=== PATIENT | female | born 1945 | race Caucasian/White ===

== ENCOUNTER 2017-04-26 16:25 | Emergency (ER) | payer MEDICARE ==
[~2017-04-26] VITALS: Ht 160 cm; Wt 58.5 kg
[~2017-04-26 16:25] MED LIST: ARICEPT10 MG PO; ASCORBIC ACID500 M3 PO; ASPIR-LOW81 MG PO; ASPIRIN EC81 MG PO; B-12 DOTS500 MCG PO; BUPROPION HCL150 M2 PO; CARVEDILOL25 MG PO; CHLORTHALIDONE25 MG PO; CITALOPRAM HBR10 MG PO; CLOPIDOGREL75 MG PO; COREG25 MG PO; COUMADIN3 MG PO; COZAAR100 MG PO; CRESTOR20 MG PO; DAILY MULTIPLE1 EACH PO; DOXAZOSIN MESYLA2 MG PO; ESCITALOPRAM OX10 MG PO; FISH OIL 1,0001 EAC2 NG; HYDRALAZINE HCL10 MG PO; KLOR-CON 1010 MEQ PO; LASIX20 MG PO; MIRTAZAPINE7.5 MG PO; NORCO 5-325 TA1 EACH PO; NORCO 7.5-3251 EACH PO; NORVASC10 MG PO; POTASSIUM CHLO20 ME1 PO; PROTONIX40 MG PO; SYNTHROID50 MCG PO; TRAZODONE HCL50 MG PO; ULTRAM50 MG PO; VITAMIN D1000 UNI1 PO
--- NOTE | 2017-04-27 18:36 | EKG ---
[facility] [address] [place] [address] Signed Ventricular-paced rhythm Abnormal ECG When compared with ECG of 15-APR-2017 18:07, Vent. rate has decreased BY 9 BPM Confirmed by YAJAIRA AMIN MD ([id number]) on 04/27/2017 6:36:22 PM Electronically Signed By: YAJAIRA AMIN MD 04/27/17 1836 PATIENT NAME: SCOTLAILA Electrocardiogram DATE OF : 41 PHYSICIAN: YAJAIRA AMIN MD REPORT #: [id number] REPORT IS CONFIDENTIAL AND NOT TO BE RELEASED WITHOUT AUTHORIZATION
[2017-05-23] MEDS ORDERED: OMEPRAZOLE20 MG PO (10:07)
== END 2017-04-26 17:48 | disposition home or self-care (01) ==
LOC: ED 16:25
DX: R07.2 Precordial pain (principal); I10 Essential (primary) hypertension; Z90.710 Acquired absence of both cervix and uterus; Z90.49 Acquired absence of other specified parts of digestive tract; Z88.0 Allergy status to penicillin; Z88.2 Allergy status to sulfonamides; Z88.8 Allergy status to other drugs, medicaments and biological substances; Z79.899 Other long term (current) drug therapy; Z79.82 Long term (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; Z79.01 Long term (current) use of anticoagulants
CPT/HCPCS: 71020; 80053; 84484; 85025; 85610; 93005; 93010; 99284

== ENCOUNTER 2017-06-13 19:52 | Inpatient (IN) | payer MEDICARE ==
[~2017-06-13] VITALS: Ht 160 cm; Wt 60.6 kg
[~2017-06-13 19:52] MED LIST changes: +OMEPRAZOLE20 MG PO
--- NOTE | 2017-06-13 23:30 | NUR ---
PT ARRIVED TO THE FLOOR VIA STRETCHER. PT ABLE TO STAND AND TRANSFER TO THE BED. PT DENIES PAIN OR SOB. PT UNABLE TO ACCURATELY REMEMBER HER LAST NAME, HER BIRTHDAY, TIME OR LOCATION. CRACKLES AND EXPIRATORY WHEEZES NOTED THROUGHOUT ALL LUNG ESCOBEDO. WHEEZE CLEARS WITH COUGH, CRACKLES REMAIN. PT'S MONIK AREA CLEANSED, CATH PLACED PER MD ORDER. PT TOLERATED WELL. BED ALARM IN PLACE. CALL LIGHT WITHIN REACH.
--- NOTE | 2017-06-14 00:15 | NUR ---
PT PULLING AT CATHETER, BECOMING AGGRESSIVE. EXPLAINED TO PT THAT SHE HAS TO LEAVE TUBE IN PLCE. PT STATES "I DON'T GIVE A DAMN." UPDATED. ORDER RECEIVED TO REMOVE HAZEL. PT TOLERATED WELL. PT UP TO BATHROOM, URINATED 150. BED ALARM IN PLACE. CALL LIGHT WITHIN REACH.
--- NOTE | 2017-06-14 03:39 | NUR ---
PT UP SEVERAL TIMES TO USE THE BATHROOM, TOLERATING WELL. IMPULSIVE. ATTEMPTS TO GET OOB WITHOUT ASSISTANCE. BED ALARM IN PLACE, FREQUENT REMINDERS. SCD'S TAKEN OFF PT BOTHERED BY THEM. STATES "I THINK THERE IS A CAT IN BED WITH ME", POINTS TO LEGS. CALL LIGHT WITHIN REACH, PT REMINDED TO USE.
--- NOTE | 2017-06-14 04:20 | NUR ---
PT ASSESSMENT COMPLETE. PT DENIES PAIN OR SOB. EXPIRATORY WHEEZE NOTED TO ALL LUNG ESCOBEDO, CLEARS WITH COUGH. CRACKLES NOTED TO BILATERAL LUNG BASES ONLY. O2 @ 2LPM. IS @ BEDSIDE, PT USES APPROPRIATELY WITH FREQUENT INSTRUCTION. TELE IN PLACE. NO EDEMA NOTED TO BILATERAL LOWER EXTREMITIES. PT REMAINS DISORIENTED, PLEASANTLY CONFUSED. UP TO USE BATHROOM FREQUENTLY, ATTENDS IN PLACE. BED ALARM IN PLACE DUE TO IMPULSIVITIY, PT CONTINUES TO ATTEMPT TO GET UP WITHOUT ASSISTANCE.
--- NOTE | 2017-06-14 04:53 | NUR ---
BED ALARM ACTIVATED. PT FOUND TO BE SITTING UP IN BED. PT STATES SHE WAS "JUST MOVING AROUND". PT HAD TAKEN O2 OFF. REMINDED PT TO LEAVE O2 IN PLACE. UNDERSTANDING STATED. DENIES OTHER NEEDS. CALL LIGHT WITHIN REACH. BE ALARM ACTIVATED.
--- NOTE | 2017-06-14 05:32 | NUR ---
PT AWAKE MAJORITY OF NIGHT. DISORIENTED TO ALL. PLEASANTLY CONFUSED. IMPULSIVE; BED ALARM. CRACKLES TO BILATERAL LUNG BASES, O2 @ 2LPM. TELE #7, PACEMAKER. SBA. PT USES BATHROOM APPROPRIATELY, ATTENDS IN PLACE PREVENTIVELY. IV SL. 1600 FLUID RESTRICTION.
--- NOTE | 2017-06-14 07:15 | NUR ---
RECEIVED REPORT FROM PER EV[place]ETT. PATIENT IS SLEEPING IN BED AT THIS TIME.
--- NOTE | 2017-06-14 07:20 | NUR ---
patient had attends changed with [facility]. call button in reach. turned onto back. no other needs at this time.
--- NOTE | 2017-06-14 08:35 | NUR ---
WENT TO ADMINISTER [phone] AND [phone] MEDICATIONS, HOWEVER PATIENT WAS RECEIVING ECHOCARDIOGRAM. MEDICATIONS WILL BE ADMINISTERED AFTER TEST IS COMPLETE.
--- NOTE | 2017-06-14 08:40 | NUR ---
patient sitting up in bed with nurse in room. patient throwing up at this time.
--- NOTE | 2017-06-14 08:40 | NUR ---
patient up to bathroom. ultra sound tech in room.
--- NOTE | 2017-06-14 09:30 | NUR ---
PATIENT IS RESTING IN BED SLEEPING. MORNING MEDICATIONS ADMINISTERED AND ASSESSMENT DONE. PATIENT WOULD LIKE TO ORDER BREAKFAST.
--- NOTE | 2017-06-14 10:20 | NUR ---
PATIENT DOES NOT WANT TO EAT HER BREAKFAST AND WAS PUT BACK IN BED. BED ALARM ON AND PATIENT HAS NO OTHER NEEDS AT THIS TIME.
--- NOTE | 2017-06-14 10:45 | NUR ---
PATIENT'S JUST LEFT ROOM. ORAL CARE DONE. FACE AND HANDS WASHED. PATIENT STATES SHE NEVER EATS BREAKFAST AND THAT SHE IS REALLY TIERED. NO OTHER NEEDS AT THIS TIME. CALL BUTTON IN REACH. BED ALARM ON.
[2017-06-14] MEDS ORDERED: COUMADIN3 MG PO (11:20)
[2017-06-14] MEDS ORDERED: OMEPRAZOLE40 MG PO (11:40)
[2017-06-14] MEDS ORDERED: NITROGLYCERIN0.4 MG SL (11:55)
--- NOTE | 2017-06-14 11:56 | NUR ---
PATIENT IS RESTING IN BED. HAS NO NEEDS AT THIS TIME. SHE WOULD JUST LIKE TO SLEEP.
--- NOTE | 2017-06-14 12:20 | NUR ---
PATIENT TAKEN TO BATHROOM. BED ALARM IS ON. PATIENT HAS NO NEEDS AT THIS TIME.
--- NOTE | 2017-06-14 13:22 | NUR ---
PATIENT IS LAYING IN BED RESTING. SHE DENIES ANY NEEDS AT THIS TIME.
--- NOTE | 2017-06-14 13:53 | NUR ---
AROUND NOON I CAME INTO CHECK ON THE PT TO SEE IF SHE WANTED LUNCH AND SHE TOLD ME SHE REALLY WAS NOT HUNGRY AND WOULD PREFER TO WAIT TO EAT.
--- NOTE | 2017-06-14 14:13 | NUR ---
PATIENT IS UP IN CHAIR EATING LUNCH. EATING WAS ENCOURAGED. PATIENT HAS NO OTHER NEEDS AT THIS TIME.
--- NOTE | 2017-06-14 14:45 | NUR ---
CCU REPORTED THAT THE PATIENT HAD A RUN OF VTACH. DR. BONILLA IS AWARE AND HAS REVIEWED THE STRIP. NO NEW ORDERS AT THIS TIME.
--- NOTE | 2017-06-14 14:58 | NUR ---
PATIENT CONTINUES TO NOT HAVE AN APPETITE. ENSURE CLEAR WAS ENCOURAGED AND PATIENT WAS AGREEABLE. SHE HAS NO NEEDS AT THIS TIME.
--- NOTE | 2017-06-14 15:38 | NUR ---
PATIENT TAKEN TO BATHROOM. FOR ACTIVITY, COLORING PAGES WERE GIVEN SHE DOES NOT LIKE TO WATCH TV. PATIENT STATES THAT SHE WOULD LIKE TO SEE HER . SHE HAS NO OTHER NEEDS AT THIS TIME.
--- NOTE | 2017-06-14 15:58 | EKG ---
[facility] [address] [place] [address] Signed Atrial fibrillation with occasional ventricular-paced complexes and with premature ventricular or aberrantly conducted complexes Left axis deviation Low voltage QRS Septal infarct , age undetermined Possible Lateral infarct , age undetermined Inferior infarct , age undetermined Abnormal ECG When compared with ECG of 26-APR-2017 16:31, Vent. rate has increased BY 19 BPM Confirmed by NAZARIO BNOILLA MD ([id number]) on 06/14/2017 3:57:55 PM Electronically Signed By: NAZARIO BONILLA MD 06/14/17 1558 PATIENT NAME: LAILA ELLISON Electrocardiogram DATE OF : 41 PHYSICIAN: NAZARIO BONILLA MD REPORT #: [id number] REPORT IS CONFIDENTIAL AND NOT TO BE RELEASED WITHOUT AUTHORIZATION
--- NOTE | 2017-06-14 16:13 | NUR ---
PT GIVEN COLORING SHEETS AND CRAYONS. SITTING UP IN BED.
--- NOTE | 2017-06-14 16:37 | NUR ---
PATIENT HAS BEEN ANXIOUS TO SPEAK WITH HER THIS AFTERNOON. HER HUSBNAD WAS CALLED AND TRANSFERED TO HER ROOM.
--- NOTE | 2017-06-14 17:21 | NUR ---
SPOKE WITH THE PATIENT AND HER THIS EVENING ABOUT THE PATIENT'S EATING PATTERN AT HOME. THE STATED THAT THE PATIENT NORMALLY EATS A BOWL OF CEREAL IN THE MORNING, A SANDWICH FOR LUNCH, AND WHATEVER THE MAKES FOR DINNER. ENCOURAGED THE PATIENT TO EAT HER DINNER. ALSO UPDATED THE PATIENT ON HER CONDITION AND THE TREATMENT PLAN. ALL QUESTIONS AND CONCERNS WERE ADDRESSED.
--- NOTE | 2017-06-14 17:26 | NUR ---
Medications reconciled by pharmacist using pharmacy records and patient interview.
--- NOTE | 2017-06-14 17:49 | NUR ---
PATIENT HAS BEEN IN BED THROUGHOUT DAY. VITALS STABLE, NO COMPLAINTS OF NAUSEA OR PAIN. BED ALARM IS NEEDED THE PATIENT IS IMPULSIVE WHEN GETTING OUT OF BED TO THE BATHROOM. THE PATIENT WAS ENCOURAGED TO EAT HER MEALS THROUGHOUT THE DAY, BUT THE PATIENT REFUSED. ENSURE WAS PROMOTED. SHE ALSO IS NOT DRINKING MANY FLUIDS WITH A FLUID INTAKE OF 280 ML TODAY. FREQUENT PROMPTING IS NECESSARY TO GET HER TO DRINK FLUIDS. THERE WERE NO ACUTE CHANGES FROM BEGINNING OF SHIFT ASSESSMENT. INTENTIONAL ROUNDING WAS DONE WITH ALL PATIENT'S NEEDS MET.
--- NOTE | 2017-06-14 20:00 | NUR ---
RECEIVED REPORT AT 1900. FOUND PT AWAKE IN BED.
--- NOTE | 2017-06-14 22:00 | NUR ---
ALL LOBES ARE DIMINISHED BUT CLEAR. PT IS ONLY ORIENTED TO SELF FAR KNOWING HER FIRST NAME ONLY. V/S ARE WDL, PT HAS NO PERIPHERAL EDEMA AND NO SOB. PT ALSO DENIES PAIN. BED ALARM IS ON AND PT NEEDS TO BE ENCOURAGED TO EAT. AT THIS TIME PT HAS MULTIFORM PVC'S SHOWING ON TELE #7.
--- NOTE | 2017-06-15 00:46 | NUR ---
PT IS SLEEPING AT THIS TIME.
--- NOTE | 2017-06-15 03:51 | NUR ---
PT IS SLEEPING AT THIS TIME.
--- NOTE | 2017-06-15 04:43 | NUR ---
PT OVERALL HAD AN UNEVENTFUL NIGHT. V/S ARE WDL SO FAR. PT NEEDS TO INCREASE HER PO FOOD INTAKE. THIS SHIFT PO LIQUID INTAKE HAS BEEN 250ML SO FAR. PT HAS NO PERIPHERAL EDEMA, NO SOB EITHER. PT IS ONLY ORIENTED TO SELF. BED ALARM IS ON SINCE PT IS NOT CALLING WHEN NEEDING TO GET OUT OF BED. NO NEW ISSUES NOTED SO FAR THIS SHIFT.
--- NOTE | 2017-06-15 07:12 | NUR ---
REPORT RECEIVED FROM PER ARTEAGA. PT SLEPT MOST OF NIGHT AFTER DOSE OF SEROQUEL FOR AGITATION AND RESTLESSNESS. ASLEEP NOW. BED ALARM ON.
--- NOTE | 2017-06-15 09:25 | NUR ---
PT IN ROOM. PT TOLERATED BREAKFAST WELL.
--- NOTE | 2017-06-15 09:52 | NUR ---
PT IS RESTING IN BED SAFELY WITH CALL LIGHT IN REACH AND BED ALARM ON. PT DOES NOT WANT TO SHOWER, BUT I WILL ASK AGAIN LATER. PT DID NOT NEED ANYTHING AT THE MOMENT
--- NOTE | 2017-06-15 10:07 | NUR ---
PT LEFT PHONE NUMBER TO CALL AFTER THE DR DOES ROUNDS. WILL CALL IF ANYTHING CHANGES.
--- NOTE | 2017-06-15 11:30 | NUR ---
PT MAG DEREK MATA. PT VERBALIZED UNDERSTANDING TO LEAVE IV TUBING ALONE. PT NAPPING UNTIL LUNCH.
--- NOTE | 2017-06-15 11:41 | NUR ---
PT SITTING UP IN BED EATING LUNCH. STATES IT IS DELICIOUS TODAY AND APPEARS TO BE EATING ALL OF IT. PUMP BEEPING DUE TO HER BENDING HER ARM.
--- NOTE | 2017-06-15 12:38 | NUR ---
PT NAPPING IN BED. GOT UP TO RESTROOM AND HAD SMALL AMT OF BLOOD ON TISSUE, APPEARS TO BE FROM A HEMORRHOID. WILL ASSESS NEXT TIME SHE IS OUT OF BED.
--- NOTE | 2017-06-15 14:35 | NUR ---
PT IS SITTING UP IN BED COLORING AND VISITING WITH SPOUSE. CALL LIGHT IN REACH AND BED ALARM ON. PT ASKED FOR A CUP OF COFFEE WILL CHECK WITH NURSE DUE TO FLUID RESTRICTION
--- NOTE | 2017-06-15 15:18 | NUR ---
PT BACK IN ROOM. WAS IN TO TALK TO HIM. PT IN BED COLORING.
--- NOTE | 2017-06-15 16:18 | NUR ---
PT REMOVED HER IV ACCIDENTALLY. OK'D LEAVING IT OUT. PT BORED, WALKED WITH THIS RN IN THE HALLWAY X1. SLIGHTLY SOB BY THE END OF ONE LAP.
--- NOTE | 2017-06-15 16:40 | NUR ---
PT SHOWERED AND IS NOW SITTING UP IN CHAIR COLORING TAG ALARM ON.
--- NOTE | 2017-06-15 17:17 | NUR ---
PT REMAINED ORIENTED TO SELF ONLY, DOES NOT REMEMBER BIRTHDAY OR AGE. PLEASANT. WALKED IN SAPP AND AMBULATES TO BATHROOM WITH STANDBY. DENIES CONCERNS.
--- NOTE | 2017-06-15 20:00 | NUR ---
RECEIVED REPORT AT 1900. FOUND PT IN BED WITH AT BEDSIDE..
--- NOTE | 2017-06-15 22:30 | NUR ---
V/S ARE WDL. ALL LOBES ARE CLEAR, PT DENIES PAIN OR SOB, NO PERIPHERAL EDEMA NOTED. PT IS MORE COOPERATIVE THIS SHIFT SO FAR. PO FOOD INTAKE HAS ALSO INCREASED.
--- NOTE | 2017-06-16 00:52 | NUR ---
PT IS SLEEPING AT THIS TIME.
--- NOTE | 2017-06-16 03:15 | NUR ---
PT IS AWAKE AND WORRIED ABOUT HER HUSBANDS WHEREABOUTS. I REDIRECTED HER AND SHE DECIDED TO GO BACK TO BED. PT HAD NO RECOLLECTION OF HER VISITING YESTERDAY. PT IS BACK IN BED NOW.
--- NOTE | 2017-06-16 04:53 | NUR ---
PT HAS NOT REALLY SLEPT MUCH THIS SHIFT. PT AT TIMES WAS WORRIED ABOUT HER NOT BEING HERE WITH HER. OVERALL PT WAS MUCH EASIER RE-DIRECTED THIS SHIFT AND HAS NOT WANDERED OFF. ALL LOBES WERE CLEAR AND NO PERIPHERAL EDEMA HAS BEEN NOTED. INTAKE IS BELOW ALLOWED 1600ML UNTIL BREAKFAST. V/S ARE WDL. NO NEW PROBLEMS NOTED AT THIS TIME.
--- NOTE | 2017-06-16 09:19 | NUR ---
PT CARE ASSUMED. PT UP TO AMBULATE IN HALLWAY WITH . NO NEEDS AT THIS TIME
[2017-06-16] MEDS ORDERED: FUROSEMIDE20 MG PO (10:15)
--- NOTE | 2017-06-16 11:03 | NUR ---
PT GIVEN DISCHARGE INTRUSTIONS. VERBALIZED UNDERSTANDING. ALSO RECIEVED INSTRUCTIONS FROM PHARMACY ON MEDS. PT ALERT AND BASELINE MENTAL STATUS AT DISCHARGE.
--- NOTE | 2017-06-16 14:13 | NUR ---
TALKED WITH THE PT AND HER THIS AM AND THEY WERE VERY OPEN TO HAVING AN RN COME OUT AND CHECK ON PT REGULARLY FOR AWHILE. DR CASEY WROTE ORDERS FOR HOME HEALTH RN TO WEEKLY COME CHECK ON PT. FAXED CHART NOTES TO [facility] THAT INCLUDE FACESHEET, ER NOTES, H AND P, PROG NOTES, IMAGING, LAB, MEDS, PT EVAL, DC SUMMARY AND PACKET AND ORDER FOR RN.
--- NOTE | 2017-06-16 14:14 | NUR ---
PT DRESSED, LAYING IN BED WITH IN RM-WAITING FOR DC. SHE SEEMED ALERT, MOSTLY ORIENTED AND JOKED SOME WITH HER . HAD GOOD VISIT, ENCOURAGED THEM TO NOT HESITATE TO ASK QUESTIONS UPON DC, ACKNOWLEDGED. GAVE PRAYER OF BLESSING, GOD BLESS THEM
== END 2017-06-16 11:00 | disposition home or self-care (01) | DRG 292 ==
LOC: ED 19:52 → MS 22:50
PROVIDERS: ADMIT Internal Medicine
DX: I11.0 Hypertensive heart disease with heart failure (principal); I48.1 Persistent atrial fibrillation; I50.33 Acute on chronic diastolic (congestive) heart failure; E03.9 Hypothyroidism, unspecified; D69.6 Thrombocytopenia, unspecified; G30.9 Alzheimer's disease, unspecified; F02.80 Dementia in other diseases classified elsewhere, unspecified severity, without behavioral disturbance, psychotic disturbance, mood disturbance, and anxiety; Z66 Do not resuscitate; R09.02 Hypoxemia; K21.9 Gastro-esophageal reflux disease without esophagitis; Z87.891 Personal history of nicotine dependence; Z95.0 Presence of cardiac pacemaker; Z88.0 Allergy status to penicillin; Z88.2 Allergy status to sulfonamides
CPT/HCPCS: 36415; 71010; 80048; 80053; 83735; 83880; 84484; 85025; 85610; 93005; 93010; 93306; 94644; 94668; J3475

== ENCOUNTER 2017-09-18 22:48 | Emergency (ER) | payer MEDICARE ==
[~2017-09-18] VITALS: Ht 160 cm; Wt 60.6 kg
[~2017-09-18 22:48] MED LIST changes: +FUROSEMIDE20 MG PO; +NITROGLYCERIN0.4 MG SL; +OMEPRAZOLE40 MG PO
[2017-09-18] MEDS ORDERED: MAGNESIUM200 MG PO (23:11)
[2017-09-19] MEDS ORDERED: COUMADIN3 MG PO (17:30)
--- NOTE | 2017-09-19 18:48 | EKG ---
[facility] [address] [place] [address] Signed Atrial fibrillation premature ventricular complexes verus aberrant conduction Right axis deviation Low voltage QRS Cannot rule out Anteroseptal infarct , age undetermined ST \T\ T wave abnormality, consider inferior ischemia Abnormal ECG When compared with ECG of 13-JUN-2017 20:01, Current undetermined rhythm precludes rhythm comparison, needs review Confirmed by NAZARIO BONILLA MD ([id number]) on 09/19/2017 6:47:55 PM Electronically Signed By: NAZARIO BONILLA MD 09/19/17 1848 PATIENT NAME: LAILA ELLISON Electrocardiogram DATE OF : 41 PHYSICIAN: NAZARIO BONILLA MD REPORT #: [id number] REPORT IS CONFIDENTIAL AND NOT TO BE RELEASED WITHOUT AUTHORIZATION
== END 2017-09-19 00:25 | disposition home or self-care (01) ==
LOC: ED 22:48
DX: R06.00 Dyspnea, unspecified (principal); I10 Essential (primary) hypertension; G30.9 Alzheimer's disease, unspecified; F02.80 Dementia in other diseases classified elsewhere, unspecified severity, without behavioral disturbance, psychotic disturbance, mood disturbance, and anxiety; Z87.891 Personal history of nicotine dependence; Z90.49 Acquired absence of other specified parts of digestive tract; Z96.642 Presence of left artificial hip joint; Z95.0 Presence of cardiac pacemaker; Z88.0 Allergy status to penicillin; Z88.2 Allergy status to sulfonamides; Z91.048 Other nonmedicinal substance allergy status; Z79.899 Other long term (current) drug therapy; Z79.82 Long term (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; Z79.01 Long term (current) use of anticoagulants
CPT/HCPCS: 71020; 80053; 84484; 85025; 85610; 85730; 93005; 93010; 99284

== ENCOUNTER 2017-09-19 17:11 | Emergency (ER) | payer MEDICARE ==
[~2017-09-19] VITALS: Ht 160 cm; Wt 60.6 kg
[~2017-09-19 17:11] MED LIST changes: +MAGNESIUM200 MG PO
[2017-09-19] MEDS ORDERED: COUMADIN3 MG PO (17:30)
--- NOTE | 2017-09-20 18:05 | EKG ---
[facility] [address] [place] [address] Signed Atrial fibrillation with frequent ventricular-paced complexes Rightward axis Low voltage QRS Septal infarct , age undetermined ST \T\ T wave abnormality, consider inferolateral ischemia Abnormal ECG When compared with ECG of 18-SEP-2017 23:07, (Unconfirmed) Previous ECG has undetermined rhythm, needs review Confirmed by NAZARIO BONILLA MD ([id number]) on 09/20/2017 6:05:20 PM Electronically Signed By: NAZARIO BONILLA MD 09/20/17 1805 PATIENT NAME: LAILA ELLISON Electrocardiogram DATE OF : 41 PHYSICIAN: NAZARIO BONILLA MD REPORT #: [id number] REPORT IS CONFIDENTIAL AND NOT TO BE RELEASED WITHOUT AUTHORIZATION
== END 2017-09-19 19:04 | disposition home or self-care (01) ==
LOC: ED 17:11
DX: R07.89 Other chest pain (principal); I10 Essential (primary) hypertension; Z87.891 Personal history of nicotine dependence; Z90.49 Acquired absence of other specified parts of digestive tract; Z90.710 Acquired absence of both cervix and uterus; Z96.642 Presence of left artificial hip joint; Z88.0 Allergy status to penicillin; Z88.2 Allergy status to sulfonamides; Z91.048 Other nonmedicinal substance allergy status; Z79.899 Other long term (current) drug therapy; Z79.82 Long term (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
CPT/HCPCS: 36415; 71010; 80053; 84484; 85025; 85610; 93005; 93010; 99284

== ENCOUNTER 2017-10-14 22:58 | Inpatient (IN) | payer MEDICARE ==
[~2017-10-14] VITALS: Ht 160 cm; Wt 64.0 kg
[2017-10-15] MEDS ORDERED: NORVASC5 MG PO (01:15)
[2017-10-15] MEDS ORDERED: C-500500 MG PO (01:16)
[2017-10-15] MEDS ORDERED: CHLORTHALIDONE25 MG PO (01:18)
[2017-10-15] MEDS ORDERED: DIALYVITE V5000 UNIT PO (01:20)
[2017-10-15] MEDS ORDERED: K-TAB ER20 MEQ PO (01:22)
--- NOTE | 2017-10-15 01:45 | NUR ---
72YR OLD WOMAN ADMITTED FROM ER VIA STRETCHER TO ROOM 121. PT IS ALERT, ORIENT ED TO NAME AND THAT SHE IS AT THE HOSPITAL. 3 PERSON TO ASSIST SLIDING OVER ONTO BED. WARM BLANKET FOR COMFORT, APPEARS RELAXED,SL TO RAC TAPED SECURELY, NS BOLUS STARTED IN ER ALMOST COMPLETED. ORIENTED TO ROOM AND CALL LIGHT. BED ALARM IS ACTIVATED FOR PT SAFETY. ORDERS NOTED.
--- NOTE | 2017-10-15 02:30 | NUR ---
PT UNABLE TO KEEP ARM STRAIGHTENED, IV CONTINUES TO OCCLUDE. ROLLED WASH CLOTH PLACED AT WOO SITE UNDER KOBAN TO HELP KEEP IV FROM OCCLUDING. PT TOLERATES WELL. PT TAKES O2 OFF, DESPITE REORIENTATION TO KEEP IN PLACE. CONTINUOUS PULSE OX IN PLACE, SAO2 96%. PT DENIES OTHER NEEDS AT THIS TIME. CALL LIGHT WITHIN REACH, BED ALARM ACTIVATED, ROOM IN VIEW OF NURSES STATION.
--- NOTE | 2017-10-15 04:58 | NUR ---
PT RESTING IN BED WITH EYES CLOSED. RESPIRATIONS EVEN AND UNLABORED. PT APPEARS TO BE SLEEPING. SAO2 89%. O2 REPLACED WITH STRONG ENCOURAGEMENT FROM ENTRY LEVEL ASSISTANT MANAGER. PT ASSESSMENT COMPLETE. PT DENIES PAIN, NAUSEA, SOB. PT DROWSY DURING ASSESSMENT. PT SLOW/HESITANT TO ANSWER QUESTIONS. A&O X0. PT DENIES NEEDS AT THIS TIME. CALL LIGHT WITHIN REACH. BED ALARM ACTIVATED, ROOM IN VIEW OF NURSES STATION.
--- NOTE | 2017-10-15 05:33 | NUR ---
PT RESTED WELL SINCE ADMISSION. ALZHEIMER'S AT BASELINE, SOMETIMES ORIENTED TO SELF ONLY, OTHER TIMES A&O X 0. CONTINUOUS PULSE OX, O2 @ 2LPM VIA NC. INCONTINENT, ATTENDS IN PLACE. MONITOR FOR SKIN BREAKDOWN. BED ALARM ACTIVATED. 1-2 PA. NS @ 75, IV POSITIONAL.
--- NOTE | 2017-10-15 06:32 | NUR ---
PT'S ATTENDS CHANGED, NO UO AT THIS TIME. HOSPITALIST TO BE NOTIFIED. BARRIER CREAM APPLIED TO EXORATIONS ON BUTTOCKS. BLADDER SCAN SHOWS 104 ML, UPDATED. PT TO RECEIVE FLUID BOLUS.
--- NOTE | 2017-10-15 07:54 | NUR ---
REPORT RECIEVED FROM PER ESTRELLA. PT ASLEEP IN BED WITH NS BOLUS CURRENTLY INFUSING. THEN WILL INFUSE AT 100.
--- NOTE | 2017-10-15 08:17 | NUR ---
PATIENT DIDN'T WANT TO EAT RIGHT NOW SHE WANTS TO SLEEP.
--- NOTE | 2017-10-15 09:44 | NUR ---
PT AWAKE AND TALKING. HUNG BOLUS AND STARTED. INCREASED IVF TO 125. PT ALERT BUT DROWSY. TALKED ABOUT HER COMING UP AND THE WEATHER. CONFUSED TO EVENTS AND LOCATION.
--- NOTE | 2017-10-15 10:02 | NUR ---
PT AWAKE AND TALKING. PLEASANTLY CONFUSED. KNOWS SELF AND SITUATION BUT NOT LOCATION OR BIRTHDATE. BOLUS INFUSING. MORNING MEDS ADMINISTERED.
--- NOTE | 2017-10-15 10:58 | NUR ---
HELPED PATIENT TO THE BATHROOM, SHE NEEDED A ONE PERSON ASSIST.
--- NOTE | 2017-10-15 11:54 | NUR ---
PT CONTINUES TO SIT IN CHAIR. NOW HAS CHAIR ALARM ON DUE TO SHE GOT UP HERSELF. MEGAN POLLOCK DOING PT'S HAIR.
--- NOTE | 2017-10-15 11:56 | NUR ---
GAVE PATIENT A SHOWER AND WASHED HER HAIR SITTING UP IN CHAIR WITH CHAIR ALARM ATTACHED. GETTING HER A WARM BLANKET ALSO COMBED HER HAIR.
--- NOTE | 2017-10-15 14:42 | NUR ---
PLACED HAZEL, PT TOLERATED PROCEDURE WELL BUT NOW FEELS LIKE SHE NEEDS TO URINATE. REPEATEDLY TRIES TO GET OUT OF BED TO VOID. BED ALARM ON, IN ROOM AND REMINDED PT REPEATEDLY THAT SHE IS GOING ALREADY. PT HAS FLAGYL GOING AND THEN SWITCHES TO BOLUS AGAIN.
--- NOTE | 2017-10-15 15:05 | NUR ---
PT SETTING OF BED ALARM, THINKING SHE HAS TO GO TO THE RESTROOM. REORIENTED TEMPORARILY.
--- NOTE | 2017-10-15 15:58 | NUR ---
PT APPEARS TO BE ASLEEP. BOLUS STILL INFUSING AT 500
--- NOTE | 2017-10-15 16:23 | NUR ---
PT DID FAIRLY WELL THIS MORNING. UO REMAINED LOW. HAZEL PLACED THIS AFTERNOON AND PT REALLY DOES NOT LIKE. TRIES TO PULL OUT AND GET OUT OF BED TO USE RESTROOM. BED ALARM ON. GIVEN TYLENOL TO SEE IF IT WOULD HELP. MULTIPLE BOLUS' GIVEN. PLAN FOR GALLBLADDER REMOVAL LATER IN WEEK.
--- NOTE | 2017-10-15 16:44 | NUR ---
CALLED DR BONILLA REGARDING LOW URINE OUTPUT AND NOW REDDENED URINE FROM PULLING ON HAZEL. HE ORDERED CONTINUED MONITORING AND INCREASED IVF TO D5NS @200. PT LAYING FLAT IN BED WITH EYES CLOSED. APPEARS COMFORTABLE.
--- NOTE | 2017-10-15 19:19 | NUR ---
CALL TO DR. BONILLA TO LET HIM KNOW THAT PATIENT IS INCREASINGLY AGITATED SINCE HAVING THE HAZEL. PATIENT IS JUMPING OUT OF BED, PULLING ON CATHETER AND HAS BLOOD TINGED URINE. DR. BONILLA ORDERED Q2H VOID TO COMMODE, HAZEL D/C, COLLECT UA
--- NOTE | 2017-10-15 19:30 | NUR ---
in room assessing pt. ua of pink colored urine sent to lab, IV decreased to 75cc as per new orders. to order CXR, lungs with crackles. semicoop. f/c to be legt on until further orders
--- NOTE | 2017-10-15 19:50 | NUR ---
F/C DC'D TIP INTACT. PT UP TO BSC, HAD SMEAR OD YELLOW SCANT BM /ANAL DISCHARGE. BACK TO BED, MORE COOP, SAFETY REASSURED, PT REASSURED THAT HER KNOWS WHERE SHE IS. 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 CALMER. DI HERE. CXR OBTAINED. PT COOPERATIVE
--- NOTE | 2017-10-15 20:45 | NUR ---
up to brp. semi receptive to teaching, slightly verbal and physical fist threatening aggressive behavior. sob with ecertion presetn, took off O2 redirectable
--- NOTE | 2017-10-15 21:37 | NUR ---
V/S NOT TAKEN, ALLOW THE PATIENT TO REST PER RN DELIO.
--- NOTE | 2017-10-15 22:46 | NUR ---
BED ALARM SOUNDED, PT SITTING UP ON EDGE OF BED AND HAD PULLED IV OUT OF RAC, IMMED PRESSURE TO SITE AND DRSG APPLIED. DELIO RN SPOKE WITH DR BONILLA AND IV SITE WAS RESTARTED INTO RFA USING 22G. PT COOPERATED. COBAN USED TO SECURE. IVF INFUSING. PT RESTING COMFORTABLY ON BED.
--- NOTE | 2017-10-16 00:39 | NUR ---
RESTING, [address], IVF INFUSING, NO RESP DISTRESS
--- NOTE | 2017-10-16 01:42 | NUR ---
IVF INCREASED TO [address] BONILLA'S VERBAL ORDERS. PT RESTING, CALM, NO RESP DISTRESS, O2 2L N/C IN PLACE
--- NOTE | 2017-10-16 06:19 | NUR ---
PT CURRENTLY IN BED, RESTING, EYES CLOSED. HAS KEPT O2 2L NC IN PLACE. IV HAD TO BE RESTSARTED PT PULLED OUT. DID WELL WITH REASSURANCE. F/C WAS DC'D PT KEPT TUGGING AT TUBING, UA SAMPLE SENT TO LAB PER ORDERS. PT HAS BEEN UP TO BRP VOIDING ONLY 15CC APPROX. HAS HAD SMEARS OF YELLOW STOOL. PT WAS VERY AGGRESSIVE VERBALLY AND THREATENING WITH CLOSED FIST TO STAFF. PT REASSURED, CALMED DOWN. PT AMBIBALENT WITH FOLLOWING INSTRUCTIONS GIVEN. SOB WITH EXERTION PRESENT. CXR DONE PER DR KOHLER ORDERS, "RESOLVED CHF, ENLARGED HEART".
--- NOTE | 2017-10-16 06:48 | NUR ---
pt up to brp, voided small amounts yellow urine. 125cc. had small amount of browninsh mucoid bm. pt back to bed, requires one person assist. Sob with exertion present on returning to bed . sats 87%, back to 93% after placing O2 2L n/c on. bed alarm on. fall risk protocols. Lab drawn, procedures explained to pt. more coop and pleasant this am.
--- NOTE | 2017-10-16 06:56 | NUR ---
pt up to brp, one person assist. cont pulse ox in place 96%, O2 3L NC. Coop with instructions, no c/o pain, no cough at this time
--- NOTE | 2017-10-16 07:35 | NUR ---
PT RESTING QUIETLY IN BED EYES CLOSED RR 18 BPM EVEN. NO DISTRESS NOTED. PT APPEARS TO BE SLEEPING AT THIS TIME.
--- NOTE | 2017-10-16 09:23 | NUR ---
PT RESTNG IN BED QUIETLY, EYES CLOSED RR EVEN. NO DISTRESS NOTED. WAS REPORTED SHE DID NOT SLEEP WELL OVER NIGHT. PT APPEARS TO BE SLEEPING AT THIS TIME
--- NOTE | 2017-10-16 10:06 | NUR ---
PT AWAKE AM CARE AND TOOK TO BR
--- NOTE | 2017-10-16 10:06 | NUR ---
PT UP TO BEDSIDE COMMODE TO VOID. COOPERATIVE AT THIS TIME WITH CARE. FORGETFUL, CONTIUOUS RE-ORIENT AND RE-INFORCEMENT FOR PT SAFTY AND FALL PREVENTION.
--- NOTE | 2017-10-16 14:06 | NUR ---
TOOK PT TO THE BR AND HELPED MEGAN POLLOCK WITH VITALS.
--- NOTE | 2017-10-16 14:17 | NUR ---
CONSENT FOR SURGERY SIGNED BY . GALLBLADDER HANDBOOK GIVEN TO .
--- NOTE | 2017-10-16 14:17 | NUR ---
PT SITTING UP IN RECLINER VISITING FAMILY IN ROOM
--- NOTE | 2017-10-16 14:27 | EKG ---
[facility] [address] [place] [address] Signed Atrial fibrillation with frequent ventricular-paced complexes Right axis deviation Low voltage QRS Cannot rule out Anterior infarct , age undetermined Abnormal ECG When compared with ECG of 19-SEP-2017 17:14, Vent. rate has decreased BY 7 BPM Confirmed by NAZARIO BONILLA MD ([id number]) on 10/16/2017 2:26:52 PM Electronically Signed By: NAZARIO BONILLA MD 10/16/17 1427 PATIENT NAME: LAILA ELLISON Electrocardiogram DATE OF : 41 PHYSICIAN: NAZARIO BONILLA MD REPORT #: [id number] REPORT IS CONFIDENTIAL AND NOT TO BE RELEASED WITHOUT AUTHORIZATION
--- NOTE | 2017-10-16 15:21 | NUR ---
PT RESTING IN RECLINER EYES CLOSED RESPIRATIONS EVEN AT 18 BPM, NO DISTRESS NOTED AT THIS TIME. PT OPEN EYES AND SMILED AT RN.SHE REPORTS NO NEEDS OR CONCERNS
--- NOTE | 2017-10-16 18:08 | NUR ---
PT IN BED AWAKE. SET HER UP FOR DINNER.
--- NOTE | 2017-10-16 18:15 | NUR ---
PT HAS BEEN DROWSY INTERMITTEN OVER SHIFT. SHE HAS HAD FAMILY INTO VISIT. ONE PERSON ASSIST TO BATHROOM TO VOID. Q.S. URINE OUT, ALSO INCONTINENT. SHE HAS BEEN COOPERATIVE WITH CARE OVER SHIFT. PULLED I.V. AT 1730, NEW I.V. PLACED. SHE HAS BEEN IMPULSIVE TO GET OUT OF CHAIR OR BED WITHOUT CALLING. BED ALARM/CHAIR ALARM. PT WAS GIVEN VIT. K TO REVERSE INR FOR POSSIBLE SURGERY TOMORROW 1000. CONSENT IS SIGNED ON CHART.
--- NOTE | 2017-10-16 19:56 | NUR ---
PT RECEIVED PHONE CALL NEAR 1939, ONCE SHE WAS DONE WITH CALL SHE HOLLERED OUT SAYING SHE WAS TRYING TO CALL HER . REASSURED HER THATHE HAD HUNG UP THE PHONE, SHE WAS REDIRECTABLE, AND PLEASANT AT THIS TIME. PT AT THIS TIME HAS HER EYE CLOSED. CALL LIGHT WITHIN HER REACH.
--- NOTE | 2017-10-16 21:10 | NUR ---
PT LAYING IN BED, AWAKE. PT ALERT AND ORIENTED TO SELF AT THIS TIME. CONFUSED, RE-ORIENTED PT TO PLACE AND SITUATION, PT STATED "I DID NOT KNOW ANY OF THIS UNTIL NOW." PT PLEASENTLY CONFUSED AT THIS TIME. PT FIDGETY AT THIS TIME, GAVE TYLENOL. ALSO GOT PT UP TO BATHROOM TO VOID, NO OUTPUT AT THIS TIME. PT DENIES FURTHER NEEDS. CALL LIGHT IN REACH. BED ALARM ACTIVATED. VISIBLE FROM NURSES STATION.
--- NOTE | 2017-10-16 23:46 | NUR ---
pt pulled her iv out. new iv placed, pt tolerated well. pt confused, but pleasent at this time.
--- NOTE | 2017-10-17 00:06 | NUR ---
ASSISTED RN SANDI RE IV INSERTION. ASSISTED PATIENT USE THE COMMODE. PATIENT IS BACK IN BED. OFFERED WATER. BED ALARM ON.
--- NOTE | 2017-10-17 01:25 | NUR ---
PT TORE OFF DRESSING AROUND HER IV, REPLACED DRESSING WITH COBAN TO DETOUR PT FROM PULLING HER NEW IV OUT. PT REMAINS PLEASANTLY CONFUSED. VOIDED IN BSC, THEN BACK IN BED. CALL LIGHT IN REACH. BED ALARM. VISIBLE FROM NURSES STATION.
--- NOTE | 2017-10-17 02:18 | NUR ---
PT APPEARS ASLEEP, RR WNL AND UNLABORED. LIGHTS AND TV OUT IN ROOM. BED ALARM ACTIVATED. VISIBLE FROM NURSES STATION.
--- NOTE | 2017-10-17 04:40 | NUR ---
PT APPEARS TO BE SLEEPING.
--- NOTE | 2017-10-17 05:57 | NUR ---
ALERT, ORIENTED TO SELF ONLY, DOES NOT RE-ORIENT EASILY, BUT DOES RE-DIRECT. PT PULLED IV OUT LAST NIGHT, NEW IV PLACED. PT WAS PLEASENTLY CONFUSED WHILE AWAKE. SLEPT ON AND OFF OVERNIGHT. GAVE ZOFRAN FOR REPORTED NAUSEA. BED ALARM. 1 PERSON ASSIST TO BATHROOM.
--- NOTE | 2017-10-17 06:16 | NUR ---
pt up to bsc. small liquid/gelatinous, brown/marroon colored stool out. pt has no complaints at this time. pt back in bed, appears to be sleeping now. bed alarm. visible from nurses station.
--- NOTE | 2017-10-17 07:55 | NUR ---
RECIEVED REPORT AT PT'S DOORWAY IN ORDER TO NOT DISTURB SLEEPING PT, PT'S CURTAIN AND DOOR OPEN. REPORT RECIEVED FROM PER JUNIOR.
--- NOTE | 2017-10-17 08:11 | NUR ---
MESSAGE LEFT WITH DR. DIETZ'S PHONE REGARDING PATIENT 1.[address] BONILLA REGARDING INR, HE INDICATED TO FOLLOW SURGEONS DIRECTION.
--- NOTE | 2017-10-17 08:40 | NUR ---
PT IN BED, AROUSED TO VERBAL STIMULI. DENIED PAIN. STATED THAT SHE JUST FEELS TIRED AT THIS TIME.
--- NOTE | 2017-10-17 09:08 | NUR ---
PT AWAKE IN THE BED. AM CARE. WET WASH CLOTH. UPDATAED WB. PT HAS CALL LIGHT IN REACH.
--- NOTE | 2017-10-17 10:39 | NUR ---
FFP INFUSING AT 75 CC/HR FOR FIRST 15 MINUTES, THIS RN IN ROOM WITH PT, NO SIGNS/SYMPTOMS OF REACTION THUS FAR. PT RESTING QUIETLY.
--- NOTE | 2017-10-17 11:02 | NUR ---
PT HAD NO URINE OUTPUT IN LAST 4 HOURS, AND DENIES NEED TO VOID. NOTIFIED DR. BONILLA, WHO REQUESTED THAT PT HAVE A BLADDER SCAN. BLADDER SCAN DONE, SHOWED [address] BONILLA, WHO GAVE NO NEW ORDERS AT THIS TIME.
--- NOTE | 2017-10-17 11:35 | NUR ---
PT HAD SECOND UNIT FFP INFUSING, AFTER INFUSING FOR APROXIMATELY 3 MINUTES, PT STATED "I FEEL LIKE I HAVE ANTS ON ME", AND BEGAN ITCHING NECK, PER REPORT FROM JACQUELINE Santana RN. FFP INFUSION STOPPED BY PER PHILLIPS. NOTIFIED DR. DIETZ OF ABOVE NOTED, WHO GAVE TORB TO GIVE BENADRYL 25 MG IV X 1, NOW.
--- NOTE | 2017-10-17 11:43 | NUR ---
PT GIVEN BENADRYL 25 MG IV X 1, AND VS WERE ASSESSED PRIOR TO RESUMING FFP. PT NOW STATES THAT , "NO", SHE DOES NOT FEEL ITCHY. VSS.
--- NOTE | 2017-10-17 11:55 | NUR ---
PT HAD EPISODE OF C/O ITCHING, WAS GIVEN BENADRYL, AND PT DENIED ANY FURHTER ITCHING. VSS. SECOND UNIT OF FFP INFUSING, MONITORING FOR ANY OTHER S/S REACTION.
--- NOTE | 2017-10-17 12:12 | NUR ---
PT C/O "A LITTLE BIT" OF FEELING ITCHY, STOPPED FFP INFUSION, NOTIFIED DR. DIETZ VIA TELEPHONE. RECIEVED INSTRUCTIONS TO RESUME FFP INFUSION, AND TO HAVE PT GO TO OR WITH RETAIL SHIFT SUPERVISOR. NOTIFIED BETHEL Rioc, RETAIL SHIFT SUPERVISOR OF ABOVE NOTED, WHO STATED THAT SHE IS AWAITING PT'S HUSBANDS ARRIVAL TO FLOOR, WHICH SHOULD BE OCCUR SHORTLY.
--- NOTE | 2017-10-17 12:32 | NUR ---
PT LEFT FLOOR IN BED, ACCOMPANIED BY BETHEL Rico RN AND NIK COPE CRNA AT 1228. GOING TO OR. WAS IN ROOM, SPOKE WITH BETHEL Rico RN AND NIK Hernandez CRNA PRIOR TO TRANSFER OF PT TO OR.
--- NOTE | 2017-10-17 13:25 | NUR ---
PT IS NOW IN SURGERY.
--- NOTE | 2017-10-17 13:32 | NUR ---
MED REC COMPLETE WITH A FEW UNANSWERED QUESTIONS. DUE TO PATIENT'S DEMENTIA REFILL HISTORY OBTAINED FROM [facility]. PATIENT HAS NOT REFILLED AMLODIPINE OR CHLORTHALIDONE SINCE BEFORE 04/2017. THERE ARE ALSO SEVERAL OVER THE COUNTER ITEMS WHICH COULD NOT BE VERIFIED: VITAMIN C, VITAMIN D3, BITAMIN B12, MULTIVITAMIN, AND ASPIRIN.
--- NOTE | 2017-10-17 14:22 | NUR ---
10/17/17 1421 Ayala Hidalgo report from hot punch press operator.
--- NOTE | 2017-10-17 14:46 | NUR ---
REPORT GIVEN TO KRISTOFER RN, ICU.
--- NOTE | 2017-10-17 16:10 | NUR ---
too ccu room 127 via bed from [facility] s/p jannet alford. upon arrival to ccu pt is very somulent. not responding to commands. IS ON O2 VIA MASK AT 8L. REPORT RECIEVED FROM PACU. IV LR D5 HUNG AT 100 ML/HR. HAS OCC GRIMACE. STERI STRIPS TO LAB CHOLEY SITES INTACT. SMALL AMOUNT OF BLOOD NOTED AT SITE. HAZEL CATH PATENT WITH SMALL AMT OF URINE NOTED. IN ROOM.
--- NOTE | 2017-10-17 16:24 | NUR ---
DR. DIETZ PHONED IN AND UPDATED ON PATIENT CONDITION. IS AWRE OF PATIENTS SOMULANCE. WILL HANG FFP X 2UNITS THIS AFTERNOON. OXYMASK AT 3 LITER APPLIED.
--- NOTE | 2017-10-17 16:28 | NUR ---
GOT PATIENT WARM BLANKETS, TOOK VS, WENT TO LAB AND PICKED UP PATIENT'S FFP.
--- NOTE | 2017-10-17 16:30 | NUR ---
FIRST UNIT GRACY MATA. REMAINS VERY SOMULANT. WILL OPEN EYES BRIEFLY WHEN NAME SAID LOUD.
--- NOTE | 2017-10-17 16:49 | NUR ---
SAYING FEW WORDS. FFP INFUSING.
--- NOTE | 2017-10-17 17:27 | NUR ---
FIRST UNIT FFP INFUSED.
--- NOTE | 2017-10-17 17:33 | NUR ---
WENT TO LAB AND GOT FMP FOR PATIENT
--- NOTE | 2017-10-17 18:19 | NUR ---
nurse in room
--- NOTE | 2017-10-17 18:20 | NUR ---
iv site started to r hand, 20 GA THEN BOLU OF LR 500 ML OVER 2 HR HUNG. FFP INFUSING.
--- NOTE | 2017-10-17 18:38 | NUR ---
GOT PATIENT CUP OF ICE WATER
--- NOTE | 2017-10-17 19:09 | NUR ---
BOLUS CONT TO INFUSE. FFP X 2 UNITS INFUSED. VERY SLEEPY. SAMLL AMOUNT OF BLOOD NOTED ON GOWN. AWARE OF U/O FOR PAST HOUR.
--- NOTE | 2017-10-17 19:27 | NUR ---
NO CHANGES. REPORT GIVEN.
--- NOTE | 2017-10-17 19:30 | NUR ---
PT SHIFT REPORT RECIVED FROM DAY SHIFT RN. ALL QUESTIONS ANSWERED. PT RESTING IN BED AT THIS TIME. WILL CONTINUE TO CLOSELY MONITOR. PER REPORT PT URINE OUTPUT IS VERY DIMINISHED. PT IS STILL VERY LETHARGIC FROM SURGERY. BED ALARM ON.
--- NOTE | 2017-10-17 20:00 | NUR ---
PT ASSESSMENT COMPLETED. PT REMAINS LETHARGIC BUT AROUSABLE TO NAME. PT UPDATED ON PLAN OF CARE AND REORIENTED NEEDED. PT INSICION SITE ARE INTACT. OLD DRAINAGE PRESENT. WILL CONTINUE TO CLOSELY MONITOR. PT DENIES PAIN AT THIS TIME.
--- NOTE | 2017-10-17 20:15 | NUR ---
UPDATED MD REGUARDING CONTINUED LOW URINE OUTPUT. PT URINE OUTPUT IS 6MLS THIS HOUR WITH FLUIDS AND FFP. MD AT BEDSIDE UPDATED THAT BREATH SOUNDS DIMININISHED IN LEFT LOWER LOBE. WHEN ASSISTING PT TO SIT UP CRACKLES IN BILATERAL LOWER BASES NOTED TO HAVE CRACKLES PER MD. WILL DO LABS AND XHEST XRAY. WILL CONTINUE TO CLOSELY MONITOR.
--- NOTE | 2017-10-17 22:10 | NUR ---
PT RECIVED LAXIS PER MD. PT URINE OUTPUT HAS BEEN VERY POOR. LABS AND XRAY COMPLETED PRIOR IN THE SHIFT. WILL CONTINUE TO REASSESS URINE. BED ALARM IN PLACE. WILL CONTINUE TO MONITOR.
--- NOTE | 2017-10-18 00:30 | NUR ---
PT RESTING IN BED. HOURLY URINE IS IMPROVED SINCE DOSE OF LASIX. WILL CONTINUE TO CLOSELY MONITOR. PT ASSESSMENT UNCHANGED FROM PREVIOUS ASSESSMENT. PT REMAINS CONFUSED AND NEEDS REORIENTATION. BED ALARM ON. WILL CONTINUE TO MONITOR.
--- NOTE | 2017-10-18 02:20 | NUR ---
PT RESTING IN BED. DENIES ANY PAIN. WILL CONTINUE TO MONITOR.
--- NOTE | 2017-10-18 04:29 | NUR ---
LEAD NITRATE PROCESSOR EVELYN TO DRAW LAB THIS AM. ONLY ENOUGH FOR BLUE TOP VIAL TO BE SENT. OTHER LEAD NITRATE PROCESSOR WILL HAVE TO DRAW REMAINING LABS IN THE AM. PT REMAINS CONFUSED, BUT COMPLIANT. PT IS RESTING IN BED NOW WITH BED IN THE LOWEST POSITION, CALL LIGHT IN HAND, AND BED ALARM ON. WILL CONTINUE TO CLOSELY MONITOR.
--- NOTE | 2017-10-18 06:36 | NUR ---
PT GOWN CHANGED TO CLEAN GOWN. PT TOELRATED WELL. URINE OUTPUT HAS CONTINUED TO IMPROVE THROUGHOUT THE NIGHT. PT TOOK PO MEDICATION THIS AM WITHOUT ANY ISSUES. WILL CONTINUE TO MONITOR.
--- NOTE | 2017-10-18 08:40 | NUR ---
PT UP TO BEDSIDE COMMODE WITH TERMITE CONTROL TECHNICIAN. MINIMAL ASSISTANCE REQUIRED. RETURNED TO BED AND SET UP FOR FIVE MINUTES WITH TERMITE CONTROL TECHNICIAN AT SIDE. BACK IN BED. CATHETER CARE, PERICARE PERFORMED. PT WASHED FACE. BED ALARM ON. NO FURTHUR NEEDS AT THIS TIME.
--- NOTE | 2017-10-18 10:02 | NUR ---
DR. BONILLA IN TO ASSESS PT. PT PULLED ON HAND SALINE LOCK AND IT WAS DC'D WITH CATH INTACT. PT RESTING WITH HOB ELEVATED.
--- NOTE | 2017-10-18 10:08 | NUR ---
MEDICATED WITH NORCO 1 PO FOR C/O SURGICAL DISCOMFORT. PT UNABLE TO RATE PAIN BUT STATES "IT HURTS".
--- NOTE | 2017-10-18 12:19 | NUR ---
REPORT GIVEN TO CHASE Rodriguez ON MED/SURG. PT INCONT OF STOOL AND ASSISTED UP TO BSC WITH 2 PERSON ASSIST. PT HAD SMALL LIQ DARK BROWN STOOL. PT TRANSFERRED TO ANNE MARIE CHAIR WITH PT USING THE WALKER. PT THEN TRANSFERRED TO ROOM 121 VIA ANNE MARIE CHAIR WITH MACHINE MILKER.
--- NOTE | 2017-10-18 13:30 | NUR ---
RECIEVED REPORT FROM CCU NURSE. PATIENT RESTING UP IN CHAIR WITH FAMILY IN THE ROOM. PATIENT DENIES PAIN AND NAUSEA. CALL LIGHT IN REACH. INFORMED FAMILY TO NOTIFY ME IF THEY DECIDE TO LEAVE SO THAT I MAY PUT A PEG ALARM ON HER.
--- NOTE | 2017-10-18 13:47 | NUR ---
PATIENT RESTING IN CHAIR. STATES HER STOMACH ACHES. ADMINISTERED PAIN MEDS PER DEC. TRANSFERRED PATIENT TO BED. BED ALARM ON. CALL LIGHT IN REACH.
--- NOTE | 2017-10-18 14:30 | NUR ---
PATIENT RESTING IN BED. NO C/O PAIN AT THIS TIME. ABD IS SOFT. LAP SITES X 5 INTACT WITH STERI STRIPS. BS HYPOACTIVE. LUNGS CLEAR. NO EDEMA. PATIENT IS ORIENTED TO SELF, KNOWS HER DATE BUT NOT THE YEAR. BED ALARM IN PLACE.
--- NOTE | 2017-10-18 15:45 | NUR ---
PATIENT RESTING IN BED. STARTED TO FALL ASLEEP. APPLIED NC. PATIENT HAS BEEN 92% ON RA WHILE AWAKE. BED ALARM IN PLACE. CALL LIGHT IN REACH.
--- NOTE | 2017-10-18 16:30 | NUR ---
ASSISTED PATIENT TO THE BATHROOM, PATIENT VOIDED, BACK TO BED. MEAL TRAY SERVED PATIENT DENIES FURTHER NEEDS. BED ALARM ON.
--- NOTE | 2017-10-18 17:41 | NUR ---
PATIENT'S I AND O COMPLETE AND VITALS TAKEN
--- NOTE | 2017-10-18 18:00 | OR ---
[facility] [address], [place] [address] Signed DATE OF OPERATION: 10/17/2017 SURGEON: Nik Dietz MD PREOPERATIVE DIAGNOSES: 1. Acute cholecystitis with gallstones. 2. Chronic anticoagulation with Coumadin for atrial fibrillation. POSTOPERATIVE DIAGNOSES: 1. Acute calculous cholecystitis. 2. Low-grade cirrhosis of liver. PROCEDURES: 1. Laparoscopic cholecystectomy with intraoperative cholangiogram, prolonged complicated and difficult. 2. Surgeon-directed fluoroscopy. 3. Liver biopsy. ANESTHESIA: General endotracheal, Nik Jennings CRNA. INDICATION: This 72-year-old white woman was admitted on 10/14/[address] Crisostomo with abdominal pain and findings that were of uncertain etiology initially. She is chronically anticoagulated with Coumadin on the basis of an atrial fibrillation issue. She has Alzheimer's dementia, which was rather significant. She is said to have not been eating well for the past 2 weeks and has probably had poor appetite for over the past 3 months. Abdominal pain is not well localized and on my examination with her, she denied pain, but she did have some mild tenderness in right subcostal area. Her chronic medical problems include a systolic heart failure issue with an ejection fraction of 20% to 25%, atrial fibrillation with a history of pacemaker placement, chronic anticoagulation with Coumadin as well as essential hypertension, hypothyroidism, and chronic thrombocytopenia. This is all in addition to her Alzheimer's dementia. She is well compensated regarding her dementia and carries on conversations seemingly without deficits though upon close inspection, clearly has significant dementia. An ultrasound has been performed showing a thickened gallbladder wall, possible gallstones. It is notable a year ago in August she was evaluated for similar such symptoms, but was only one month out from a rno-[id number] myocardial infarction. A HIDA scan was performed at that time, which was low normal in ejection fraction. Electronically Signed By: NIK DIETZ MD 10/18/17 [facility] PATIENT NAME: LAILA ELLISON OPERATIVE REPORT DATE OF : 41 PHYSICIAN: NIK DIETZ MD REPORT #: [id number] REPORT IS CONFIDENTIAL AND NOT TO BE RELEASED WITHOUT AUTHORIZATION [facility] [address], [place] [address] Signed She has had reversal of her anticoagulation initially with vitamin K 10 mg yesterday, but her INR prior to operation is still 1.7. On that basis, she has been given 2 units of fresh frozen plasma anticipating 2 more. The risks of bleeding, infection, bile duct injury, need for open procedure and other unforeseen complications were reviewed with the patient and her . Her , who is her power of senior trial attorney as well as the patient, both are agreed, she can wish to proceed with operation as planned. FINDINGS: Entry to the abdomen did show some ascites. It was bile-stained. There were adhesions of small bowel to the right lower quadrant from prior right lower abdominal incision. The upper abdomen confirmed a chronically and subacutely inflamed gallbladder, which was quite thickened and dull pink in appearance. It did require decompression. Medium-colored bile was noted during decompression. The liver itself had cirrhotic changes, not highly advanced, but definitely present. The operation was prolonged, complicated, and difficult on the basis of friability of the tissues, edema, and so forth it was accomplished safely. The cholangiogram was normal. Exceedingly, small cystic duct was noted. The gallbladder once excised showed subacute inflammation of mucosa with 3 small gallstones. DESCRIPTION OF PROCEDURE: The patient was brought to the operating room, given a general endotracheal anesthetic. Preoperative antibiotic Ancef was given. Sequential compression device stockings were used. She had just finished her second unit of fresh frozen plasma. After satisfactory general endotracheal anesthesia, the abdomen was prepared with a chlorhexidine solution and draped sterilely. An infraumbilical incision was made and the abdomen was entered. Friability of omentum and easy bleeding was noted quite immediately. There was some low-grade ascites noted as well. Using a Gin cannula technique, pneumoperitoneum was achieved at level 14 mmHg of carbon dioxide gas. Intraabdominal inspection was undertaken showing no sign of ascites or carcinomatosis. The liver was chronically and subacutely inflamed and the liver did have cirrhotic changes. Extra caution was warranted obviously under those circumstances. Three trocars were placed in usual configuration in the subxiphoid, right midclavicular, and right anterior axillary line. Gallbladder was not able to be grasped. It was so distended and there was marked edema of the infundibulum and surrounding tissues. The omentum which was attached to the gallbladder was gently taken down with blunt and electrocautery dissections with special care to avoid injury to the friable and edematous duodenum. The gallbladder was ultimately decompressed with a needle trocar device and the puncture site grasped and elevated cephalad. Using impressive caution, the infundibulum was dissected free showing markedly edematous tissue identifying well the gallbladder. The gallbladder was very friable and easily made to bleed. Ultimately, the Electronically Signed By: NIK DIETZ MD 10/18/17 1800 PATIENT NAME: LAILA ELLISON OPERATIVE REPORT DATE OF : 41 PHYSICIAN: NIK DIETZ MD REPORT #: [id number] REPORT IS CONFIDENTIAL AND NOT TO BE RELEASED WITHOUT AUTHORIZATION [facility] [address], [place] [address] Signed cystic duct and cystic arterial branches could be identified. Cystic artery was clipped. A clip was applied across gallbladder cystic duct junction and a transverse choledochotomy made in the exceedingly small cystic duct. Retrograde milking of the cystic duct showed some turbid bile. Using the Jones-type cholangiocatheter, intraoperative cholangiography was undertaken with surgeon-directed fluoroscopy. Free flow of contrast was noted in the biliary tree with prompt emptying into the duodenum. Retrograde flow into the biliary tree showed no sign of filling defect or other problems. The catheter was removed the cystic duct was triply clipped and divided, and the gallbladder dissected free with meticulous care in a retrograde fashion. The gallbladder was placed in an endobag and extracted through the infraumbilical port site without problem, opened on the back table and found to have 3 small gallstones, far fewer than I had anticipated. The mucosa was subacutely inflamed. There was no neoplasm. Irrigation was undertaken in subhepatic space. Once hemostasis was assured, some Eric hemostatic agent was applied to the area. The area of the left lateral segment of liver was chosen as a biopsy site. Percutaneously, a biopsy gun device was passed through the abdominal wall allowing for biopsy of the liver. Easy bleeding from the biopsy site was noted as expected and cautery was used to secure hemostasis as was some extra Eric. Excess irrigation fluid and bloody irrigation fluid were suctioned free. Removal of the epigastric port site showed some bleeding and therefore cautery was used and ultimately a Akil-Val device to secure the fascia with 0 Vicryl suture. Once hemostasis was assured and excess irrigation fluid once again suctioned free, all trocars removed showing no bleeding. The infraumbilical fascial incision was reapproximated with interrupted 0 Vicryl suture. All wounds were irrigated and closed with interrupted 3-0 Vicryl and Steri-Strips were applied. Not mentioned previously was the application of 17 mL of 0.25% Marcaine with epinephrine for postoperative analgesic benefit. A Richter catheter was placed at the end of the operation given the patient's somewhat challenging medical problems and the possibility of third space losses due to expected ascites reaccumulation. The operation was prolonged, complicated, and difficult for the aforementioned reasons taking 3 times longer than normal. Nik Dietz MD Electronically Signed By: NIK DIETZ MD 10/18/17 [facility] PATIENT NAME: LAILA ELLISON OPERATIVE REPORT DATE OF : 41 PHYSICIAN: NIK DIETZ MD REPORT #: [id number] REPORT IS CONFIDENTIAL AND NOT TO BE RELEASED WITHOUT AUTHORIZATION [facility] [address] [place] [id number] Signed ZAID/CARRIE /[id number] cc: Nik Michel MD [facility] MD Electronically Signed By: NIK DIETZ MD 10/18/17 1800 PATIENT NAME: LAILA ELLISON OPERATIVE REPORT DATE OF : 41 PHYSICIAN: NIK DIETZ MD REPORT #: [id number] REPORT IS CONFIDENTIAL AND NOT TO BE RELEASED WITHOUT AUTHORIZATION
--- NOTE | 2017-10-18 18:00 | CONS ---
[facility] [address], [place] [address] Signed DATE OF CONSULTATION: 10/15/2017 CONSULTING PHYSICIAN: Nik Dietz MD PROBLEM: Long-standing abdominal pain, poor appetite, and findings of thickened gallbladder with stones. HISTORY OF PRESENT ILLNESS: This 72-year-old white woman was admitted by Dr. Crisostomo earlier today, having been seen in the emergency room for what was I said to be two weeks of abdominal pain. The patient has significant Alzheimer's dementia, though she hides it impressively well on my interview with her. She has had no focal pain and at this point, denies any pain whatsoever and at any time whatsoever. She did have nausea, vomiting and some diarrhea, but no aggravating or relieving factors. According to her via Dr. Crisostomo the hospitalist, she has not really ate well in several weeks. Her presentation to emergency room showed her to be dehydrated with an elevated creatinine and elevated potassium level. She has been given intravenous fluids and so forth and seems to be better. It is notable that I consulted on her on September 12, 2016, nearly a year ago when she was admitted to the service of Dr. Hawkins. At that time, she was thought to have epigastric pain and a gallbladder ultrasound then showed no sign of stones. She ultimately underwent a CCK-HIDA test, which did not generate symptoms nor any abnormality of ejection fraction. Technically, it was noted to be normal with an ejection fraction of 43%. Apparently, some slight abdominal pain on the right side was noted at that time. The patient had other comorbidities including having been within a month of a non-STEMI myocardial infarction. At present, she has atrial fibrillation and is chronically anticoagulated with Coumadin. Her presentation INR was 1.5. I am told she is impressively noncompliant with her medication regimen. No doubt related to her neurologic deficiency related to dementia. She is also chronically thrombocytopenic. Platelet count today 131,000. She did not present with elevated white count was only 5.3 and today is 4.5. Chem profile is remarkable for a creatinine that actually went up today to 1.67 from 1.62 with a magnesium normal at 2.3 and bilirubin yesterday at 1.9 and now 1.4. Other liver enzymes are normal. Her troponin was normal. Lipase was normal. At present, the patient denies any abdominal pain. She states that she has had no problems eating and has had no nausea or vomiting. Her history is completely unreliable Electronically Signed By: NIK DIETZ MD 10/18/17 [facility] PATIENT NAME: LAILA ELLISON CONSULTATION DATE OF : 41 PHYSICIAN: NIK DIETZ MD REPORT #: [id number] REPORT IS CONFIDENTIAL AND NOT TO BE RELEASED WITHOUT AUTHORIZATION [address] [address] Signed based on her dementia. PHYSICAL EXAMINATION: GENERAL: A pleasant white woman, who does not look toxic in the slightest. She is sitting up in a chair. She easily interacts and has normal speech. Her trachea is midline. There is no hoarseness. There is no thyromegaly or carotid bruit. CHEST: Clear. HEART: Regular. HEART: Irregularly irregular. There is no murmur. ABDOMEN: Nondistended. Palpation reveals no tenderness or mass at this time. She has no ascites. EXTREMITIES: Show no clubbing, cyanosis, or edema. LAB STUDIES: As previously noted show white count of 4.5, hematocrit 38.1, and platelets 131,000. Chem profile with a creatinine of 1.67. Electrolytes otherwise normal. Bilirubin 1.4. AST, ALT, alkaline phosphatase all normal. Lipase yesterday 10. Urinalysis is essentially normal. I have reviewed the ultrasound images, which clearly are abnormal with thickening of the gallbladder wall and what appeared to be possible stones. ASSESSMENT: Her history is quite unreliable based on her dementia. From what we gather from her , she has not been eating well for quite some time and the gallbladder may be the underlying source of that problem. She is noncompliant with her medication use. It is notable that a year ago, she had an ultrasound that showed no stones, now she does have stones with thickening; that is the reason the CCK-HIDA test was performed a year ago, which did show technically normal ejection fraction of 43% (normal greater than 30%). She does have a diminished ejection fraction and therefore, residual from cardiovascular disease. In general terms, consideration for cholecystectomy would be made on the basis of her symptoms and ultrasonographic findings. Her creatinine is rising somewhat for reasons that are unclear, but it is not of a significant amount to materially influence things at this point. I will confer with Dr. Crisostomo, but cholecystectomy would be likely appropriate when she is considered medically stationary from resuscitation standpoint. We will need to talk with her about it more. There are added risks in her situation based on her cardiovascular problem and certainly a risk intrinsic to the operation itself including bile duct injury and so on. Electronically Signed By: NIK DIETZ MD 10/18/17 1800 PATIENT NAME: LAILA ELLISON CONSULTATION DATE OF : 41 PHYSICIAN: NIK DIETZ MD REPORT #: [id number] REPORT IS CONFIDENTIAL AND NOT TO BE RELEASED WITHOUT AUTHORIZATION [id number] [place], [place] [address] Signed MD ZAID Navas/CARRIE /[id number] cc: Ruth Crisostomo MD Electronically Signed By: NIK DIETZ MD 10/18/17 1800 PATIENT NAME: LAILA ELLISON CONSULTATION DATE OF : 41 PHYSICIAN: NIK DIETZ MD REPORT #: [id number] REPORT IS CONFIDENTIAL AND NOT TO BE RELEASED WITHOUT AUTHORIZATION
--- NOTE | 2017-10-18 19:55 | NUR ---
PATIENT CRAWLING OUT OF BED. CONFUSED. STATES SHE NEEDS TO GIVE BLANKET AND SHEET TO SOMEONE WHO JUST WALKED OUT OF ROOM, IS NOT AWARE THAT IT IS A BLANKET AND SHEET THAT SHE IS TALKING ABOUT HOWEVER. GOT PATIENT LAYING BACK IN BED, COVERED UP. WHITEBOARD UPDATED, ROOM TIDIED. GREEN SHEET SWITCHED OUT. DOES NOT NEED TO GO TO BATHROOM, DOES NOT WANT A DRINK OF WATER.
--- NOTE | 2017-10-18 20:41 | NUR ---
PT HAS SET BED ALARM OFF A COUPLE TIMES. AGITATED AT TIMES, BUT RE-DIRECTS EASILY. CONFUSED. ORIENTED ONLY TO SELF AT THIS TIME. PT HAS BEEN UP TO BATHROOM TO VOID, BUT HAS BEEN INCONTINENT, NO MEASURABLE VOIDS. PT TOLERATED AMBULATING WITH 1 PERSON ASSIST WELL. LAP SITES HAVE STERI STRIPS IN PLACE, DRY BLOOD ON STERI STRIPS. PT SEEMS RESTLESS, GAVE NORCO FOR PAIN. BED ALARM ON. VISIBLE FROM NURSES STATION.
--- NOTE | 2017-10-18 21:15 | NUR ---
BED ALARM SOUNDING. PT WANTING TO GO TO BATHROOM. ASSISTED PT TO BATHROOM, 1 PERSON ASSIST, WITH TAWANNA ASSISTANCE. PLEASANT, BACK TO BED. GAVE PT CALL LIGHT AND ENCOURAGED HER TO USE IT. BED ALARM PLACED ON. SIDE RAILS X 4. SCD'S OFF DUE TO INCREASE IN AGITATION WITH THEM BEING ON.
--- NOTE | 2017-10-18 23:21 | NUR ---
PATIENT ASLEEP DOING WELL.
--- NOTE | 2017-10-19 00:11 | NUR ---
PT HAS BEEN SLEEPING MAJORITY OF SHIFT. UP TO BATHROOM A COUPLE OF TIMES. DOES NOT USE CALL LIGHT, SETS BED ALARM OFF. PT PLEASENTLY CONFUSED. REFUSING TO WEAR SCD'S, PT GETS VERY AGITATED AND YELLED AT NURSING STAFF TO TAKE THEM OFF. BED ALARM ACTIVATED. LIGHTS AND TV OFF IN ROOM.
--- NOTE | 2017-10-19 00:51 | NUR ---
nurse in room
--- NOTE | 2017-10-19 00:57 | NUR ---
PT BED ALARM SOUNDING. ASSISTED PT TO BATHROOM AND BACK TO BED. DENIED PAIN, ASKED IF SHE WANTED SOMETHING FOR PAIN SAID NO. CALL LIGHT, BED RAILS X 4, BED ALARM PLACED. OFFERED AND ACCEPTED DRINK OF WATER.
--- NOTE | 2017-10-19 05:30 | NUR ---
PT SLEPT MOST OF SHIFT. CONFUSED AND FORGETFUL. LAP SITES X4 LOOK GOOD, STERI STRIPS IN PLACE. PT VERY IMPULSIVE, DOES NOT USE CALL LIGHT. BED ALARM FOR SAFETY. POSSIBLE DC TO HOME TODAY.
--- NOTE | 2017-10-19 06:28 | NUR ---
pt hollered out to use the bathroom. assisted to the br with fww, slightly unsteady on feet. Assisted back to bed with call light within reach, and bed alarm and rails x [address]
--- NOTE | 2017-10-19 07:03 | NUR ---
PT RESTING IN BED, BY HER SIDE. PT SMILED I APPROACHED HER. SHE BEGAN TO TRY TO TELL US BOTH SOMETHING, CONFUSED, HAD DIFFICULTY FINISHING THOUGHT. SHE KNEW SHE COULD NOT FINISH HER THOUGHT, JUST SMILED. THE MORE SHE TRIED TO INVOLVE HERSELF IN A CONVERSATION, THE MORE CONFUSED SHE BECAME AND FRUSTRATED. I EXTENDED A BLESSING, WILL CONTINUE TO FOLLOW NEEDED
--- NOTE | 2017-10-19 07:28 | NUR ---
RECIEVED REPORT FROM TOP ICER NURSE. PATIENT SLEEPING IN BED. BED ALARM IN PLACE. CALL LIGHT IN REACH.
--- NOTE | 2017-10-19 07:46 | NUR ---
PATIENT RESTING IN BED. MEAL TRAY SERVED, PATIENT STATES SHE IS NOT HUNGRY AND WOULD LIKE TO EAT LATER BECAUSE SHE IS TIRED. ABDOMEN IS SOFT, LAP SITES WNL. UMBILLICUS LAP SITE OPEN TO AIR, PLACED 2 STERISTRIPS OVER SITE. STERISTRIPS INTACT ON OTHER LAP SITES. ACTIVE BOWEL TONES. PATIENT IS NOT AWARE IF SHE IS PASSING FLATUS. LUNGS ARE CLEAR. RIGHT ARM HAS GENERALIZED EDEMA. BOOSTED PATIENT UP IN BED WITH ASSIST. TOILETING OFFERED. WATER PITCHER FILLED. PATIENT DENIES FURTHER NEEDS. BED ALARM IN PLACE CALL LIGHT IN REACH.
--- NOTE | 2017-10-19 09:21 | NUR ---
STAND BY ASSIST TO BATHROOM. PT USED 4WW. ASSISTED PATIENT WITH BED BATH AND PERICARE. PT UP IN CHAIR EATING BREAKFAST. CALL LIGHT WITHIN REACH. PT VISIBLE FROM NURSES STATION. NO FURTHUR NEEDS AT THIS TIME.
--- NOTE | 2017-10-19 09:43 | NUR ---
VS OBTAINED. NOTIFIED MD OF ELEVATED HR AND TEMPERATURE. PATIENT APPEARS TO BE VERY ANXIOUS AND DIAPHORETIC. ADMINISTERED ATIVAN. CAREGIVER AT BEDSIDE.
--- NOTE | 2017-10-19 09:48 | NUR ---
PATIENT SITTING UP IN CHAIR HAVING BREAKFAST. MORNING MEDICATIONS ADMINISTERED. CALL LIGHT IN REACH.
--- NOTE | 2017-10-19 10:34 | NUR ---
PATIENT STATES SHE IS IN PAIN. SHE POINTS AT THE CENTER OF HER ABDOMEN WHEN I ASK WHERE THE PAIN IS LOCATED. SHE STATES THE PAIN IS A MODERATE TO SEVERE LEVEL. 1 TAB NORCO ADMINISTERED WITH CUP OF PUDDING. BED ALARM ON. CALL LIGHT IN REACH.
--- NOTE | 2017-10-19 11:15 | NUR ---
PATIENT RESTING IN BED. TOILETING OFFERED. OFFERED TO WALK WITH PATIENT, PATIENT REFUSED. NO C/O PAIN. PATIENT STATES SHE WOULD LIKE TO "REST" FOR A BIT. BED ALARM IN PLACE. CALL LIGHT IN REACH.
--- NOTE | 2017-10-19 12:18 | NUR ---
ASSISTED PATIENT TO BATHROOM. PATIENT HAD A SMALL FORMED BM. AMBULATED PATIENT AROUND MS UNIT. PATIENT STATES, "I'M EXHAUSTED," WHEN WE GOT BACK TO THE ROOM. O2 BACK IN ROOM AT 95%. SPOUSE AT BEDSIDE. MEAL TRAY REMOVED. CALL LIGHT IN REACH. BED ALARM ON.
--- NOTE | 2017-10-19 12:22 | NUR ---
PT LAYING IN BED, HER HUSBAAND HAD JUST ARRIVED AND THEY SEEMED TO BE IN AN ENGAGING CONVERSATION. I SAID LATOYA, SHE WAVED AND APPEARED TO BE MUCH MORE ALERT AND ORIENTED TODAY. WILL RETURN AGAIN
--- NOTE | 2017-10-19 13:24 | NUR ---
PATIENT DENIES PAIN AT THIS TIME. PHYSICAL THERAPY IN TO WORK WITH PATIENT. SPOUSE AT BEDSIDE.
--- NOTE | 2017-10-19 14:01 | NUR ---
PATIENT UP TO BATHROOM WITH DATABASE ADMINISTRATOR.
[2017-10-19] MEDS ORDERED: COZAAR100 MG PO (14:25)
[2017-10-19] MEDS ORDERED: CARVEDILOL12.5 MG PO (14:25)
[2017-10-19] MEDS ORDERED: FUROSEMIDE20 MG PO (14:26)
--- NOTE | 2017-10-19 14:38 | NUR ---
CARE CONFERENCE ATTENDEE: PT AND STAFF CHASE VILLALOBOS RN, DR DISCUSSED WITH PT ABOUT HER DC AND THE WOULD LIKE HER UP AND WALKING MORE AND HE FEELS SHE WILL BE READY TO GO HOME TOMORROW WITH ONE MORE DAY OF EXERCISING. DENIES FURTHER QUESTIONS OR CONCERNS AT THIS TIME. WILL CONTINUE TO FOLLOW PT IN HOSPITAL.
--- NOTE | 2017-10-19 15:00 | NUR ---
PATIENT SLEEPING AT THIS TIME. CHECKED O2 WHILE SHE IS ASLEEP-O2 AT 95%. PATIENT DOES APPEAR TO BE PALE, BUT THIS HAS NOT CHANGED. SHE HAS BEEN PALE SINCE I MET HER YESTERDAY. ASSISTED PATIENT TO BATHROOM. PATIENT UNABLE TO VOID AT THIS TIME.
--- NOTE | 2017-10-19 15:10 | NUR ---
PATIENT C/O PAIN IN HER ABDOMEN, STATES HER PAIN IS AT A MODERATE LEVEL. NORCO ADMINISTERED PER DEC. PATIENT'S ABDOMEN IS SOFT, BS HYPOACTIVE AT THIS POINT. PATIENT'S APPETITE HAS NOT BEEN VERY GOOD TODAY. WILL ENCOURAGE PROTEIN SHAKES AT DINNER. LUNGS CLEAR, +1 PITTNG EDEMA IN BILATERAL CALFS AND ANKLES. WALKED WITH PATIENT IN HALLWAY W/O WALKER, PATIENT STILL UNSTEADY AND NEEDED ME FOR BALANCE. PATIENT BACK TO BED. DENIES FURTHER NEEDS. BED ALARM ON. CALL LIGHT IN REACH.
--- NOTE | 2017-10-19 15:50 | NUR ---
FAXED CHART NOTES TO [facility] FOR PT. THESE INCLUDED FACESHEET, ORDER, H AND P, CONSULT, OP NOTE, DC SUMMARY AND PT NOTES.
--- NOTE | 2017-10-19 17:16 | NUR ---
PATIENT UP TO BATHROOM WITH ASSIST. VOIDED. TRANSFERRED TO CHAIR FOR DINNER. NO C/O PAIN AT THIS TIME. CALL LIGHT IN REACH.
--- NOTE | 2017-10-19 19:05 | NUR ---
ASSISTED PATIENT TO BATHROOM. PATIENT UNABLE TO VOID. BACK TO BED. WARM BLANLET APPLIED TO HER COOL FEET.
--- NOTE | 2017-10-19 19:40 | NUR ---
BEDSIDE REPORT RECEIVED FROM PER STONE. PT CONFUSED, STATES READY TO GO HOME, ORIENTED TO TIME OF DAY, PT STATES "I GUESS I'M NOT GOING HOME THEN". SCDS APPLIED BILATERALLY TO PT LEGS. LAP SITES CDI X 5. PT HAS NO REQUESTS AT THIS TIME. CALL LIGHT IN REACH.
--- NOTE | 2017-10-19 19:55 | NUR ---
Up to brp, one assist, bed alarm on. Cooperative
--- NOTE | 2017-10-19 21:50 | NUR ---
PT ASSESSMENT COMPLETE. PT ALERT, ORIENTED TO SELF AND . PT CONFUSED REGARDING VISIT, NOT ORIENTED TO DATE, PER HANDOFF REPORT, PT NORMAL ORIENTATION. ABDOMEN SOFT, PT DENIES PAIN, LAP SITES CDI X 5. PT HAS SCDS ON. REQUESTING TO USE RESTROOM. QUALITY ASSURANCE CLERK JANUARY IN ROOM TO ASSIST PT. CALL LIGHT IN REACH.
--- NOTE | 2017-10-19 22:21 | NUR ---
VITALS AND I&OS DONE. HELPED HER TO THE BATHROOM WITH HER WALKER. GOT HER BACK INTO BED AND PUT HER SCDS BACK ON. BED ALARM ACTIVATED. CALL LIGHT AND BEDSIDE TABLE WITHIN REACH.
--- NOTE | 2017-10-19 23:17 | NUR ---
PTS BED ALARM WENT OFF, SHE WAS TRYING TO GET UP AND GO TO THE BATHROOM. I TOOK HER TO THE BATHROOM, WAITED TIL SHE WAS DONE AND GOT HER BACK INTO BED. PUT THE SCDS BACK ON HER. BED ALARM PUT BACK ON. PT NEEDS NOTHING ELSE AT THIS TIME. BEDSIDE TABLE AND CALL LIGHT WITHIN REACH.
--- NOTE | 2017-10-19 23:25 | NUR ---
PT SLEEPING, EYES CLOSED, RR 18, LIGHTS OFF IN ROOM, BED ALARM SET.
--- NOTE | 2017-10-20 00:54 | NUR ---
HELPED PT TO THE BATHROOM. GOT HER BACK TO BED , PLUGGED IN HER SCDS AND SET HER BED ALARM AGAIN. BEDSIDE TABLE AND CALL LIGHT WITHIN REACH. PT NEEDS NOTHING ELSE AT THIS TIME.
--- NOTE | 2017-10-20 01:30 | NUR ---
PT SLEEPING AT THIS TIME, BREATHING NON-LABORED, CURTAIN OPEN FOR VIEW FROM NURSES STATION, LIGHTS OFF IN ROOM.
--- NOTE | 2017-10-20 03:15 | NUR ---
IN PT ROOM PT TRYING TO GET OUT OF BED, ORIENTED PT, ASSISTED PT TO RESTROOM WITH SBA, PT STEADY ON FEET, CONFUSED REGARDING PLAN OF CARE, LOCATION, REORIENTED. PT BACK IN BED SCDS ON. PT ASSESSMENT COMPLETE, PTS LUNGS SOUND CLEAR IN ALL LOBES. MILD EDEMA NOTED IN LEGS BILATERALLY. PT REPORTS TENDERNESS IN ABDOMEN WITH MOVEMENT, ADMINISTERED NORCO PO X1 TABLET. BROUGHT PT ICE WATER, BED ALARM SET. CURTAIN OPEN FOR VIEW FROM NURSES STATION.
--- NOTE | 2017-10-20 04:35 | NUR ---
PT SLEEPING, EYES CLOSED, LIGHTS OFF IN ROOM, VISIBLE CHEST RISE FROM DOORWAY, BREATHING NON-LABORED, BED ALARM IS ON, SCDS ON.
--- NOTE | 2017-10-20 04:54 | NUR ---
PT CONTINUES TO BE IMPULSIVE, TRIED TO GET OUT OF BED WITH SCDS ON MULTIPLE TIMES THIS SHIFT, NOT ORIENTED TO PLACE, EVENT, OR DATE, PT REORIENTED THROUGHOUT SHIFT BY NURSING STAFF. LAP SITES CLEAN, DRY AND INTACT. PT COMPLAINED OF PAIN X1 RECEIVED PRN NORCO. PT AMBULATED TO COMMODE W 1PA MULTIPLE TIMES FOR VOIDS AND SMALL BMS. NO VASCULAR ACCESS.
--- NOTE | 2017-10-20 05:18 | NUR ---
IN PT ROOM PT FLAILING IN BED, SAYING "HELP". TOOK SCDS OFF PT REQUESTED. ASSISTED PT TO RESTROOM WITH SBA, PT STEADY ON FEET, REORIENTED TO LOCATION, EVENT. PT HAD SMALL BM AND 150 ML VOID. PT WASHED HANDS, BACK IN BED, SCDS OFF AT THIS TIME PT REFUSING. BED ALARM SET, CALL LIGHT NEXT TO PT.
--- NOTE | 2017-10-20 06:48 | NUR ---
PT AWAKENS TO VOICE, EDUCATED ON SCHEDULED THYROID MEDICATION, PT SAT UP IN BED INSTRUCTED TO SWALLOW PILL. NO ADDITIONAL NEEDS AT THIS TIME. BED ALARM SET.
--- NOTE | 2017-10-20 08:35 | NUR ---
in room with pt. morning assessment complete. up to bathroom with fww. standby assist. in chair. visible from nurses station.
--- NOTE | 2017-10-20 09:33 | NUR ---
PT IS SITTING AT THE SIDE OF THE BED WAITING TO BE DISCHARGED VITALS TAKEN AND PT IS DRESSED. PT DID NOT WANT TO EAT BREAKFAST OR SHOWER THIS MORNING.
--- NOTE | 2017-10-20 09:40 | NUR ---
assisted pt with getting dressed for discharge. pt tolerated well. discussed discharge instructions with pt. pt and verbalized understanding. education provided on diet, activity, medication, wound care, when to call the md, and appointment times.
--- NOTE | 2017-10-20 14:41 | NUR ---
FAXED HOME HEALTH ORDER AND DISCHARGE SUMMARY TO [facility]. SPOKE WITH YONG RIVETING MACHINE OPERATOR. THEY HAVE ALL PAPERWORK.
--- NOTE | 2017-10-24 13:54 | NUR ---
EVIDENTLY THE PT CALLED AND LEFT A MESSAGE ON THE [employer] PHONE ABOUT WHEN HE WAS GOING TO ORDER PT. I TALKED WITH YONG WHO STATED THAT SHE ALREADY HAD THE ORDERS AND PAPERWORK, JUST HAD A STAFFING PROBLEM. I CALLED AND TALKED WITH PT , HE WAS FINE WITH THIS.
== END 2017-10-20 10:00 | disposition home health service (06) | DRG 418 ==
LOC: ED 22:58 → MS 23:00 → CCU 10-17 14:25 → MS 10-18 12:35
PROVIDERS: Surgery; ADMIT Internal Medicine
PROC: 0FB04ZX Excision of Liver, Percutaneous Endoscopic Approach, Diagnostic (ICD-10-PCS; principal; 2017-10-17 09:45)
PROC: BF12YZZ Fluoroscopy of Gallbladder using Other Contrast (ICD-10-PCS; principal; 2017-10-17 09:45)
PROC: 0FT44ZZ Resection of Gallbladder, Percutaneous Endoscopic Approach (ICD-10-PCS; principal; 2017-10-17 09:45)
DX: K80.00 Calculus of gallbladder with acute cholecystitis without obstruction (principal); I50.22 Chronic systolic (congestive) heart failure; I11.0 Hypertensive heart disease with heart failure; I48.91 Unspecified atrial fibrillation; Z95.0 Presence of cardiac pacemaker; E03.9 Hypothyroidism, unspecified; G30.9 Alzheimer's disease, unspecified; F02.80 Dementia in other diseases classified elsewhere, unspecified severity, without behavioral disturbance, psychotic disturbance, mood disturbance, and anxiety; Z79.01 Long term (current) use of anticoagulants
CPT/HCPCS: 00790; 36415; 71010; 74300; 76705; 80053; 80069; 81001; 82140; 82247; 82465; 82570; 83615; 83690; 83735; 83880; 84100; 84300; 84478; 84484; 84540; 84550; 85025; 85610; 85730; 86704; 86706; 86803; 86850; 86900; 86901; 86920; 86927; 87340; 93005; 93010; 94762; 96361; 97161; G0378; J0330; J0696; J1100; J1200; J1720; J1885; J2250; J2405; J2704; J2710; J2765; J3010; J3430; J7030; J7040; J7042; J7120; Q9967

== ENCOUNTER 2017-11-06 15:00 | Observation (INO) | payer MEDICARE ==
[~2017-11-06] VITALS: Ht 160 cm; Wt 57.8 kg
[~2017-11-06 15:00] MED LIST changes: -B-12 DOTS500 MCG PO; +C-500500 MG PO; +CARVEDILOL12.5 MG PO; +DIALYVITE V5000 UNIT PO; +K-TAB ER20 MEQ PO; +NORVASC5 MG PO; +VITAMIN B-121000 MC2 PO
== END 2017-11-09 13:15 ==
LOC: ED 15:00 → MS 15:01 → ED 19:01 → MS 19:01
PROVIDERS: ADMIT Internal Medicine
DX: R62.7 Adult failure to thrive (principal); M62.81 Muscle weakness (generalized); K76.1 Chronic passive congestion of liver; I42.9 Cardiomyopathy, unspecified; I11.0 Hypertensive heart disease with heart failure; I50.22 Chronic systolic (congestive) heart failure; G30.9 Alzheimer's disease, unspecified; F02.80 Dementia in other diseases classified elsewhere, unspecified severity, without behavioral disturbance, psychotic disturbance, mood disturbance, and anxiety; R19.7 Diarrhea, unspecified; R09.02 Hypoxemia; E03.9 Hypothyroidism, unspecified; I48.2 Chronic atrial fibrillation; Z87.891 Personal history of nicotine dependence; Z95.0 Presence of cardiac pacemaker; Z79.82 Long term (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; Z79.899 Other long term (current) drug therapy; Z88.0 Allergy status to penicillin; Z88.2 Allergy status to sulfonamides; Z88.8 Allergy status to other drugs, medicaments and biological substances; Z90.49 Acquired absence of other specified parts of digestive tract
CPT/HCPCS: 36415; 71046; 80053; 81001; 83690; 83735; 83880; 84484; 85025; 87045; 87046; 87493; 94762; 96374; 97161; 97162; 97165; 99285; G0378; G8978; G8979; J3475

== ENCOUNTER 2018-02-22 20:31 | Emergency (ER) | payer MEDICARE ==
[~2018-02-22] VITALS: Ht 160 cm; Wt 57.8 kg
--- OUTSIDE RECORDS SUMMARY | ~2018-02-22 | XMS | Encounter Summary ---
Demographics + + + | Address | [address] | | | [place] [address] | + + + | Home Phone | | + + + | Preferred Language | Unknown | + + + | Marital Status | | + + + | Evangelical Affiliation | Unknown | + + + | Race | Unknown | + + + | Ethnic Group | Unknown | + + + Author + + + | Author | [facility] | + + + | Organization | [facility] | + + + | Address | Unknown | + + + | Phone | Unavailable | + + + Support + + + + + | Name | Relationship | Address | Phone | + + + + + | Mulu Dolan ECON | [address] | | | | | [place] | | | | | [phone] | | + + + + + | Julia Aguilar | ECON | Unknown | | + + + + + Care Team Providers + +------+ + | Care State Auditor Name | Role | Phone | + +------+ + | Carrillo Michel MD | PCP | | + +------+ + Reason for Visit +--------+ + | Reason | Comments | +--------+ + | Other | Appointment and Lab reminder | +--------+ + Encounter Details +--------+ + + + + | Date | Type | Department | Care Team | Description | +--------+ + + + + | 01/17/ | Telephone | [facility] | Vibha Vergara CMA | Other (Appointment | | 2018 | | [place] [address] | | and Lab reminder) | | | | [address] | | | | | | [place] [address] | | | | | | [phone] | | | +--------+ + + + [...] as of this encounter Plan of Treatment +--------+ + + + + | Date | Type | Specialty | Care Team | Description | +--------+ + + + + | 03/14/ | Office | Cardiology | Cecilia Ortega, | | | 2017 | Visit | | MD Mackenzie Valentin | | | | | | Dr [address]illa, | | | | | | [place] [address] | | | | | | [phone] | | | | | | | | +--------+ + + + + | 04/18/ | Documentati | Cardiology | | | | 2017 | on Only | | | | +--------+ + + + + as of this encounter Visit Diagnoses Not on filein this encounter"
--- OUTSIDE RECORDS SUMMARY | ~2018-02-22 | XMS | Encounter Summary ---
Demographics + + + | Address | [address] | | | [place] [address] | + + + | Home Phone | | + + + | Preferred Language | Unknown | + + + | Marital Status | | + + + | Uatsdin Affiliation | Unknown | + + + | Race | Unknown | + + + | Ethnic Group | Unknown | + + + Author + + + | Author | [facility] | + + + | Organization | [facility] | + + + | Address | Unknown | + + + | Phone | Unavailable | + + + Support + + + + + | Name | Relationship | Address | Phone | + + + + + | Mulu Dolan ECON | [address] | | | | | [place] | | | | | [address] | | + + + + + | Julia Aguilar | ECON | Unknown | | + + + + + Care Team Providers + +------+ + | Care Assistant Plant Control Operator Name | Role | Phone | + +------+ + | Carrillo Michel MD | PCP | | + +------+ + Encounter Details +--------+---------+ + + + | Date | Type | Department | Care Team | Description | +--------+---------+ + + + | 04// | Office | [facility] | Gilbert Rodriguez, | Stage 3 chronic | | 2018 | Visit | [place] [address] | [address] | kidney disease | | | | [address] | [address] | (Primary Dx); | | | | [address] [place], [place] | [place] [address] | Hypertension with | | | | [address] | [phone] | goal blood pressure | | | | | | less than 140/80 | +--------+---------+ + + + Social History [...] + + + | Blood Pressure | 130/80 | 01/24/2018 11:17 AM PDT | + + + + | Pulse | 64 | 01/24/2018 11:17 AM PDT | + + + + | Temperature | 36.6 C (97.8 F) | 01/24/2018 11:17 AM PDT | + + + + | Respiratory Rate | - | - | + + + + | Oxygen Saturation | 96% | 01/24/2018 11:17 AM PDT | + + + + | Inhaled Oxygen | - | - | | Concentration | | | + + + + | Weight | 54 kg (119 lb 1.6 | 01/24/2018 11:17 AM PDT | | | oz) | | + + + + | Height | 162.6 cm (5' 4") | 01/24/2018 11:17 AM PDT | + + + + | Body Mass Index | 20.44 | 01/24/2018 11:17 AM PDT | + + + + in this encounter Instructions Patient Instructions - Gilbert Rodriguez ARNP - 01/24/2018 11:20 AM PDT Medication Changes made at today's visit: None Next LAB WORK should be done in about: 4 Months You do NOT need to fast for this lab work, keep hydrated. Next APPOINTMENT: in about 4 Months Other Instructions: Low Salt Diet Recommended Renal US to be done soon. Please have lab work done 1 weeks prior to your appointment. Make sure you are well hydrated prior to going to the lab and are able to give a urine s ample. Call the office with any questions or concerns. If you are taking a proton pump inhibitor, such as Protonix (omeprazole), talk to your [facility] care provider about if you need this medication assisted. Call our office or your PCP if you have blood pressure over 150/90 on more than one occa debra, or have blood pressure concerns. If you experience diarrhea and /or vomiting for more than 24 hours with no relief please seek medical help. The treatments that are recommended to slow the progression of Chronic Kidney Disease in clude blood sugar control, blood pressure control, healthy body weight (BMI >= 30 kg/m2), av oid sedentary lifestyle, avoid smoking/ tobacco, glycemic control, avoid NSAIDs, early inter vention of worsening nausea, vomiting, or diarrhea and avoid IV contrast. I urge that you measure your BP at least daily, twice daily if you are able, record it a nd bring record to every appointment with every healthcare provider you see. Do not drink alcohol, caffeinated beverages, such as soda pop, coffee, espresso drinks, energy drinks. Please bring a list of your medications in the pharmacy bottles to every visit so a medi cation review can be done. Make all healthcare providers aware of the presence of kidney disease and request to adj ust all medications according to level of kidney function and to avoid nephrotoxic medicatio ns if possible, including but not limited to antibiotics. DO NOT TAKE any anti-inflammatory drugs such Ibuprofen, Diclofenac, Motrin, Advil, Mayes xicam, naprosyn (Aleve), Celebrex, decongestants containing pseudoephedrine (such as some fo brent of Sudafed or Actifed) or herbal supplements (because of lack of FDA approval) Short term use of acetaminophen (Tylenol) for fever or pain is okay. If in doubt please call our office for verification. Avoid exposure to IV contrast agents (DYE) used in CT scans, MRI's, Fluoroscopy, or in h eart catheterization procedures unless necessary or for a life saving procedure. It is recommend that you get regular aerobic exercise, this would be 3 x a week, eat a l ow fat/low salt diet, and see your primary care provider (PCP) for health maintinance and pe riodic exams at least annually. If you smoke, you must quit. Smoking worsens kidney disease. in this encounter Progress Notes Michael GilbertDIA - 01/24/2018 11:20 AM PDTFormatting of this note may be different f rom the original. 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 Dolan in consult today with her . As you are familiar with her case, I will not state her past history in detail. Briefly, she is a 72 y.o. female patient with past history as delineated above. she is here to follow up on h er CKD & its associated complications. In 06/2016, her sCr & eGFR were 1.46 & 35. *She has been lost to follow up since 2015. Her reports she has had two hospitilazations since her last visit, Most recent was late 2016. No hospital records for review, but I did review records from her primary care pr mitra's office. September 2017 she was admitted to [facility] in [place] for cho lecystitis and cirrhosis. He had a laparoscopic cholecystectomy. She struggled with low appe tite in October 2017. In November 2017 her creatinine was 1.4, GFR 37. The patient has history of hypertension since before 1995. her BP control has been reported ly inadequate per her . she denies any history of prolonged exposure to NSAIDs or rec ent exposure to known nephrotoxins. she denies any recurrent nephrolithiasis or pyelonephrit is. she tells me that she's had no history of urinary retention, gross hematuria or dysuria. she has no incontinence symptoms. No symptoms of UTI. * she has 1 nightly nocturia. No his tory of passing kidney stones. she has no foamy urine either. her baseline Creatinine is TBD . There is no family history of renal genetic diseases such as PKD. she says that she feels 'good ' today. she denies any blurred vision tinnitus, headache, f ever, chills, or cough. No nausea, vomiting, abdominal pain, diarrhea, melena, or hematoche tanya. No chest pain, palpitation, dizziness, loss of consciousness, orthopnea, paroxysmal no cturnal dyspnea, or leg edema. She has lost 12 pounds since late 2017. The following portions of the patient's history were reviewed and updated as appropriate: a llergies, current medications, past medical history, past social history, past surgical hist ory, family history and problem list. As in History of Present Illness & in Assessment. All the twelve systems were reviewed and were otherwise negative. Current Outpatient Prescriptions Medication Sig Dispense Refill ascorbic acid (VITAMIN C) 500 MG tablet Take 500 mg by mouth daily. aspirin 81 MG chewable tablet Take 81 mg by mouth daily with breakfast. carvedilol (COREG) 12.5 MG tablet Take 1 tablet by mouth 2 (two) times daily. 60 tablet 11 cholecalciferol (VITAMIN D-3) 1000 UNITS tablet Take 1,000 Units by mouth daily. cyanocobalamin (VITAMIN B-12) 1000 MCG tablet Take 1,000 mcg by mouth daily. donepezil (ARICEPT) 10 MG tablet Take 15 mg by mouth nightly. furosemide (LASIX) 20 MG tablet Take 1 tablet by mouth daily. Can take extra 20 mg prn If gain more than 2 lbs 35 tablet 11 levothyroxine (SYNTHROID, LEVOTHROID) 50 MCG tablet Take 50 mcg by mouth daily. losartan (COZAAR) 100 MG tablet Take 1 tablet by mouth daily. 30 tablet 11 mirtazapine (REMERON) 15 MG tablet Take 15 mg by mouth. Multiple Vitamin (MULTIVITAMIN) capsule Take 1 capsule by mouth daily. nitroGLYCERIN (NITROSTAT) 0.[address] 0.4 mg under the tongue every 5 (five) minutes as needed for Chest pain. potassium chloride (KLOR-CON) 20 MEQ packet Take 20 mEq by mouth 2 (two) times daily. doxazosin (CARDURA) 2 MG tablet Take 1 tablet by mouth nightly. (Patient not taking: Re ported on 01/24/2018) 30 tablet 11 magnesium oxide (MAG-OX) 400 MG tablet Take 1 tablet by mouth daily. (Patient not takin g: Reported on 01/24/2018) 30 tablet 11 omeprazole (PRILOSEC) 40 MG capsule Take 40 mg by mouth every morning before breakfast. warfarin (COUMADIN) 3 MG tablet Take 1 tablet by mouth Once daily-Coumadin. (Patient no t taking: Reported on 01/24/2018) 30 tablet 11 No current facility-administered medications for this visit. Physical Exam: BP 130/80 (BP Location: Right upper arm, Patient Position: Sitting) | Pulse 64 | Temp 97. 8 F (36.6 C) (Temporal) | Ht 1.626 m (5' 4") | Wt 54 kg (119 lb 1.6 oz) | SpO2 96% | BMI 20.44 kg/m General appearance: Pleasant, thin build, not in acute distress. Neck: Supple without tracheal deviation or jugular venous distension. Head and ENT: Head is atraumatic. The oropharynx is without erythema or thrush. Eyes: Anicteric. The extraocular muscle movements are normal. Lungs: Clear to auscultation bilaterally. There are no wheezes. Heart: Regular rate and rhythm without any rub, gallop. Faint systolic murmur at the RUSB. Abdominal exam: Soft and nontender with normal bowel sounds. Musculoskeletal: No costovertebral angle tenderness bilaterally. Extremities: Warm to touch with no leg edema. There is no cyanosis. Skin: There are no rashes, petechiae, or ecchymosis. Neurological: Awake, alert, and oriented to time, place, and person. Normal gross motor po wer. There is no asterixis. Lab Results Component Value Date BUN 24 (A) 01/23/2018 CREATININE 1.15 01/23/2018 EGFR 46 (A) 01/23/2018 NA 145 (A) 01/23/2018 K 3.5 (A) 01/23/2018 CL 104 01/23/2018 CO2 30 01/23/2018 CA 9.0 01/23/2018 PHOS 4.1 07/30/2016 MG 2.2 01/23/2018 ALB 3.5 01/23/2018 HGB 13.4 01/23/2018 URICACID 4.1 08/12/2016 WBC 4.6 01/23/2018 HCT 42.8 01/23/2018 Assessment: Ms. Dolan is a 72 y.o. female patient with stage IIIA CKD on a background of longstanding hypertension. 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 September 2017 she was admitted to [facility] in [place] for cholecystitis and c irrhosis. He had a laparoscopic cholecystectomy. She struggled with low appetite in October 2017. In November 2017 her creatinine was 1.4, GFR 37. RENAL FUNCTION: Relatively stable for her BLOOD PRESSURE: To be checked at home BLOOD SUGAR: Reports it normal ELECTROLYTES: Mild hypoK now ANEMIA: None VITAMIN D: To be checked thru your office PARATHYROID HORMONE: No need to check now URIC ACID: To be checked PROTEINURIA: To be checked URINALYSIS: To be checked VOLUME STATUS: Euvolumic. Discussions/Recommendations: I discussed today with Ms.. Dolan the meaning of her CKD and the interaction of that with her hypertension. I stressed the importance of keeping her BP controlled and avoiding getti ng dehydrated if we are to have a chance at helping preserve her renal function. She showed good understanding. I gave her instructions on how to chart her blood pressure in the appr opriate manner at home. She is to call us if they fall outside of the optimal provided rang e. She will bring her sphygmomanometer for validation once a year. She will strictly abide by a low salt diet and will avoid all kinds of NSAIDs for analgesia. Also: I liberalized the potassium in her diet, she may need more supplement if no improvement with diet changes. I will not change any of her vasoactive meds today. She will report back to me her home BP readings in 2-3 weeks. At that time, I will decid e whether any change to his vasoactive regimen is warranted. I will send her for a renal US soon. She will continue to F/U with your office regularly. She will have a RFP, Magnesium, CBC, reflex urinalysis, Urine total ovyoitk-al-hfqybraqz e ratio before she comes back in 4 months. 15 minutes of this 30-minute visit was spent in education and counseling. Thank you Dr Edwards for the opportunity to see this patient in consult today. Please do n ot hesitate to call me at any time with questions or concerns. Truly yours, Gilbert ALVARES [facility] in this encounter Plan of Treatment +--------+ + + + + | Date | Type | Specialty | Care Team | Description | +--------+ + + + + | 03/14/ | Office | Cardiology | Cecilia Ortega, | | | 2017 | Visit | | MD Mackenzie Valentin | | | | | | Dr Padilla, | | | | | | [place] [address] | | | | | | [phone] | | | | | | | | +--------+ + + + + | 04/18/ | Documentati | Cardiology | | | | 2017 | on Only | | | | +--------+ + + + + + +--------+ + + | Name | Priori | Associated Diagnoses | Order Schedule | | | ty | | | + +--------+ + + | US Retroperitoneal complete | Routin | Stage 3 Chronic | Expected: | | | e | Kidney Disease | 01/25/2018, Expires: | | | | Hypertension with | 01/24/2019 | | | | goal blood pressure | | | | | less than 140/80 | | + +--------+ + + as of this encounter Visit Diagnoses + + | Diagnosis | + + | Stage 3 chronic kidney disease - Primary | + + | Hypertension with goal blood pressure less than 140/80 | + +
--- OUTSIDE RECORDS SUMMARY | ~2018-02-22 | XMS | Encounter Summary ---
Demographics + + + | Address | [address] | | | [place] [address] | + + + | Home Phone | | + + + | Preferred Language | Unknown | + + + | Marital Status | | + + + | Anabaptist Affiliation | Unknown | + + + | Race | Unknown | + + + | Ethnic Group | Unknown | + + + Author + + + | Author | [facility] | + + + | Organization | [facility] | + + + | Address | Unknown | + + + | Phone | Unavailable | + + + Support + + + + + | Name | Relationship | Address | Phone | + + + + + | Mulu Dolan ECON | [address] | | | | | [place] | | | | | [address] | | + + + + + | Julia Aguilar | ECON | Unknown | | + + + + + Care Team Providers + +------+ + | Care Physical Therapy Nurse Name | Role | Phone | + [...] | | | | | [place] [address] | | | | | | [phone] | | | +--------+ + + + [...] | | | | | | [place] [address] | | | | | | [phone] | | | | | | | | +--------+ + + + + | 04/18/ | Documentati | Cardiology | | | | 2017 | on Only | | | | +--------+ + + + + as of this encounter Visit Diagnoses Not on filein this encounter"
--- OUTSIDE RECORDS SUMMARY | ~2018-02-22 | XMS | Encounter Summary ---
Demographics + + + | Address | [address] | | | [place] [address] | + + + | Home Phone | | + + + | Preferred Language | Unknown | + + + | Marital Status | | + + + | Jehovah'S Witness Affiliation | 1077 | + + + | Race | Unknown | + + + | Ethnic Group | Unknown | + + + Author + + + | Author | [facility] | | | and Priy[facility]ana | + + + | Organization | [facility] | | | and [...] [place] | | | | | [address] | | + + + + + | Karen Duarte | ECON | [address] | | | | | [place] | | | | | [address] | | + + + + + Care Team Providers + +------+ + | Care Enrollment Clerk Name | Role | Phone | [...] Description | +--------+--------+ + + + | 12/21/ | Refill | [facility] | Carrillo Michel, | Medication Refill | | 2018 | | [facility] [place] | [address] | | | | | [address] | [place] | | | | | [place] | [address] | | | | | [address] | | | | | | [phone] | | | +--------+--------+ + + + [...]
--- OUTSIDE RECORDS SUMMARY | ~2018-02-22 | XMS | Encounter Summary ---
Demographics + + + | Address | [address] | | | [place] [address] | + + + | Home Phone | | + + + | Preferred Language | Unknown | + + + | Marital Status | | + + + | Temple Affiliation | 1077 | + + + | Race | Unknown | + + + | Ethnic Group | Unknown | + + + Author + + + | Author | [facility] | | | and Priyankana | + + + | Organization | [facility] | | | and Priyankana [...] [place] | | | | | [address] | | + + + + + | Karen Duarte | ECON | [address] | | | | | [place] | | | | | [address] | | + + + + + Care Team Providers + +------+ + | Care Forming Department End Finder Name | Role | Phone | + +------+ + | Carrillo Michel MD | PCP | | + +------+ + Reason for Visit + + + | Reason | Comments | + + + | Lab Order | | + + + | Results | | + + + Encounter Details +--------+ + + + + | Date | Type | Department | Care Team | Description | +--------+ + + + + | 12/01/ | Telephone | [facility] | Carrillo Michel, | Lab Order; Results | | 2017 | | [facility] [place] | [address] | | | | | [address] | [place] | | | | | [place] | [id number] | | | | | [address] | | | | | | [phone] | | | +--------+ + + + [...]
--- OUTSIDE RECORDS SUMMARY | ~2018-02-22 | XMS | Encounter Summary ---
Demographics + + + | Address | [address] | | | [place] [address] | + + + | Home Phone | | + + + | Preferred Language | Unknown | + + + | Marital Status | | + + + | Islam Affiliation | 1077 | + + + | Race | Unknown | + + + | Ethnic Group | Unknown | + + + Author + + + | Author | [facility] | | | and Priyankana | + + + | Organization | [facility] | | | and [...] [place] | | | | | [address] | | + + + + + | Karen Duarte | ECON | [address] | | | | | [place] | | | | | [address] | | + + + + + Care Team Providers + +------+ + | Care Script Worker Name | Role | Phone | + +------+ + | Carrillo Michel MD | PCP | | + +------+ + Reason for Visit + + + | Reason | Comments | + + + | [facility] | | | Facility | | + + + Encounter Details +--------+---------+ + + + | Date | Type | Department | Care Team | Description | +--------+---------+ + + + | 11/30/ | Office | [facility] | Cynthia Sykes, | CKD (chronic kidney | | 2018 | Visit | [facility] | UNIT TECHNICIAN [address] | disease) stage 3, | | | | [address] | [place] | GFR 30-59 ml/min | | | | [place] | [address] | (Primary Dx); | | | | [address] | | Depression, | | | | [phone] | | unspecified | | | | | | depression type; | | | | | | Alzheimer's disease | | | | | | of other onset with | | | | | | behavioral | | | | | | disturbance; | | | | | | Cirrhosis of liver | | | | | | without ascites, | | | | | | unspecified hepatic | | | | | | cirrhosis type | | | | | | (HCC); Paroxysmal | | | | | | atrial fibrillation | | | | | | (HCC); Essential | | | | | | hypertension | +--------+---------+ + + + Social History [...] + + + | Blood Pressure | 134/70 | 11/30/2017 1545 PST | + + + + | Pulse | 72 | 11/30/2017 1545 PST | + + + + | Temperature | 36.9 C (98.4 F) | 11/30/20171544 PST | + + + + | Respiratory Rate | 16 | 11/30/20171544 PST | + + + + | Oxygen Saturation | 93% | 11/30/20171544 PST | + + + + | Inhaled Oxygen | - | - | | Concentration | | | + + + + | Weight | 58 kg (127 lb 13.9 | 11/30/20171544 PST | | | oz) | | + + + + | Height | - | - | + + + + | Body Mass Index | 23 | 11/30/2017 1545 PST | + + + + in this encounter Progress Notes Cynthia Sykes ARNP - 11/30/2017 1545 PSTFormatting of this note may be different from the original. Mulu Dolan is a 72 y.o. female and patient of Carrillo Michel MD here with Brandon chavira who provides most of the history. Patient is a poor historian due to advanced dementia. Chief Complaint: [facility] Facility HPI In September 2017 Ms. Dolan had gallbladder removed. Discharged from [facility] 10/19/17 . Braden was concerned about her fatigue and sleepiness and took her back to [facility] s he was observed there for 48 hrs, then went to [facility], and was discharged a wee k ago 11/23/17. She was started remron to help with appetite and depression. Taking 15 mg in the evening. H as been on it for 20 days. Braden feels this is making a big improvement "all around." would like to see this medication increased if appropriate. Mulu feels the medication is helping w ith appetite but with not with sleep and that Braden wouldn't know because he sleeps so sound ly at night. In any event they will need a refill of the remron. Lachelle jensen [facility] is working Braden to help keep Mulu active. PREVENTIVE CARE/PRIOR VISITS Any recommendations from Health Maintenance: Preventative Services TOPIC LAST DONE NEXT DUE Vaccine: Influenza 07/25/2017 Colon Cancer Screening (Colonoscopy Every 10 Years 50-75) 03/17/2011 03/17/2021 Vaccine: Dtap/Tdap/Td 07/19/2016 07/19/2026 Vaccine: Pneumococcal 65+ Low/Medium Risk 12/08/2016 Vaccine: Zoster 2003 Immunization History Administered Date(s) Administered INFLUENZA 65 Y OR >, TRIVALENT HIGH-DOSE 07/23/2014, 09/26/2016, 07/25/2017 INFLUENZA PF 18 Y OR >,TRIVALENT RECOMBINANT 09/06/2012 INFLUENZA QUADR W/PRES (PED/ADOL/ADULT) MULTIDOSE 11/11/2015 PNEUMOCOCCAL CONJUGATE 13-VALENT (PCV13) 05/07/2015 PNEUMOCOCCAL POLYSACCHARIDE 23-VALENT (PPSV23) 10/23/2007, 12/08/2016 TDAP, (ADOL/ADULT) 10/23/2006, 07/19/2016 Allergies Allergen Reactions Iodine Penicillins Hives Sulfa Antibiotics Codeine Nausea And Vomiting Medications: Patient Reported Taking Dosage AmLODIPine Besylate (NORVASC PO) (Taking) Take 10 mg by mouth Daily. ascorbic acid (VITAMIN C) 500 mg tablet (Taking) Take 500 mg by mouth Daily. Number of times this order has been changed since signin Order [facility] [place] aspirin 81 mg EC tablet (Taking) Take 81 mg by mouth Daily. carvedilol (COREG) 12.5 mg tablet (Taking) Take 1 tablet by mouth 2 times daily (with nicole akfast & dinner). To lower blood pressure and heart rate chlorthalidone 25 mg tablet (Taking) Take 1 tablet by mouth Daily. Number of times this order has been changed since signin [facility] [place] Cholecalciferol (VITAMIN D-3) 5000 units CAPS (Taking) Take 1,000 Units by mouth Daily. Number of times this order has been changed since signin [facility] [place] cyanocobalamin (VITAMIN B-12) 500 mcg tablet (Taking) Take 500 mcg by mouth Daily. donepezil (ARICEPT) 10 MG tablet (Taking) TAKE 1 1/2 TABLETS BY MOUTH NIGHTLY TO HELP MEM ORY Number of times this order has been changed since signin [facility] [place] escitalopram (LEXAPRO) 10 mg tablet (Taking) Take 1 tablet by mouth Daily. To help mood Number of times this order has been changed since signin [facility] [place] furosemide (LASIX) 20 mg tablet (Taking) Take 20 mg by mouth 2 times daily. Number of times this order has been changed since signin [facility] [place] levothyroxine (SYNTHROID, LEVOTHROID) 50 mcg tablet (Taking) TAKE ONE TABLET BY MOUTH DAMIEN Number of times this order has been changed since signin [facility] [place] losartan (COZAAR) 100 MG tablet (Taking) Take 1 tablet by mouth Daily. For high blood pre ssure Number of times this order has been changed since signin [facility] [place] Mirtazapine (REMERON PO) (Taking/Discontinued) Take 15 mg by mouth Daily. Number of times this order has been changed since signin [facility] [place] mirtazapine (REMERON) 15 MG tablet (Taking) Take 1 tablet by mouth nightly. Number of times this order has been changed since signin [facility] [place] Multiple Vitamin (MULTIVITAMIN PO) (Taking) Take by mouth Daily. Number of times this order has been changed since signin [facility] [place] nitroglycerin (NITROSTAT) 0.4 mg SL tablet (Taking) Place 1 tablet under the tongue every 5 minutes as needed for Chest pain. Number of times this order has been changed since signin [facility] [place] potassium chloride (K-DUR) 20 mEq ER tablet (Taking) Take 1 tablet by mouth 2 times daily . To be taken while on furosemide Number of times this order has been changed since signin Order [facility] [place] Past Medical History She has a past medical history of Anxiety; Atrial fibrillation (HCC); Cataract; Chicken pox ; Chronic insomnia; Dementia (2006); Depression; Heart murmur; Heartburn; Hypertension; Shira les; Pacemaker; Renal artery stenosis (HCC); Snoring; and Thyroid disease. Past Surgical History She has a past surgical history that includes Appendectomy (1962); Hysterectomy (1979); MAURO NT PLACEMENT ADDITIONAL VESS (01/2013); Achilles tendon surgery (1992); Colonoscopy; fracture surgery; joint replacement; pacemaker placement (02/25/2017); and Cholecystectomy (09/2017) . Family History: Her family history includes Cancer (age of onset: 56) in her father; Other (see comment) (a ge of onset: 80) in her mother. 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 Children: 2 daughters. Good relationship with Karen but poor relationship with Kristy (s he has drug problem and they are not on speaking terms) They are working on advance directive. Daughter Karen is back-up. She clearly states sh e is DNR/DNI. She is not sure she would want to be admitted if she had a severe infection t o where she were not able to communicate for herself. She definitely would not want a prolo nged admission. Review of Systems See HPI. Objective: Vitals: 11/30/17 1545 BP: 134/70 Pulse: 72 Resp: 16 Temp: 36.9 C (98.4 F) TempSrc: Temporal SpO2: 93% Weight: 58 kg (127 lb 13.9 oz) Physical Exam Constitutional: Pleasantly confused, no acute distress Neck: Neck supple. No thyromegaly present. Cardiovascular: Normal rate, regular rhythm, normal heart sounds and intact distal pulses. Exam reveals no gallop and no friction rub. No murmur heard. Pulmonary/Chest: Breath sounds normal. No respiratory distress. She has no wheezes. She has no rales. Abdominal: Soft. Bowel sounds are normal. She exhibits no distension and no mass. No tender ness. There is no rebound and no guarding. Musculoskeletal: She exhibits no edema Lymphadenopathy: She has no cervical adenopathy. Neurological: Pleasantly confused Psychiatric: She has a normal mood and affect. Her behavior is normal. Results for orders placed or performed in visit on 10/30/17 Comprehensive Metabolic Panel Result Value Ref Range NA 143 136 - 149 mmol/L K 4.8 3.5 - 5.1 mmol/L CL 103 98 - 109 mmol/L CO2 31 24 - 31 mmol/L ANION GAP 9 3 - 16 mmol/L GLUCOSE 74 70 - 109 mg/dL BUN 13 7 - 18 mg/dL Creatinine, Serum/Plasma 1.40 (H) 0.60 - 1.30 mg/dL eGFR if not 37 (L) >=60 mL/min/1.73m2 CALCIUM 8.9 8.3 - 10.5 mg/dL ALBUMIN 3.3 3.2 - 5.0 g/dL BILIRUBIN TOTAL 1.7 (H) 0.1 - 1.5 mg/dL Total protein 5.7 (L) 6.0 - 7.8 g/dL AST 27 10 - 42 U/L ALT 15 6 - 45 U/L ALK PHOS 84 40 - 110 U/L GLOBULIN 2.4 2.1 - 3.8 g/dL Albumin/Globulin ratio 1.4 0.8 - 2.0 BUN/CREA 9.3 CBC with Differential Result Value Ref Range WBC 7.8 4.0 - 11.0 K/uL RBC 5.04 3.70 - 5.20 M/uL Hgb 14.4 11.5 - 16.0 g/dL Hct 45.1 34.0 - 47.0 % MCV 89.5 83.0 - 101.0 fL MCH 28.5 28.0 - 35.0 pg MCHC 31.9 (L) 32.0 - 36.0 g/dL RDW-CV 19.8 (H) <15.0 % Platelet Count 195 140 - 440 K/uL MPV 10.2 fL % Neutrophils 79.4 45.0 - 82.0 % % Lymphocytes 12.9 (L) 20.0 - 45.0 % % Monocytes 5.8 4.0 - 12.0 % % Eosinophils 1.4 0.0 - 5.0 % % Basophils 0.5 0.0 - 1.0 % Absolute Neutrophils 6.20 1.80 - 8.50 K/uL Absolute Lymphocytes 1.00 0.60 - 3.20 K/uL Absolute Monocytes 0.50 0.00 - 1.00 K/uL Absolute Eosinophils 0.10 0.00 - 0.40 K/uL Absolute Basophils 0.00 0.00 - 0.10 K/uL Protime INR Result Value Ref Range Protime 16.5 (H) 11.3 - 13.9 seconds INR 1.33 (H) 0.90 - 1.10 Assessment: 1. CKD (chronic kidney disease) stage 3, GFR 30-59 ml/min Basic Metabolic Panel 2. Depression, unspecified depression type mirtazapine (REMERON) 15 MG tablet 3. 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 Cirrhosis of liver without ascites, unspecified hepatic cirrhosis type (HCC) 5. Paroxysmal atrial fibrillation (HCC) 6. Essential hypertension Plans: 1. CKD (chronic kidney disease) stage 3, GFR 30-59 ml/min Referral has been place to Dr. Pompa, nephrology, plan to assist with scheduling. -BMP 2. Depression, unspecified depression type Mood improved with mirtazapine. Given reduced kidney function and age I am refilling at the same dose today. Plan to follow up with Dr. Michel regarding appropriateness of increasing dose. - mirtazapine (REMERON) 15 MG tablet; Take 1 tablet by mouth nightly. Dispense: 30 tablet; Refill: 0 3. 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 Continue to work with Lachelle Wilcox. 4. Cirrhosis of liver without ascites, unspecified hepatic cirrhosis type (HCC) I do not see liver biopsy and hepatitis results in our system. Plan to request these from recent stay at [facility]. 5. Paroxysmal atrial fibrillation (HCC) Referral to Dr. Ortega has been approved. Plan to see that she is scheduled. Not in afib today. Continue on current medications. 6. Essential hypertension Blood pressure well controlled today. Continue on current medications. Follow up for blood pressures above goal. Follow-up: Return if symptoms worsen or fail to improve. 25 minute visit > 50% counseling regarding condition, options for treatment, and possible risks. 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
--- OUTSIDE RECORDS SUMMARY | ~2018-02-22 | XMS | Encounter Summary ---
Demographics + + + | Address | [address] | | | [place] [address] | + + + | Home Phone [...] | Author | [facility] | | | and Priyankana | + + + | Organization | [facility] | | | and Priyankana | [...] [place] | | | | | [address] | | + + + + + | Karen Duarte | ECON | [address] | | | | | [place] | | | | | [address] | | + + + + + Care Team Providers + +------+ + | Care Labor Arbitrator Name | Role | Phone | + [...] Description | +--------+--------+ + + + | 02/14/ | Refill | [facility] | Carrillo Michel, | Medication Refill | | 2018 | | [facility] [place] | [address] | | | | | [address] | [place] | | | | | [place] | [address] | | | | | [address] | | | | | | [phone] | | | +--------+--------+ + + + [...]
--- OUTSIDE RECORDS SUMMARY | ~2018-02-22 | XMS | Encounter Summary ---
Demographics + + + | Address | [address] | | | [place] [address] | + + + | Home Phone | | + + + | Preferred Language | Unknown | + + + | Marital Status | | + + + | Nondenominational Affiliation | 1077 | + + + | Race | Unknown | + + + | Ethnic Group | Unknown | + + + Author + + + | Author | [facility] | | | and Priyankana | + + + | Organization | [facility] | | | and Priyankana [...] [place] | | | | | [address] | | + + + + + | Karen Duarte | ECON | [address] | | | | | [place] | | | | | [address] | | + + + + + Care Team Providers + +------+ + | Care Station Detective Name | Role | Phone | + [...] + + | 12/01/ | Telephone | [facility] | Carrillo Michel, | Lab Order; Results | | 2017 | | [facility]ICINE [place] | [address] | | | | | [address] | [place] | | | | | [place] | [id number] | | | | | [address] | | | | | | [phone] | | | +--------+ + + + [...]
--- OUTSIDE RECORDS SUMMARY | ~2018-02-22 | XMS | Encounter Summary ---
Demographics + + + | Address | [address] | | | [place] [address] | + + + | Home Phone | | + + + | Preferred Language | Unknown | + + + | Marital Status | | + + + | Yazidi Affiliation | 1077 | + + + | Race | Unknown | + + + | Ethnic Group | Unknown | + + + Author + + + | Author | [facility] | | | and Priyankana | + + + | Organization | [facility] | [...] [place] | | | | | [address] | | + + + + + | Karen Duarte | ECON | [address] | | | | | [place] | | | | | [address] | | + + + + + Care Team Providers + +------+ + | Care Film Recordist Name | Role | Phone | + [...] + + | 12/21/ | Refill | [facility] | Carrillo Michel, | Medication Refill | | 2018 | | MEDICINE [place] | [address] | | | | | [address] | [place] | | | | | [place] | [address] | | | | | [address] | | | | | | [phone] | | | +--------+--------+ + + + [...]
--- OUTSIDE RECORDS SUMMARY | ~2018-02-22 | XMS | Encounter Summary ---
Demographics + + + | Address | [address] | | | [place] [address] | + + + | Home Phone | | + + + | Preferred Language | Unknown | + + + | Marital Status | | + + + | Orthodox Affiliation | Unknown | + + + | Race | Unknown | + + + | Ethnic Group | Unknown | + + + Author + + + | Author | [facility] | + + + | Organization | [facility] | + + + | Address | Unknown | + + + | Phone | Unavailable | + + + Support + + + + + | Name | Relationship | Address | Phone | + + + + + | Mulu Dolan ECON | [address] | | | | | [place] | | | | | [address] | | + + + + + | Julia Aguilar | ECON | Unknown | | + + + + + Care Team Providers + +------+ + | Care Wicker Worker Name | Role | Phone | + +------+ + | Carrillo Michel MD | PCP | | + +------+ + Encounter Details +--------+ + + + + | Date | Type | Department | Care Team | Description | +--------+ + + + + | 01/19/ | Telephone | [facility] | Julia Barreto | | | 2018 | | [facility]iology [place] | | | | | | [address] | | | | | | [place] | | | | | | [address] | | | | | | [phone] | | | +--------+ + + + [...] | | | | | | [place] [address] | | | | | | [phone] | | | | | | | | +--------+ + + + + | 04/18/ | Documentati | Cardiology | | | | 2017 | on Only | | | | +--------+ + + + + as of this encounter Visit Diagnoses Not on filein this encounter"
--- OUTSIDE RECORDS SUMMARY | ~2018-02-22 | XMS | Clinical Summary ---
Demographics + + + | Address | [address] | | | [place] [address] | + + + | Home Phone | | + + + | Preferred Language | Unknown | + + + | Marital Status | | + + + | Buddhist Affiliation | Unknown | + + + | Race | Unknown | + + + | Ethnic Group | Unknown | + + + Author + + + | Author | [facility] | + + + | Organization | [facility] | + + + | Address | Unknown | + + + | Phone | Unavailable | + + + Support + + + + + | Name | Relationship | Address | Phone | + + + + + | Laila Ellison ECON | [address] | | | | | [place] | | | | | [address] | | + + + + + | Julia Aguilar | ECON | Unknown | | + + + + + Care Team Providers + +------+ + | Care Disability Counselor Name | Role | Phone | + [...] | | | + + +--------+---------+------+------+-------+ | warfarin | Take 1 tablet by | 30 | 11 | 05/1 | 05/1 | Activ | | (COUMADIN) 3 MG | mouth Once | tablet | | 0/20 | 0/20 | e | | tablet | daily-Coumadin. | | | 17 | 18 | | + + +--------+---------+------+------+-------+ | carvedilol (COREG) | Take 1 tablet by | 60 | 11 | 05/2 | | Activ | | 12.5 MG tablet | mouth 2 (two) times | tablet | | 2/20 | | e | | | daily. | | | 17 | | | [...] | | | + + +--------+---------+------+------+-------+ | doxazosin | Take 1 tablet by | 30 | 11 | 10/0 | | Activ | | (CARDURA) 2 MG | mouth nightly. 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 | | 71yo WF, with dementia, she is here with her . Although | | she does not recall her recent hospitalization, nor her symptoms, | | he admits that she had chest discomfort, was admitted to the [facility] hospital. Cardiac enzymes were mildly abnormal, she was sent to | | [facility], there, she did have a cardiology | [...] + | Stage 3 chronic kidney disease | 07/29/2016 | + + + | [...] | +--------+ + + + + | 01/29/ | Documentati | | Carleen Gottlieb | Other (01/24/18 | | 2018 | on Only | | | Referral from | | | | | | Carrillo Michel ) | +--------+ + + + + | 01/24/ | Office | | Gilbert Rodriguez, | Stage 3 chronic | | 2018 | Visit | | REFRACTORY TECHNICIAN | kidney disease | | | | | | (Primary Dx); | | | | | | Hypertension with | | | | | | goal blood pressure | | | | | | less than 140/80 | +--------+ + + + + | 01/24/ | Documentati | | Vibha Vergara CMA | Labs Only ([facility] | | 2017 | on Only | | | Labs dated | | | | | | 01/23/2018) | +--------+ + + + + | 01/19/ | Telephone | | Julia Barreto | | | 2017 | | | | | +--------+ + + + + | 01/17/ | Telephone | | Vibha Vergara CMA | Other (Appointment | | 2018 | | | | and Lab reminder) | +--------+ + + + + from [...] + + + + Plan of Treatment +--------+ + + + + | Date | Type | Specialty | Care Team | Description | +--------+ + + + + | 03/14/ | Office | | Cecilia Ortega, | | | 2017 | Visit | | MD Mackenzie Valentin | | | | | | Dr Padilla, | | | | | | [place] [address] | | | | | | [phone] | | | | | | | | +--------+ + + + + | 04/18/ | Documentati | | | | | 2017 | on Only | | | | +--------+ + + + + + + + + + | Health Maintenance | Due Date | Last Done | Comments | + + + + + | Breast Cancer | | | | | Screening | 3 | | | | (Mammogram) | | | | + + + [...] | | | | (optimal intensity) | 7 | | | + + + + [...] + | Vaccine: Influenza | Completed | 07/25/2017, 09/26/2016, | | | | | 11/11/2015, Additional history | | | [...] | Rhythm | | | | | [address] | | | | | | | [...] | | | + +--------+------+ +--------+--------+--------+ Results Protein / creatinine ratio, urine (01/24/2018) + + + + | Component | Value | Ref Range | + + + + | UR | 619.3 (A) | 0 - 150 | | PROTEIN/CREATININE | | | + + + + + + + | Specimen | Performing Laboratory | + + + | Urine - Urine, | [facility] [address] [place] | | Unspecified Source | [id number] | + + + Urine microscopic only (01/24/2018) + + + + | Component | Value | Ref Range | + + + + | COLOR UA | Odalis | | + + + + | CLARITY | Cloudy | | + + + + | Specific [place], UA | 1.018 | 1.005 - 1.030 | + + + + | LEUKOCYTE ESTERASE | Negative | | + + + + | NITRITE | Negative | | + + + + | UROBILINOGEN | Normal | | + + + + | PROTEIN | Comment: 100 | | + + + + | PH,URINE | 5 | 5 - 9 | + + + + | BLOOD | Negative | | + + + + | KETONES | Negative | | + + + + | BILIRUBIN | Negative | | + + + + | GLUCOSE | Negative | | + + + + + + + | Specimen | Performing Laboratory | + + + | Urine | [facility] [address] | | | [address] | + + + + + | Narrative | + + | Bacteria: 1+ | + + CBC W/Auto Diff (Reflex to Manual) (01/23/2018 3:50 PM) + + + + | Component | Value | Ref Range | + + + + | WBC | 4.6 | 4.5 - 11.0 10^3/mL | + + + + | RBC | 4.53 | 3.8 - 5.1 10^6/ L | + + + + | HGB | 13.4 | 12 - 16 g/dL | + + + + | HCT | 42.8 | 35 - 45 % | + + + + | MCV | 94.6 | 81 - 99 fL | + + + + | MCH | 30 | 27 - 33 pg | + + + + | MCHC | 31 | 30 - 36 g/dL | + + + + | PLT | 164 | 140 - 440 K/ L | + + + + | RDW SD | 18.5 (A) | 10.5 - 15.0 % | + + + + | MPV | | fL | + + + + | DIFF TYPE | | | + + + + | NEUTROPHILS | | % | + + + + | LYMPHOCYTES | | % | + + + + | MONOCYTES | | % | + + + + | EOSINOPHILS | | % | + + + + | BASOPHILS | | % | + + + + | NEUTROPHILS ABS | | / L | + + + + | LYMPHOCYTES ABS | | / L | + + + + | MONOCYTES ABS | | / L | + + + + | EOSINOPHILS ABS | | / L | + + + + | BASOPHILS ABS | | / L | + + + + + + + | Specimen | Performing Laboratory | + + + | Blood | [facility] [place] | | | [address] | + + + Magnesium (01/23/2018 3:50 PM) + +-------+ + | Component | Value | Ref Range | + +-------+ + | MAGNESIUM | 2.2 | 1.7 - 2.5 mg/dL | + +-------+ + + + + | Specimen | Performing Laboratory | + + + | Blood | [facility] [address] [place] [address] | | | [address] | + + + Renal function panel (01/23/2018 3:50 PM) + +---------+ + | Component | Value | Ref Range | + +---------+ + | GLUCOSE | 95 | 70 - 100 mg/dL | + +---------+ + | BUN | 24 (A) | 6 - 23 mg/dL | + +---------+ + | CREATININE | 1.15 | 0.7 - 1.18 mg/dL | + +---------+ + | PHOSPHORUS | | mg/dL | + +---------+ + | Albumin | 3.5 | 3.5 - 5.0 | + +---------+ + | SODIUM | 145 (A) | 132 - 143 mmol/L | + +---------+ + | POTASSIUM | 3.5 (A) | 3.6 - 5.1 mmol/L | + +---------+ + | CHLORIDE | 104 | 95 - 112 mmol/L | + +---------+ + | CO2 | 30 | 19 - 31 mmol/L | + +---------+ + | ANION GAP AGAP | 14.5 | 7 - 21 mmol/L | + +---------+ + | GFR MDRD Non Af Amer | | | + +---------+ + | Phosphorus,Inorganic | 4.6 | 2.5 - 5.0 | + +---------+ + | BUN/CREAT | 20.9 | 6.0 - 28.6 | + +---------+ + | CALCIUM | 9.0 | 8.4 - 10.2 mg/dL | + +---------+ + | EGFR | 46 (A) | 60 mg/dL | + +---------+ + + + + | Specimen | Performing Laboratory | + + + | Blood | [facility] [address] [place], [facility] [address] [place], [place] | | | [address] | + + + from Last 3 Months Insurance + +--------+ +--------+-------+---------+ | Payer | Benefi | Subscriber | Type | Phone | Address | | | t Plan | ID | | | | | | / | | | | | | | Group | | | | | + +--------+ +--------+-------+---------+ | MA - GENERIC | MA-GEN | xxxxxxxxx | Medica | | | | | [place] | | re | | | + +--------+ +--------+-------+---------+ + +--------+ +--------+ + + | Guarantor Name | Accoun | Relation to | Date | Phone | Billing Address | | | t Type | Patient | of | | | | | | | | | | + +--------+ +--------+ + + | LAILA ELLISON | Person | Self [birth year] Home: | [address] | | | al/Fam | | 1945 | [phone] | [place] | | | [place] | | | [address] | [address] | + +--------+ +--------+ + +
--- OUTSIDE RECORDS SUMMARY | ~2018-02-22 | XMS | Encounter Summary ---
Demographics + + + | Address | [address] | | | [place] [address] | + + + | Home Phone | | + + + | Preferred Language | Unknown | + + + | Marital Status | | + + + | Muslim Affiliation | Unknown | + + + | Race | Unknown | + + + | Ethnic Group | Unknown | + + + Author + + + | Author | [facility] | + + + | Organization | [facility] | + + + | Address | Unknown | + + + | Phone | Unavailable | + + + Support + + + + + | Name | Relationship | Address | Phone | + + + + + | Mulu Dolan ECON | [address] | | | | | [place] | | | | | [address] | | + + + + + | Julia Aguilar | ECON | Unknown | | + + + + + Care Team Providers + +------+ + | Care Commercial Makeup Artist Name | Role | Phone | + +------+ + | Carrillo Michel MD | PCP | | + +------+ + Reason for Visit + + + | Reason | Comments | + + + | Labs Only | [facility] dated 01/23/2018 | + + + Encounter Details +--------+ + + + + | Date | Type | Department | Care Team | Description | +--------+ + + + + | 01/24/ | Documentati | [facility] | Vibha Vergara CMA | Labs Only ([facility] | | 2018 | on Only | [address] | | Labs dated | | | | [address] | | 01/23/2018) | | | | [place] [address] | | | | | | [phone] | | | +--------+ + + + [...] | | | | | | [place] [address] | | | | | | [phone] | | | | | | | | +--------+ + + + + | 04/18/ | Documentati | Cardiology | | | | 2017 | on Only | | | | +--------+ + + + + as of this encounter Results Protein / creatinine ratio, urine (01/24/2018) + + + + | Component | Value | Ref Range | + + + + | UR | 619.3 (A) | 0 - 150 | | PROTEIN/CREATININE | | | + + + + + + + | Specimen | Performing Laboratory | + + + | Urine - Urine, | [facility] [address] [place] [address], [place] | | Unspecified Source | [id number] | + + + Urine microscopic only (01/24/2018) + + + + | Component | Value | Ref Range | + + + + | COLOR UA | Odalis | | + + + + | CLARITY | Cloudy | | + + + + | Specific [place], UA | 1.018 | 1.005 - 1.030 [...] | + + + | Urine | [facility] [address] [place] | | | [address] | + + + + + | Narrative | + + | Bacteria: 1+ | + + Renal function panel (01/23/2018 3:50 [...] + + | Blood | [facility] [address] [place] [address] | | | [address] | + + + Magnesium (01/23/2018 3:50 PM) + +-------+ + | Component | Value | Ref Range | + +-------+ + | MAGNESIUM | 2.2 | 1.7 - 2.5 mg/dL | + +-------+ + + + + | Specimen | Performing Laboratory | + + + | Blood | [facility] [address] [place] [address] [address] [place], [place] | | | [address] | + + + CBC W/Auto Diff (Reflex to [...] + | Blood | [facility] [address] | | | [address] | + + + in this encounter Visit Diagnoses Not on filein this encounter"
--- OUTSIDE RECORDS SUMMARY | ~2018-02-22 | XMS | Encounter Summary ---
Demographics + + + | Address | [address] | | | [place] [address] | + + + | Home Phone | | + + + | Preferred Language | Unknown | + + + | Marital Status | | + + + | Yarsani Affiliation | 1077 | + + + | Race | Unknown | + + + | Ethnic Group | Unknown | + + + Author + + + | Author | [facility] | | | and Priyankana | + + + | Organization | [facility] | | [...] [place] | | | | | [address] | | + + + + + | Karen Duarte | ECON | [address] | | | | | [place] | | | | | [address] | | + + + + + Care Team Providers + +------+ + | Care Organizational Development Consultant Name | Role | Phone | + +------+ + | Carrillo Michel MD | PCP | | + +------+ + Reason for Visit + + + | Reason | Comments | + + + | Medication Prior | Donepezil | | Authorization | | + + + Encounter Details +--------+ + + + + | Date | Type | Department | Care Team | Description | +--------+ + + + + | 02/12/ | Telephone | [facility] | Carrillo Michel, | Medication Prior | | 2018 | | [facility] [place] | [address] | Authorization | | | | [address] | [place] | (Donepezil) | | | | [place] | [address] | | | | | [address] | | | | | | [phone] | | | +--------+ + + + [...]
--- OUTSIDE RECORDS SUMMARY | ~2018-02-22 | XMS | Encounter Summary ---
Demographics + + + | Address | [address] | | | [place] [address] | + + + | Home Phone | | + + + | Preferred Language | Unknown | + + + | Marital Status | | + + + | Nondenominational Affiliation | Unknown | + + + | Race | Unknown | + + + | Ethnic Group | Unknown | + + + Author + + + | Author | [facility] | + + + | Organization | [facility] | + + + | Address | Unknown | + + + | Phone | Unavailable | + + + Support + + + + + | Name | Relationship | Address | Phone | + + + + + | Mulu Dolan ECON | [address] | | | | | [place] | | | | | [address] | | + + + + + | Julia Aguilar | ECON | Unknown | | + + + + + Care Team Providers + +------+ + | Care System Consultant Name | Role | Phone | + +------+ + | Carrillo Michel MD | PCP | | + +------+ + Encounter Details +--------+---------+ + + + | Date | Type | Department | Care Team | Description | +--------+---------+ + + + | 04// | Office | [facility] | Gilbert Rodriguez, | Stage 3 chronic | | 2018 | Visit | [place] [address] | [address] | kidney disease | | | | [address] [place] | [address] | (Primary Dx); | | | | [address] [place], [place] | [place] [address] | Hypertension with | | | | [address] | [phone] | goal blood pressure | | | [...] such as Protonix (omeprazole), talk to your [facility] care provider about if you need this medication fci. Call our office or your PCP if [...] heart failure (HCC) Coronary artery disease involving [place] coronary artery of [place] heart with angina pe ctoris (HCC) Dear [...] office. September 2017 she was admitted to [facility] in [place] for cho lecystitis and cirrhosis. He had [...] losclerosis. September 2017 she was admitted to [facility] in [place] for cholecystitis and c irrhosis. He had [...] RFP, Magnesium, CBC, reflex urinalysis, Urine total rsfjqno-km-bwuzrvejd e ratio before she comes back in 4 months. 15 minutes of this 30-minute visit was spent in education and counseling. Thank you Dr Edwards for the opportunity to see this patient in consult today. Please do n ot hesitate to call me at any time with questions or concerns. Truly yours, Gilbert ALVARES [facility] in this encounter Plan [...] | | | | | | [place] [address] | | | | | | [phone] | | | | | | | [...]
--- OUTSIDE RECORDS SUMMARY | ~2018-02-22 | XMS | Clinical Summary ---
Demographics + + + | Address | [address] | | | [place] [address] | + + + | Home Phone | | + + + | Preferred Language | Unknown | + + + | Marital Status | | + + + | Episcopalian Affiliation | Unknown | + + + | Race | Unknown | + + + | Ethnic Group | Unknown | + + + Author + + + | Author | [facility] | + + + | Organization | [facility] | + + + | Address | Unknown | + + + | Phone | Unavailable | + + + Support + + + + + | Name | Relationship | Address | Phone | + + + + + | Laila Ellison ECON | [address] | | | | | [place] | | | | | [address] | | + + + + + | Julia Aguilar | ECON | Unknown | | + + + + + Care Team Providers + +------+ + | Care Plasterer Maintenance Name | Role | Phone | + [...] + + | 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 | | 71yo WF, with dementia, she is here with her . Although | | she does not recall her recent hospitalization, nor her symptoms, | | he admits that she had chest discomfort, was admitted to the [facility] hospital. Cardiac enzymes were mildly abnormal, she was sent to | | [facility], there, she did have a [...] | | 2018 | Visit | | COLLECTION SUPPORT SPECIALIST | kidney disease | | | | [...] | | | | | | [place] [address] | | | | | | [phone] | | | | | | | [...] | Rhythm | | | | | [address] | | | | | | | [...] + + | Urine - Urine, | [facility] [address] [place] | | Unspecified Source | [id number] | + + + Urine microscopic only (01/24/2018) + + + + | Component | Value | Ref Range | + + + + | COLOR UA | Odalis | | + + + + | CLARITY | Cloudy | | + + + + | Specific [place], UA | 1.018 | 1.005 - 1.030 [...] + | Urine | [facility] [address] | | | [address] | + + + + + | [...] | + + + | Blood | [facility] [place] | | | [address] | + + + Magnesium (01/23/2018 3:50 PM) + +-------+ + | Component | Value | Ref Range | + +-------+ + | MAGNESIUM | 2.2 | 1.7 - 2.5 mg/dL | + +-------+ + + + + | Specimen | Performing Laboratory | + + + | Blood | [facility] [address] [place] [address] | | | [address] | + + + Renal function panel [...] + | Blood | [facility] [address] [place], [facility] [address] [place], [place] | | | [address] | + + + from Last 3 [...] | [place] | | | [address] | [address] | + +--------+ +--------+ + +
--- OUTSIDE RECORDS SUMMARY | ~2018-02-22 | XMS | Encounter Summary ---
Demographics + + + | Address | [address] | | | [place] [address] | + + + | Home Phone | | + + + | Preferred Language | Unknown | + + + | Marital Status | | + + + | Christian Affiliation | Unknown | + + + | Race | Unknown | + + + | Ethnic Group | Unknown | + + + Author + + + | Author | [facility] | + + + | Organization | [facility] | + + + | Address | Unknown | + + + | Phone | Unavailable | + + + Support + + + + + | Name | Relationship | Address | Phone | + + + + + | Mulu Dolan ECON | [address] | | | | | [place] | | | | | [address] | | + + + + + | Julia Aguilar | ECON | Unknown | | + + + + + Care Team Providers + +------+ + | Care District Manager In Training Name | Role | Phone | + +------+ + | Carrillo Michel MD | PCP | | + +------+ + Reason for Visit +--------+ + | Reason | Comments | +--------+ + | Other | 01/24/18 Referral from Carrillo Michel | +--------+ + Encounter Details +--------+ + + + + | Date | Type | Department | Care Team | Description | +--------+ + + + + | 01/29/ | Documentati | [facility] | Carleen Gottlieb | Other (01/24/18 | | 2018 | on Only | [place] [address] [place] [address]. | | Referral from | | | | [place] | | Carrillo Michel | | | | [address] [place], [place] | | | | | | [address] | | | +--------+ + + + [...] | | | | | | [place] [address] | | | | | | [phone] | | | | | | | | +--------+ + + + + | 04/18/ | Documentati | Cardiology | | | | 2017 | on Only | | | | +--------+ + + + + as of this encounter Visit Diagnoses Not on filein this encounter"
--- OUTSIDE RECORDS SUMMARY | ~2018-02-22 | XMS | Encounter Summary ---
Demographics + + + | Address | [address] | | | [place] [address] | + + + | Home Phone | | + + + | Preferred Language | Unknown | + + + | Marital Status | | + + + | Anabaptism Affiliation | Unknown | + + + | Race | Unknown | + + + | Ethnic Group | Unknown | + + + Author + + + | Author | [facility] | + + + | Organization | [facility] | + + + | Address | Unknown | + + + | Phone | Unavailable | + + + Support + + + + + | Name | Relationship | Address | Phone | + + + + + | Mulu Dolan ECON | [address] | | | | | [place] | | | | | [address] | | + + + + + | Julia Aguilar | ECON | Unknown | | + + + + + Care Team Providers + +------+ + | Care It Infrastructure Consultant Name | Role | Phone | [...] 01/23/2018) | | | | [place] [address] | | | | | | [phone] | | | +--------+ + + + [...] | | | | | | [place] [address] | | | | | | [phone] | | | | | | | [...] | Urine - Urine, | [facility] [address] [place] [address], [place] | | Unspecified Source | [address] | + + + Urine microscopic only (01/24/2018) + + + + | Component | Value | Ref Range | + + + + | COLOR UA | Odalis | | + + + + | CLARITY | Cloudy | | + + + + | Specific [place], UA | 1.018 | 1.005 - 1.030 [...] | + + + | Urine | [facility] [address] [place] | | | [address] | + + + + + | [...] + + | Blood | [facility] [address] [place] [address] | | | [address] | + + + Magnesium (01/23/2018 3:50 PM) + +-------+ + | Component | Value | Ref Range | + +-------+ + | MAGNESIUM | 2.2 | 1.7 - 2.5 mg/dL | + +-------+ + + + + | Specimen | Performing Laboratory | + + + | Blood | [facility] [address] [place] [address] [address] [place], [place] | | | [address] | + + + CBC W/Auto Diff [...] + | Blood | [facility] [address] | | | [address] | + + + in this encounter Visit Diagnoses Not on filein this encounter"
--- OUTSIDE RECORDS SUMMARY | ~2018-02-22 | XMS | Clinical Summary ---
Demographics + + + | Address | [address] | | | [place] [address] | + + + | Home Phone | | + + + | Preferred Language | Unknown | + + + | Marital Status | | + + + | Congregation Affiliation | 1077 | + + + | Race | Unknown | + + + | Ethnic Group | Unknown | + + + Author + + + | Author | [facility] | | | and Priyankana | + + + | Organization | [facility] | | | and [...] [place] | | | | | [address] | | + + + + + | Karen Duarte | ECON | [address] | | | | | [place] | | | | | [address] | | + + + + + Care Team Providers + +------+ + | Care Garment Liner Name | Role | Phone | + [...] + +--------+---------+------+------+-------+ | Multiple Vitamin | Take by mouth | | | | | Activ | | (MULTIVITAMIN PO) | Daily. | | | | | e | + + +--------+---------+------+------+-------+ | ascorbic acid | Take 500 mg by mouth | | | | | Activ | | (VITAMIN C) 500 mg | Daily. | | | | | e | | tablet | | | | | | | + + +--------+---------+------+------+-------+ | Cholecalciferol | Take 1,000 Units by | | | | | Activ | | (VITAMIN D-3) 5000 | mouth Daily. | | | | | e | | units CAPS | | | | | | | + + +--------+---------+------+------+-------+ | levothyroxine | TAKE ONE TABLET BY | 90 | 2 | 05/2 | | Activ | | (SYNTHROID, | MOUTH EVERY DAY | tablet | | 3/20 | | e | | LEVOTHROID) 50 mcg | | | | 17 | | | | tablet | | | | | | | + + +--------+---------+------+------+-------+ | nitroglycerin | Place 1 tablet under | 25 | 0 | 07/1 | | Activ | | (NITROSTAT) 0.4 mg | the tongue every 5 | tablet | | /20 | | e | | SL | minutes as needed | | | 17 | | | | tabletIndications: | for Chest pain. | | | | | | | Atypical chest pain, | | | | | | | | Coronary artery | | | | | | | | disease, angina | | | | | | | | presence | | | | | | | | unspecified, | | | | | | | | unspecified vessel | | | | | | | | or lesion type, | | | | | | | | unspecified whether | | | | | | | | [place] or | | | | | | | | transplanted heart | | | | | | | + + +--------+---------+------+------+-------+ | furosemide (LASIX) | Take 20 mg by mouth | | | | | Activ | | 20 mg tablet | 2 times daily. | | | | | e | + + +--------+---------+------+------+-------+ | carvedilol (COREG) | Take 1 tablet by | | | 10/0 | | Activ | | 12.5 mg | mouth 2 times daily | | | 20 | | e | | tabletIndications: | [...] + + +--------+---------+------+------+-------+ | escitalopram | Take 1 tablet by | 90 | 1 | 12/2 | | Activ | | (LEXAPRO) 10 mg | mouth Daily. To help | tablet | | 20 | | e | | tabletIndications: | mood | | | 17 | | | | Depression, | | | | | | | | unspecified | | | | | | | | depression type | | | | | | | + + +--------+---------+------+------+-------+ | aspirin 81 mg EC | Take 81 mg by mouth | | | | | Activ | | tablet | Daily. | | | | | e | + + +--------+---------+------+------+-------+ | cyanocobalamin | Take 500 mcg by | | | | | Activ | | (VITAMIN B-12) 500 | mouth Daily. | | | | | e | | mcg tablet | | | | | | | + + +--------+---------+------+------+-------+ | potassium chloride | Take 1 tablet by | 60 | 5 | 01/0 | | Activ | | (K-DUR) 20 mEq ER | mouth 2 times daily. | tablet | | 8/20 | | e | | tabletIndications: | To be taken while | | | 18 | | | | Diastolic heart | on furosemide | | | | | | | failure secondary to | | | | | | | | hypertension (HCC) | | | | | | | + + +--------+---------+------+------+-------+ | losartan (COZAAR) | Take 1 tablet by | 90 | 1 | 01/0 | | Activ | | 100 MG | mouth Daily. For | tablet | | 8/20 | | e | | tabletIndications: | high blood pressure | | | 18 | | | | Essential | | | | | | | | hypertension | | | | | | | + + +--------+---------+------+------+-------+ | AmLODIPine | Take 10 mg by mouth | | | | | Activ | | Besylate (NORVASC | Daily. | | | | | e | | PO) | | | | | | | + + +--------+---------+------+------+-------+ | chlorthalidone 25 | TAKE ONE TABLET BY | 30 | 5 | 03/0 | | Activ | | mg tablet | MOUTH EVERY DAY | tablet | | 1/20 | | e | | | | | | 18 | | | + + +--------+---------+------+------+-------+ | mirtazapine | TAKE 1 TABLET BY | 30 | 4 | 03/2 | | Activ | | (REMERON) 15 MG | MOUTH NIGHTLY | tablet | | 3/20 | | e | | tablet | | | | 18 | | | + + +--------+---------+------+------+-------+ | donepezil | TAKE 1 1/2 TABLETS | 135 | 1 | 04/2 | | Activ | | (ARICEPT) 10 MG | BY MOUTH NIGHTLY TO | tablet | | 5/20 | | e | | tablet | HELP MEMORY | | | 18 | | | + + +--------+---------+------+------+-------+ | donepezil | TAKE 1 1/2 TABLETS | 135 | 1 | 08/2 | 04/2 | Disco | | (ARICEPT) 10 MG | BY MOUTH NIGHTLY TO | tablet | | 5/20 | 5/20 | ntinu | | tablet | HELP MEMORY | | | 17 | 18 | ed | + + +--------+---------+------+------+-------+ Active Problems + + + | Problem | Noted Date | + + + | Chronic systolic heart failure (HCC) | 07/25/2017 | + + + + + | Overview: Ashley Crawley 06/14/17: EF 20-25% | + + + [...] + + + | Overview: 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 | + + + + + [...] 2 vessels ([facility]) | 08/07/2012 | + + + + [...] kidney disease) stage 3, GFR 30-59 ml/min | 08/07/2012 | + + + + [...] Date | + + + + | Renal [...] | +--------+ + + + + | 02/14/ | Refill | | Carrillo Michel, | Medication Refill | | 2017 | | | MD | | +--------+ + + + + | 02/12/ | Telephone | | Carrillo Michel, | Medication Prior | | 2017 | | | MD | Authorization | | | | | | (Donepezil) | +--------+ + + + + | 01/12/ | Refill | | Cynthia Sykes, | Medication Refill | | 2017 | | | CHEMISTRY TUTOR | | +--------+ + + + + | 12/21/ | Refill | | Carrillo Michel, | Medication Refill | | 2017 | | | MD | | +--------+ + + + + | 12/01/ | Telephone | | Carrillo Michel, | Lab Order; Results | | 2017 | | | MD | | +--------+ + + + + | 11/30/ | Office | | Cynthia Sykes, | CKD (chronic kidney | | 2018 | Visit | | CHEMISTRY TUTOR | disease) stage 3, | | | | | | GFR 30-59 ml/min | | | | | | (Primary Dx); | | | | | | Depression, | | | | | | unspecified [...] | | | | | hypertension | +--------+ + + + + from [...] + + | Pulse | 72 | 11/30/20171544 PST | + + + [...] Height | 158.8 cm (5' 2.52") | 10/30/2017 1356 PST | + + + + | Body Mass Index | 23 | 11/30/2017 1545 PST | + + + + Plan of Treatment + + + + + | Health Maintenance | Due Date | Last Done | Comments | + + + + + | Statin Therapy | | | | | (optimal intensity) | 5 | | | + + + + + | COLON CANCER | | 03/17/2011 | | | SCREENING | 1 | | | | (COLONOSCOPY EVERY | | | | | 10 YEARS 50-75) | | | | + + + [...] | | + + + + + Results Not on filefrom Last 3 Months Insurance + +--------+ +--------+-------+---------+ | Payer | Benefi | Subscriber | Type | Phone | Address | | | t Plan | ID | | | | | | / | | | | | | | Group | | | | | + +--------+ +--------+-------+---------+ | [employer] | MODA | xxxxxxxxx | Medica | | | [...] | + +--------+ +--------+ + + | ELLISON,LAILA MADHAVI | Person | Self [birth year] | Home: | [address] | | | al/Fam | | [phone] | [phone] [place] | | | [place] | | | [phone] | + +--------+ +--------+ + +
--- OUTSIDE RECORDS SUMMARY | ~2018-02-22 | XMS | Encounter Summary ---
Demographics + + + | Address | [address] | | | [place] [address] | + + + | Home Phone | | + + + | Preferred Language | Unknown | + + + | Marital Status | | + + + | Protestant Affiliation | 1077 | + + + | Race | Unknown | + + + | Ethnic Group | Unknown | + + + Author + + + | Author | [facility] | | | and Priyankana | + + + | Organization | [facility] | | | and Priyankana [...] [place] | | | | | [address] | | + + + + + | Karen Duarte | ECON | [address] | | | | | [place] | | | | | [address] | | + + + + + Care Team Providers + +------+ + | Care Cider Maker Name | Role | Phone | [...] Description | +--------+--------+ + + + | 01/12/ | Refill | [facility] | Cynthia Sykes, | Medication Refill | | 2018 | | [place] | INDUSTRIAL EQUIPMENT WIRER [address] | | | | | [address] | [place] | | | | | [place] | [address] | | | | | [address] | | | | | | [phone] | | | +--------+--------+ + + + [...]
--- OUTSIDE RECORDS SUMMARY | ~2018-02-22 | XMS | Clinical Summary ---
Demographics + + + | Address | [address] | | | [place] [address] | + + + | Home Phone | | + + + | Preferred Language | Unknown | + + + | Marital Status | | + + + | Episcopalian Affiliation | 1077 | + + + | Race | Unknown | + + + | Ethnic Group | Unknown | + + + Author + + + | Author | [facility] | | | and Priyankana | + + + | Organization | [facility] | | [...] [place] | | | | | [address] | | + + + + + | Karen Duarte | ECON | [address] | | | | | [place] | | | | | [address] | | + + + + + Care Team Providers + +------+ + | Care Social Staff Worker Name | Role | Phone | [...] | | | | | | | [place] | | | | | | [...] + + + | Overview: 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
--- OUTSIDE RECORDS SUMMARY | ~2018-02-22 | XMS | Encounter Summary ---
Demographics + + + | Address | [address] | | | [place] [address] | + + + | Home Phone [...] [facility] | | | and Priyankana | + + + | Organization | [facility] | | | and Priyankana | [...] [place] | | | | | [address] | | + + + + + | Karen Duarte | ECON | [address] | | | | | [place] | | | | | [address] | | + + + + + Care Team Providers + +------+ + | Care Information Technology Teacher Name | Role | Phone | + +------+ + | Carrillo Michel MD | PCP | | + +------+ + Reason for Visit + + + | Reason | Comments | + + + | Detention | | | Facility | | + + + Encounter Details +--------+---------+ + + + | Date | Type | Department | Care Team | Description | +--------+---------+ + + + | 11/30/ | Office | [facility] | Cynthia Sykes, | CKD (chronic kidney | | 2018 | Visit | [facility] | TUBE MAN [address] | disease) stage 3, | | | | [address] | [place] | GFR 30-59 ml/min | | | | [place] | [address] | (Primary Dx); | | | | [address] | | Depression, | | | | [phone] | | unspecified | | | | [...] historian due to advanced dementia. Chief Complaint: Detention Facility HPI In September 2017 Ms. Dolan had gallbladder removed. Discharged from [facility] 10/19/17 . [facility]aden was concerned about her fatigue and sleepiness and took her back to [facility] s he was observed there for 48 hrs, then went to [facility], and was discharged a wee k ago [...] a refill of the remron. Lachelle jensen [facility] is working Braden to help keep [...] has been changed since signin [facility] [place] aspirin 81 mg EC tablet (Taking) Take 81 mg by mouth Daily. carvedilol (COREG) 12.5 mg tablet (Taking) Take 1 tablet by mouth 2 times daily (with nicole akfast & dinner). To lower blood pressure and heart rate chlorthalidone 25 mg tablet (Taking) Take 1 tablet by mouth Daily. Number of times this order has been changed since signin [facility] Cholecalciferol (VITAMIN D-3) 5000 units CAPS (Taking) Take 1,000 Units by mouth Daily. Number of times this order has been changed since signin [facility] cyanocobalamin (VITAMIN B-12) 500 mcg tablet (Taking) Take 500 mcg by mouth Daily. donepezil (ARICEPT) 10 MG tablet (Taking) TAKE 1 1/2 TABLETS BY MOUTH NIGHTLY TO HELP MEM [place] Number of times this order has been changed since signin [facility] escitalopram (LEXAPRO) 10 mg tablet (Taking) Take 1 tablet by mouth Daily. To help mood Number of times this order has been changed since signin [facility] furosemide (LASIX) 20 mg tablet (Taking) Take 20 mg by mouth 2 times daily. Number of times this order has been changed since signin [facility] levothyroxine (SYNTHROID, LEVOTHROID) 50 mcg tablet (Taking) TAKE ONE TABLET BY MOUTH DAMIEN Number of times this order has been changed since signin [facility] losartan (COZAAR) 100 MG tablet (Taking) Take 1 tablet by mouth Daily. For high blood pre ssure Number of times this order has been changed since signin [facility] Mirtazapine (REMERON PO) (Taking/Discontinued) Take 15 mg by mouth Daily. Number of times this order has been changed since signin [facility] mirtazapine (REMERON) 15 MG tablet (Taking) Take 1 tablet by mouth nightly. Number of times this order has been changed since signin [facility] Multiple Vitamin (MULTIVITAMIN PO) (Taking) Take by mouth Daily. Number of times this order has been changed since signin [facility] nitroglycerin (NITROSTAT) 0.4 mg SL tablet (Taking) Place 1 tablet under the tongue every 5 minutes as needed for Chest pain. Number of times this order has been changed since signin [facility] potassium chloride (K-DUR) 20 mEq ER tablet (Taking) Take 1 tablet by mouth 2 times daily . 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 5. Paroxysmal atrial fibrillation (HCC) Referral [...]
--- OUTSIDE RECORDS SUMMARY | ~2018-02-22 | XMS | Encounter Summary ---
Demographics + + + | Address | [address] | | | [place] [address] | + + + | Home Phone [...] | Author | [facility] | | | and Priyankana | + + + | Organization | [facility] | | | and [...] [place] | | | | | [address] | | + + + + + | Karen Duarte | ECON | [address] | | | | | [place] | | | | | [address] | | + + + + + Care Team Providers + +------+ + | Care Budget Record Clerk Name | Role | Phone | [...] + + | 01/12/ | Refill | [facility] | Cynthia Sykes, | Medication Refill | | 2018 | | MEDICINE [place] | BUS AND TROLLEY DISPATCHER [address] | | | | | [address] | [place] | | | | | [place] | [address] | | | | | [address] | | | | | | [phone] | | | +--------+--------+ + + + [...]
--- OUTSIDE RECORDS SUMMARY | ~2018-02-22 | XMS | Encounter Summary ---
Demographics + + + | Address | [address] | | | [place] [address] | + + + | Home Phone | | + + + | Preferred Language | Unknown | + + + | Marital Status | | + + + | Holiness Affiliation | Unknown | + + + | Race | Unknown | + + + | Ethnic Group | Unknown | + + + Author + + + | Author | [facility] | + + + | Organization | [facility] | + + + | Address | Unknown | + + + | Phone | Unavailable | + + + Support + + + + + | Name | Relationship | Address | Phone | + + + + + | Mulu Dolan ECON | [address] | | | | [place] | | | | | [address] | | + + + + + | Julia Aguilar | ECON | Unknown | | + + + + + Care Team Providers + +------+ + | Care Senior Pl Sql Developer Name | Role | Phone | + [...] | 2018 | on Only | [place] [address] [place] [address]. | | Referral from | | | | [place] | | Carrillo Michel | | | | [address] [place], [place] | | | | | | [address] | | | +--------+ + + + [...] | | | | | | [place] [address] | | | | | | [phone] | | | | | | | | +--------+ + + + + | 04/18/ | Documentati | Cardiology | | | | 2017 | on Only | | | | +--------+ + + + + as of this encounter Visit Diagnoses Not on filein this encounter"
--- OUTSIDE RECORDS SUMMARY | ~2018-02-22 | XMS | Encounter Summary ---
Demographics + + + | Address | [address] | | | [place] [address] | + + + | Home Phone | | + + + | Preferred Language | Unknown | + + + | Marital Status | | + + + | Latter-Day Affiliation | Unknown | + + + | Race | Unknown | + + + | Ethnic Group | Unknown | + + + Author + + + | Author | [facility] | + + + | Organization | [facility] | + + + | Address | Unknown | + + + | Phone | Unavailable | + + + Support + + + + + | Name | Relationship | Address | Phone | + + + + + | Mulu Dolan ECON | [address] | | | | [place] | | | | | [address] | | + + + + + | Julia Aguilar | ECON | Unknown | | + + + + + Care Team Providers + +------+ + | Care Plant Manager Name | Role | Phone | [...] [place] | | | | | | [address] | | | | | | [phone] | | | +--------+ + + + [...] | | | | | | [place] [address] | | | | | | [phone] | | | | | | | | +--------+ + + + + | 04/18/ | Documentati | Cardiology | | | | 2017 | on Only | | | | +--------+ + + + + as of this encounter Visit Diagnoses Not on filein this encounter"
--- OUTSIDE RECORDS SUMMARY | ~2018-02-22 | XMS | Encounter Summary ---
Demographics + + + | Address | [address] | | | [place] [address] | + + + | Home Phone [...] + | Author | [facility] | | | and Priyankana | + + + | Organization | [facility] | | | and Priyankana [...] [place] | | | | | [address] | | + + + + + | Karen Duarte | ECON | [address] | | | | | [place] | | | | | [address] | | + + + + + Care Team Providers + +------+ + | Care Sofa Inspector Name | Role | Phone | + [...] + + | 02/14/ | Refill | [facility] | Carrillo Michel, | Medication Refill | | 2018 | | MEDICINE [place] | [address] | | | | | [address] | [place] | | | | | [place] | [address] | | | | | [address] | | | | | | [phone] | | | +--------+--------+ + + + [...]
--- OUTSIDE RECORDS SUMMARY | ~2018-02-22 | XMS | Encounter Summary ---
Demographics + + + | Address | [address] | | | [place] [address] | + + + | Home Phone [...] | Author | [facility] | | | and Priyankana | + + + | Organization | [facility] | | | and [...] [place] | | | | | [address] | | + + + + + | Karen Duarte | ECON | [address] | | | | | [place] | | | | | [address] | | + + + + + Care Team Providers + +------+ + | Care Segmental Paver Installer Name | Role | Phone | + [...] + + | 02/12/ | Telephone | [facility] | Carrillo Michel, | Medication Prior | | 2018 | | MEDICINE [place] | [address] | Authorization | | | | [address] | [place] | (Donepezil) | | | | [place] | [address] | | | | | [address] | | | | | | [phone] | | | +--------+ + + + [...]
[2018-02-22] MEDS ORDERED: KEFLEX500 MG PO (23:48)
--- NOTE | 2018-02-23 19:25 | EKG ---
[facility] [address] [facility] [place] [address] Signed Atrial fibrillation with premature ventricular or aberrantly conducted complexes Left axis deviation Anteroseptal infarct , age undetermined Abnormal ECG When compared with ECG of 15-OCT-2017 13:15, Atrial fibrillation has replaced Electronic ventricular pacemaker Confirmed by NAZARIO BONILLA MD ([id number]) on 02/23/2018 7:25:14 PM Electronically Signed By: NAZARIO BONILLA MD 02/23/18 1925 PATIENT NAME: LAILA ELLISON Electrocardiogram DATE OF : 41 PHYSICIAN: NAZARIO BONILLA MD REPORT #: [id number] REPORT IS CONFIDENTIAL AND NOT TO BE RELEASED WITHOUT AUTHORIZATION
== END 2018-02-23 03:00 | disposition home or self-care (01) ==
LOC: ED 20:31
DX: R07.9 Chest pain, unspecified (principal); N39.0 Urinary tract infection, site not specified; I10 Essential (primary) hypertension; G30.9 Alzheimer's disease, unspecified; Z87.891 Personal history of nicotine dependence; Z88.0 Allergy status to penicillin; Z88.2 Allergy status to sulfonamides; Z88.8 Allergy status to other drugs, medicaments and biological substances; Z79.899 Other long term (current) drug therapy; Z79.82 Long term (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
CPT/HCPCS: 71045; 80053; 81001; 83690; 84484; 85025; 93005; 93010; 99284

== ENCOUNTER 2018-03-23 19:31 | Emergency (ER) | payer MEDICARE ==
[~2018-03-23] VITALS: Ht 160 cm; Wt 57.8 kg
[~2018-03-23 19:31] MED LIST changes: +KEFLEX500 MG PO
== END 2018-03-23 20:18 | disposition home or self-care (01) ==
LOC: ED 19:31
DX: L25.9 Unspecified contact dermatitis, unspecified cause (principal); I10 Essential (primary) hypertension; Z88.0 Allergy status to penicillin; Z88.2 Allergy status to sulfonamides; Z91.09 Other allergy status, other than to drugs and biological substances; Z79.899 Other long term (current) drug therapy; Z79.82 Long term (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
CPT/HCPCS: 99282

== ENCOUNTER 2018-04-08 18:50 | Emergency (ER) | payer MEDICARE ==
[~2018-04-08] VITALS: Ht 160 cm; Wt 57.8 kg
--- NOTE | 2018-04-09 19:35 | EKG ---
[facility] [address] [facility] [place] [address] Signed Ventricular-paced rhythm Abnormal ECG When compared with ECG of 22-FEB-2018 20:36, Electronic ventricular pacemaker has replaced Atrial fibrillation Confirmed by NAZARIO BONILLA MD ([id number]) on 04/09/2018 7:35:38 PM Electronically Signed By: NAZARIO BONILLA MD 04/09/18 1935 PATIENT NAME: ELLISONLAILA Electrocardiogram DATE OF : 41 PHYSICIAN: NAZARIO BONILLA MD REPORT #: [id number] REPORT IS CONFIDENTIAL AND NOT TO BE RELEASED WITHOUT AUTHORIZATION
== END 2018-04-08 22:11 | disposition home or self-care (01) ==
LOC: ED 18:50
DX: R07.9 Chest pain, unspecified (principal); G30.9 Alzheimer's disease, unspecified; F02.80 Dementia in other diseases classified elsewhere, unspecified severity, without behavioral disturbance, psychotic disturbance, mood disturbance, and anxiety; I10 Essential (primary) hypertension; Z95.0 Presence of cardiac pacemaker; Z88.0 Allergy status to penicillin; Z88.8 Allergy status to other drugs, medicaments and biological substances; Z88.2 Allergy status to sulfonamides; Z79.82 Long term (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; Z79.899 Other long term (current) drug therapy
CPT/HCPCS: 71046; 80053; 84484; 85025; 93005; 93010; 99284

== ENCOUNTER 2018-04-09 18:22 | Inpatient (IN) | payer MEDICARE ==
[~2018-04-09] VITALS: Ht 160 cm; Wt 58.0 kg
--- NOTE | 2018-04-10 00:31 | NUR ---
RECIEVED REPORT FROM RHIANNON ALBARADO. PT TO FLOOR VIA STRETCHER. SLIDE 4P TRANSFER. PT APPEARS TO BE SLEEPING. ATTENDS IN PLACE. INCONT OF STOOL. STOOL APPEARS RED IN COLOR. PT REPORTS NO PAIN AT THIS TIME. CALL LIGHT WITHIN REACH. BED ALARM IN PLACE FOR SAFETY.
--- NOTE | 2018-04-10 02:00 | NUR ---
PT APPEARS TO BE SLEEPING. CALL LGIHT WITHIN REACH. BED ALARM IN PLACE. RESPIRAIOTNS EQUAL AND NONLABORED.
--- NOTE | 2018-04-10 05:34 | NUR ---
PT APPEARS TO BE SLEEPING. ASSSESSMENT COMPLETED. EXW AND CRACKLES ON RIGHT LOBES. NO OUTPUT YET. NO BM. CALL LIGHT WITHIN REACH. BED ALARM IN PLACE.
--- NOTE | 2018-04-10 05:49 | NUR ---
CAME TO FLOOR AT 0000. SLEPT THROUGHOUT THE NIGHT. BOWEL TONES HYPO ACTIVE. NO OUTPUT THUS FAR. PLAN TO GET PT UP TO BATHROOM. REPORTS NO PAIN AT THIS TIME. STOOL SAMPLE NEEDED. CONTACT PRECAUTIONS, SCD'S, CARDIAC DIET. SBA.
--- NOTE | 2018-04-10 09:23 | NUR ---
MORNING ASSESSMENT AND MEDICATION DUE. THIS RN TO BEDSIDE. PT RESTING WITH EYES CLOSED. AWAKENS TO VOICE. PT STATES "I HAVE TO GET UP!." PT ASKED WHERE SHE WOULD LIKE TO GO. PT ASSISTED TO CHAIR. ON THE WAY PT BEGINS VOMIT, APPROXIMATELY 200ML GREEN EMISIS NOTED. PT TRANSFERED TO CHAIR. ZOFRAN GIVEN. NEW GOWN PROVIDED. ROOM CLEANED. LINENS CHANGED. PT CONTINUES TO REPORT NAUSEA BUT NO EMISIS NOTED. ASSESSMENT DONE. PT IRRITABLE AND FORGETFUL. PT STATES SHE WANTS TO GO BACK TO BED. PT TRANSFERED BACK TO BED. VITALS TAKEN. PT CONTINUES TO REPORT NAUSEA. PHENEGRAN GIVEN. MORNING MEDICATIONS GIVEN (SEE MAR). PT RESTING IN BED. BED RAILS UP. BED ALARM ON. CALL LIGHT WITHIN REACH. EMESIS BAG WITHIN REACH.
--- NOTE | 2018-04-10 11:29 | NUR ---
BED ALARM SOUNDING. PT ATTEMPTING TO CLIMB OUT OF BED. THIS RN TO BEDSIDE. PT STATES SHE WANTS TO GET UP AND GO HOME. PT REORIENTED TO PLACE, TIME, AND SITUATION. PT STATES SHE WOULD LIKE TO SIT IN CHAIR. PT ASSISTED UP TO CHAIR. PT BEGINS VOMITING. 100ML GREEN EMISIS NOTED. ASSESSMENT DONE. PT STATES SHE WOULD LIKE TO SLEEP IN CHAIR. BLANKET AND PILLOW PROVIDED. MD CONSULTED REGARDING EMISIS. CHAIR ALARM ON. CALL LIGHT WITHIN REACH.
--- NOTE | 2018-04-10 11:35 | NUR ---
states no action needed for emisis at this time. continue to observe
--- NOTE | 2018-04-10 13:31 | NUR ---
HERE TO VISIT PT. THIS RN TO BEDSIDE TO ANSWER QUESTION. UPDATED ON PLAN OF CARE. STATES HE WOULD LIKE PT TO STAY ANOTHER NIGHT. QUESTIONS ASKED AND ANSWERED. PT REMAINS UP IN CHAIR. PT TAKING SIPS OF WATER BUT CONTINUES TO STATE THAT SHE IS NAUSEATED. PT STATES SHE WOULD LIKE TO CONTINUE TO NAP IN CHAIR AND HAS NO ADDITIONAL REQUESTS OR COMPLAINTS AT THIS TIME. CALL [facility] WITHIN REACH. CHAIR ALARM ON.
--- NOTE | 2018-04-10 14:52 | NUR ---
PT CHAIR ALARM ON. THIS RN TO ROOM. PT ATTEMPTING TO GET UP. O2 BY NC OFF OF PTS FACE. THIS RN ASSISTS PT BACK TO BED. DEPENDS CHANGED, FOUL ODER NOTED WITH DEPENDS CHANGE. SMALL AMOUNT OF URINE NOTED ON DEPENDS. MD NOTIFED OF INSUFFICIENT OUTPUT TODAY. MD STATES NO ACTION NEEDED AT THIS TIME. PT RESTING IN BED. NO REQUESTS OR COMPLAINTS. O2 AT 2L NC REAPPLIED TO FACE. BED RAILS UP. BED ALARM ON. CALL LIGHT WITHIN REACH.
--- NOTE | 2018-04-10 15:22 | NUR ---
PT VOMITING. POUNCER AND THIS RN TO BEDSIDE. PT ASSISTED WITH EMESIS BAG. 250 OF BROWN EMISIS NOTED IN BAG. PHENEGRAN GIVEN (SEE MAR). PT RESTING IN BED. NO REQUESTS OR COMPLAINTS. BED RAILS UP. BED ALARM ON. CALL LIGHT WITHIN REACH.
--- NOTE | 2018-04-10 16:06 | NUR ---
THIS FOOD CRITIC ASSISTED PER BOUDREAUX PUT IN A HAZEL. ONLY TOOK OUT 80ML OF URIAN. WE SENT IN A URIAN SAMPLE
[2018-04-10] MEDS ORDERED: MAGOX 400400 MG PO (16:07)
[2018-04-10] MEDS ORDERED: ISOSORBIDE DINI30 MG PO (16:08)
[2018-04-10] MEDS ORDERED: REMERON15 MG PO (16:08)
[2018-04-10] MEDS ORDERED: CHLORTHALIDONE25 MG PO (16:09)
[2018-04-10] MEDS ORDERED: COZAAR100 MG PO (16:10)
--- NOTE | 2018-04-10 16:10 | NUR ---
AT BEDSIDE FOR ROUNDS. ORDERS PLACED FOR HAZEL CATHETER AND FLUID CHALLANGE. PT CONTINUES TO DRY HEAVE. HAZEL CATHETER PLACED. 80ML ZAY URINE OBTAINED FROM BLADDER (SAMPLE SENT TO LAB). BED RAILS UP. BED ALARM ON. CALL LIGHT WITHIN REACH.
--- NOTE | 2018-04-10 16:11 | NUR ---
MED REC COMPLETE
--- NOTE | 2018-04-10 16:53 | NUR ---
THIS CNA2 CLEANED PT UP FROM PUCK. THIS CNA2 GAVE PT A BED BATH.
--- NOTE | 2018-04-10 17:47 | NUR ---
AFTERNOON ASSESSMENT AND MEDICATIONS DUE. THIS RN TO BEDSIDE. PT RESTING WITH EYES CLOSED. NC NOT ON PTS FACE. PT AWAKENS TO VOICE. PT DIORIENTED TO ALL BUT WILL FOLLOW DIRECTIONS. PT REORIENTED. ASSESSMENT DONE. PT DENIES PAIN BUT APPEARS NAUSEATED AT TIMES (DRY HEAVES). MEDICATIONS GIVEN (SEE MAR). VITALS TAKEN. PT DRIFTS BACK TO SLEEP. BED RAILS UP. CALL LIGHT WITHIN REACH. BED ALARM ON. O2 BY NC AT 2L REAPPLIED TO PTS FACE.
--- NOTE | 2018-04-10 18:10 | NUR ---
NOTIFIED OF BLOOD NOTED IN PT STOOL. SAID TO CONTINUE TO MONITOR, PER BOUDREAUX TO SEND SAMPLE TO LAB PER ORDER.
--- NOTE | 2018-04-10 18:44 | NUR ---
CIVIL ENGINEERING DESIGN DRAFTSPERSON CALLED THIS RN TO BEDSIDE. PT UP TO COMODE. APPROXIMATLY 100ML OF RED STOOL NOTED. OCCULT BLOOD BEDSIDE TEST DONE - POSITIVE FOR OCCULT BLOOD. PT CLEANED. NEW DEPENDS IN PLACE. LINEN CHANGE DONE. PT BACK TO BED. O2 NC AT 2L IN PLACE. BED RAILS UP. CALL LIGHT WITHIN REACH. BED ALARM ON. SAMPLE SENT TO LAB. CALLED AND UPDATED REGARDING THIS DEVELOPMENT, STATES TO CONTINUE TO MONITOR FOR NOW.
--- NOTE | 2018-04-10 18:47 | NUR ---
PT HERE FOR GASTROENTERITIS. SBA, BED/CHAIR ALARM. RED STOOL COLLECTED, POSITIVE FOR OCCULT BLOOD, MD AWARE. PT VOMITING TODAY X3 GREEN TO BROWN. FOELY CATHETER PLACED TODAY. BNP LABS ELEVATED, LASIX GIVEN. UA DONE TODAY, 3+ BACTERIA. 2L O2 NC. BASELINE DISORIENTATION R/T ALZHEIMERS. PT DOES NOT USE CALL LIGHT.
--- NOTE | 2018-04-10 20:19 | NUR ---
RECEIVED REPORT FROM DAY SHIFT RN. PATIENT IS RESTING IN BED. LAB IN THE ROOM TO DRAW BLOOD. PATIENTS ALARM IS ON FOR SAFETY.
--- NOTE | 2018-04-10 20:53 | NUR ---
PT CALLING OUT. SOFTWARE SUPPORT ENGINEER AND THIS NURSE IN TO PROVIDE CARE. PT VOMITING SMALL AMOUNTS OF DARK BROWN THICK EMISIS, LESS THAN 20 CC EACH TIME, MORE OF A "SMEAR" LIKE EMESIS. USING HER SHEET TO VOMIT INTO. CHANGED SHEET AND GOWN, HOB ELEVATED. VS DONE. BED ALARM, SRX4 UP
--- NOTE | 2018-04-10 20:59 | EKG ---
[facility] [address] [facility] [place] [address] Signed Atrial fibrillation Right axis deviation Low voltage QRS Cannot rule out Anterior infarct , age undetermined Abnormal ECG When compared with ECG of 08-APR-2018 18:54, Current undetermined rhythm precludes rhythm comparison, needs review Confirmed by NAZARIO BONILLA MD ([id number]) on 04/10/2018 8:59:46 PM Electronically Signed By: NAZARIO BONILLA MD 04/10/189 PATIENT NAME: LAILA ELLISON Electrocardiogram DATE OF : 41 PHYSICIAN: NAZARIO BONILLA MD REPORT #: [id number] REPORT IS CONFIDENTIAL AND NOT TO BE RELEASED WITHOUT AUTHORIZATION
--- NOTE | 2018-04-10 21:50 | NUR ---
PATIENT ASSESMENT COMPLETED. PATIENT HAD A FEW BOUTS OF SMALL EMESIS. PATIENT GIVEN PRN ZOFRAN. PATIENT IS SEEING PEOPLE IN HER HER ROOM AND TALKING TO HER FATHER. PATIENT IS DISORIENTED TO ALL. PATIENT DENIES ANY NEEDS. CALL LIGHT IN REACH. AND BED ALARM IS ON FOR SAFETY.
--- NOTE | 2018-04-10 23:27 | NUR ---
RECEIVED NEW ORDERS FROM MD. PATIENTS HAZEL EMPTIED. PATIENTS BOLUS STARTED. PATIENT DID AWAKEN AT ONE POINT AND SAY HI. PATIENT QUICKLY FELL BACK ASLEEP. PATIENTS NATALIEOnur GARCIA REMAINS ON FOR SAFETY. CALL LIGHT IN REACH.
--- NOTE | 2018-04-11 00:20 | NUR ---
BOLUS COMPLETED. ILIR RUVALCABA. NOTIFIED WITH RESULTS. NO NEW ORDERS AT THIS TIME. CALL LIGHT IN REACH. AND BED ALARM ON FOR SAFETY.
--- NOTE | 2018-04-11 00:46 | NUR ---
PATIENT HAD A SMALL BOUT OF DARK COLORED EMESIS. PATIENT GIVEN PRN ZOFRAN PER ORDER. PATIENTS ATTEND CHANGED, MONIK CARE PERFROMOED, CATH CARE PERFORMED. PATIENT DID NOT HAVE A BM, BUT THERE WAS A SMEAR WHEN PATIENTS ATTEND WAS CHECKED. BED ALARM ON AND CALL LIGHT IN REACH.
--- NOTE | 2018-04-11 01:25 | NUR ---
PATIENT IS RESTING IN BED WITH EYES CLOSED. BREATHING IS EVEN AND UNLABORED, RR 17. CALL LIGHT IN REACH AND BED ALARM ON FOR SAFETY.
--- NOTE | 2018-04-11 03:22 | NUR ---
PATIENT COULD BE HEARD FROM THE NURSE STATION HAVING A BOUT OF EMESIS. PATIENT GIVEN PRN NAUSEA MEDICATION PER ORDER. PATIENTS ATTEND CHANGED. PATIENT HAD A MEDIUM LOOSE BM. PATIENTS COCYX AREA IS RED BUT BLANCHABLE. BARRIER CREAM PLACED. PATIENT CONTINUE TO BE DISOREINTED. PATIENTS BED ALARM REMAINS ON FOR SAFETY. CALL LIGHT IN REACH.
--- NOTE | 2018-04-11 04:05 | NUR ---
PER VANG AND I CLEANED PATIENT, HAD SMALL BOWEL MOVEMENT X2.
--- NOTE | 2018-04-11 04:07 | NUR ---
PER STARR AND I CLEANED PATIENT DID THROW UP.
--- NOTE | 2018-04-11 04:31 | NUR ---
PATIENT IS RESTING IN BED WITH EYES CLOSED, RR 16. BED ALARM ON FOR SAFETY . CALL LIGHT IN REACH.
--- NOTE | 2018-04-11 05:02 | NUR ---
PATIENT RESTED ON AND OFF THROUGHOUT THE SHIFT. PATIENT IS ON A CARDIAC DIET AND HAS NO APPETITE. PATIETN HAS A HAZEL IN PLACE AND OUPUT IS LOWER, BUT QS. PATIENT BECOMES AGITATED WITH WEARING SCDS. PATIENT IS DISORIENTED TO ALL. PATIENTS BED ALARM IS ON FOR SAFETY. PATIENT HAD X1 BM. PATIENT IS INCONTINENT. PATIENT DOES NOT USE CALL LIGHT. PATIENT RECEIVED PRN NAUSEA MEDICATION MULTIPLE TIMES FOR EMESIS.
--- NOTE | 2018-04-11 05:36 | NUR ---
PATIENTS MORNING MEDICATIONS GIVEN PER ORDER. PATIENT TOOK A FEW SIPS OF WATER WITH HER MORNING THYROID PILL. PATIENT REFUSED TO DRINK ANY MORE THAN THAT. PATIENT REPOSITIONED IN BED. ATTEND IS DRY. PATIENTS VTITALS TAKEN AND RECORDED. PATIENTS INTAKE AND OUPUT DOCUMENTED. PATIENT REMAINS DISORIENTED TO ALL. BED ALARM ON FOR SAFETY AND CALL LIGHT IN REACH.
--- NOTE | 2018-04-11 07:05 | NUR ---
RECIEVED BEDSIDE REPORT FROM CIERA. PT SLEEPING SOUNDLY. PT ON 2L O2 VIA NC. PT HAS IVF INFUSING, D51/2NS AT 65 CC/HR. PERSONAL SUPPLIES IN REACH, IS CALL LIGHT.
--- NOTE | 2018-04-11 08:05 | NUR ---
PT SAT UP AT EDGE OF BED, TOOK SCHEDULED COREG IN APPLESAUCE, AND ATE 3 BITES OF APPLE SAUCE. ATTEMPTED TO GIVE PT WATER, PT TOOK WATER INTO MOUTH AND SPIT IT OUT. PT REFUSED TO DRINK ANY ENSURE AT THIS TIME. BED ALARM ON, PERSONAL SUPPLIES IN REACH, NON SKID SOCKS ON, PT CLOSE TO NURSES STATION, AND PROVIDED FALL AND SAFETY EDUCATION. PT DISPLAYED MINIMAL UNDERSTANDING.
--- NOTE | 2018-04-11 11:25 | NUR ---
PATIENT RESTING IN BED. THIS IT SALES EXECUTIVE AND RN PULLED PATIENT UP IN BED. CALL LIGHT WITHIN REACH. BED ALARM ON. NO OTHER NEEDS AT THIS TIME.
--- NOTE | 2018-04-11 11:34 | NUR ---
PT IN BED, DROWSY. DRY HEAVED, NO EMESIS. GAVE PHENERGAN 6.25 MG IV PRN. PT'S PERSONAL SUPPLIES AND CALL LIGHT IN REACH. BED ALARM ON.
--- NOTE | 2018-04-11 12:20 | NUR ---
PT REPOSITIONED IN BED, CLEAN ATTENDS PLACED ON PT. PILLOWS UNDER BOTH HIPS, PT FLOATED, HOB ELEVATED. PT TOLERATED THIS WELL.
--- NOTE | 2018-04-11 14:17 | NUR ---
HAVE MADE NUMEROUS ATTEMPTS TO VISIT PT. EACH TIME SHE HAS BEEN SLEEPING. WILL FOLLOW NEEDED
--- NOTE | 2018-04-11 15:00 | NUR ---
PT SLEEPING SOUNDLY. AROUSED TO VERBAL STIMULI. REFUSED TO TAKE DRINK OF WATER, REFUSED FOOD, AND REFUSED ENSURE. PT DENIED NEEDS. PERSONAL SUPPLIES AND CALL LIGHT IN REACH.
--- NOTE | 2018-04-11 15:07 | NUR ---
patient resting in bed. patient appears to be sleeping. call light within reach. vitals and i&os done. cath bag emptied. no other needs at this time.
--- NOTE | 2018-04-11 16:02 | NUR ---
PT SITTING UP IN BED, DROWSY, BUT ANSWERING QUESTIONS APRPRIATELY. TOOK CARFATE, AND ALSO TOOK ONE DRINK OF WATER. PT C/O NAUSEA, HAD NO EMESIS OR DRY HEAVES, GAVE ZOFRAN 4 MG IV PRN.
--- NOTE | 2018-04-11 17:31 | NUR ---
PT DROWSY, SLEPT MUCH OF SHIFT. HAD C/O NAUSEA SEVERAL TIMES, RECIEVED PRN ZOFRAN X 1, AND PRN PHENERGAN X 1. HAS HAD VERY POOR PO INTAKE. TOOK PILLS IN APPLESAUCE, HAD APROXIMATELY 12 BITES TOTAL THIS SHIFT. ENCOURAGED PO FLUIDS, BUT PT SPIT WATER OR OTHER FLUID OUT MOST OF THE TIMES SHE TOOK A DRINK, WITH THE EXCEPTION OF ONE DRINK OF WATER, AND CARAFATE X 2 DOSES. PT ON 2L O2 VIA NC TO MAINTAIN SATS. PT HAS HX ALZHEIMERS, IS DISORIENTED TO ALL. PT HAS D51/2NS INFUSING AT 65 CC/HR. ABDOMEN MILDLY DISTENDED, SOFT, TENDER TO PALPATION. BOWEL TONES HYPOACTIVED X 4 QUADRANTS. HR IS IRREGULAR. LUNGS CLEAR, DIMINISHED IN BASES. PT HAS A HAZEL CATHETER IN PLACE, WHICH IS DRAINING DARK YELLOW URINE.
--- NOTE | 2018-04-11 19:54 | NUR ---
RECEIVED REPORT FORM DAY SHIFT RN. PATIENT IS RESTING IN BED. NO NEEDS NOTED. CALL LIGHT IN REACH. ALARM ON FOR SAFETY.
--- NOTE | 2018-04-11 20:45 | NUR ---
PATIENT ASSSEMENT COMPLETED. PATIENT IS RESTING IN THE RECLINER. PATIENTS EVENING MEDICATIONS GIVEN PER ORDER. PATIENT COMPLAINS OF NAUSEA. PRN NAUSEA MEDICATION GIVEN PER ORDER. PATIENT STATED "I DONT CARE WHEN ASKED ABOUT PAIN". PATIENT DOES APPEAR TO BE RESTLESS. PATIENT DISORIENTED TO ALL. PATIENT HAS CHAIR ALARM IN PLACE FOIR SAFETY. PATIENT DENIES ANY FURTHER NEEDS. CALL LIGHT IN REACH.
--- NOTE | 2018-04-11 22:16 | NUR ---
PATIENT WAS TRYING TO GET OUT OF BED. PATIENT STATED "I AM TRYING TO GO TO BED". PATIENT EDUCATED THAT SHE WAS IN BED. PATIENT PUT HER FEET BACK IN BED. PATIENT GIVEN A WARM BLANKET. BED ALARM IS ON FOR SAFETY. CALL LIGHT IN REACH.
--- NOTE | 2018-04-11 22:55 | NUR ---
PATIENT IS RESTING IN BED WITH EYES CLOSED, RR 17. ALARM IN PLACE AND CALL LIGHT IN REACH.
--- NOTE | 2018-04-12 00:31 | NUR ---
PATIENT ASSISTED TO THE BSC. PATIENT WAS ABLE TO PIVOT TRANSFER. PATIENT HAD SMALL LOOSE BM. PATIENT IS NOW BACK IN BED RESTING. PATIENT REMAINS DISORIETNED. PATIENTS BED ALARM IS ON FOR SAFETY. CALL LIGHT IN REACH.
--- NOTE | 2018-04-12 02:19 | NUR ---
PATIENT IS RESTING IN BED WITH EYES CLOSED. PATIENTS OXYGEN PLACED BACK ON. RR 17. CALL LIGHT IN REACH. BED ALARM IS ON FOR SAFETY.
--- NOTE | 2018-04-12 04:10 | NUR ---
PATIENT HOLLERED OUT. PATIENT ASSISTED IN COVERING BACK UP PER REQUEST. CALL LIGHT IN REACH. BED ALARM ON FOR SAFETY.
--- NOTE | 2018-04-12 04:47 | NUR ---
PATIENT RESTED ON AND OFF THROUGHOUT THE SHIFT. PATIENT IS ON A CARDIAC DIET AND HAS NO APPETITE. PATIENT HAS A HAZEL IN PLACE AND OUPUT IS LOWER, BUT QS. PATIENT BECOMES AGITATED WITH WEARING SCDS. PATIENT IS DISORIENTED TO ALL. PATIENTS BED ALARM IS ON FOR SAFETY. PATIENT HAD X2 BM. PATIENT IS INCONTINENT. PATIENT DOES NOT USE CALL LIGHT. PATIENT RECEIVED PRN NAUSEA MEDICATION X1. PATIENT IS ON 2L VIA NC.
--- NOTE | 2018-04-12 06:23 | NUR ---
VITALS AND I&OS DONE AND CHARTED. BEDSIDE TABLE AND CALL LIGHT WITHIN REACH.
--- NOTE | 2018-04-12 06:28 | NUR ---
PATIENTS MORNING MEDICATIONS GIVEN PER ORDER. PATIENT WA ABLE TO TAKE PO MEDICATIONS WITH NO ISSUES NOTED. PATIENT IS DROWSY AND FALLS BACK ASLEEP EASILY. BED ALARM REMAINS ON FOR SAFETY AND CALL LIGHT IS WITHIN REACH.
--- NOTE | 2018-04-12 07:49 | NUR ---
BEDSIDE REPORT RECEIVED FROM CIERA ALBARADO. PATIENT AWAKE SITTING UP IN BED. WHITE BOARD UPDATED. 2L [address]
--- NOTE | 2018-04-12 08:43 | NUR ---
pt took scheduled medications with applesauce. nausea instantly after taking. obvious distress. emesis bag in hand.
--- NOTE | 2018-04-12 09:10 | NUR ---
HAZEL CATHETER REMOVED. ACCOUNTED FOR 75ML OF URINE OUTPUT IN CATHETER BAG. PATIENT TOLERATED WELL.
--- NOTE | 2018-04-12 10:07 | NUR ---
pt refused to eat breakfast and was given an ensure instead but has only taken a few sips, I encouraged her to drink more. pt's ha was removed by nurse Duenas and she accounted for what was in the bag. pt has not voided since.
--- NOTE | 2018-04-12 10:33 | NUR ---
NEW IV STARTED IN THE LEFT ARM #20 GUAGE, PATIENT STARTED TO COMPLAIN OF CHEST PAIN, STRETCHING FEELING, NO C/O SOB WITH CHEST PAIN, PATIENT REMAINS ON OXYGEN AT 2L PER NC. RT CALLED FOR A EKG, DOCTOR RASCH TO THE ROOM, VITALS TAKEN, NO FURTHER ORDRES RECEIVED AT THIS TIME. DOCTOR VISUALIZED VITALS AND EKG.
--- NOTE | 2018-04-12 14:25 | NUR ---
pt is sitting up in chair with call light in reach and tag alarm on. pt has not eaten lunch yet but said she would eat some toast.
--- NOTE | 2018-04-12 17:50 | NUR ---
pt did not eat any of her dinner but she did drink a clear ensure, pt is sitting up in chair with call light in reach and tag alarm on.
--- NOTE | 2018-04-12 18:27 | EKG ---
[facility] [address] [facility] [place] [address] Signed Ventricular-paced rhythm with occasional premature ventricular complexes Abnormal ECG When compared with ECG of 09-APR-2018 19:03, Electronic ventricular pacemaker has replaced Atrial fibrillation Confirmed by YAJAIRA AMIN MD ([id number]) on 04/12/2018 6:27:24 PM Electronically Signed By: YAJAIRA AMIN MD 04/12/18 1827 PATIENT NAME: LAILA ELLISON Electrocardiogram DATE OF : 41 PHYSICIAN: YAJAIRA AMIN MD REPORT #: [id number] REPORT IS CONFIDENTIAL AND NOT TO BE RELEASED WITHOUT AUTHORIZATION
--- NOTE | 2018-04-12 18:44 | NUR ---
NEW IV REMOVED BY PATIENT. UP TO CHAIR SOME OF DAY. HAZEL REMOVED. VOIDING WELL. NO PO INTAKE. ENCOURAGE FOOD. BED/CHAIR ALARM. DNR/DNI! POLST ON CHART. ROCEPHIN/FLAGYL. JULIOCESARFRAN X1. NO EMESIS TODAY.
--- NOTE | 2018-04-12 19:10 | NUR ---
RECEIVED REPORT FROM RN. PATIENT RESTING IN CHAIR. DENIES NEEDS AT THIS TIME. CALL LIGHT WITHIN REACH, CHAIR ALARM ON.
--- NOTE | 2018-04-12 20:30 | NUR ---
ASSISTED PATIENT TO BATHROOM WITH SBA/FWW. PATIENT RESTING IN BED, BREATHING IS EVEN AND UNLABORED. PRN ZOFRAN GIVEN. PATIENT DENIES FURTHER NEEDS. CALL LIGHT WITHIN REACH, BED ALARM ON.
--- NOTE | 2018-04-12 23:00 | NUR ---
PATIENT RESTING COMFORTABLY IN BED, BREATHING IS EVEN AND UNLABORED. CALL LIGHT WITHIN REACH, BED ALARM ON.
--- NOTE | 2018-04-13 01:42 | NUR ---
PATIENT RESTING COMFORTABLY IN BED, BREATHING IS EVEN AND UNLABORED. FLACC SCORE OF 0. CALL LIGHT WITHIN REACH, BED ALARM ON.
--- NOTE | 2018-04-13 03:00 | NUR ---
PATIENT CLEANED UP AFTER INCONTINENCE OF DIARRHEA AND URINE. PATIENT NOW RESTING COMFORTABLY IN BED WITH CLEAN LINENS. PATIENT DENIES NEEDS AT THIS TIME. CALL LIGHT WITHIN REACH, BED ALARM ON.
--- NOTE | 2018-04-13 05:45 | NUR ---
PATIENT RESTING IN BED, BREATHING IS EVEN AND UNLABORED. DENIES NEEDS AT THIS TIME. CALL LIGHT WITHIN REACH, BED ALARM ON.
--- NOTE | 2018-04-13 07:15 | NUR ---
BEDSIDE HANDOFF REPORT RECEIVED FROM PUMPING PLANT OPERATOR RN. PT SITTING IN CHAIR. PT DENIES NEEDS AT THIS TIME.
--- NOTE | 2018-04-13 07:44 | NUR ---
PATIENT SITTING UP IN BEDSIDE RECLINER, CHAIR ALARM ON. PATIENT STATED SHE DID NOT WANT A SHOWER, BUT WOULD LIKE TO SOAK IN A BATH. THIS BENCH MACHINE OPERATOR AND PATIENT AGREED THAT A WARM BED BATH WOULD BE MORE REASONABLE FOR PATIENT. PATIENT STATED THAT 0800 WOULD BE A GOOD TIME FOR THE BED BATH. PATIENT CALL LIGHT IN REACH. NO OTHER NEEDS AT THIS TIME.
--- NOTE | 2018-04-13 08:01 | NUR ---
THIS PAD MACHINE OFFBEARER ASSISTED PATIENT TO SET UP FOR BREAKFAST. PATIENT CALL LIGHT IN REACH, CHAIR ALARM ON.
--- NOTE | 2018-04-13 08:11 | NUR ---
PATIENT REFUSING TO EAT, STATES SHE FEELS NAUSEOUS AND HAS A HEADACHE. PATIENT CALL LIGHT IN REACH. RN NOTIFIED. NO OTHER NEEDS AT THIS TIME.
--- NOTE | 2018-04-13 09:06 | NUR ---
THIS BIODIESEL DIVISION MANAGER NOTICED PATIENT'S IV SITE IS LEAKING ACTIVELY, RN NICOLE NOTIFIED. THIS BIODIESEL DIVISION MANAGER ASSISTED PATIENT UP TO BATHROOM. PATIENT SHOWERED INDEPENDENTLY WITH SOME GUIDANCE NEEDED. PATIENT HAD LARGE INCONTINENCE EPISODE. THIS BIODIESEL DIVISION MANAGER NOTICED BLOOD WHEN ASSISTING PATIENT WITH PERICARE, RN NOTIFIED. PATIENT DRESSED IN CLEAN GOWN, CLEAN ATTENDS. PATIENT BACK IN BEDSIDE RECLINER, CHAIR ALARM ON, CALL LIGHT IN REACH. RN IN ROOM. PATIENT ENCOURAGED TO DRINK ENSURE. NO OTHER NEEDS AT THIS TIME.
--- NOTE | 2018-04-13 09:10 | NUR ---
PT SITTING IN CHAIR. PT CONFUSED, DISORIENTED TO ALL BUT SELF. PT ON ROOM AIR, LUNG SOUNDS CLEAR. PT WITH COMPLAINT OF PAIN, UNABLE TO STATE WHERE OR WHAT DEGREE, PT CLUTCHING AT EPIGASTRIC REGION. PT WITH IV LEAKING, DISCONTINUED, NEW IV OBTAINED TO LEFT AC. PT WITH POOR APPETITE, TOOK MORNING MEDICATIONS WITH SMALL AMOUNT OF APPLE SAUCE. PT WIHTOUT EDEMA, CMS INTACT. PT DENIES OTHER NEEDS AT THIS TIME. CHAIR ALARM IN PLACE.
--- NOTE | 2018-04-13 10:43 | NUR ---
SPOKE AT LENGTH WITH SEGUNDO AND DAUGHTER CITLALI. PATIENT HAS DEMENTIA AND HAS BEEN LOSING WEIGHT AND GETTING WEAKER. THEY HAVE BEEN IN TOUCH WITH HER SALES OPERATIONS DIRECTOR WHO THEY STATE SENT AN RX TO PHARMACY. THEY WILL BRING IT IN TO SHOW DR AMIN. STATES HE HAS NO PROBLEMS TAKING PATIENT TO PCP IN [place]. HE STATES HE KNOWS HIS HAS MANY "ORGANS SHUTTING DOWN" AND HE AND DAUGHTER STATE THE PATIENT FILLED OUT ADVANCED DIRECTIVES WITH PCP BEFORE HER DEMENTIA WHICH STATE SHE WANTS ONLY TO BE KEPT COMFORTABLE IF SHE BECOMES TO SICK TO "CURE". THEY ALSO STATE THAT THEY WANT TO KEEP HER AT HOME AND WOULD [facility] TO GET HER STRONGER TO KEEP GETTING AROUND ON HER OWN LONG POSSIBLE. THEY ALSO STATE THAT WHEN SHE GETS TOO ILL THEY WILL PURSUE HOSPICE. 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 WE DISCUSSED THAT THE HOSPITAL CHW PROGRAM CAN CONTINUE TO FOLLOW WITH THEM. WANTS THEM TO CALL HIM TO ARRANGE ANOTHER VISIT AT HOME. THIS WAS PASSED ON TO PIERCE MELCHOR.
--- NOTE | 2018-04-13 12:15 | NUR ---
PT ASSISTED TO BATHROOM AND THEN TO CHAIR. CHAIR ALARM IN PLACE. PT GIVEN CARAFATE. PT DENIES OTHER NEEDS AT THIS TIME.
--- NOTE | 2018-04-13 12:45 | NUR ---
PATIENT SITTING UP IN BEDSIDE RECLINER, RESTING. CALL LIGHT IN REACH. BED ALARM ON. NO OTHER NEEDS AT THIS TIME.
--- NOTE | 2018-04-13 13:26 | NUR ---
PATIENT RESTING IN BEDSIDE RECLINER. CHAIR ALARM ON. PATIENT STATES SHE DOES NOT FEEL WELL AND HER STOMACH IS SORE. PATIENT CALL LIGHT IN REACH. RN NOTIFIED. NO OTHER NEEDS AT THIS TIME.
--- NOTE | 2018-04-13 13:45 | NUR ---
PT RESTING IN CHAIR. PT ASSISTED TO BATHROOM AND THEN TO BED. PT ON ROOM AIR. PT CONTINUES TO COMPLAIN OF EPIGASTRIC PAIN. NO ACUTE CHANGES. IV FLUIDS INFUSING, IV FLAGYL INFUSING. PT DENIES OTHER NEEDS AT THIS TIME. BED ALARM ON.
--- NOTE | 2018-04-13 15:00 | NUR ---
RECEIVED REPORT AT 1500, PT AT THIS TIME IS IN BED SLEEPING.
--- NOTE | 2018-04-13 15:03 | NUR ---
PATIENT HAD LARGE INCONTINENCE EPISODE. PATIENT GIVEN BED BATH IN BATHROOM, AND BARRIER CREAM APPLIED NEEDED. LINENS CHANGED. PATIENT DRESSED IN CLEAN GOWN. PATIENT BACK IN BED RESTING, CALL LIGHT IN REACH, BED ALARM ON. NO OTHER NEEDS AT THIS TIME.
--- NOTE | 2018-04-13 16:00 | NUR ---
PT IS IN BED RESTING. PT STATED THAT WALKING IN THE HALLWAY WI PT MADE HER TIRED. PT HAS NO NEW CONCERNS AT THIS TIME.
--- NOTE | 2018-04-13 17:55 | NUR ---
OVERALL PT HAD AN UNEVENTFUL DAY. V/S ARE WDL. APPETITE IS STILL POOR OVERALL. ALL LOBES ARE CLEAR, ABD SOUNDS ARE HYPERACTIVE, ABD IS SOFT TO TOUCH. PT HAD SEVERAL BM'S THIS SHIFT WHICH ARE STILL LIQUIDY. EDEMA IN BOTH LEGS IS +1, PEDIS PULSES ARE +2. I HAVE NO NEW CONCERNS FOR THIS PT AT THIS TIME.
--- NOTE | 2018-04-13 17:59 | NUR ---
I TOOK OVER CARE FOR THIS PT AT 1500. PT HAS BEEN IN BED EVER SINCE. 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 PAIN IS NOT WELL CONTROLLED, MD AMIN IS AWARE. V/S ARE WDL, NO NEW CONCERNS FOR THIS PT.
--- NOTE | 2018-04-13 20:00 | NUR ---
RECEIVED SHIFT REPORT. PATIENT CURRENTLY RESTING SUPINE, RESPIRATIONS REGULAR AND EVEN, EYES CLOSED.
--- NOTE | 2018-04-13 20:53 | NUR ---
VITALS AND I&OS DONE AND CHARTED. PER HER REQUEST I CLOSED HER BLINDS. BEDSIDE TABLE AND CALL LIGHT WITHIN REACH.
--- NOTE | 2018-04-13 22:00 | NUR ---
PATIENT RESTING QUIETLY IN SUPINE POSITION. RESPIRATIONS EVEN AND UNLABOERED, EYES CLOSED, BED ALARM ON. CALL LIGHT IN REACH.
--- NOTE | 2018-04-14 00:41 | NUR ---
PATIENT WOKE UP CONFUSED AND PULLED HER LAC IV OUT. THIS WAS DRESSED AND A NEW 20G IV WAS PLACED IN THE LFA WITHOUT DIFFICULTY AND THE PATIENT TOLERATED IT WELL. IV FLUIDS AGAIN RUNNING AT 65MLS AN HOUR. PATIENT RESTING QUIETLY AT THIS TIME.
--- NOTE | 2018-04-14 01:34 | NUR ---
pt resting supine in bed, respirations even and unlabored. call light in reach. pt appears to be sleeping comfortably.
--- NOTE | 2018-04-14 04:16 | NUR ---
Up to brp with one assist, voided and had medium size bm, back to bed. Tolerated well. Bed alarm on
--- NOTE | 2018-04-14 06:25 | NUR ---
Up to brpm voided and had a loose stool, lotion to red layo area. Back to bed, Tolerated well, one person assist. Bed alarm on, denies c/o pain
--- NOTE | 2018-04-14 07:43 | NUR ---
report received from Camila Tamez. Patient sleeping now.
--- NOTE | 2018-04-14 07:49 | NUR ---
PATIENT HAS SLEPT INTERMITENTLY THROUGH THE NIGHT. PATIENT IS ORIENTED TO SELF ONLY AND REQUIRES FREQUENT REORIENTATION TO DATE, TIME, PLACE, AND SITUATION. PATIENT HAS AMBULATED TO THE BATHROOM TIMES 3 TONIGHT WITH STANDBY ASSISTANCE. PATIENT PULLED OUT HER LAC IV ONCE WHEN SHE WOKE UP CONFUSED AND A NEW 20G IV WAS PLACED IN THE LFA. PATIENT CONTINUES ON D5 1/2NS AT 65MLS/HR. PATIENT HAS VERY POOR PO FLUID INTAKE AND HAS COMPLAINED OF ABD AND EPIGASTRIC PAIN UP TO 5/10 AND A HEADACHE AT THE BEGINING OF THE SHIFT. PATIENT HAS ONLY WANTED TO TAKE TYLENOL ONCE FOR THIS WHICH BROUGHT HER PAIN BACK DOWN TO ABOUT A 2/10. PATIENT DOES NOT REMEMBER TO USE HER CALL LIGHT AND IS ON A BED ALARM. REPORT GIVEN TO PER BANKS.
--- NOTE | 2018-04-14 08:55 | NUR ---
PT WOKEN UP BY THIS RN TO ADMINISTER MEDICATIONS. TOOK SCHEDULED MEDS (EXCEPT LACTULOSE) AND RESULTED IN ABDOMINAL DISCOMFORT NEARLY IMMEDIATELY AFTER TAKING PILLS. PATIENT SITTING AT EDGE OF BED. GROANING AND C/O ABDOMINAL PAIN. IVF INFUSING INTO LFA IV.
--- NOTE | 2018-04-14 10:12 | NUR ---
PT HAVING HALLUCINATIONS THIS MORNING. ASKING WHERE HER MOTHER WENT. THOUGHT THE SCDs WAS A CAT LAYING ON HER LEGS. ALLOWED TO SIT AT EDGE OF BED WITH BED EXIT ALARM ON. SET OFF ALARM. WISHED TO BRUSH TEETH. ASSISTED TO BRUSH TEETH IN BATHROOM, WASH FACE WITH WARM WASH CLOTH, AND BRUSHED HAIR. HAD LOOSE LIQUID YELLOW BM. NEW ATTENDS PLACED. NEW GOWN. CHANGED LINENS ON BED. PATIENT BACK TO BED NOW. BED ALARM ON.
--- NOTE | 2018-04-14 13:18 | NUR ---
WORKED WITH PHYSICAL THERAPY MIDDAY. PT UP IN RECLINER FOR 30 MIN AFTER PHYSICAL THERAPY. REQUESTED TO GO BACK TO BED. IN BED NOW WITH BED ALARM IN PLACE.
--- NOTE | 2018-04-14 14:55 | NUR ---
pt sleeping quietly now. awakens to voice.
--- NOTE | 2018-04-14 17:06 | NUR ---
pt sleeping after last set of medications. zosyn infused. ivf infusing now. pt tolerating scheduled meds with water better than this morning.
--- NOTE | 2018-04-14 17:57 | NUR ---
WORKED WITH PHYSICAL THERAPY TODAY. AMBULATED HALLS SBA FWW. NO EMESIS. TOLERATING PILLS AND CARAFATE WELL TODAY. FLAGYL/ROCEPHIN. LOOSE STOOL. NO PO INTAKE. POOR APPETITE. ROOM AIR. SLEPT MOST OF DAY. LFA D51/2NS @ 65. BED/CHAIR ALARM.
--- NOTE | 2018-04-14 19:25 | NUR ---
RESPORT RECEIVED FROM DAYSHIFT RN. PT RESTING IN BED, ALERT AND APPEARS TO BE IN A CHEERFUL DISPOSITION, SMILING AND JOKING WITH STAFF. CALL LIGHT IN REACH AND PT WITHIN VIEW OF NURSING STATION. NO NEEDS VOICED.
--- NOTE | 2018-04-14 20:52 | NUR ---
pt assisted to bedside chair per request, call light in reach. no further requests voiced.
--- NOTE | 2018-04-14 21:14 | NUR ---
pt assisted back into bed, call light in reach, pt states she is comfortable. bed alarm on.
--- NOTE | 2018-04-14 21:14 | NUR ---
Pt resting in chair, pleasantly confused. Pt joking and laughing with staff and takes po medications and provided strawberry ensure per pt request. No needs voiced. Respirations even and unlabored and call light in reach.
--- NOTE | 2018-04-14 22:47 | NUR ---
CHARGE NURSE ROUNDING NOTE:. IN CHAIR, BED ALARM ON, VISITING WITH . NO C/O PAIN OR REQUESTS
--- NOTE | 2018-04-15 00:45 | NUR ---
Pt resting in bed, respirations even and unlabored, eyes closed. Pt appears to be sleeping comfortably. Bed alarm on.
--- NOTE | 2018-04-15 05:03 | NUR ---
pt resting in bed respirations even and unlabored at 18. pt resting on right lateral side and appears to be sleeping comfortably.
--- NOTE | 2018-04-15 05:19 | NUR ---
Pt slept most of night and has been pleasently confused when awake. pt tolorated carafait and po/iv meds. Pt has not reported pain and has appeared to be sleeping comfortably. D5 1/2 NS @ 65ml/hr. pt has not had an appetite and only had a couple sips of strawberry ensure.
--- NOTE | 2018-04-15 05:51 | NUR ---
PATIENTS MORNING MEDICATIONS GIVEN PER ORDER. PATIENT IS RESTING IN BED. PATIENTS BED ALARM IS ON FOR SAFETY. NO NEEDS NOTED. CALL LIGHT IN REACH.
--- NOTE | 2018-04-15 08:10 | NUR ---
PT C/O NAUSEA, GAVE PHENERGAN 6.25 MG IV PRN. PT UP TO BATHROOM WITH FWW, WITH STANDBY ASSIST. PT VOIDED URINE IN TOILET, MISSED HAT. PT ALSO HAD A MEDIUM LOOSE BM. PT THEN TO RECLINER, HAS CHAIR ALARM ON. BREAKFAST DELIVERED, BUT PT REFUSED AT THIS TIME. DID TAKE PILLS WITH APPLESAUCE, 5 BITES, AND AGREED TO DRINK CHOCOLATE ENSURE, WHICH IS ON TRAY TABLE AT HER SIDE, "IN A LITTLE WHILE". PT ALERT, DISORIENTED TO PERSON, PLACE, DATE, SOME EVENTS.
--- NOTE | 2018-04-15 08:30 | NUR ---
patient up in chair, eating brekafast
--- NOTE | 2018-04-15 09:17 | NUR ---
DASIA DIDNT WANT HER FOOD I BROUGHT HER A STRAWBERRY MEAL REPLACEMENT SHAKE SHE DRANK A COUPLE SIPS, SHE SAID ROSEANN DIDNT LIKE CHOCOLATE ENSURE
--- NOTE | 2018-04-15 10:57 | NUR ---
PT SITTING UP IN BED. GAVE PT SCHEDULED CARFATE. PT TOOK THIS THEN TOOK A SIP OF WATER.
--- NOTE | 2018-04-15 12:36 | NUR ---
PT PROVIDED WITH FRESH ICE WATER. UP TO BATHROOM, HAD UNMEASURED VOID OF URINE, MISSED HAT, AND HAD A SMALL LOOSE BM. NOW SITTING UP IN RECLINER WITH CHAIR ALARM ON, AT SIDE. PERSONAL SUPPLIES AND CALL LIGHT IN REACH. BED LINNENS CHANGED.
[2018-04-15] MEDS ORDERED: CHOLESTYRAMINE P4 GM PO (12:57)
[2018-04-15] MEDS ORDERED: LACTULOSE20 GM/30 M PO (12:59)
[2018-04-15] MEDS ORDERED: PANTOPRAZOLE SO40 MG PO (13:00)
[2018-04-15] MEDS ORDERED: KLOR-CON 1010 MEQ PO (13:01)
--- NOTE | 2018-04-15 13:34 | NUR ---
PT DRESSED IN STREET CLOTHES. IV HAS BEEN D/C'D, WNL, CATH TIP INTACT.
--- NOTE | 2018-04-16 13:20 | NUR ---
HOME HEALTH ORDER, CLINICALS FAXED TO [facility] [phone]. FAX CONFIRMATION RECEIVED. SPOKE WITH BALDO, THEY DID RECEIVE ORDERS.
== END 2018-04-15 14:20 | disposition home health service (06) | DRG 683 ==
LOC: ED 18:22 → MS 18:24
PROVIDERS: ADMIT Internal Medicine
DX: N17.9 Acute kidney failure, unspecified (principal); I50.22 Chronic systolic (congestive) heart failure; R18.8 Other ascites; I42.9 Cardiomyopathy, unspecified; E87.6 Hypokalemia; K52.9 Noninfective gastroenteritis and colitis, unspecified; A08.4 Viral intestinal infection, unspecified; I11.0 Hypertensive heart disease with heart failure; K76.1 Chronic passive congestion of liver; E03.9 Hypothyroidism, unspecified; G30.9 Alzheimer's disease, unspecified; F02.80 Dementia in other diseases classified elsewhere, unspecified severity, without behavioral disturbance, psychotic disturbance, mood disturbance, and anxiety; K29.00 Acute gastritis without bleeding; I48.2 Chronic atrial fibrillation; Z95.0 Presence of cardiac pacemaker; K72.90 Hepatic failure, unspecified without coma; E86.0 Dehydration; Z91.81 History of falling; Z79.82 Long term (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; Z79.899 Other long term (current) drug therapy; Z88.0 Allergy status to penicillin; Z88.2 Allergy status to sulfonamides; Z88.8 Allergy status to other drugs, medicaments and biological substances
CPT/HCPCS: 36415; 71045; 74176; 80048; 80053; 80069; 81001; 82140; 82570; 83690; 83735; 83880; 84300; 84540; 85025; 85610; 85730; 86850; 86900; 86901; 86920; 87045; 87046; 87077; 87088; 87186; 87205; 87493; 93005; 93010; 97110; 97116; 97162; 97530; G8978; G8979; J0696; J1170; J2405; J2550; J3475; J3480; J7040; J7042; J7060

== ENCOUNTER 2018-07-20 19:35 | Emergency (ER) | payer MEDICARE ==
[~2018-07-20] VITALS: Ht 160 cm; Wt 50.0 kg
--- OUTSIDE RECORDS SUMMARY | ~2018-07-20 | XMS | Encounter Summary ---
Demographics + + + | Address | [address] | | | [place] [address] | + + + | Home Phone | | + + + | Preferred Language | Unknown | + + + | Marital Status | | + + + | Voodoo Affiliation | Unknown | + + + | Race | Unknown | + + + | Ethnic Group | Unknown | + + + Author + + + | Author | [facility] | + + + | Organization | [facility] | + + + | Address | Unknown | + + + | Phone | Unavailable | + + + Support + + + + + | Name | Relationship | Address | Phone | + + + + + | Mulu Dolan ECON | [address] | | | | | [place] | | | | | [address] | | + + + + + | Julia Aguilar | ECON | Unknown | | + + + + + Care Team Providers + +------+ + | Care Foot Miter Operator Name | Role | Phone | + +------+ + | Carrillo Michel MD | PCP | Unavailable | + +------+ + Reason for Visit + + + | Reason | Comments | + + + | Medication Refill | | + + + Encounter Details +--------+--------+ + + + | Date | Type | Department | Care Team | Description | +--------+--------+ + + + | 05/16/ | Refill | [facility] [place] | Aranza Jauregui, | Medication Refill | | 2017 | | Cardiology Liza | RD | | | | | [address] [facility] [address] | | | | | | [facility] [address] | | | | | | [place] [address] | | | | | | [phone] | | | +--------+--------+ + + + Social History + + + +--------+ + | Tobacco Use | Types | Packs/Day | Years | Date | | | | | Used | | + + + +--------+ + | Former Smoker | Cigarettes | 1 | 30 | Quit: 10/23/1987 | + + + +--------+ + + +---+---+---+ | Smokeless Tobacco: | | | | | Never Used | | | | + +---+---+---+ + + +---------+ + | Alcohol Use | Drinks/We | oz/Week | Comments | | | ek | | | + + +---------+ + | No | 0 | 0.0 | | | | Standard | | | | | drinks or | | | | | | | | | | equivalen | | | | | t | | | + + +---------+ + + + + | Sex Assigned at | Date Recorded | | | | + + + | Not on file | | + + + as of this encounter Plan of Treatment +--------+---------+ + + + | Date | Type | Specialty | Care Team | Description | +--------+---------+ + + + | 09/05/ | Office | Cardiology | Cecilia Ortega, | | | 2017 | Visit | | MD Mackenzie Valentin | | | | | | Dr [address], | | | | | | [place] [address] | | | | | | [phone] | | | | | | | | +--------+---------+ + + + as of this encounter Visit Diagnoses Not on filein this encounter"
--- OUTSIDE RECORDS SUMMARY | ~2018-07-20 | XMS | Encounter Summary ---
Demographics + + + | Address | [address] | | | [place] [address] | + + + | Home Phone | | + + + | Preferred Language | Unknown | + + + | Marital Status | | + + + | Yazidi Affiliation | 1077 | + + + | Race | Unknown | + + + | Ethnic Group | Unknown | + + + Author + + + | Author | [facility] | | | and Priyankana | + + + | Organization | [facility] | | | and Priyankana [...] [place] | | | | | [address] | | + + + + + | Karen Duarte | ECON | [address] | | | | | [place], [place] | | | | | [address] | | + + + + + Care Team Providers + +------+ + | Care Advanced Analytics Associate Name | Role | Phone | + +------+ + | Carrillo Michel MD | PCP | | + +------+ + Reason for Referral Evaluate & Treat (Urgent) + + + + + + + | Status | Reason | Specialty | Diagnoses / | Referred By | Referred To | | | | | Procedures | Contact | Contact | + + + + + + + | Authorized | Specialty | Gastroenterol | Diagnoses | [place], | Mar[place], | | | Services | ogy | Dysphagia, | Carrillo Omer MD | Darwin Qiu MD | | | Required | | unspecified | [address] | [address], | | | | | type | [address] [place] | [address] | | | | | | [place], [place] | [place], | | | | | | [address] | [place] [address] | | | | | | Phone: | Phone: | | | | | | [phone] | [phone] | | | | | | Fax: | Fax: | | | | | | [phone] | [phone] | + + + + + + + Reason for Visit + + + | Reason | Comments | + + + | Poor Appetite | | + + + Encounter Details +--------+ + + + + | Date | Type | Department | Care Team | Description | +--------+ + + + + | 04/27/ | Telephone | [facility] | Carrillo Michel, | Ana Appetite | | 2018 | | MEDICINE [place] | [address] | | | | | [address] | [place] | | | | | [place] | [address] | | | | | [address] | | | | | | [phone] | | | +--------+ + + + [...] as of this encounter Plan of Treatment + +--------+ + + | Name | Priori | Associated Diagnoses | Order Schedule | | | ty | | | + +--------+ + + | * IVETH ARAMBULA Gastroenterology - | Routin | Dysphagia, | Ordered: 04/27/2018 | | AMB Referral | e | unspecified type | | + +--------+ + + as of this encounter Visit Diagnoses + + | Diagnosis | + + | Dysphagia, unspecified type - Primary | + +"
--- OUTSIDE RECORDS SUMMARY | ~2018-07-20 | XMS | Encounter Summary ---
Demographics + + + | Address | [address] | | | [place] [address] | + + + | Home Phone | | + + + | Preferred Language | Unknown | + + + | Marital Status | | + + + | Restorationism Affiliation | 1077 | + + + | Race | Unknown | + + + | Ethnic Group | Unknown | + + + Author + + + | Author | [facility] | | | and Priyankana | + + + | Organization | [facility] | | | and Priyankana | + + + | Address | Unknown | + + + | Phone | Unavailable | + + + Support + + + + + | Name | Relationship | Address | Phone | + + + + + | Braden Dolan | ECON | [address] | | | | | [place] | | | | | [address] | | + + + + + | Karen Duarte | ECON | [address] | | | | | [place] | | | | | [address] | | + + + + + Care Team Providers + +------+ + | Care Electronic Component Processor Name | Role | Phone | + +------+ + | Carrillo Michel MD | PCP | | + +------+ + Reason for Visit + + + | Reason | Comments | + + + | Dementia | alzheimers | + + + | Other | orders signed for home health- for [facility] | + + + Encounter Details +--------+---------+ + + + | Date | Type | Department | Care Team | Description | +--------+---------+ + + + | 05/17/ | Office | [facility] | Carrillo Michel, | Ischemic | | 2018 | Visit | [facility] [place] | [address] | cardiomyopathy | | | | [address] | [place] | (Primary Dx); Atrial | | | | [place], [place] | [address] | fibrillation, | | | | [address] | | chronic (HCC); | | | | [phone] | | Essential | | | | | | hypertension; | | | | | | Alzheimer's disease | | | | | | of other onset with | | | | | | behavioral | | | | | | disturbance; Weight | | | | | | loss | +--------+---------+ + + + Social History + + [...] + + + as of this encounter Last Filed Vital Signs + + + + | Vital Sign | Reading | Time Taken | + + + + | Blood Pressure | 102/60 | 05/17/2018 1052 PDT | + + + + | Pulse | 64 | 05/17/20181051 PDT | + + + + | Temperature | 36.9 C (98.4 F) | 05/17/20181051 PDT | + + + + | Respiratory Rate | 20 | 05/17/20181051 PDT | + + + + | Oxygen Saturation | 91% | 05/17/20181051 PDT | + + + + | Inhaled Oxygen | - | - | | Concentration | | | + + + + | Weight | 49 kg (108 lb 0.4 | 05/17/20181051 PDT | | | oz) | | + + + + | Height | - | - | + + + + | Body Mass Index | 19.43 | 05/17/2018 1052 PDT | + + + + in this encounter Functional Status + + + [...] + + + as of this encounter Instructions Patient Instructions - Carrillo Michel MD - 05/17/2018 1100 PDTKeep up the great work! If you have any issues getting set up with home health - please let us know. in this encounter Progress Notes Carrillo Michel MD - 05/17/2018 1100 PDTFormatting of this note may be different from the original. Subjective: Patient ID: Mulu Dolan is a 73 y.o. female who is here today for Dementia (alzheimer s) and Other (orders signed for home health- for [place]). Accompanied by . HPI She was admitted to [facility] [place] 04/18-04/23/18 for ischemic cardiomyopathy, aspiration pneumonia , and respiratory failure. She was treated with IV diuretics, levaquin. She also worked [facility]. Stool studies were negative. She was discharged from [facility] 05/13/18. She has d one very well since discharge. She is now taking Marinol 2.5 mg twice daily. It has markedly improved her appetite. She has gained 3 lbs since starting it. She is more active now as well - "up 85% of the day. T hat's a plus." She has been swallowing well this week without difficulty - though previousl y she occasionally coughed after swallowing liquids - but none since discharge. She is taki ng pantoprazole 40 mg twice daily. Diarrhea has resolved. She is breathing well, but with exertion she can be a little winded. He would like a radha ble concentrator. She sleeps with 1.5 lpm. She is taking medications as prescribed. Her mood is "pretty darn good." No agitation. Braden is working on the Advance Directive, but hasn't completed. He clearly states that sh arik is DNR/DNI and no feeding tubes. But they would like to change back from comfort care to limited interventions. Patient's medications, allergies, past medical, surgical, social and family histories were obtained and reviewed as appropriate. Current Outpatient Prescriptions on File Prior to Visit Medication Sig Dispense Refill ascorbic acid (VITAMIN C) 500 mg tablet Take 500 mg by mouth Daily. carvedilol (COREG) 12.5 mg tablet Take 1 tablet by mouth 2 times daily (with breakfast & dinner). To lower blood pressure and heart rate cholecalciferol (VITAMIN D-3) 1,000 units capsule Take 1,000 Units by mouth Daily. cholestyramine light (QUESTRAN) 4 g packet Take 4 g by mouth 2 times daily. cyanocobalamin (VITAMIN B-12) 500 mcg tablet Take 500 mcg by mouth Daily. escitalopram (LEXAPRO) 10 mg tablet Take 1 tablet by mouth Daily. To help mood 90 table t 1 furosemide (LASIX) 20 mg tablet Take 20 mg by mouth Daily. isosorbide dinitrate (ISORDIL) 30 MG tablet Take 30 mg by mouth 4 times daily. levothyroxine (SYNTHROID) 50 mcg tablet Take 50 mcg by mouth every morning (before edwige kfast). losartan (COZAAR) 100 MG tablet Take 1 tablet by mouth Daily. For high blood pressure 9 0 tablet 1 magnesium oxide (MAG-OX) 400 mg tablet Take 400 mg by mouth Daily. mirtazapine (REMERON) 15 MG tablet Take 15 mg by mouth nightly. Multiple Vitamin (MULTIVITAMIN PO) Take 1 tablet by mouth Daily. nitroglycerin (NITROSTAT) 0.[address] 0.4 mg under the tongue every 5 minute s as needed for Chest pain. pantoprazole (PROTONIX) 40 mg tablet Take 40 mg by mouth 2 times daily (before meals). potassium chloride (KLOR-CON) 10 MEQ ER tablet Take 20 mEq by mouth 2 times daily. Review of Systems Constitutional: Negative for fever and unexpected weight change. Respiratory: Negative for cough and shortness of breath. Cardiovascular: Negative for chest pain and leg swelling. No orthopnea, PND Gastrointestinal: Negative for blood in stool. Neurological: Negative for dizziness and light-headedness. Objective: BP 102/60 | Pulse 64 | Temp 36.9 C (98.4 F) (Temporal) | Resp 20 | Wt 49 kg (108 lb 0.4 oz) | SpO2 91% | BMI 19.43 kg/m Physical Exam Constitutional: Very pleasant, well developed, NAD Neck: Neck supple. No thyromegaly present. Cardiovascular: Normal rate, regular rhythm, normal heart sounds and intact distal pulses. Exam reveals no gallop and no friction rub. No murmur heard. Pulmonary/Chest: Breath sounds normal. No respiratory distress. She has no wheezes. She has no rales. Musculoskeletal: She exhibits no edema. Lymphadenopathy: She has no cervical adenopathy. Neurological: Oriented to first name only. She cannot recall her middle or last name. Not oriented to d ay/date/season, place, situation Psychiatric: Slightly disheveled appearance with clean clothes. Doses frequently during appointment. O arash snaps at Braden, but he quickly defuses her. Insight poor. Assessment & Plan: 1. Ischemic cardiomyopathy, atrial fibrillation: Hospital records reviewed. She is gonzalez duff doing well from a cardiac perspective. Not on anticoagulation due to fall and medicatio n misuse risk. - Continue current medications - Continue nocturnal oxygen supplementation - Does not currently qualify for ambulatory O2 as ambulatory sats only dropped to 90% - Home Health as planned to help with conditioning, medication management, disease educati on 3. Essential hypertension, renal artery stenosis s/p right renal artery stent 01/2013: Well controlled - Consider decreasing medications if continues to be well controlled. Did not decrease at this time as she has h/o marked elevations 4. 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 He understands prognosis is poor but he does not feel dementia is as bad as health care providers do. They desire limited intervent ions (DNR/DNI, no tube feeds, but would be ok with admission). - Continue Aricept, Marinol - dronabinol (MARINOL) 2.5 mg capsule; Take 1 capsule by mouth 2 times daily (before meals) . Dispense: 60 capsule; Refill: 2 Return in about 1 month (around 06/17/2018), or if symptoms worsen or fail to improve. Shailesh Michel MD in this encounter Plan of Treatment Not on fileas of this encounter Procedures + +--------+ + + + | Procedure Name | Priori | Date/Time | Associated Diagnosis | Comments | | | ty | | | | + +--------+ + + + | DIAGNOSTIC REPORT - | | 05/17/2018 | | Results for this | | EXTERNAL SCAN | | 0000 PDT | | procedure are in the | | | | | | results section. | + +--------+ + + + in this encounter Results DIAGNOSTIC REPORT - EXTERNAL SCAN (05/17/2018) + + + | Narrative | Performed At | + + + | Ordered by an | | | unspecified provider. | | + + + in this encounter Visit Diagnoses + + | Diagnosis | + + | Ischemic cardiomyopathy - Primary | + + | Other specified forms of chronic ischemic heart disease | + + | Atrial fibrillation, chronic (HCC) | + + | Atrial fibrillation | + + | Essential hypertension | + + | Unspecified essential hypertension | + + | 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 | + + | Weight loss | + + | Loss of weight | + +
--- OUTSIDE RECORDS SUMMARY | ~2018-07-20 | XMS | Encounter Summary ---
Demographics + + + | Address | [address] | | | [place] [address] | + + + | Home Phone | | + + + | Preferred Language | Unknown | + + + | Marital Status | | + + + | Denominational Affiliation | 1077 | + + + | Race | Unknown | + + + | Ethnic Group | Unknown | + + + Author + + + | Author | [facility] | | | and Priyankana | + + + | Organization | [facility] | | | and Priyankana [...] [place] | | | | | [address] | | + + + + + | Karen Duarte | ECON | [address] | | | | | [place] | | | | | [address] | | + + + + + Care Team Providers + +------+ + | Care Activities Assistant Name | Role | Phone | + +------+ + | Carrillo Michel MD | PCP | | + +------+ + Reason for Visit + + + | Reason | Comments | + + + | Appointment | med question | + + + Encounter Details +--------+ + + + + | Date | Type | Department | Care Team | Description | +--------+ + + + + | 07/05/ | Telephone | [facility] | Carrillo Michel, | Appointment (med | | 2018 | | MEDICINE [place] | [address] | question) | | | | [address] | [place] | | | | | [place] | [address] | | | | | [address] | | | | | | [phone] | | | +--------+ + + + [...]
--- OUTSIDE RECORDS SUMMARY | ~2018-07-20 | XMS | Clinical Summary ---
Demographics + + + | Address | [address] | | | [place] [address] | + + + | Home Phone | | + + + | Preferred Language | Unknown | + + + | Marital Status | | + + + | Confucianist Affiliation | Unknown | + + + | Race | Unknown | + + + | Ethnic Group | Unknown | + + + Author + + + | Author | [facility] | + + + | Organization | [facility] | + + + | Address | Unknown | + + + | Phone | Unavailable | + + + Support + + + + + | Name | Relationship | Address | Phone | + + + + + | Laila Ellison ECON | [address] | | | | | [place] | | | | | [address] | | + + + + + | Julia Aguilar | ECON | Unknown | | + + + + + Care Team Providers + +------+ + | Care Maintenance Planning Clerk Name | Role | Phone | + +------+ + | Carrillo Michel MD | PP | Unavailable | + +------+ + Allergies + + + + + + | Active Allergy | Reactions | Severity | Noted | Comments | | | | | Date | | + + + + + + | Codeine | Nausea and Vomiting | Low | 01/24/20 | | | | | | 13 | | + + + + + + | Iodinated Diagnostic | Rash | Medium | 01/24/20 | | | Agents | | | 13 | | + + + + + + | Penicillins | Rash | Medium | 01/24/20 | | | | | | 13 | | + + + + + + | Sulfa Antibiotics | Rash | Medium | 01/24/20 | | | | | | 13 | | + + + + + + Current Medications + + +--------+---------+------+------+-------+ | Prescription | Sig. | Disp. | Refills | Star | End | Statu | | | | | | t | Date | s | | | | | | Date | | | + + +--------+---------+------+------+-------+ | levothyroxine | Take 50 mcg by mouth | | | | | Activ | | (SYNTHROID, | daily. | | | | | e | | LEVOTHROID) 50 MCG | | | | | | | | tablet | | | | | | | + + +--------+---------+------+------+-------+ | donepezil | Take 15 mg by mouth | | | | | Activ | | (ARICEPT) 10 MG | nightly. | | | | | e | | tablet | | | | | | | + + +--------+---------+------+------+-------+ | Multiple Vitamin | Take 1 capsule by | | | | | Activ | | (MULTIVITAMIN) | mouth daily. | | | | | e | | capsule | | | | | | | + + +--------+---------+------+------+-------+ | cholecalciferol | Take 1,000 Units by | | | | | Activ | | (VITAMIN D-3) 1000 | mouth daily. | | | | | e | | UNITS tablet | | | | | | | + + +--------+---------+------+------+-------+ | nitroGLYCERIN | Place 0.4 mg under | | | | | Activ | | (NITROSTAT) 0.4 MG | the tongue every 5 | | | | | e | | SL tablet | (five) minutes as | | | | | | | | needed for Chest | | | | | | | | pain. | | | | | | + + +--------+---------+------+------+-------+ | omeprazole | Take 40 mg by mouth | | | | | Activ | | (PRILOSEC) 40 MG | every morning before | | | | | e | | capsule | breakfast. | | | | | | + + +--------+---------+------+------+-------+ | aspirin 81 MG | Take 81 mg by mouth | | | | | Activ | | chewable tablet | daily with | | | | | e | | | breakfast. | | | | | | + + +--------+---------+------+------+-------+ | furosemide (LASIX) | Take 1 tablet by | 35 | 11 | 10/0 | | Activ | | 20 MG | mouth daily. Can | tablet | | 2/20 | | e | | tabletIndications: | take extra 20 mg prn | | | 17 | | | | Edema | If gain more than | | | | | | | | 2 lbs | | | | | | + + +--------+---------+------+------+-------+ | losartan (COZAAR) | Take 1 tablet by | 30 | 11 | 10/0 | | Activ | | 100 MG tablet | mouth daily. | tablet | | 2/20 | | e | | | | | | 17 | | | + + +--------+---------+------+------+-------+ | magnesium oxide | Take 1 tablet by | 30 | 11 | 10/0 | 10/0 | Activ | | (MAG-OX) 400 MG | mouth daily. | tablet | | 2/20 | 2/20 | e | | tablet | | | | 17 | 18 | | + + +--------+---------+------+------+-------+ | cyanocobalamin | Take 1,000 mcg by | | | | | Activ | | (VITAMIN B-12) 1000 | mouth daily. | | | | | e | | MCG tablet | | | | | | | + + +--------+---------+------+------+-------+ | potassium chloride | Take 20 mEq by mouth | | | | | Activ | | (KLOR-CON) 20 MEQ | 2 (two) times | | | | | e | | packet | daily. | | | | | | + + +--------+---------+------+------+-------+ | mirtazapine | Take 15 mg by mouth. | | | 03/2 | | Activ | | (REMERON) 15 MG | | | | 3/20 | | e | | tablet | | | | 18 | | | + + +--------+---------+------+------+-------+ | ascorbic acid | Take 500 mg by mouth | | | | | Activ | | (VITAMIN C) 500 MG | daily. | | | | | e | | tablet | | | | | | | + + +--------+---------+------+------+-------+ | chlorthalidone | Take 25 mg by mouth | | | | | Activ | | (HYGROTEN) 25 MG | daily. | | | | | e | | tablet | | | | | | | + + +--------+---------+------+------+-------+ | cephALEXin | Take 500 mg by mouth | | | | | Activ | | (KEFLEX) 500 MG | 4 (four) times | | | | | e | | capsule | daily. | | | | | | + + +--------+---------+------+------+-------+ | escitalopram | Take 10 mg by mouth | | | | | Activ | | (LEXAPRO) 10 MG | daily. | | | | | e | | tablet | | | | | | | + + +--------+---------+------+------+-------+ | isosorbide | Take 1 tablet by | 120 | 11 | 03/23 | 06/1 | Activ | | dinitrate (ISORDIL) | mouth 4 (four) times | tablet | | 8/20 | 8/20 | e | | 30 MG tablet | daily. | | | 18 | 19 | | + + +--------+---------+------+------+-------+ | carvedilol (COREG) | Take 1 tablet by | 60 | 2 | 07/2 | | Activ | | 12.5 MG tablet | mouth 2 (two) times | tablet | | 5/20 | | e | | | daily for 30 days. 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 | | 71yo WF, with dementia, she is here with her . Although | | she does not recall her recent hospitalization, nor her symptoms, | | he admits that she had chest discomfort, was admitted to the [facility] hospital. Cardiac enzymes were mildly abnormal, she was sent to | | [facility], there, she did have a cardiology | | consultation, the does recall the event. Because of the | | dementia, it was elected to treat her medically. She does appear | | to be tolerating the medications. I had a long discussion with | | her , it would be reasonable for him to consider an | | advanced directive, DNR/DNI. Has follow-up visit with PCP. No | | changes in therapy.Last Cath: naLast Echo, 07/30/2016: LVEF | | 35-40%, severe LAE/JHONNY, mild RVE with abnormal systolic function, | | mild MR, severe TR, trace Pericardial effusion, est systolic PAP | | 40-45mmHg.Last Stress Test, 06/01/2010: Lexiscan, images benign | | LVEF 60%.ECG, 07/02/2016 ([facility]): A fib, 80bpm, PVC, LAFB, | | PRWP, diffuse non-spec ST-T changes. | + + + + + | Chronic systolic congestive heart failure (HCC) | 07/30/2016 | + + + | Stage 3 chronic kidney disease (HCC) | 07/29/2016 | + + + | Alzheimer's dementia | 07/29/2016 | + + + + + | Last Assessment & Plan: Dementia. | + + + + + | Chronic atrial fibrillation (HCC) | 06/19/2014 | + + + + + | Last Assessment & Plan: Chronic Atrial fibrillation, CHADS2 | | Score 2 (CHF, HTN), on ASA. Long discussion with , | | although anticoagulation appropriate, he admits that her dietary | | habits are quite sporadic, and the challenges of anticoagulation | | would be difficult for her. We also discussed the NOAC's, he | | believes cost would be prohibitive. For now we'll continue | | aspirin. | + + + + + | Right renal artery stenosis | 01/23/2013 | + + + | Hypertension with goal blood pressure less than 140/80 | 01/23/2013 | + + + + + | Last Assessment & Plan: Hypertension, controlled, continue | | current meds current doses (carvedilol, hydralazine, | | losartan).Lab, 07/29/2016: CPK: 52, Trop-T: 0.952 | | Liver enzymes NML, K: 3.4, BUN/Cr: 11/1.1 (GFR 49), glu: | | 129 WBC: 5.0, H/H: 13.5/43.0, plt: | | 198Lab, 07/30/2016: K: 3.0, BUN/Cr: 10/0.9 (GFR >60), glu: 79, Mg: | | 1.9 TSH: 5.88, free T3: 3.0, free T4: | | 1.3 | + + Resolved Problems + + + + | Problem | Noted | Resolved | | | Date | Date | + + + + | Non-ST elevation (NSTEMI) myocardial infarction (HCC) | 07/29/20 | | | | 16 | 7 | + + + + Encounters +--------+ + + + + | Date | Type | Specialty | Care Team | Description | +--------+ + + + + | 07/05/ | Telephone | | Vibha Vergara CMA | Other (Appointment | | 2017 | | | | and lab reminder) | +--------+ + + + + | 06/28/ | Orders Only | | Gilbert Rodriguez, | CKD (chronic kidney | | 2017 | | | [facility]IGHTER | disease) stage 3, | | | | | | GFR 30-59 ml/min | | | | | | (Primary Dx) | +--------+ + + + + | 05/16/ | Refill | | Aranza Jauregui, | Medication Refill | | 2017 | | | [place] | | +--------+ + + + + | 05/15/ | Telephone | | Pricilla Berumen | | | 2017 | | | | | +--------+ + + + + | 04/23/ | Telephone | | Julia Barreto | | | 2017 | | | | | +--------+ + + + + from Last 3 Months Family History + + +------+ + | Medical History | Relation | Name | Comments | + + +------+ + | Kidney disease | Neg Hx | | | + + +------+ + + +------+ + + | Relation | Name | Status | Comments | + +------+ + + | Father | | | liver disease | | | | (Age | | | | | 56) | | + +------+ + + | Mother | | | ALS | | | | (Age | | | | | 88) | | + +------+ + + Social [...] on file | | + + + Last Filed Vital Signs + + + + | Vital Sign | Reading | Time Taken | + + + + | Blood Pressure | 124/76 | 03/14/2018 10:59 AM PDT | + + + + | Pulse | 79 | 03/14/2018 10:59 AM PDT | + + + + | Temperature | 36.6 C (97.8 F) | 01/24/2018 11:17 AM PDT | + + + + | Respiratory Rate | 16 | 03/01/2017 7:34 AM PDT | + + + + | Oxygen Saturation | 94% | 03/14/2018 10:59 AM PDT | + + + + | Inhaled Oxygen | - | - | | Concentration | | | + + + + | Weight | 54.1 kg (119 lb 4.8 | 03/14/2018 10:59 AM PDT | | | oz) | | + + + + | Height | 162.6 cm (5' 4") | 03/14/2018 10:59 AM PDT | + + + + | Body Mass Index | 20.48 | 03/14/2018 10:59 AM PDT | + + + + Plan of Treatment +--------+---------+ + + + | Date | Type | Specialty | Care Team | Description | +--------+---------+ + + + | 09/05/ | Office | | Cecilia Ortega, | | | 2018 | Visit | | MD Mackenzie Valentin | | | | | | [address], | | | | | | [place] [address] | | | | | | [phone] | | | | | | | | +--------+---------+ + + + + + + + + | Health Maintenance | Due Date | Last Done | Comments | + + + + + | Colon Cancer | | | | | Screening | 3 | | | | (Colonoscopy) | | | | + + + + + | Vaccine: Zoster (1 | | | | | of 2) | 3 | | | + + + + + | DEXA SCAN SCREENING | | | | | | 8 | | | + + + + + | Vaccine: Influenza | | 07/25/2017, 09/26/2016, | | | (#1) | 8 | 11/11/2015, Additional history | | | | | exists | | + + + + + | Vaccine: | | 07/19/2016, 10/23/2006 | | | Dtap/Tdap/Td (3 - | 6 | | | | Td) | | | | + + + + + | Vaccine: | Completed | 12/08/2016, 05/07/2015, | | | Pneumococcal 65+ | | 10/23/2007 | | | Low/Medium Risk | | | | + + + + + Implants + +--------+------+ +--------+--------+--------+ | Implanted | Type | Area | Manufacture | Device | Expira | Model | | | | | r | | tion | / | | | | | | Identi | Date | Serial | | | | | | fier | | / Lot | + +--------+------+ +--------+--------+--------+ | Rv Lead-02/28/2017Implanted: | Cardia | | [employer] - | | | | | Qty: 1 on 02/28/2017 by | c | | MEDT | | | /[id number] | | Samantha Celis MD | Rhythm | | | | | [id number] | | | | | | | | / | | | Manage | | | | | | | | ment | | | | | | + +--------+------+ +--------+--------+--------+ | Pacemaker-02/28/2017Implanted: | Cardia | | [employer] - | | | | | Qty: 1 on 02/28/2017 by | c | | MEDT | | | /[id number] | | Samantha Celis MD | Rhythm | | | | | 1 / | | | | | | | | | | | Manage | | | | | | | | ment | | | | | | + +--------+------+ +--------+--------+--------+ Results Not on filefrom Last 3 Months Insurance + +--------+ +--------+-------+---------+ | Payer | Benefi | Subscriber | Type | Phone | Address | | | t Plan | ID | | | | | | / | | | | | | | Group | | | | | + +--------+ +--------+-------+---------+ | [place] | [place] - | [id number] | Medica | | | | | MODA | | re | | | | | | | | | | | | | | | | | | | | | | | | | | | | | | | | | | | | | | | | [place] - | | | | | | | MODA | | | | | + +--------+ +--------+-------+---------+ + +--------+ +--------+ + + | Guarantor Name | Accoun | Relation to | Date | Phone | Billing Address | | | t Type | Patient | of | | | | | | | | | | + +--------+ +--------+ + + | LAILA ELLISON | Person | Self [birth year] Home: | [address] | | | al/Fam | | 1945 | [phone] [place] | | | [employer] | | | [phone] | [phone] | + +--------+ +--------+ + +
--- OUTSIDE RECORDS SUMMARY | ~2018-07-20 | XMS | Encounter Summary ---
Demographics + + + | Address | [address] | | | [place] [address] | + + + | Home Phone | | + + + | Preferred Language | Unknown | + + + | Marital Status | | + + + | Holiness Affiliation | 1077 | + + + | Race | Unknown | + + + | Ethnic Group | Unknown | + + + Author + + + | Author | [facility] | | | and Priyankana | + + + | Organization | [facility] | | | and Priyankana [...] [place] | | | | | [address] | | + + + + + | Karen Duarte | ECON | [address] | | | | | [place] | | | | | [address] | | + + + + + Care Team Providers + +------+ + | Care Rural Health Consultant Name | Role | Phone | + [...] + + | 06/29/ | Telephone | [facility] | Carrillo Michel, | Lab Results | | 2018 | | [facility] [place] | [address] | | | | | [address] | [place] | | | | | [place] | [phone] | | | | | [address] | | | | | | [phone] | | | +--------+ + + + [...]
--- OUTSIDE RECORDS SUMMARY | ~2018-07-20 | XMS | Encounter Summary ---
Demographics + + + | Address | [address] | | | [place] [address] | + + + | Home Phone | | + + + | Preferred Language | Unknown | + + + | Marital Status | | + + + | Worship Affiliation | 1077 | + + + | Race | Unknown | + + + | Ethnic Group | Unknown | + + + Author + + + | Author | [facility] | | | and Priyankana | + + + | Organization | [facility] | | | and Priyankana [...] [place] | | | | | [address] | | + + + + + | Karen Duarte | ECON | [address] | | | | | [place] | | | | | [address] | | + + + + + Care Team Providers + +------+ + | Care Electrical Instrument Technician Name | Role | Phone | [...] + + | 06/18/ | Refill | [facility] | Carrillo Michel, | Medication Refill | | 2018 | | [facility] [place] | [address] | | | | | [address] | [place] | | | | | [place] | [address] | | | | | [address] | | | | | | [phone] | | | +--------+--------+ + + + [...]
--- OUTSIDE RECORDS SUMMARY | ~2018-07-20 | XMS | Clinical Summary ---
Demographics + + + | Address | [address] | | | [place] [address] | + + + | Home Phone | | + + + | Preferred Language | Unknown | + + + | Marital Status | | + + + | Adventism Affiliation | 1077 | + + + | Race | Unknown | + + + | Ethnic Group | Unknown | + + + Author + + + | Author | [facility] | | | and [facility] | + + + | Organization | [facility] | | | and [facility] | + + + | Address | Unknown | + + + | Phone | Unavailable | + + + Support + + + + + | Name | Relationship | Address | Phone | + + + + + | Braedn Dolan | ECON | [address] | | | | | [place] | | | | | [address] | | + + + + + | Karen Duarte | ECON | [address] | | | | | [place] | | | | | [address] | | + + + + + Care Team Providers + +------+ + | Care [employer] Police Officer Name | Role | Phone | + +------+ + | Carrillo Michel MD | PP | | + +------+ [...] + + + Current Medications + + +---------+---------+------+------+-------+ | Prescription | Sig. | Disp. | Refills | Star | End | Statu | | | | | | t | Date | s | | | | | | Date | | | + + +---------+---------+------+------+-------+ | Multiple Vitamin | Take 1 tablet by | | | | | Activ | | (MULTIVITAMIN PO) | mouth Daily. | | | | | e | + + +---------+---------+------+------+-------+ | ascorbic acid | Take 500 mg by mouth | | | | | Activ | | (VITAMIN C) 500 mg | Daily. | | | | | e | | tablet | | | | | | | + + +---------+---------+------+------+-------+ | carvedilol (COREG) | Take 1 tablet by | | | 10/0 | | Activ | | [...] | | | | | + + +---------+---------+------+------+-------+ | escitalopram | Take 1 tablet by | 90 | 1 | 12/2 | | Activ | | (LEXAPRO) 10 mg | mouth Daily. To help | tablet | | 11/11 | | e | | tabletIndications: | mood | | | 17 | | | | Depression, | | | | | | | | unspecified | | | | | | | | depression type | | | | | | | + + +---------+---------+------+------+-------+ | losartan (COZAAR) | Take 1 tablet by | 90 | 1 | 01/0 | | Activ | | 100 MG | mouth Daily. For | tablet | | 06/11 | | e | | tabletIndications: | high blood pressure | | | 18 | | | | Essential | | | | | | | | hypertension | | | | | | | + + +---------+---------+------+------+-------+ | cholestyramine | Take 4 g by mouth 2 | | | | | Activ | | light (QUESTRAN) 4 g | times daily. | | | | | e | | packet | | | | | | | + + +---------+---------+------+------+-------+ | levothyroxine | Take 50 mcg by mouth | | | | | Activ | | (SYNTHROID) 50 mcg | every morning | | | | | e | | tablet | (before breakfast). | | | | | | + + +---------+---------+------+------+-------+ | mirtazapine | Take 15 mg by mouth | | | | | Activ | | (REMERON) 15 MG | nightly. | | | | | e | | tablet | | | | | | | + + +---------+---------+------+------+-------+ | nitroglycerin | Place 0.4 mg under | | | | | Activ | | (NITROSTAT) 0.4 mg | the tongue every 5 | | | | | e | | SL tablet | minutes as needed | | | | | | | | for Chest pain. | | | | | | + + +---------+---------+------+------+-------+ | donepezil | Take 10 mg by mouth | | | | | Activ | | (ARICEPT) 10 MG | Daily. | | | | | e | | tablet | | | | | | | + + +---------+---------+------+------+-------+ | dronabinol | Take 1 capsule by | 60 | 2 | 07/2 | | Activ | | (MARINOL) 2.5 mg | mouth 2 times daily | capsule | | 04/11 | | e | | capsuleIndications: | [...] | | | | | + + +---------+---------+------+------+-------+ | furosemide (LASIX) | Take 1 tablet by | 30 | 4 | 08/2 | | Activ | | 20 mg tablet | mouth Daily. | tablet | | 7/20 | | e | | | | | | 18 | | | + + +---------+---------+------+------+-------+ | pantoprazole | Take 1 tablet by | 30 | 4 | 08/2 | | Activ | | (PROTONIX) 40 mg | mouth 2 times daily | tablet | | 7/20 | | e | | tablet | (before meals). | | | 18 | | | + + +---------+---------+------+------+-------+ | potassium chloride | Take 2 tablets by | 120 | 4 | 08/2 | | Activ | | (KLOR-CON) 10 MEQ | mouth 2 times daily. | tablet | | 7/20 | | e | | ER tablet | | | | 18 | | | + + +---------+---------+------+------+-------+ | isosorbide | Take 1 tablet by | 180 | 1 | 09/2 | | Activ | | dinitrate (ISORDIL) | mouth 2 times daily. | tablet | | 5/20 | | e | | 30 MG | To prevent chest | | | 18 | | | | tabletIndications: | pain and to lower | | | | | | | Coronary artery | blood pressure | | | | | | | disease of [place] | | | | | | | | artery of [place] | | | | | | | | heart with stable | | | | | | | | angina pectoris | | | | | | | | ([facility]), Essential | | | | | | | | hypertension | | | | | | | + + +---------+---------+------+------+-------+ | cholecalciferol | Take 1,000 Units by | | | | 09/0 | Disco | | (VITAMIN D-3) 1,000 | mouth Daily. | | | | 6/20 | ntinu | | units capsule | | | | | 18 | ed | + + +---------+---------+------+------+-------+ | cyanocobalamin | Take 500 mcg by | | | | 09/0 | Disco | | (VITAMIN B-12) 500 | mouth Daily. | | | | 6/20 | ntinu | | mcg tablet | | | | | 18 | ed | + + +---------+---------+------+------+-------+ | magnesium oxide | Take 400 mg by mouth | | | | 09/0 | Disco | | (MAG-OX) 400 mg | Daily. | | | | 6/20 | ntinu | | tablet | | | | | 18 | ed | + + +---------+---------+------+------+-------+ | isosorbide | Take 30 mg by mouth | | | 03/23 | 06/24 | Disco | | dinitrate (ISORDIL) | 2 times daily. | | | 06/11 | 03/11 | ntinu | | 30 MG tablet | | | | 18 | 18 | ed | + + +---------+---------+------+------+-------+ Active Problems + + + | Problem | Noted Date | + + + | Achalasia | 05/18/2018 | + + + | Chronic systolic heart failure (HCC) | 07/25/2017 | + + + + + | Overview: Ashley candice 06/14/17: EF 20-25% | + + + + + | Non-rheumatic tricuspid valve insufficiency | 07/25/2017 | + + + + + | Overview: Echo 06/14/17: Severe TC regurge. EF 20-25% | + + + + + | CAD (coronary artery disease) | 11/18/2016 | + + + + + | Overview: Followed by Dr Lincoln Stack. 08/03/16: NSTEMI, | | LVEF 35-40%. Because of dementia - treating medically. 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 Advance LV diastolic | | dysfunction. Mild-to moderate MR and TRNM Stress Test 05/2010: | | EF 60%, no perfusion defects | + + + + + | Renal artery stenosis in 1 of 2 vessels ([facility]) | 08/07/2012 | + + + + + | Overview: 02/02: Right RA stented using 5 mm x 19 mm balloon | | expandable stent10/2012: High grade right (>80%). Low-moderate | | grade left.05/2010: >60% stenosis of Right Renal Artery | + + + + + | Diverticulosis | 08/07/2012 | + + + | CKD (chronic kidney disease) stage 3, GFR 30-59 ml/min ([facility]) | 08/07/2012 | + + + + + | Overview: 09/03: Cr: 1.05, GFR 52; Microalbumin:Cr 65.5 | + + + + + | HTN (hypertension) | [...] + + | Acute hypoxemic respiratory failure (HCC) | 04/18/20 | | | | 18 | 8 | + + + + | Renal artery stenosis (HCC) | 08/07/20 | | | | 12 | 2 | + + + + | Heart palpitations | 08/07/20 | | | | 12 | 5 | + + + + Encounters +--------+ + + + + | Date | Type | Specialty | Care Team | Description | +--------+ + + + + | 07/17/ | Telephone | | Carrillo Michel, | Medication | | 2017 | | | MD | Management | | | | | | (isosorbide | | | | | | dinitrate) | +--------+ + + + + | 07/05/ | Telephone | | Carrillo Michel, | Appointment (med | | 2017 | | | MD | question) | +--------+ + + + + | 07/03/ | Telephone | | Carrillo Michel, | Medication Question | | 2017 | | | MD | | +--------+ + + + + | 06/29/ | Telephone | | Carrillo Michel, | Results | | 2017 | | | MD | | +--------+ + + + + | 06/29/ | Telephone | | Carrillo Michel, | Lab Results | | 2017 | | | MD | | +--------+ + + + + | 06/28/ | Office | | Cynthia Sykes, | 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 | | | | | | (Primary Dx) | +--------+ + + + + | 06/18/ | Refill | | Carrillo Michel, | Medication Refill | 2017 | | | MD | | +--------+ + + + + | 05/22/ | Telephone | | Carrillo Michel, | Medication Prior | 2017 | | | MD | Authorization | | | | | | (Dronabinol) | +--------+ + + + + 05/18/ | Telephone | | Carrillo Michel, | Paperwork | | 2017 | | | MD | | +--------+ + + + + 05/17/ | Office | | Carrillo Michel, | Ischemic | | 2017 | Visit | | MD | cardiomyopathy | | | | | | (Primary Dx); Atrial | | | | | | fibrillation, | | | | | | chronic (HCC); | | | | | | Essential | | | | | | hypertension; | | | | | | Alzheimer's disease | | | | | | of other onset with | | | | | | behavioral | | | | | | disturbance; Weight | | | | | | loss | +--------+ + + + 05/15/ | Telephone | | Carrillo Michel, | Home Health | | 2018 | | | MD | | +--------+ + + + + 05/14/ | Telephone | | Darwin López MD | Results, Imaging | | 2017 | | | | (Esophagram shows | | | | | | mild achalasia) | +--------+ + + + + | 05/08/ | Hospital | | Darwin López MD | Dysphagia, | | 2017 | Encounter | | [facility] | unspecified type | +--------+ + + + + | 05/04/ | Telephone | | Darwin López MD | Referral (GI) | | 2017 | | | | | +--------+ + + + + | 04/27/ | Telephone | | Carrillo Michel | Poor Appetite | 2017 | | | | | +--------+ + + + + | 04/18/ | Hospital | | Norbert Becker | Acute on chronic | | 2018 - | Encounter | | MD Gage Harvey, | congestive heart | | | | | Sammy Lutz MD | failure, unspecified | | 04/23/ | | | Sandoval Hackett, | heart failure type | | 2017 | | | MD Dixie | (HCC) (Primary Dx); | | | | | | Hypokalemia; | | | | | | Elevated troponin; | | | | | | Elevated brain | | | | | | natriuretic peptide | | | | | | (BNP) level; | | | | | | Hypoxemia; Acute | | | | | | respiratory failure | | | | | | with hypoxia and | | | | | | hypercapnia (HCC); | | | | | | Acute hypoxemic | | | | | | respiratory failure | | | | | | (HCC); Alzheimer's | | | | | | disease of other | | | | | | onset with | | | | | | behavioral | | | | | | disturbance; Atrial | | | | | | fibrillation, | | | | | | chronic (HCC) | +--------+ + + + + +---+ + | | Discharge | | | Summaries | | | - Alex Huerta | | | MD Taras - | | | 04/23/2018 | | | 1140 PDT | | | Formatting | | | of this | | | note may be | | | different | | | from the | | | original.[facility] | | [facility] | | | [facility] | | | DISCHARGE | | | SUMMARYPt. | | | Name/Age/DO | | | B: Laila | | | Enriqueta | | | Magdaleno | | | 72 y.o. | | | 1945 | | | | | | Medical | | | Record | | | Number: | | | | | | [id number] | | | Date of | | | Admission: | | | | | | 04/18/2018 | | | Date | | | of | | | Discharge: | | | | | | 04/23/2018Adm | | | itting | | | Physician: | | | Dixie | | | Nick | | | Lew, | | | MD | | | Primary | | | Care | | | Provider: | | | Carrillo | | | [place], | | | MDDischargi | | | ng | | | Physician: | | | Alex C. | | | Huerta, MD | | | DISCHARGE | | | DIAGNOSES: | | | Principal | | | Discharge | | | Diagnosis:1 | | | . Ischemic | | | cardiomyopa | | | thy with | | | acute CHF | | | and pulm | | | edema2. | | | Acute | | | hypoxic | | | respiratory | | | failure | | | 2/2 1. And | | | aspiration | | | pneumoniaSe | | | condary | | | Discharge | | | Diagnosis:H | | | TNCHF EF | | | 25%AfibCirr | | | hosisAlzhei | | | arnaud'sDISCHA | | | RGE | | | MEDICATIONS | | | : | | | Discharge | | | Medications | | | New | | | Medications | | | Details | | | | | | levoFLOXaci | | | n 250 mg | | | tablet Take | | | 1 tablet | | | by mouth | | | Daily for 5 | | | days. | | | Indications | | | : | | | Healthcare- | | | Associated | | | Pneumoniaak | | | a: | | | LEVAQUINSta | | | rt: | | | 04/24/2018 | | | loperamide | | | 2 mg | | | capsule | | | Take 1 | | | capsule by | | | mouth every | | | 3 hours as | | | needed for | | | | | | Diarrhea.ak | | | a: IMODIUM | | | Unchanged | | | | | | Medications | | | Details | | | ascorbic | | | acid 500 mg | | | tablet | | | Take 500 mg | | | by mouth | | | Daily.aka: | | | VITAMIN C | | | carvedilol | | | 12.5 mg | | | tablet Take | | | 1 tablet | | | by mouth 2 | | | times daily | | | (with | | | breakfast & | | | dinner). | | | To lower | | | blood | | | pressure | | | and heart | | | rateaka: | | | COREG | | | cholecalcif | | | leanna 1,000 | | | units | | | capsule | | | Take 1,000 | | | Units by | | | mouth | | | Daily.aka: | | | VITAMIN | | | D-3 | | | cholestyram | | | ine light 4 | | | g packet | | | Take 4 g by | | | mouth 2 | | | times | | | daily.aka: | | | QUESTRAN | | | cyanocobala | | | min 500 mcg | | | tablet | | | Take 500 | | | mcg by | | | mouth | | | Daily.aka: | | | VITAMIN | | | B-12 | | | donepezil | | | 10 MG | | | tablet Take | | | 10 mg by | | | mouth | | | nightly.aka | | | : ARICEPT | | | escitalopra | | | m 10 mg | | | tablet Take | | | 1 tablet | | | by mouth | | | Daily. To | | | help | | | moodaka: | | | LEXAPRO | | | furosemide | | | 20 mg | | | tablet Take | | | 20 mg by | | | mouth | | | Daily.aka: | | | LASIX | | | isosorbide | | | dinitrate | | | 30 MG | | | tablet Take | | | 30 mg by | | | mouth 4 | | | times | | | daily.aka: | | | ISORDIL | | | levothyroxi | | | ne 50 mcg | | | tablet Take | | | 50 mcg by | | | mouth every | | | morning | | | (before | | | breakfast). | | | aka: | | | SYNTHROID | | | losartan | | | 100 MG | | | tablet Take | | | 1 tablet | | | by mouth | | | Daily. For | | | high blood | | | pressureaka | | | : COZAAR | | | magnesium | | | oxide 400 | | | mg tablet | | | Take 400 mg | | | by mouth | | | Daily.aka: | | | MAG-OX | | | mirtazapine | | | 15 MG | | | tablet Take | | | 15 mg by | | | mouth | | | nightly.aka | | | : REMERON | | | MULTIVITAMI | | | N PO Take 1 | | | tablet by | | | mouth | | | Daily. | | | nitroglycer | | | in 0.4 mg | | | SL tablet | | | Place 0.4 | | | mg under | | | the tongue | | | every 5 | | | minutes as | | | needed for | | | Chest | | | pain.aka: | | | NITROSTAT | | | pantoprazol | | | e 40 mg | | | tablet Take | | | 40 mg by | | | mouth 2 | | | times daily | | | (before | | | meals).aka: | | | PROTONIX | | | potassium | | | chloride 10 | | | MEQ ER | | | tablet Take | | | 20 mEq by | | | mouth 2 | | | times | | | daily.aka: | | | KLOR-CON | | | Discontinue | | | d | | | Medications | | | | | | chlorthalid | | | one 25 mg | | | tablet | | | Lactulose | | | 20 GM/30ML | | | Soln | | | HOSPITAL | | | COURSE: | | | Please | | | refer to | | | the H&P for | | | full | | | details and | | | the most | | | recent | | | rounding | | | rounding | | | (progress) | | | note.In | | | short 72 yo | | | who was | | | brought to | | | the ED due | | | to | | | increasing | | | LE swelling | | | and SOB. | | | She was | | | recently | | | evaluated | | | for viral | | | gastroenter | | | itis and | | | was | | | dehydrated | | | and had her | | | lasix | | | discontinue | | | d.She was | | | found to | | | have acute | | | pulm edema | | | and was | | | admitted | | | for iv | | | diuresis to | | | which she | | | responded | | | well. | | | However | | | repeat CXR | | | several | | | days later | | | showed RLL | | | pneumonia. | | | Speech | | | therapy saw | | | the | | | patient and | | | felt the | | | patient to | | | be at risk | | | for | | | aspiration. | | | She | | | responded | | | well to | | | antibiotics | | | .C diff | | | testing was | | | undertaken | | | due to | | | diarrhea | | | and was | | | negative. | | | Her | | | lactulose | | | was | | | stopped.Mos | | | t recent | | | weight: | | | Input and | | | output for | | | last 24hrs: | | | Wt | | | Readings | | | from Last 1 | | | | | | Encounters: | | | 04/23/18 | | | 53.3 kg | | | (117 lb 8.1 | | | oz) I/O | | | last 24 | | | Hours:In: | | | 361.2 | | | [P.O.:284; | | | I.V.:27.2; | | | IV | | | Piggyback:5 | | | 0]Out: 650 | | | [Urine:650] | | | Vitals | | | Ranges:Temp | | | : [36 C | | | (96.8 | | | F)-36.3 | | | C (97.3 | | | F)] 36.3 | | | C (97.3 | | | F)Pulse: | | | [60-79] | | | 79Resp: | | | [16-18] | | | 18BP: | | | (115-130)/( | | | 61-78) | | | 129/71Vital | | | s:Temp: | | | 36.3 C | | | (97.3 F) | | | BP: | | | 129/71 | | | Pulse: | | | 79 | | | Resp: 18 | | | SpO2: 92 | | | %SpO2 92 % | | | on nasal | | | cannula at | | | flow rate 2 | | | (Titrated | | | to 1 | | | liter)L/min | | | PHYSICAL | | | EXAM: | | | Patient | | | seen and | | | examined by | | | me on | | | discharge | | | day Please | | | see my | | | progress | | | note | | | todayPROCED | | | URES AND | | | CONSULTS: | | | NAPENDING | | | RESULTS: | | | NADISPOSITI | | | ON AND | | | DISCHARGE | | | INSTRUCTION | | | S: Contact | | | information | | | for | | | after-disch | | | arge care | | | Placement | | | Destination | | | | | | [facility] | | | [facility] . | | | Specialty: | | | Skilled | | | Nursing | | | FacilityCon | | | tact | | | information | | | :[address] | | [facility] | | | [place] | | | [phone] | | | [phone] | | | | | | Condition: | | | Patient | | | being | | | discharged | | | with | | | condition | | | improveMOre | | | than 30 | | | minutes | | | were spent | | | on | | | discharge | | | and | | | coordinatio | | | n of | | | post-hospit | | | al | | | care.Electr | | | onically | | | signed by: | | | Alex Dunbar | | | MD Deanna, | | | 04/23/2018 | | | 11:41 | | | [place] | | | [facility] | +---+ + from Last 3 Months Immunizations + + + + | Name | Dates Previously Given | Next Due | + + + + | INFLUENZA 63 Y OR >, | 07/25/2017, 09/26/2016, 07/23/2014 | | | TRIVALENT HIGH-DOSE | | | + + + + [...] | | + + + + | TDAP, (ADOL/ADULT) | 07/19/2016, 10/23/2006 | | + [...] + + + | Blood Pressure | 148/88 | 06/28/2018 1140 PDT | + + + + | Pulse | 64 | 06/28/20181111 PDT | + + + + | Temperature | 36.4 C (97.6 F) | 06/28/20181111 PDT | + + + + | Respiratory Rate | 16 | 06/28/20181111 PDT | + + + + | Oxygen Saturation | 95% | 06/28/20181111 PDT | + + + + | Inhaled Oxygen | - | - | | Concentration | | | + + + + | Weight | 49.6 kg (109 lb 5.6 | 06/28/20181111 PDT | | | oz) | | + + + + | Height | 158.8 cm (5' 2.52") | 04/23/2018 0416 PDT | + + + + | Body Mass Index | 19.67 | 06/28/2018 1112 PDT | + + + + Plan [...] + + + | BASIC METABOLIC | Routin | 06/28/2018 | Essential | Results for this | | PANEL | e | 1158 PDT | hypertension | procedure are in the | | [...] + + + | BASIC METABOLIC | Routin | 04/23/2018 | | Results for this | | PANEL | e | 1001 PDT | | procedure are in the | | | | | | results section. | + +--------+ + + + | BASIC METABOLIC | Routin | 04/22/2018 | | Results for this | | PANEL | e | 1009 PDT | | procedure are in the | | | | | | results section. | + +--------+ + + + | CBC NO DIFFERENTIAL | Routin | 04/21/2018 | | Results for this | | | e | 1153 PDT | | procedure are in the | | | | | | results section. | + +--------+ + + + | XR CHEST AP PORTABLE | Routin | 04/21/2018 | | Results for this | | | e | 0945 PDT | | procedure are in the | | | | | | results section. | + +--------+ + + + | EXTRA LAVENDER TOP | Routin | 04/21/2018 | | Results for this | | TUBE | e | 0556 PDT | | procedure are in the | | | | | | results section. | + +--------+ + + + | RENAL FUNCTION PANEL | Routin | 04/21/2018 | | Results for this | | | e | 0556 PDT | | procedure are in the | | | | | | results section. | + +--------+ + + + | EXTRA LAVENDER TOP | Routin | 04/20/2018 | | Results for this | | TUBE | e | 0919 PDT | | procedure are in the | | | | | | results section. | + +--------+ + + + | BASIC METABOLIC | STAT | 04/20/2018 | | Results for this | | PANEL | | 0919 PDT | | procedure are in the | | | | | | results section. | + +--------+ + + + | CLOSTRIDIUM | Routin | 04/19/2018 | | Results for this | | DIFFICILE A AND B | e | 1306 PDT | | procedure are in the | | EIA | | | | results section. | + +--------+ + + + | TROPONIN I | Routin | 04/19/2018 | | Results for this | | | e | 0715 PDT | | procedure are in the | | | | | | results section. | + +--------+ + + + | MAGNESIUM | Routin | 04/19/2018 | | Results for this | | | e | 0715 PDT | | procedure are in the | | | | | | results section. | + +--------+ + + + | CBC NO DIFFERENTIAL | Routin | 04/19/2018 | | Results for this | | | e | 0715 PDT | | procedure are in the | | | | | | results section. | + +--------+ + + + | RENAL FUNCTION PANEL | STAT | 04/19/2018 | | Results for this | | | | 0715 PDT | | procedure are in the | | | | | | results section. | + +--------+ + + + | TROPONIN I | Routin | 04/19/2018 | | Results for this | | | e | 0134 PDT | | procedure are in the | | | | | | results section. | + +--------+ + + + from Last 3 Months Results Basic Metabolic Panel (06/28/2018 1156)Only the most recent of 4 results within the time bennett escobar is included. + + + + + | Component | Value | Ref Range | Performed At | + + + + + | NA | 146 (H) | 136 - 145 mmol/L | [facility] | + + + + + | K | 3.4 (L) | 3.5 - 5.1 mmol/L | [facility] | + + + + + | CL | 106 | 98 - 107 mmol/L | [facility] | + + + + + | CO2 | 34 (H) | 21 - 32 mmol/L | [facility] | + + + + + | ANION GAP | 6 | 2 - 16 mmol/L | [facility] | + + + + + | GLUCOSE | 82 | 74 - 106 mg/dL | [facility] | + + + + + | BUN | 19 (H) | 7 - 18 mg/dL | [facility] | | | [facility] | + + + + + | Creatinine, | 1.24 (H) | 0.55 - 1.02 mg/dL | [facility] | | Serum/Plasma | | | [facility] | | [facility] | | | | [facility] | + + + + + | eGFR if not | 42 (L)Comment: | >=60 mL/min/1.73m2 | [facility] | | SURINAMESE | GLOMERULAR FILTRATION | | [facility] | | | RATE,ESTIMATED mL/min | | [facility] | | | /1.36e4Uacn than 60 | | LABORATORY | | | Chronic kidney | | | | | disease,if found over a | | | | | 3-month period.Less than | | | | | 15 Kidney | | | | | failureFor | | | | | Americans,multiply the | | | | | calculated GFR by 1.21. | | | | | | | | + + + + + | CALCIUM | 8.4 (L) | 8.5 - 10.1 mg/dL | [facility] | | | [facility] | + + + + + | BUN/CREA | 15.3 | | [facility] | | [facility] | + + + + + + + | Specimen | + + | Blood | + + + + + + + | Performing | Address | City/State/Zipcode | Phone Number | | Organization | | | | + + + + + | [facility] | [address] | [place] | [phone] | | [facility] | | [address] | | | [facility] | | | | + + + + + DIAGNOSTIC REPORT - EXTERNAL SCAN (05/17/2018) + + + | Narrative | Performed At | + + + | Ordered by an | | | unspecified provider. | | + + + [place] [facility] Complete (05/08/201814) + + + | Narrative | Performed [...] | | | + +---------+ + + CBC no Differential (04/21/2018 1153)Only the most recent of 2 results within the time layo od is included. + + + + + | Component | Value | Ref Range | Performed At | + + + + + | WBC | 6.6 | 4.0 - 11.0 K/uL | [facility] | | | | | [facility] | | | [facility] | | | | | [facility] | + + + + + | RBC | 4.64 | 3.70 - 5.20 M/uL | [facility] | | | | | [facility] | + + + + + | Hgb | 14.0 | 11.5 - 16.0 g/dL | [facility] | | | | | [facility] | + + + + + | Hct | 43.3 | 34.0 - 47.0 % | [facility] | | | | | [facility] | + + + + + | MCV | 93.3 | 83.0 - 101.0 fL | [facility] | [facility] | | | | | [facility] | + + + + + | MCH | 30.2 | 28.0 - 35.0 pg | [facility] | | | | | [facility] - | | | | | LABORATORY | + + + + + | MCHC | 32.3 | 32.0 - 36.0 g/dL | [facility] | | | | [facility] | [facility] | [facility] - | | | | | LABORATORY | + + + + + | RDW-CV | 18.1 (H) | <15.0 % | [facility] | | [facility] | [facility] | [facility] | [facility] - | | | | | LABORATORY | + + + + + | Platelet Count | 159 | 140 - 440 K/uL | [facility] | [facility] | [facility] | [facility] - | | | | | LABORATORY | + + + + + | MPV | 9.7 | fL | [facility] | [facility] | [facility] | [facility] - | | | | | LABORATORY | + + + + + + + | Specimen | + + | Blood | + + + + + + + | Performing | Address | City/State/Zipcode | Phone Number | | Organization | | | | + + + + + | [facility] | [address] | [place], [place] | [phone] | | [facility] | | [address] | | | - LABORATORY | | | | + + + + + | [facility] | [address] | [place], [place] | | | [facility] | | [address] | | | - LABORATORY | | | | + + + + + XR Chest AP Portable (04/21/201845) + + + | Narrative | Performed At | + + + | EXAM: XR CHEST AP PORTABLE dated 04/21/2018 9:34 AM HISTORY: chf | [facility] | | Comparison: April 18, 2018 TECHNIQUE: A single portable view of | | | the chest. FINDINGS: The lungs are symmetrically | | | aerated. Interval development of a focus of airspace opacities in | | | the right upper lobe adjacent to the mediastinum and possibly the | | | right middle lobe deep to the minor fissure. Persistent prominence | | | of the pulmonary vasculature. No large effusions or | | | pneumothorax. Stable significant cardiomegaly. Stable | | | ventricular lead positioning. IMPRESSION - New nonspecific | | | airspace disease in the right lung. Dictated and Signed by: Darwin Martin | | Hilda Rendon MD Electronically signed: 04/21/2018 10:33 AM | | + + + + + | Procedure Note | + + | Jarad, Rad Results In - 04/21/2018 1037 PDT EXAM: XR CHEST AP PORTABLE dated 04/21/2018 | | 9:34 AMHISTORY: chfComparison: April 18, 2018TECHNIQUE: A single portable view of the | | chest.FINDINGS:The lungs are symmetrically aerated. Interval development of a focus | | ofairspace opacities in the right upper lobe adjacent to the mediastinum andpossibly the | | right middle lobe deep to the minor fissure. Persistent prominenceof the pulmonary | | vasculature. No large effusions or pneumothorax. Stablesignificant cardiomegaly. | | Stable ventricular lead positioning.IMPRESSION -New nonspecific airspace disease in the | | right lung.Dictated and Signed by: Darwin Rendon MD Electronically signed: 04/21/2018 | | 10:33 AM | | | |The lungs are symmetrically aerated. Interval development of a focus of | |airspace opacities in the right upper lobe adjacent to the mediastinum and | |possibly the right middle lobe deep to the minor fissure. Persistent prominence | |of the pulmonary vasculature. No large effusions or pneumothorax. Stable | |significant cardiomegaly. Stable ventricular lead positioning. | | | |IMPRESSION - | | | |New nonspecific airspace disease in the right lung. | | | |Dictated and Signed by: Darwin Rendon MD | | Electronically signed: 04/21/2018 10:33 AM | + + + +---------+ + + | Performing | Address | City/State/Zipcode | Phone Number | | Organization | | | | + +---------+ + + | [facility] | | | | + +---------+ + + Extra Lavender Top Tube (04/21/2018 0556)Only the most recent of 2 results within the time period is included. + +-------+ + + | Component | Value | Ref Range | Performed At | + +-------+ + + | Extra Lavender Top | Done | | [facility] | | Tube | | | [facility] | | | | | [facility] - | | | | | LABORATORY | + +-------+ + + + + | Specimen | + + | Blood | + + + + + + + | Performing | Address | City/State/Zipcode | Phone Number | | Organization | | | | + + + + + | [facility] | [address] | [place] | [phone] | | [facility] | | [address] | | | - LABORATORY | | | | + + + + + | [facility] | [address] | [place] | | | [facility] | | [address] | | | - LABORATORY | | | | + + + + + Renal Function Panel (04/21/2018 0556)Only the most recent of 2 results within the time per iod is included. + + + + + | Component | Value | Ref Range | Performed At | + + + + + | NA | 143 | 136 - 149 mmol/L | [facility] | | | | | [facility] | | | | [facility] - | | | | | LABORATORY | + + + + + | K | 3.9 | 3.5 - 5.1 mmol/L | [facility] | | | | | [facility] | | | | | [facility] - | | | | | LABORATORY | + + + + + | CL | 102 | 98 - 109 mmol/L | [facility] | | | | | [facility] | | | | | [facility] - | | | | | LABORATORY | + + + + + | CO2 | 32 (H) | 24 - 31 mmol/L | [facility] | | | | | [facility] | | [facility] | | [facility] - | | | | | LABORATORY | + + + + + | ANION GAP | 9 | 3 - 16 mmol/L | [facility] | | | | | [facility] | | | | | [facility] - | | | | | LABORATORY | + + + + + | GLUCOSE | 104 | 70 - 109 mg/dL | [facility] | | | | | [facility] | | | | | [facility] - | | | | | LABORATORY | + + + + + | BUN | 15 | 7 - 18 mg/dL | [facility] | | | | | [facility] | | | | | [facility] - | | | | | LABORATORY | + + + + + | Creatinine, | 1.33 (H) | 0.60 - 1.30 mg/dL | [facility] | | Serum/Plasma | | | [facility] | | | | | CENTER - | | | | | LABORATORY | + + + + + | eGFR if not | 39 (L) | >=60 mL/min/1.73m2 | [facility] | | SURINAMESE | | | [facility] | | | | | [facility] - | | | | | LABORATORY | + + + + + | CALCIUM | 8.1 (L) | 8.3 - 10.5 mg/dL | [facility] | | | | | [facility] | | | | | [facility] - | | | | | LABORATORY | + + + + + | ALBUMIN | 2.6 (L) | 3.2 - 5.0 g/dL | [facility] | | | | | [facility] | | | | | [facility] - | | | | | LABORATORY | + + + + + | Phosphorus | 3.6 | 2.5 - 4.6 mg/dL | [facility] | | | | | [facility] | | | | | CENTER - | | | | | LABORATORY | + + + + + | BUN/CREA | 11.3 | | [facility] | | | | | [facility] | | | | | CENTER - | | | | | LABORATORY | + + + + + + + | Specimen | + + | Blood | + + + + + + + | Performing | Address | City/State/Zipcode | Phone Number | | Organization | | | | + + + + + | [facility] | [address] | [place] | [phone] | | [facility] | | [address] | | | - LABORATORY | | | | + + + + + | [facility] | [address] | [place] | | | [facility] | | [address] | | | - LABORATORY | | | | + + + + + Clostridium difficile A and B EIA (04/19/2018 1306) + + + + + | Component | Value | Ref Range | Performed At | + + + + + | Clostridium | NegativeComment: | Negative | [facility] | | Difficile GDH | Negative for toxigenic | | [facility] | | Antigen | Clostridium difficile | | CENTER - | | | | | LABORATORY | + + + + + | C. Diff Toxin A/B | Negative | Negative | [facility] | | EIA | | | [facility] | | | | | CENTER - | | | | | LABORATORY | + + + + + + + | Specimen | + + | Stool - Stool | + + + + + + + | Performing | Address | City/State/Zipcode | Phone Number | | Organization | | | | + + + + + | [facility] | [address] | [place] | [phone] | | [facility] | | [address] | | | - LABORATORY | | | | + + + + + | [facility] | [address] | [place], [place] | | | [facility] | | [address] | | | - LABORATORY | | | | + + + + + Troponin I (04/19/2018714)Only the most recent of 2 results within the time period is inc luded. + + + + + | Component | Value | Ref Range | Performed At | + + + + + | Troponin I | 0.17 (H)Comment: | <0.06 ng/mL | [facility]. | | | Reference | | [facility] | | | Ranges:0.00-0.06 = | | CENTER - | | | NORMAL>0.06 = | | LABORATORY | | | SUSPICIOUS FOR | | | | | MYOCARDIAL DAMAGE NOTE: | | | | | Values greater than 0.50 | | | | | ng/mL have been shown | | | | | to be strongly | | | | | associated with acute | | | | | myocardial infarction. | | | | | The [employer] | | | | | Cardiology (ACC) | | | | | recommends a decision | | | | | limit of 0.06 ng/mL for | | | | | this assay. Results | | | | | greater than 0.06 can | | | | | reflect a pre-infarct | | | | | acute coronary syndrome, | | | | | but can also reflect | | | | | myocardial necrosis or | | | | | injury that is not due | | | | | to coronary artery | | | | | disease. Some of | | | | | these causes are sepsis, | | | | | hypocolemia, atrial | | | | | fibrillation, heart | | | | | failure, pulmonary | | | | | embolism, myocarditis, | | | | | myocardial contusion, | | | | | and renal | | | | | failure. The | | | | | diagnosis of myocardial | | | | | infarction should be | | | | | based on a combination | | | | | of the patient's | | | | | clinical presentation | | | | | and the clinical | | | | | laboratory test results | | | | | (especially serial | | | | | troponin levels). | | | + + + + + + + | Specimen | + + | Blood | + + + + + + + | Performing | Address | City/State/Zipcode | Phone Number | | Organization | | | | + + + + + | [facility] | [address] | [place] | [phone] | | [facility] | | [address] | | | - LABORATORY | | | | + + + + + | [facility] | [address] | [place] | | | [facility] | | [address] | | | - LABORATORY | | | | + + + + + Magnesium (04/19/2018714) + +---------+ + + | Component | Value | Ref Range | Performed At | + +---------+ + + | Magnesium | 1.7 (L) | 1.8 - 2.5 mg/dL | [facility] | | | | | [facility] | | | | | CENTER - | | | | | LABORATORY | + +---------+ + + + + | Specimen | + + | Blood | + + + + + + + | Performing | Address | City/State/Zipcode | Phone Number | | Organization | | | | + + + + + | [facility] | [address] | [place], [place] | [phone] | | [facility] | | [address] | | | - LABORATORY | | | | + + + + + | [facility] | [address] | [place], [place] | | | [facility] | | [address] | | | - LABORATORY | | | | + + + + + from Last 3 Months Insurance + +--------+ +--------+-------+---------+ | Payer | Benefi | Subscriber | Type | Phone | Address | | | t Plan | ID | | | | | | / | | | | | | | Group | | | | | + +--------+ +--------+-------+---------+ | [employer] | [employer] | [id number] | Medica | | | | | HEALTH | | re | | | | | MDCR | | | | | + +--------+ +--------+-------+---------+ + +--------+ +--------+ + + | Guarantor Name | Accoun | Relation to | Date | Phone | Billing Address | | | t Type | Patient | of | | | | | | | | | | + +--------+ +--------+ + + | LAILA DOLAN | Person | Self [birth year] Home: | [address] | | | [place] | | 1945 | [phone] | [place] | | | [place] | | | [phone] | [address] | + +--------+ +--------+ + +
--- OUTSIDE RECORDS SUMMARY | ~2018-07-20 | XMS | Encounter Summary ---
Demographics + + + | Address | [address] | | | [place] [address] | + + + | Home Phone | | + + + | Preferred Language | Unknown | + + + | Marital Status | | + + + | Moravian Affiliation | 1077 | + + + | Race | Unknown | + + + | Ethnic Group | Unknown | + + + Author + + + | Author | [facility] | | | and Priyankana | + + + | Organization | [facility] | | | and Priyankana [...] [place] | | | | | [address] | | + + + + + | Karen Duarte | ECON | [address] | | | | | [place] | | | | | [address] | | + + + + + Care Team Providers + +------+ + | Care Tire Tester Name | Role | Phone | + +------+ + | Carrillo Michel MD | PCP | | + +------+ + Reason for Visit + + + | Reason | Comments | + + + | Medication | isosorbide dinitrate | | Management | | + + + Encounter Details +--------+ + + + + | Date | Type | Department | Care Team | Description | +--------+ + + + + | 07/17/ | Telephone | [facility] | Carrillo Michel, | Medication | | 2018 | | MEDIC[facility] [place] | [address] | Management | | | | [address] | [place] | (isosorbide | | | | [place] | [address] | dinitrate) | | | | [address] | | | | | | [phone] | | | +--------+ + + + [...] on fileas of this encounter Visit Diagnoses + + | Diagnosis | + + | 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
--- OUTSIDE RECORDS SUMMARY | ~2018-07-20 | XMS | Encounter Summary ---
Demographics + + + | Address | [address] | | | [place] [address] | + + + | Home Phone | | + + + | Preferred Language | Unknown | + + + | Marital Status | | + + + | Islam Affiliation | 1077 | + + + | Race | Unknown | + + + | Ethnic Group | Unknown | + + + Author + + + | Author | [facility] | | | and Priyankana | + + + | Organization | [facility] | | | and [...] [place] | | | | | [address] | | + + + + + | Karen Duarte | ECON | [address] | | | | | [place] | | | | | [address] | | + + + + + Care Team Providers + +------+ + | Care Pastry Decorator Name | Role | Phone | + +------+ + | Carrillo Michel MD | PCP | | + +------+ + Reason for Visit + + + | Reason | Comments | + + + | Results, Imaging | Esophagram shows mild achalasia | + + + Encounter Details +--------+ + + + + | Date | Type | Department | Care Team | Description | +--------+ + + + + | 05/14/ | Telephone | [facility] [place] | Darwin López MD | Results, Imaging | | 2018 | | GASTROENTEROLOGY | [address], [place] | (Esophagram shows | | | | [address] [place] | [address] [place], [place] | mild achalasia) | | | | [address] [place], [place] | [address] | | | | | [address] | | | | | | [phone] | | | +--------+ + + + [...] + | Diagnosis | + + | Achalasia | + + | Achalasia and cardiospasm | + +"
--- OUTSIDE RECORDS SUMMARY | ~2018-07-20 | XMS | Encounter Summary ---
Demographics + + + | Address | [address] | | | [place] [address] | + + + | Home Phone | | + + + | Preferred Language | Unknown | + + + | Marital Status | | + + + | Cheondoism Affiliation | 1077 | + + + | Race | Unknown | + + + | Ethnic Group | Unknown | + + + Author + + + | Author | [facility] | | | and Priyankana | + + + | Organization | [facility] | | | [...] [place] | | | | | [address] | | + + + + + | Karen Duarte | ECON | [address] | | | | | [place] | | | | | [address] | | + + + + + Care Team Providers + +------+ + | Care Data Modeling Architect Name | Role | Phone | + [...] + + | 05/18/ | Telephone | [facility] | Carrillo Michel, | Paperwork | | 2018 | | [facility]IC[facility] [place] | [address] | | | | | [address] | [place] | | | | | [place] | [address] | | | | | [address] | | | | | | [phone] | | | +--------+ + + + [...]
--- OUTSIDE RECORDS SUMMARY | ~2018-07-20 | XMS | Encounter Summary ---
Demographics + + + | Address | [address] | | | [place] [address] | + + + | Home Phone | | + + + | Preferred Language | Unknown | + + + | Marital Status | | + + + | Amish Affiliation | 1077 | + + + | Race | Unknown | + + + | Ethnic Group | Unknown | + + + Author + + + | Author | [facility] | | | and Priyankana | + + + | Organization | [facility] | | | and Priyank[place] | [...] [place] | | | | | [address] | | + + + + + | Karen Duarte | ECON | [address] | | | | | [place] | | | | | [address] | | + + + + + Care Team Providers + +------+ + | Care Education Consultant Name | Role | Phone | [...] + + | 05/22/ | Telephone | [facility] | Carrillo Michel, | Medication Prior | | 2018 | | MEDICINE [place] | [address] | Authorization | | | | [address] | [place] | (Dronabinol) | | | | [place] | [address] | | | | | [address] | | | | | | [phone] | | | +--------+ + + + [...]
--- OUTSIDE RECORDS SUMMARY | ~2018-07-20 | XMS | Encounter Summary ---
Demographics + + + | Address | [address] | | | [place] [address] | + + + | Home Phone | | + + + | Preferred Language | Unknown | + + + | Marital Status | | + + + | Yarsanism Affiliation | [id number] | + + + | Race | Unknown | + + + | Ethnic Group | Unknown | + + + Author + + + | Author | [facility] | | | and Priyankana | + + + | Organization | [facility] | | | and Priyankana [...] [place] | | | | | [address] | | + + + + + | Karen Duarte | ECON | [address] | | | | | [place] | | | | | [address] | | + + + + + Care Team Providers + +------+ + | Care Director Of Search Engine Marketing Name | Role | Phone | + +------+ + | Nik Michel MD | PCP | | + +------+ + Reason for Referral Service/Procedure (Routine) +--------+--------+ + + + + | Status | Reason | Specialty | Diagnoses / | Referred By | Referred To | | | | | Procedures | Contact | Contact | +--------+--------+ + + + + | Closed | | DME | Diagnoses | Alex Huerta | | | | | | Acute | MD Taras | | | | | | hypoxemic | [address] | | | | | | [address] | [address] | | | | | | failure | [place] | | | | | | ([facility]) | [id number] | | | | | | Procedures | Phone: | | | | | | DME: Oxygen | [phone] | | | | | | Therapy | Fax: | | | | | | | [phone] | | +--------+--------+ + + + + Reason for Visit + + + | Reason | Comments | + + + | Weakness | | + + + | Swelling | | + + + Auth/Cert +--------+--------+ + + + + | Status | Reason | Specialty | Diagnoses / | Referred By | Referred To | | | | | Procedures | Contact | Contact | +--------+--------+ + + + + | | | | Diagnoses | | | | | | | Hypoxemia | | | | | | | Hypokalemia | | | | | | | Elevated | | | | | | | troponin | | | | | | | Elevated | | | | | | | brain | | | | | | | natriuretic | | | | | | | peptide | | | | | | | (BNP) level | | | | | | | Acute | | | | | | | respiratory | | | | | | | failure with | | | | | | | hypoxia and | | | | | | | hypercapnia | | | | | | | (HCC) | | | | | | | Acute on | | | | | | | chronic | | | | | | | congestive | | | | | | | heart | | | | | | | failure, | | | | | | | unspecified | | | | | | | heart | | | | | | | failure type | | | | | | | (HCC) | | | | | | | | | | +--------+--------+ + + + + Encounter Details +--------+ + + + + | Date | Type | Department | Care Team | Description | +--------+ + + + + | 04/18/ | Hospital | [facility] | Norbert Becker | Acute on chronic | | 2018 - | Encounter | [facility] | MD Wes [address] | congestive heart | | | | [address] [place] | [address] [place] | failure, unspecified | | 04/23/ | | [place] [address] | [place] [address] | heart failure type | | 2018 | | [phone] | Sammy Almonte | (HCC) (Primary Dx); | | | | | MD Bolivar [address] | Hypokalemia; | | | | | [address] [place] | Elevated troponin; | | | | | [place] [address] | Elevated brain | | | | | [phone] | natriuretic peptide | | | | | | (BNP) level; | | | | | Sandoval Hackett, | Hypoxemia; Acute | | | | | MD Dixie [address] | respiratory failure | | | | | [address] [place] | with hypoxia and | | | | | [place] [address] | hypercapnia (HCC); | | | | | [phone] | Acute hypoxemic | | | | [...] (HCC) | +--------+ + + + + Social [...] + + + | Blood Pressure | 119/91 | 04/23/20181313 PDT | + + + + | Pulse | 71 | 04/23/20181313 PDT | + + + + | Temperature | 36.3 C (97.3 F) | 04/23/2018717 PDT | + + + + | Respiratory Rate | 18 | 04/23/2018717 PDT | + + + + | Oxygen Saturation | 92% | 04/23/2018717 PDT | + + + + | Inhaled Oxygen | - | - | | Concentration | | | + + + + | Weight | 53.3 kg (117 lb 8.1 | 04/23/2018415 PDT | | | oz) | | + + + + | Height | 158.8 cm (5' 2.52") | 04/23/2018415 PDT | + + + + | Body Mass Index | 21.14 | 04/23/2018 0416 PDT | + + + + in [...] + + + as of this encounter Discharge Summaries Alex Huerta MD - 04/23/2018 1140 PDTFormatting of this note may be different from the o riginal. [place] [facility] DISCHARGE SUMMARY Pt. Name/Age/: Laila Dolan 72 y.o. 1945 Date of Admission: 04/18/2018 Date of Discharge: 04/23/2018 Admitting Physician: Dixie Hackett MD Primary Care Provider: Nik Michel MD Discharging Physician: Alex Huerta MD DISCHARGE DIAGNOSES: Principal Discharge Diagnosis: 1. Ischemic cardiomyopathy with acute CHF and pulm edema 2. Acute hypoxic respiratory failure 2/2 1. And aspiration pneumonia Secondary Discharge Diagnosis: HTN CHF EF 25% Afib Cirrhosis Alzheimer's DISCHARGE MEDICATIONS: Discharge Medications New Medications Details levoFLOXacin 250 mg tablet Take 1 tablet by mouth Daily for 5 days. Indications: Healthcare-Associated Pneumonia aka: LEVAQUIN Start: 04/24/2018 loperamide 2 mg capsule Take 1 capsule by mouth every 3 hours as needed for Diarrhea. aka: IMODIUM Unchanged Medications Details ascorbic acid 500 mg tablet Take 500 mg by mouth Daily. aka: VITAMIN C carvedilol 12.5 mg tablet Take 1 tablet by mouth 2 times daily (with breakfast & dinner). To lower blood pressure an d heart rate aka: COREG cholecalciferol 1,000 units capsule Take 1,000 Units by mouth Daily. aka: VITAMIN D-3 cholestyramine light 4 g packet Take 4 g by mouth 2 times daily. aka: QUESTRAN cyanocobalamin 500 mcg tablet Take 500 mcg by mouth Daily. aka: VITAMIN B-12 donepezil 10 MG tablet Take 10 mg by mouth nightly. aka: ARICEPT escitalopram 10 mg tablet Take 1 tablet by mouth Daily. To help mood aka: LEXAPRO furosemide 20 mg tablet Take 20 mg by mouth Daily. aka: LASIX isosorbide dinitrate 30 MG tablet Take 30 mg by mouth 4 times daily. aka: ISORDIL levothyroxine 50 mcg tablet Take 50 mcg by mouth every morning (before breakfast). aka: SYNTHROID losartan 100 MG tablet Take 1 tablet by mouth Daily. For high blood pressure aka: COZAAR magnesium oxide 400 mg tablet Take 400 mg by mouth Daily. aka: MAG-OX mirtazapine 15 MG tablet Take 15 mg by mouth nightly. aka: REMERON MULTIVITAMIN PO Take 1 tablet by mouth Daily. nitroglycerin 0.[address] 0.4 mg under the tongue every 5 minutes as needed for Chest pain. aka: NITROSTAT pantoprazole 40 mg tablet Take 40 mg by mouth 2 times daily (before meals). aka: PROTONIX potassium chloride 10 MEQ ER tablet Take 20 mEq by mouth 2 times daily. aka: KLOR-CON Discontinued Medications chlorthalidone 25 mg tablet Lactulose 20 GM/30ML [facility] COURSE: Please refer to the H&P for full details and the most recent rounding rounding (progress) n ote. In short 72 yo who was brought to the ED due to increasing LE swelling and SOB. She was rec ently evaluated for viral gastroenteritis and was dehydrated and had her lasix discontinued. She was found to have acute pulm edema and was admitted for iv diuresis to which she respon ded well. However repeat CXR several days later showed RLL pneumonia. Speech therapy saw the patient and felt the patient to be at risk for aspiration. She responded well to antibiotics. C diff testing was undertaken due to diarrhea and was negative. Her lactulose was stopped. Most recent weight: Input and output for last 24hrs: Wt Readings from Last 1 Encounters: 04/23/18 53.3 kg (117 lb 8.1 oz) I/O last 24 Hours: In: 361.2 [P.O.:284; I.V.:27.2; IV Piggyback:50] Out: 650 [Urine:650] Vitals Ranges: Temp: [36 C (96.8 F)-36.3 C (97.3 F)] 36.3 C (97.3 F) Pulse: [60-79] 79 Resp: [16-18] 18 BP: (115-130)/(61-78) 129/71 Vitals: Temp: 36.3 C (97.3 F) BP: 129/71 Pulse: 79 Resp: 18 SpO2: 92 % SpO2 92 % on nasal cannula at flow rate 2 (Titrated to 1 liter)L/min PHYSICAL EXAM: Patient seen and examined by me on discharge day Please see my progress note today PROCEDURES AND CONSULTS: NA PENDING RESULTS: NA DISPOSITION AND DISCHARGE INSTRUCTIONS: Contact information for after-discharge care Placement Destination [facility] . Specialty: Half-Way Facility Contact information: [address] [address] Condition: Patient being discharged with condition improve MOre than 30 minutes were spent on discharge and coordination of post-hospital care. Electronically signed by: Alex Huerta MD, 04/23/2018 11:41 [facility] in this encounter Medications at Time of Discharge [...] | + + +---------+---------+ + + | levoFLOXacin | Take 1 tablet by | 5 | 0 | 04/24/20 | | | (LEVAQUIN) 250 mg | mouth Daily for 5 | tablet | | 18 | 8 | | tabletIndications: | days. Indications: | | | | | | Healthcare-Associate | Healthcare-Associate | | | | | | d Pneumonia | d Pneumonia | | | | | + + [...] +---------+---------+ + + as of this encounter Progress Notes Eva Kemp, [employer]IDE - 04/23/2018 1501 PDTFormatting of this note may be different from the original. 04/23/18 1500 Oxygen Therapy Home O2 eval performed? yes Resting on RA (%) 85 Exercising on RA (%) (refused) Resting on O2 (%)(add L/Min in comment) 94 (1lpm) Exercising on O2 (%)(add L/Min in comment) (refused) Alex Huerta MD - 04/23/2018 0956 PDTFormatting of this note may be different from the o riginal. INPATIENT ROUNDING NOTE Date of Service: 04/23/2018 Rounding Physician: Alex Huerta MD Patient Name: Laila Dolan : 1945 Medical Record: [id number] Hospital Summary: Laila Dolan is a 72 y.o. female with a PMHx of ischemic CHF EF 20-25%, chronic Afib, HTN, CKD 3 with Cr 1.4, CAD, hypothyroidism, who presented with acute systolic CHF exacerbat ion after withdrawal of diuretics in setting of recent gastroenteritis at [facility] and then noted to have developed new right LL infiltrate suspiciuos for aspiration pneu monia. ASSESSMENT AND PLAN 1. Chronic ischemic cardiomyopathy with Acute systolic CHF 2. Volume overload resolved. I/os inaccurate but weight is now 53kg down from 62 kg on admi ssion with diuresis 3. CKD 3 stable 4. Chronic Afib rate controlled not on AC due to fall risk 5. Advanced dementia 6. Hypothyroidism 7. Likely underlying COPD 8. New RLL infiltrate/pneumonia possible aspiration(HAP) improving 9. Diarrhea 10. History of cirrhosis and hepatic encephalopathy on chronic lactulose therapy Plan: Given profuse diarrhea despite only receiving one dose of lactulose and antibiotics will ne ed to check C Diff DC lactulose DC lasix for now Holding discharge to SNF this am due to development of diarrhea SUBJECTIVE: Patient is not oriented to place or date RN contacted me this am reporting profuse diarrhea Review of MAR only received one dose of lactulose yesteday Scheduled Meds: carvedilol 12.5 mg Oral BID WC cyanocobalamin 500 mcg Oral Daily donepezil 10 mg Oral Nightly heparin 5,000 Units Subcutaneous 2 times per day ipratropium 500 mcg Nebulization RT BID isosorbide dinitrate 30 mg Oral 4x Daily levoFLOXacin 250 mg Oral Daily losartan 100 mg Oral Daily magnesium oxide 400 mg Oral Daily mirtazapine 15 mg Oral Nightly potassium chloride 40 mEq Oral TID Continuous Infusions: OBJECTIVE Vitals Current 24 hour Min/Max BP 130/75 BP Min: 115/61 Max: 130/75 HR 65 Pulse Min: 60 Max: 72 Temp 36.3 C (97.3 F) Temp Min: 36 C (96.8 F) Max: 36.3 C (97.3 F) RR 18 Resp Min: 16 Max: 18 Sats SpO2: 92 % on 2L/min nasal cannula with humidification SpO2 Min: 89 % Max: 97 % 04/22 0701 - 04/23 0700 In: 361.2 [P.O.:284; I.V.:27.2] Out: 650 [Urine:650] Alert but oriented to self only Neck exam: EJ still distended though improved Chest is less crakly, today having some slight wheezing CVS IRR S1S2 Abdomen NT Ext trace edema Recent Labs Lab 04/21/18 1153 04/19/18 0715 04/18/18 1648 WBC 6.6 7.4 8.3 HGB 14.0 14.2 15.3 HCT 43.3 42.7 45.8 PLT 159 142 165 Recent Labs Lab 04/22/18 1009 04/21/18 0556 04/20/18 0919 04/19/18 0715 04/18/18 1648 NA 146 143 143 141 138 K 4.2 3.9 3.2* 3.2* 3.1* CL 105 102 100 105 103 CO2 36* 32* 31 22* 27 BUN 13 15 18 19* 19* CREA 1.27 1.33* 1.34* 1.44* 1.44* MG -- -- -- 1.7* 1.9 CALCIUM 8.4 8.1* 8.5 7.9* 8.3 PHOS -- 3.6 -- 4.3 -- ALBUMIN -- 2.6* -- 2.4* 2.9* Diagnostic Studies: Available data and images were reviewed personally. Significant results and findings are ad dressed here or in the Assessment and Plan. Please feel free to contact me with any questions Electronically signed by: Surya Huerta MD, 04/23/2018, 9:56 Deanna, Alex Grajeda MD - 04/22/2018 0957 PDTFormatting of this note may be different from the o riginal. INPATIENT ROUNDING NOTE Date of Service: 04/22/2018 Rounding Physician: Alex Huerta MD Patient Name: Laila Dolan : 1945 Medical Record: [id number] Hospital Summary: Laila Dolan is a 72 y.o. female with a PMHx of ischemic CHF EF 20-25%, chronic Afib, HTN, CKD 3 with Cr 1.4, CAD, hypothyroidism, who presented with acute systolic CHF exacerbat ion after withdrawal of diuretics in setting of recent gastroenteritis at [facility]. ASSESSMENT AND PLAN 1. Ischemic cardiomyopathy with Acute systolic CHF 2. Volume overload improving. I/os inaccurate but weight is now 56kg down from 62 kg. Still has edema and JVD 3. CKD 3 stable 4. Chronic Afib rate controlled not on AC due to fall risk 5. Advanced dementia 6. Hypothyroidism 7. Likely underlying COPD 8. New RLL infiltrate/pneumonia possible aspiration? Plan: Appreciate speech therapy assistance o2 requirements coming down Cont to wean o2 switch to po levaquin for PNA since improving clinically(hold clindamycin a n lactulose given diarrhea) NSF placement SUBJECTIVE: Patient is not oriented to place or date Diuresing well with reduced weight Scheduled Meds: carvedilol 12.5 mg Oral BID WC cyanocobalamin 500 mcg Oral Daily donepezil 10 mg Oral Nightly furosemide 40 mg Oral Daily heparin 5,000 Units Subcutaneous 2 times per day ipratropium 500 mcg Nebulization RT BID isosorbide dinitrate 30 mg Oral 4x Daily levoFLOXacin 250 mg Oral Daily losartan 100 mg Oral Daily magnesium oxide 400 mg Oral Daily mirtazapine 15 mg Oral Nightly potassium chloride 40 mEq Oral TID Continuous Infusions: OBJECTIVE Vitals Current 24 hour Min/Max BP 136/79 BP Min: 108/67 Max: 136/79 HR 68 Pulse Min: 60 Max: 69 Temp 36.2 C (97.2 F) Temp Min: 35.6 C (96.1 F) Max: 36.8 C (98.2 F) RR 16 Resp Min: 14 Max: 18 Sats SpO2: 96 % on 2L/min nasal cannula SpO2 Min: 88 % Max: 99 % 04/21 0701 - 04/22 0700 In: 950 [P.O.:730; I.V.:70] Out: 300 [Urine:300] Alert but oriented to self only Neck exam: EJ still distended though improved Chest is less crakly, today having some slight wheezing CVS IRR S1S2 Abdomen NT Ext 1-2 plus bilateral pitting edema LE improved Recent Labs Lab 04/21/18 1153 04/19/18 0715 04/18/18 1648 WBC 6.6 7.4 8.3 HGB 14.0 14.2 15.3 HCT 43.3 42.7 45.8 PLT 159 142 165 Recent Labs Lab 04/21/18 0556 04/20/18 0919 04/19/18 0715 04/18/18 1648 NA 143 143 141 138 K 3.9 3.2* 3.2* 3.1* CL 102 100 105 103 CO2 32* 31 22* 27 BUN 15 18 19* 19* CREA 1.33* 1.34* 1.44* 1.44* MG -- -- 1.7* 1.9 CALCIUM 8.1* 8.5 7.9* 8.3 PHOS 3.6 -- 4.3 -- ALBUMIN 2.6* -- 2.4* 2.9* Diagnostic Studies: Available data and images were reviewed personally. Significant results and findings are ad dressed here or in the Assessment and Plan. Please feel free to contact me with any questions Electronically signed by: Surya Huerta MD, 04/22/2018, 9:57 Deanna, Alex Grajeda MD - 04/21/2018 1458 PDTFormatting of this note may be different from the o riginal. INPATIENT ROUNDING NOTE Date of Service: 04/21/2018 Rounding Physician: Alex Huerta MD Patient Name: Laila Dolan : 1945 Medical Record: [id number] Hospital Summary: Laila Dolan is a 72 y.o. female with a PMHx of ischemic CHF EF 20-25%, chronic Afib, HTN, CKD 3 with Cr 1.4, CAD, hypothyroidism, who presented with acute systolic CHF exacerbat ion after withdrawal of diuretics in setting of recent gastroenteritis at [facility]. ASSESSMENT AND PLAN 1. Ischemic cardiomyopathy with Acute systolic CHF 2. Volume overload improving 3. CKD 3 stable 4. Chronic Afib rate controlled not on AC due to fall risk 5. Advanced dementia 6. Hypothyroidism 7. Likely underlying COPD 8. New RLL infiltrate/pneumonia possible aspiration? Plan: Cont diuretics Start bid ipratropium Cont prn albuterol Start Clinda/levaquin Cont coreg and losartan Cont heparin SQ SUBJECTIVE: Patient is not oriented to place or date Diuresing Scheduled Meds: carvedilol 12.5 mg Oral BID WC clindamycin 600 mg Intravenous 3 times per day cyanocobalamin 500 mcg Oral Daily donepezil 10 mg Oral Nightly furosemide 40 mg Oral Daily heparin 5,000 Units Subcutaneous 2 times per day ipratropium 500 mcg Nebulization RT BID isosorbide dinitrate 30 mg Oral 4x Daily lactulose 30 g Oral Daily [START ON 04/22/2018] levoFLOXacin 250 mg Intravenous Daily levothyroxine 50 mcg Oral QAM AC losartan 100 mg Oral Daily magnesium oxide 400 mg Oral Daily mirtazapine 15 mg Oral Nightly potassium chloride 40 mEq Oral TID Continuous Infusions: OBJECTIVE Vitals Current 24 hour Min/Max BP 132/78 BP Min: 107/62 Max: 132/78 HR 60 Pulse Min: 60 Max: 81 Temp 36.1 C (97 F) Temp Min: 36.1 C (97 F) Max: 36.5 C (97.7 F) RR 18 Resp Min: 18 Max: 20 Sats SpO2: 96 % on 2 (titrated down from 5 lpm)L/min nasal cannula SpO2 Min: 81 % Max: 97 % 04/20 07 - 04/21 0700 In: 1360 [P.O.:1360] Out: 900 [Urine:900] Alert but oriented to self only Neck exam: Markedly distended EJ bilaterally Chest is less crakly, today having some slight wheezing CVS IRR S1S2 Abdomen NT Ext 2 plus bilateral pitting edema LE Recent Labs Lab 04/21/18 1153 04/19/18 0715 04/18/18 1648 WBC 6.6 7.4 8.3 HGB 14.0 14.2 15.3 HCT 43.3 42.7 45.8 PLT 159 142 165 Recent Labs Lab 04/21/18 0556 04/20/18 0919 04/19/18 0715 04/18/18 1648 NA 143 143 141 138 K 3.9 3.2* 3.2* 3.1* CL 102 100 105 103 CO2 32* 31 22* 27 BUN 15 18 19* 19* CREA 1.33* 1.34* 1.44* 1.44* MG -- -- 1.7* 1.9 CALCIUM 8.1* 8.5 7.9* 8.3 PHOS 3.6 -- 4.3 -- ALBUMIN 2.6* -- 2.4* 2.9* Diagnostic Studies: Available data and images were reviewed personally. Significant results and findings are ad dressed here or in the Assessment and Plan. Please feel free to contact me with any questions Electronically signed by: Surya Huerta MD, 04/21/2018, 14:58 Jolynn Small, PharmD - 04/21/2018 1146 PDTFormatting of this note may be different from the original. RENAL DOSE ADJUSTMENT PER PHARMACY PROTOCOL: Subjective/Objective: Laila Dolan is a 72 y.o. year old female admitted on 04/18/2018 16:19 for weakness and is receiving LEVOFLOXACIN for pneumonia. BP 132/78 | Pulse 61 | Temp 36.1 C (97 F) (Oral) | Resp 18 | Wt 57.5 kg (126 lb 12. 2 oz) | SpO2 97% | BMI 22.80 kg/m Intake/Output Summary (Last 24 hours) at 04/21/18 1146 Last data filed at 04/21/18 1000 Gross per 24 hour Intake 840 ml Output 700 ml Net 140 ml Recent Labs Lab 04/21/18 0556 04/20/18 0919 04/19/18 0715 CREA 1.33* 1.34* 1.44* Estimated Creatinine Clearance: 30 mL/min (A) (based on SCr of 1.33 mg/dL (H)). Date 04/21 Day of therapy 1 Serum Creatinine 1.33 CrCl (mL/min) 30 Dose - current 500 mg q24hr Dose - new 500 mg x1, then 250 mg q24h Assessment/Plan: 1. For creatinine clearance 20-50 mL/min, decrease dose of LEVOFLOXACIN from 500 mg daily t o 500 mg x1, then 250 mg q24h. 2. Pharmacy will continue to follow and adjust dose as appropriate to clinical condition an d creatinine clearance changes RENAL DOSE ADJUSTMENT PROTOCOL Electronically signed by: Jolynn Small, ObduliaD 04/21/2018 11:46 Barron Galan, [employer]IDE - 04/20/2018 1814 PDTAgain I went in to check on Laila and again her coni al cannula was not on. I asked her to but it on but she told me NO. I explained to her that she needed it on and she replied "I don't care". I informed her nurse and she said she will try to talk to her.Barron Galan, [employer] - 04/20/2018 1518 PDTLaila was blatantly refusing my r equest put her O2 back on. Her O2 saturation was in the low 80's. Juanita RN was able to convi nce her to put the O2 nasal cannula back on. I will check on her in a little while. Miguel Huerta MD - 04/20/2018 1055 PDTFormatting of this note may be different from the original. INPATIENT ROUNDING NOTE Date of Service: 04/20/2018 Rounding Physician: Alex Huerta MD Patient Name: Laila Dolan : 1945 Medical Record: [id number] Hospital Summary: Laila Dolan is a 72 y.o. female with a PMHx of ischemic CHF EF 20-25%, chronic Afib, HTN, CKD 3 with Cr 1.4, CAD, hypothyroidism, who presented with acute systolic CHF exacerbat ion after withdrawal of diuretics in setting of recent gastroenteritis at [facility] ASSESSMENT AND PLAN 1. Ischemic cardiomyopathy with Acute systolic CHF 2. Volume status improved 3. CKD 3 stable 4. Chronic Afib rate controlled not on AC due to fall risk 5. Advanced dementia 6. Hypothyroidism 7. Contraction alkalosis and hypokalemia 2/2 diuresis Plan: Reduced lasix dose to 20mg iv bid Increase KCL to tid 40 meq Wean o2 SUBJECTIVE: Patient denies CP. SOB improved. NO cough. Poor historian due to advanced dementia Scheduled Meds: carvedilol 12.5 mg Oral BID WC cyanocobalamin 500 mcg Oral Daily donepezil 10 mg Oral Nightly furosemide 20 mg Intravenous BID (8 and 16) heparin 5,000 Units Subcutaneous 2 times per day isosorbide dinitrate 30 mg Oral 4x Daily lactulose 30 g Oral Daily levothyroxine 50 mcg Oral QAM AC losartan 100 mg Oral Daily magnesium oxide 400 mg Oral Daily mirtazapine 15 mg Oral Nightly potassium chloride 40 mEq Oral TID Continuous Infusions: OBJECTIVE Vitals Current 24 hour Min/Max BP 123/64 BP Min: 108/54 Max: 123/64 HR 74 Pulse Min: 60 Max: 78 Temp 37 C (98.6 F) Temp Min: 35.6 C (96 F) Max: 37 C (98.6 F) RR 20 Resp Min: 18 Max: 22 Sats SpO2: 96 % on 3L/min nasal cannula SpO2 Min: 80 % Max: 98 % 04/19 0701 - 04/20 0700 In: 330 [P.O.:330] Out: 550 [Urine:550] Alert but oriented to self only Neck exam: EJ less distended now Chest is clear today without crackles CVS IRR S1S2 Abdomen NT Ext 1 plus bilateral pitting edema LE Recent Labs Lab 04/19/18 0715 04/18/18 1648 WBC 7.4 8.3 HGB 14.2 15.3 HCT 42.7 45.8 PLT 142 165 Recent Labs Lab 04/20/18 0919 04/19/18 0715 04/18/18 1648 NA 143 141 138 K 3.2* 3.2* 3.1* CL 100 105 103 CO2 31 22* 27 BUN 18 19* 19* CREA 1.34* 1.44* 1.44* MG -- 1.7* 1.9 CALCIUM 8.5 7.9* 8.3 PHOS -- 4.3 -- ALBUMIN -- 2.4* 2.9* Diagnostic Studies: Available data and images were reviewed personally. Significant results and findings are ad dressed here or in the Assessment and Plan. Please feel free to contact me with any questions Electronically signed by: Surya Huerta MD, 04/20/2018, 10:55 Alex Huerta MD - 04/19/2018 1208 PDTFormatting of this note may be different from the o riginal. INPATIENT ROUNDING NOTE Date of Service: 04/19/2018 Rounding Physician: Alex Huerta MD Patient Name: Laila Dolan : 1945 Medical Record: [id number] Hospital Summary: Laila Dolan is a 72 y.o. female with a PMHx of ischemic CHF EF 20-25%, chronic Afib, HTN, CKD 3 with Cr 1.4, CAD, hypothyroidism, who presented with acute systolic CHF exacerbat ion after withdrawal of diuretics in setting of recent gastroenteritis at [facility]. ASSESSMENT AND PLAN 1. Ischemic cardiomyopathy with Acute systolic CHF 2. Massively volume overloaded 3. CKD 3 stable 4. Chronic Afib rate controlled not on AC due to fall risk 5. Advanced dementia 6. Hypothyroidism Plan: DC po lasix IV Lasix 40mg bid Cont coreg for rate control Cont heparin DVT prophylaxis Prognosis is poor SUBJECTIVE: Patient denies CP. SOB about the same. Poor historian due to advanced dementia - she does n ot know where she is or why she is here. Scheduled Meds: carvedilol 12.5 mg Oral BID WC cyanocobalamin 500 mcg Oral Daily donepezil 10 mg Oral Nightly furosemide 40 mg Intravenous BID (8 and 16) heparin 5,000 Units Subcutaneous 2 times per day isosorbide dinitrate 30 mg Oral 4x Daily lactulose 30 g Oral Daily levothyroxine 50 mcg Oral QAM AC losartan 100 mg Oral Daily magnesium oxide 400 mg Oral Daily mirtazapine 15 mg Oral Nightly Continuous Infusions: OBJECTIVE Vitals Current 24 hour Min/Max BP 123/69 BP Min: 122/67 Max: 161/68 HR 74 Pulse Min: 68 Max: 86 Temp 35.7 C (96.3 F) Temp Min: 35.7 C (96.3 F) Max: 36.8 C (98.3 F) RR 20 Resp Min: 16 Max: 20 Sats SpO2: 93 % on 4L/min nasal cannula SpO2 Min: 89 % Max: 100 % 04/18 07 - 04/19 0700 In: 200 [P.O.:200] Out: 750 [Urine:750] Alert but oriented to self only Neck exam: Markedly distended EJ bilaterally Chest is crackly bilaterally CVS IRR S1S2 Abdomen NT Ext 3 plus bilateral pitting edema LE Recent Labs Lab 04/19/18 0715 04/18/18 1648 WBC 7.4 8.3 HGB 14.2 15.3 HCT 42.7 45.8 PLT 142 165 Recent Labs Lab 04/19/18 0715 04/18/18 1648 NA 141 138 K 3.2* 3.1* CL 105 103 CO2 22* 27 BUN 19* 19* CREA 1.44* 1.44* MG 1.7* 1.9 CALCIUM 7.9* 8.3 PHOS 4.3 -- ALBUMIN 2.4* 2.9* Diagnostic Studies: Available data and images were reviewed personally. Significant results and findings are ad dressed here or in the Assessment and Plan. Please feel free to contact me with any questions Electronically signed by: Surya Huerta MD, 04/19/2018, 12:08 Aspen Cummins, PharmD - 04/19/2018 1148 PDTFormatting of this note may be different from the original. PHARMACY SERVICES: ADMISSION MEDICATION REVIEW Laila Dolan is a 72 y.o. female admitted on 04/18/2018. Patient is not a reliable historian. Location of Patient when reviewed: ED X Medical Floor Patient s prior to admit medication and over the counter (OTC) medications/herbal supplem ents list obtained from: X Verbal interview X Patient UNABLE to recall name, strength, and direction X Patient not interviewed or unable to supply information due to: AMS X Pharmacy list names: [facility] ([facility]) X [employer] insurance reported information X Outside Information X Other Source: (Braden Dolan) Vaccines up to date? Yes No Unsure Influenza X Pneumococcal X Tdap X Shingles X Noted medications discrepancies or medication-related issues: Medication added: Medication: Prior to Admission Sig: Cholecalciferol (Vitamin D-3) 1,000 unit capsule Take 1 tablet by mouth daily Potassium Chloride (K-Dur) 10 mEq tablet Take 2 tablets by mouth 2 times daily Nitroglycerin (Nitrostat) 0.[address] 0.4 mg under the tongue every 5 minutes as ne eded for chest pain Removed therapy: Medication: Prior to Admission Sig: Reason for Removal: Amlodipine Besylate (Norvasc) 10 mg Take 1 tablet by mouth daily Therapy complete Cholecalciferol (Vitamin D-3) 5,000 units caps Take 1 capsule by mouth daily Incorrect, monisha nged to correct dose Potassium Chloride (K-Dur) 20 MeQ Er Tablet Take 1 tablet by mouth 2 times daily. 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 Provider ascorbic acid (VITAMIN C) 500 mg tablet Take 500 mg by mouth Daily. Taking Historical Pro videMD carlos carvedilol (COREG) 12.5 mg tablet Take 1 tablet by mouth 2 times daily (with breakfast & d inner). To lower blood pressure and heart rate Taking Nik Michel MD chlorthalidone 25 mg tablet Take 25 mg by mouth Daily. Taking Historical ProviderMD cholecalciferol (VITAMIN D-3) 1,000 units capsule Take 1,000 Units by mouth Daily. Taking Historical ProviderMD cholestyramine light (QUESTRAN) 4 g packet Take 4 g by mouth 2 times daily. Taking Histor ical ProviderMD cyanocobalamin (VITAMIN B-12) 500 mcg tablet Take 500 mcg by mouth Daily. Taking Historic al ProviderMD donepezil (ARICEPT) 10 MG tablet Take 10 mg by mouth nightly. Taking Historical ProviderMD escitalopram (LEXAPRO) 10 mg tablet Take 1 tablet by mouth Daily. To help mood Taking 90 t ablet Nik Michel MD furosemide (LASIX) 20 mg tablet Take 20 mg by mouth Daily. Taking Historical ProviderMD isosorbide dinitrate (ISORDIL) 30 MG tablet Take 30 mg by mouth 4 times daily. Taking His torical Provider, Lactulose 20 GM/30ML SOLN Take 20 g by mouth Daily. Taking Historical ProviderMD levothyroxine (SYNTHROID) 50 mcg tablet Take 50 mcg by mouth every morning (before break). Taking Historical ProviderMD losartan (COZAAR) 100 MG tablet Take 1 tablet by mouth Daily. For high blood pressure Taki ng 90 tablet Nik Michel MD magnesium oxide (MAG-OX) 400 mg tablet Take 400 mg by mouth Daily. Taking Historical Prov iderMD mirtazapine (REMERON) 15 MG tablet Take 15 mg by mouth nightly. Taking Historical Brooke rMD Multiple Vitamin (MULTIVITAMIN PO) Take 1 tablet by mouth Daily. Taking Historical Provid er, nitroglycerin (NITROSTAT) 0.[address] 0.4 mg under the tongue every 5 minutes a s needed for Chest pain. Taking Historical ProviderMD pantoprazole (PROTONIX) 40 mg tablet Take 40 mg by mouth 2 times daily (before meals). Shilpi ing Historical ProviderMD potassium chloride (KLOR-CON) 10 MEQ ER tablet Take 20 mEq by mouth 2 times daily. Taking Flaco Jarquin MD Medication review performed and electronically signed by Ernestine Evans, Field Education Director 04/19/2018 10:43 Reviewed by Aspen Cummins, PharmD 04/19/2018 11:46 in this encounter Plan of Treatment + +--------+ + + | Name | Priori | Associated Diagnoses | Date/Time | | | ty | | | + +--------+ + + | ED INFORMATION EXCHANGE | Routin | | 04/18/2018 1621 PDT | | | e | | | + +--------+ + + as of this encounter Procedures + +--------+ + [...] + +--------+ + + + | EXTRA AMRITENDER TOP | Routin | 04/21/2018 | | [...] for this | | | e | 133 PDT | | procedure are in the | | | | | | results section. | + +--------+ + + + | URINALYSIS WITH | Routin | 04/18/2018 | | Results for this | | MICROSCOPIC WITH | e | 2012 PDT | | procedure are in the | | CULTURE IF INDICATED | | | | results section. | + +--------+ + + + | TROPONIN I | Routin | 04/18/2018 | | Results for this | | | e | 1913 PDT | | procedure are in the | | | | | | results section. | + +--------+ + + + | AMMONIA | STAT | 04/18/2018 | | Results for this | | | | 1911 PDT | | procedure are in the | | | | | | results section. | + +--------+ + + + | XR CHEST AP PORTABLE | STAT | 04/18/2018 | | Results for this | | | | 1718 PDT | | procedure are in the | | | | | | results section. | + +--------+ + + + | ECG 12 LEAD | STAT | 04/18/2018 | | Results for this | | | | 1713 PDT | | procedure are in the | | | | | | results section. | + +--------+ + + + | EXTRA RODRÍGUEZ TOP TUBE | STAT | 04/18/2018 | | Results for this | | | | 1648 PDT | | procedure are in the | | | | | | results section. | + +--------+ + + + | EXTRA BLUE TOP TUBE | STAT | 04/18/2018 | | Results for this | | | | 1648 PDT | | procedure are in the | | | | | | results section. | + +--------+ + + + | TROPONIN I | STAT | 04/18/2018 | | Results for this | | | | 1648 PDT | | procedure are in the | | | | | | results section. | + +--------+ + + + | CBC WITH | STAT | 04/18/2018 | | Results for this | | DIFFERENTIAL | | 1648 PDT | | procedure are in the | | | | | | results section. | + +--------+ + + + | B TYPE NATRIURETIC | STAT | 04/18/2018 | | Results for this | | PEPTIDE | | 1648 PDT | | procedure are in the | | | | | | results section. | + +--------+ + + + | MAGNESIUM | STAT | 04/18/2018 | | Results for this | | | | 1648 PDT | | procedure are in the | | | | | | results section. | + +--------+ + + + | COMPREHENSIVE | STAT | 04/18/2018 | | Results for this | | METABOLIC PANEL | | 1648 PDT | | procedure are in the | | | | | | results section. | + +--------+ + + + | ED INFORMATION | Routin | 04/18/2018 | | | | EXCHANGE | e | 1621 PDT | | | + +--------+ + + + +---+--------+ | | | | | Proced | | | ure | | | Note - | | | Zoe, | | | Lab In | | | | | | Hlseve | | | n - | | | 06/27/ | | | 2018 | | | 1622 | | | PDT | | | Format | | | ting | | | of | | | this | | | note | | | may be | | | | | | differ | | | ent | | | from | | | the | | | origin | | | al.ZOE | | | E16:19 | | | LAILA | | | [id number] | | | [id number] | | | This | | | [...] | | | ent/81 | | | [id number] | | | -95da- | | | [id number] | | | [id number]-ef | | | [id number] | | | [id number] | | | Securi | | | ty | | | Events | | | No | | | recent | | | | | | Securi | | | ty | | | Events | | | | | | curren | | | tly on | | | | | | fileED | | | Care | | | Guidel | | | inesTh | | | ere | | | are | | | curren | | | tly no | | | ED | | | Care | | | Guidel | | | tiago | | | in | | | MARIA T | | | for | | | this | | | patien | | | t. | | | Please | | | check | | | your | | | facili | | | ty's | | | medica | | | l | | | record | | | s | | | system | | | .Recen | | | t | | | Emerge | | | ncy | | | Depart | | | ment | | | Visit | | | Summar | | | yAdmit | | | Date | | | Facili | | | ty | | | City | | | State | | | Type | | | Major | | | Type | | | Diagno | | | ses or | | | Chief | | | | | | Compla | | | int | | | Juan A | | | 27, | | | 2018 | | | Prov[facility] | | | ence | | | [facility] [place] | | | [place] | | | Emerge | | | ncy | | | Emerge | | | ncy | | | Juan A | | | 18, | | | 2018 | | | [facility] | | | [place] | | | [place] | | | Emerge | | | ncy | | | Emerge | | | ncy | | | Chief | | | Compla | | | int: | | | ABD | | | PAIN | | | Juan A | | | 17, | | | 2018 | | | [facility] | | | [place] | | | [place] | | | Emerge | | | ncy | | | Emerge | | | [...] status | | | | | | Presen | | | ce of | | | cardia | | | c | | | pacema | | | ker | | | | | | Essent [...] | | | y | | | Chest | | | pain, | | | unspec | | | ified | | | | | | Long | | | term | | | (curre | | | nt) | | | use of | | | | | | aspiri | | | n | | | Alzhei | | | mers | | | diseas | | | e, | | | unspec | | | ified | | | | | | Jagdeep | | | ia in | | | other | | | diseas | | | es | | | classi | | | fied | | | elsewh | | | ere | | | withou | | | t | | | behavi | | | oral | | | distur | | | bance | | | Juan A | | | 1, | | | 2018 | | | [facility] | | | [place] | | | [place] | | | Emerge | | | ncy | | | Emerge | | | ncy | | | Long | | | term | | | (curre | | | nt) | | | use of | | | | | | aspiri | | | n | | | Rash | | | and | | | other | | | nonspe | | | cific | | | skin | | | erupti | | | on | | | Other | | | allerg | | | y | | | status | | | , | | | other | | | than | | | to | | | drugs | | | and | | | biolog | | | ical | | | substa | | | nces | | | | | | Essent | | | ial | | | (prima | | | ry) | | | hypert | | | ension | | | | | | Other | | | long | | | term | | | (curre | | | nt) | | | drug | | | therap | | | y | | | Unspec | | | ified | | | contac | | | t | | | dermat | | | itis, | | | unspec | | | ified | | | cause | | | | | | Allerg [...] | | | status | | | May | | | 3, | | | 2018 | | | [facility] | | | [place] | | | [place] | | | Emerge | | | ncy | | | Emerge | | | ncy | | | Chest | | | pain, | | | | | | unspec | | | ified | | | | | | Urinar | | | y | | | tract | | | infect | | | ion, | | | site | | | not | | | specif | | | ied | | | | | | Allerg [...] | | | y | | | Alzhei | | | mers | | | diseas | | | e, | | | unspec | | | ified | | | | | | Essent [...] status | | | | | | Person | | | al | | | histor | | | y of | | | nicoti | | | ne | | | depend | | | ence | | | Long | | | term | | | (curre | | | nt) | | | use of | | | | | | aspiri | | | n | | | E.D. | | | Visit | | | [...] | | | Center | | | 1 0 | | | [facility] | | | al 10 | | | 0 | | | Total | | | 11 0 | | | Note: | | [...] | | | Summar | | | yNo | | | record | | | ed | | | inpati | | | ent | | | visits | | | . PDMP | | | | | | Report | | | PDMP | | | query | | | found | | | no | | | report | | | .[!] | | | Patien | | | t is | | | on | | | Washin | | | gton | | | PRCPro | | | vider | | | PRC | | | Type | | | Phone | | | Servic | | | e | | | Dates | | | DR | | | NIK | | | STODDA | | | RD, MD | | | Lock | | | In | | | (509) | | | [phone] | | | 00 | | | (509) | | | [phone] | | | 75 | | | Curren | | | t If | | | this | | | client | | | is | | | seen | | | in | | | your | | | facili | | | ty, | | | please | | | | | | notify | | | the | | | client | | | 's PCP | | | | | | and/or | | | refer | | | the | | | client | | | back | | | to | | | their | | | PCP | | | for | | | approp | | | riate | | | follow | | | -up | | | and | | | manage | | | ment | | | of | | | care. | | | If you | | | have | | | any | | | questi | | | ons or | | | | | | concer | | | ns | | | about | | | the | | | client | | | or | | | the | | | PRC | | | progra | | | m, | | | please | | | feel | | | free | | | to | | | contac | | | t us | | | at | | | [phone] | | | [phone] | | | [phone] | | | ext. | | | [phone] | | | or go | | | to the | | | PRC | | | websit | | | e at | | | http:/ | | | [email or web address] | | | [email or web address] | | | [email or web address].[email or web address] | | | PRR/ | | | for | | | more | | | inform | | | ation. | | | | | | Additi | | | [...] | | RD, | | | NIK | | | R., | | | M.D. | | | Indivi | | | dual | | | or | | | Groups | | | (of | | | Indivi | | | duals) | | | | | | Curren | | | t | | | Phan, | | | | | | Bradle | | | y | | | Jamie | | | MD | | | Treatm | | | ent | | | Curren | | | t | | | Easter | | | n | | | [facility] | | | | | | Orthop | | | edic | | | Surger | | | y and | | | Fractu | | | re | | | Clinic | | | Other | | | | | | Curren | | | t | | | Criter | | | ia met | | | PRC | | | 4 | | | visits | | | in | | | 60Know | | | n | | | Aliase | | | sNo | | | known | | | aliase | | | s. The | | | above | | | | | | inform | | | ation | | | is | | | provid | | | ed for | | | the | | | sole | | | purpos | | | e of | | | patien | | | t | | | treatm | | | ent. | | | Use of | | | this | | | inform | | | ation | | | beyond | | | the | | | terms | | | of | | | Data | | | Sharin | | | g | | | Memora | | | ndum | | | of | | | Unders | | | tandin | | | g and | | | Licens | | | e | | | Agreem | | | ent is | | | | | | prohib | | | ited. | | | In | | | certai | | | n | | | cases | | | not | | | all | | | visits | | | may | | | be | | | repres | | | ented. | | | | | | Consul | | | t the | | | aforem | | | ention | | | ed | | | facili | | | ties | | | for | | | additi | | | onal | | | inform | | | ation. | | | 2018 | | | [employer] | | | tive | | | Medica | | | l | | | [employer] | | | logies | | | , [employer] | | | - | | | [place] | | | [place] | | | [place], | | | [place] - | | | [email or web address] | | | ollect | | | ivemed | | | icalte | | | [email or web address] | | | | +---+--------+ in this encounter Results Basic Metabolic Panel (04/23/2018 1001) + + + + + | Component | Value | Ref Range | Performed At | + + + + + | NA | 145 | 136 - 149 mmol/L | [facility] | + + + + + | K | 4.8 | 3.5 - 5.1 mmol/L | [facility] | | [facility] | + + + + + | CL | 104 | 98 - 109 mmol/L | [facility] | | [facility] | + + + + + | CO2 | 35 (H) | 24 - 31 mmol/L | [facility] | | | | [facility] | | | | [facility] - | | | | | [facility] | + + + + + | ANION GAP | 6 | 3 - 16 mmol/L | [facility] | | | | [facility] | | | [facility] - | | | | | LAB[facility] | + + + + + | GLUCOSE | 107 | 70 - 109 mg/dL | [facility] | | | | [facility] | | | | | [facility] - | | | | | LAB[facility] | + + + + + | BUN | 13 | 7 - 18 mg/dL | [facility]. | | | | | [facility] | | | | | CENTER - | | | | | LABORATORY | + + + + + | Creatinine, | 1.29 | 0.60 - 1.30 mg/dL | [facility]. | | Serum/Plasma | | | [facility] | | | | | CENTER - | | | | | LABORATORY | + + + + + | eGFR if not | 40 (L)Comment: | >=60 mL/min/1.73m2 | [facility] | | [place] | GLOMERULAR FILTRATION | | [facility] | | | RATE,ESTIMATED mL/min | | CENTER - | | | /1.71z4Iipk than 60 | | LABORATORY | | [...] + + + + | CALCIUM | 8.7 | 8.3 - 10.5 mg/dL | [facility] | | | | | [facility] | + + + + + | BUN/CREA | 10.1 | | [facility] | [facility] | | | [facility] [...] [address] | [place] | [phone] | | [facility] | | [address] | | | - LABORATORY | | | | + + + + + | [facility] | [address] | [place] | | | [facility] | | [address] | | | - LABORATORY | | | | + + + + + Basic Metabolic Panel (04/22/20181008) + + + + + | Component | Value | Ref Range | Performed At | + + + + + | NA | 146 | 136 - 149 mmol/L | [facility] | | | | | [facility] | | | | | CENTER - | | | | | LABORATORY | + + + + + | K | 4.2 | 3.5 - 5.1 mmol/L | [facility] | [facility] - | | | | | [facility] | + + + + + | CL | 105 | 98 - 109 mmol/L | [facility] | [facility] - | | | | | LAB[facility]ATORY | + + + + + | CO2 | 36 (H) | 24 - 31 mmol/L | [facility] - | | | | | LAB[facility]ATORY | + + + + + | ANION GAP | 5 | 3 - 16 mmol/L | [facility] | [facility] - | | | | | LAB[facility]ATORY | + + + + + | GLUCOSE | 107 | 70 - 109 mg/dL | [facility] | | | | | [facility] | | | | | [facility] - | | | | | LABORATORY | + + + + + | BUN | 13 | 7 - 18 mg/dL | [facility] | | | | | [facility] | | | | | [facility] - | | | | | LAB[facility]ATORY | + + + + + | Creatinine, | 1.27 | 0.60 - 1.30 mg/dL | [facility] | | Serum/Plasma | | | [facility] | | | | | [facility] - | | | | | LABORATORY | + + + + + | eGFR if not | 41 (L)Comment: | >=60 mL/min/1.73m2 | [facility] | | [place] | GLOMERULAR FILTRATION | | [facility] | | | RATE,ESTIMATED mL/min | | CENTER - | | | /1.09z2Cgck than 60 | | LABORATORY | | [...] + + + | CALCIUM | 8.4 | 8.3 - 10.5 mg/dL | [facility]. | | | | | [facility] | | | | | CENTER - | | | | | LABORATORY | + + + + + | BUN/CREA | 10.2 | | [facility]. | | | | | [facility] | | | | | CENTER [...] ST. | [address] | [place] | [phone] | | [facility] | | [address] | | | - LABORATORY | | | | + + + + + | [facility] | [address] | [place], [place] | | | [facility] | | [address] | | | - LABORATORY | | | | + + + + + CBC no Differential (04/21/2018 1153) + + + + + | Component | Value | Ref Range | Performed At | + + + + + | WBC | 6.6 | 4.0 - 11.0 K/uL | [facility] - | | | | | [facility] | + + + + + | RBC | 4.64 | 3.70 - 5.20 M/uL | [facility] | [facility] - | | | | | LAB[facility]ORY | + + + + + | Hgb | 14.0 | 11.5 - 16.0 g/dL | [facility] | [facility] - | | | | | [facility]ORY | + + + + + | Hct | 43.3 | 34.0 - 47.0 % | [facility] | [facility] - | | | | | LAB[facility]ATORY | + + + + + | MCV | 93.3 | 83.0 - 101.0 fL | [facility] | [facility] - | | | | | LAB[facility]ORY | + + + + + | MCH | 30.2 | 28.0 - 35.0 pg | [facility] | [facility] - | | | | | [facility]ORY | + + + + + | MCHC | 32.3 | 32.0 - 36.0 g/dL | [facility] - | | | | | LAB[facility]ATORY | + + + + + | RDW-CV | 18.1 (H) | <15.0 % | [facility] - | | | | | LAB[facility]ATORY | + + + + + | Platelet Count | 159 | 140 - 440 K/uL | [facility] | | | | | [facility] | | | | | CENTER - | | | | | LABORATORY | + + + + + | MPV | 9.7 | fL | [facility] | | | | | [facility] | | | | | CENTER [...] ST. | [address] | [place], [place] | [phone] | | [facility] | | [address] | | | - LABORATORY | | | | + + + + + | [facility] | [address] | [place], [place] | | | [facility] | | [address] | | | - LABORATORY | | | | + + + + + XR Chest AP Portable (04/21/2018 0945) + + + | Narrative | Performed [...] right lung. Dictated and Signed by: Darwin Rendon MD Electronically signed: 04/21/2018 10:33 AM | | + + + + + | Procedure Note | + + | Zoe, Rad Results In - 04/21/2018 1037 PDT [...] + + Extra Lavender Top Tube (04/21/2018 0556) + +-------+ + + | Component | Value | Ref Range | Performed At | + +-------+ + + | Extra Lavender Top | Done | | [facility] | | Tube | | | [facility] | | | | | CENTER [...] [address] | [place] | [phone] | | [facility] | | [address] | | | - LABORATORY | | | | + + + + + | [facility] | [address] | [place] | | | [facility] | | [address] | | | - LABORATORY | | | | + + + + + Renal Function Panel (04/21/2018 0556) + + + + + | Component | Value | Ref Range | Performed At | + + + + + | NA | 143 | 136 - 149 mmol/L | [facility] | | | | | [facility] | | | | | CENTER - | | | | | LABORATORY | + + + + + | K | 3.9 | 3.5 - 5.1 mmol/L | [facility] | [facility] | [facility] - | | | | | [facility] | + + + + + | CL | 102 | 98 - 109 mmol/L | [facility] | [facility] | [facility] - | | | | | LAB[facility]ATORY | + + + + + | CO2 | 32 (H) | 24 - 31 mmol/L | [facility] | [facility] | [facility] - | | | | | LAB[facility]ATORY | + + + + + | ANION GAP | 9 | 3 - 16 mmol/L | [facility] | | [facility] - | | | | | LAB[facility]ORY | + + + + + | GLUCOSE | 104 | 70 - 109 mg/dL | [facility] | [facility] - | | | | | LAB[facility]ORY | + + + + + | BUN | 15 | 7 - 18 mg/dL | [facility] | | | [facility] - | | | | | LAB[facility]ATORY | + + + + + | Creatinine, | 1.33 (H) | 0.60 - 1.30 mg/dL | [facility] | | Serum/Plasma | | [facility] | [facility] - | | | | | [facility]ORY | + + + + + | eGFR if not | 39 (L) | >=60 mL/min/1.73m2 | [facility] | | [place] | | | [facility] | | | [facility] - | | | | | LAB[facility]ATORY | + + + + + | CALCIUM | 8.1 (L) | 8.3 - 10.5 mg/dL | [facility] | | | | [facility] | [facility] - | | | | | LAB[facility]ATORY | + + + + + | ALBUMIN | 2.6 (L) | 3.2 - 5.0 g/dL | [facility] | | | | [facility] | [facility] | [facility] - | | | | | LABORATORY | + + + + + | Phosphorus | 3.6 | 2.5 - 4.6 mg/dL | [facility] | | | | [facility] | [facility] - | | | | | LAB[facility]ATORY | + + + + + | BUN/CREA | 11.3 | | [facility] | | | [facility] [...] + | [facility] | [address] | [place], [place] | [phone] | | [facility] | | [address] | | | - LABORATORY | | | | + + + + + | [facility] | [address] | [place], [place] | | | [facility] | | [address] | | | - LABORATORY | | | | + + + + + Extra Lavender Top Tube (04/20/2018918) + +-------+ + + | Component | Value | Ref Range | Performed At | + +-------+ + + | Extra Lavender Top | Done | | [facility] | | Tube | | | [facility] | | | | | [facility] - | | | | | LABORATORY | + +-------+ + + + + | Specimen | + + | Blood | + + + + + + + | Performing | Address | City/State/Zipcode | Phone Number | | Organization | | | | + + + + + | [facility] | [address] | [place] | [phone] | | [facility] | | [address] | | | - LABORATORY | | | | + + + + + | [facility] | [address] | [place] | | | [facility] | | [address] | | | - LABORATORY | | | | + + + + + Basic Metabolic Panel (04/20/2018918) + + + + + | Component | Value | Ref Range | Performed At | + + + + + | NA | 143 | 136 - 149 mmol/L | [facility] | | [facility] - | | | | | [facility]ORY | + + + + + | K | 3.2 (L) | 3.5 - 5.1 mmol/L | [facility] | | | [facility] | [facility] - | | | | | LAB[facility]ATORY | + + + + + | CL | 100 | 98 - 109 mmol/L | [facility] | [facility] - | | | | | LAB[facility]ATORY | + + + + + | CO2 | 31 | 24 - 31 mmol/L | [facility] - | | | | | LAB[facility]ATORY | + + + + + | ANION GAP | 12 | 3 - 16 mmol/L | [facility] | | [facility] | [facility] - | | | | | LAB[facility]ORY | + + + + + | GLUCOSE | 121 (H) | 70 - 109 mg/dL | [facility] | | [facility] - | | | | | [facility]ORY | + + + + + | BUN | 18 | 7 - 18 mg/dL | [facility]. | | | | | [facility] | | | | | CENTER - | | | | | LABORATORY | + + + + + | Creatinine, | 1.34 (H) | 0.60 - 1.30 mg/dL | [facility]. | | Serum/Plasma | | | [facility] | | | | | CENTER - | | | | | LABORATORY | + + + + + | eGFR if not | 39 (L)Comment: | >=60 mL/min/1.73m2 | [facility] | | [place] | GLOMERULAR FILTRATION | | [facility] [facility] | | | RATE,ESTIMATED mL/min | | CENTER - | | | /1.19w6Unon than 60 | | LABORATORY | | [...] + + + + | CALCIUM | 8.5 | 8.3 - 10.5 mg/dL | [facility] | | | | [facility] | | | [facility] - | | | | | LABORATORY | + + + + + | BUN/CREA | 13.4 | | [facility] | | | [facility] | | | | [facility] [...] + | [facility] | [address] | [place] | [phone] | | [facility] | | [address] | | | - LABORATORY | | | | + + + + + | [facility] | [address] | [place] | | | [facility] | | [address] | | | - LABORATORY | | | | + + + + + Clostridium difficile A and B EIA (04/19/2018 1306) + + + + + | Component | Value | Ref Range | Performed At | + + + + + | Clostridium | NegativeComment: | Negative | [facility] | | Difficile GDH | Negative for toxigenic | | [facility] | | Antigen | Clostridium difficile | | CENTER - | | | | | LABORATORY | + + + + + | C. Diff Toxin A/B | Negative | Negative | [facility] | | EIA | | | [facility] | | | | | CENTER [...] + | [facility] | [address] | [place] | [phone] | | [facility] | | [address] | | | - LABORATORY | | | | + + + + + | [facility] | [address] | [place], [place] | | | [facility] | | [address] | | | - LABORATORY | | | | + + + + + Troponin I (04/19/2018714) + + + + + | Component | Value | Ref Range | Performed At | + + + + + | Troponin I | 0.17 (H)Comment: | <0.06 ng/mL | [facility] | | | Reference | | [facility] | | | Ranges:0.00-0.06 = | [...] infarction. | | | | | [employer] | | | | | [...] + + | Performing | Address | City/State/[facility] | Phone Number | | Organization | | | | + + + + + | [facility] | [address] | [place], [place] | [phone] | | [facility] | | [address] | | | - LABORATORY | | | | + + + + + | [facility] | [address] | [place], [place] | | | [facility] | | [address] | | | - LABORATORY | | | | + + + + + Magnesium (04/19/2018714) + +---------+ + + | Component | Value | Ref Range | Performed At | + +---------+ + + | Magnesium | 1.7 (L) | 1.8 - 2.5 mg/dL | [facility] | | | | | [facility] | | | | | CENTER [...] [address] | [place] | [phone] | | [facility] | | [address] | | | - LABORATORY | | | | + + + + + | [facility] | [address] | [place] | | | [facility] | | [address] | | | - LABORATORY | | | | + + + + + CBC no Differential (04/19/2018714) + + + + + | Component | Value | Ref Range | Performed At | + + + + + | WBC | 7.4 | 4.0 - 11.0 K/uL | [facility] | | | [facility] | [facility] - | | | | | LABORATORY | + + + + + | RBC | 4.62 | 3.70 - 5.20 M/uL | [facility] | | | [facility] | [facility] - | | | | | LABORATORY | + + + + + | Hgb | 14.2 | 11.5 - 16.0 g/dL | [facility] | | | | [facility] | | | | [facility] - | | | | | LABORATORY | + + + + + | Hct | 42.7 | 34.0 - 47.0 % | [facility] | | | | [facility] | | | | [facility] - | | | | | LABORATORY | + + + + + | MCV | 92.4 | 83.0 - 101.0 fL | [facility] | | | | [facility] | [facility] - | | | | | LABORATORY | + + + + + | MCH | 30.7 | 28.0 - 35.0 pg | [facility] | | | | [facility] | | | | [facility] - | | | | | LABORATORY | + + + + + | MCHC | 33.2 | 32.0 - 36.0 g/dL | [facility] | | | | [facility] | | | | [facility] - | | | | | LABORATORY | + + + + + | RDW-CV | 17.2 (H) | <15.0 % | [facility] | | | | [facility] | [facility] | [facility] - | | | | | LABORATORY | + + + + + | Platelet Count | 142 | 140 - 440 K/uL | [facility] | | | | [facility] | | | | [facility] - | | | | | LABORATORY | + + + + + | MPV | 9.5 | fL | [facility] | | | | [facility] | | | | [facility]ENTER [...] + | [facility] | [address] | [place] | [phone] | | [facility] | | [address] | | | - LABORATORY | | | | + + + + + | [facility] | [address] | [place], [place] | | | [facility] | | [address] | | | - LABORATORY | | | | + + + + + Renal Function Panel (04/19/2018714) + + + + + | Component | Value | Ref Range | Performed At | + + + + + | NA | 141 | 136 - 149 mmol/L | [facility] | | | | [facility] | [facility] | [facility] - | | | | | LABORATORY | + + + + + | K | 3.2 (L) | 3.5 - 5.1 mmol/L | [facility] | | | | [facility] | | | | [facility] - | | | | | LABORATORY | + + + + + | CL | 105 | 98 - 109 mmol/L | [facility] | | | | [facility] | | | [facility] - | | | | | LABORATORY | + + + + + | CO2 | 22 (L) | 24 - 31 mmol/L | [facility] | | | | [facility] | | | | [facility] - | | | | | LABORATORY | + + + + + | ANION GAP | 14 | 3 - 16 mmol/L | [facility] | | | | [facility] | [facility] | [facility] - | | | | | LABORATORY | + + + + + | GLUCOSE | 85 | 70 - 109 mg/dL | [facility] | | | | [facility] | | | | [facility] - | | | | | LABORATORY | + + + + + | BUN | 19 (H) | 7 - 18 mg/dL | [facility] | | | | | [facility] | | | [facility] - | | | | | LABORATORY | + + + + + | Creatinine, | 1.44 (H) | 0.60 - 1.30 mg/dL | [facility] | | Serum/Plasma | | | [facility] | | | | C[facility] - | | | | | LABORATORY | + + + + + | eGFR if not | 36 (L) | >=60 mL/min/1.73m2 | [facility] | | [place] | | | [facility] | | [facility] | [facility] - | | | | | LABORATORY | + + + + + | CALCIUM | 7.9 (L) | 8.3 - 10.5 mg/dL | [facility] | | | | [facility] | [facility] | [facility] - | | | | | LABORATORY | + + + + + | ALBUMIN | 2.4 (L) | 3.2 - 5.0 g/dL | [facility] | | | | | [facility] | [facility] - | | | | | LABORATORY | + + + + + | Phosphorus | 4.3 | 2.5 - 4.6 mg/dL | [facility] | | | | [facility] | [facility] | [facility] - | | | | | LABORATORY | + + + + + | BUN/CREA | 13.2 | | [facility] | | | | | [facility] | | | | [facility] [...] + | [facility] | [address] | [place], [place] | [phone] | | [facility] | | [address] | | | - LABORATORY | | | | + + + + + | [facility] | [address] | [place], [place] | | | [facility] | | [address] | | | - LABORATORY | | | | + + + + + Troponin I (04/19/2018133) + + + + + | Component | Value | Ref Range | Performed At | + + + + + | Troponin I | 0.19 (H)Comment: | <0.06 ng/mL | [facility] | | | Reference | | [facility] | | | Ranges:0.00-0.06 = | | [...] infarction. | | | | | [employer] | | | | | [...] + + | Performing | Address | City/[facility] | Phone Number | | Organization | | | | + + + + + | [facility] | [address] | [place], [place] | [phone] | | [facility] | | [address] | | | - LABORATORY | | | | + + + + + | [facility] | [address] | [place] | | | [facility] | | [address] | | | - LABORATORY | | | | + + + + + Urinalysis with Microscopic with Culture if Indicated (04/18/20182012) + + + + + | Component | Value | Ref Range | Performed At | + + + + + | COLOR | Odails (A) | Light Yellow, | [facility] | | | | Yellow, Straw | [facility] | | | | | CENTER - | | | | | LABORATORY | + + + + + | CLARITY | Hazy (A) | Clear | [facility] | | | | | [facility] | | [facility] | [facility] - | | | | | LABORATORY | + + + + + | PH UA | 5.0 | 5.0 - 8.0 | [facility] | | | | [facility] | [facility] - | | | | | LABORATORY | + + + + + | Specific [place] | 1.017 | 1.001 - 1.030 | [facility] | | | | | [facility] | [facility] | [facility] - | | | | | LABORATORY | + + + + + | PROTEIN UA | 30 mg/dL (A) | Negative | [facility] | | | | | [facility] | [facility] | [facility] - | | | | | LABORATORY | + + + + + | BLOOD UA | Small (A) | Negative | [facility] | | | | | [facility] | [facility] | [facility] - | | | | | LABORATORY | + + + + + | GLUCOSE UA | Negative | Negative | [facility] | | | | | [facility] | [facility] | [facility] - | | | | | LABORATORY | + + + + + | KETONES UA | Negative | Negative | [facility] | | | | | [facility] | | | [facility] - | | | | | LABORATORY | + + + + + | BILIRUBIN UA | Negative | Negative | [facility] | | | | | [facility] | | | | [facility] - | | | | | LABORATORY | + + + + + | NITRITE UA | Negative | Negative | [facility] | | | | | [facility] | [facility] - | | | | | LABORATORY | + + + + + | LEUKOCYTES ESTERASE | Trace (A) | Negative | [facility] | | UA | | | [facility] | [facility] - | | | | | LABORATORY | + + + + + | UROBILINOGEN UA | Negative | 0.2 mg/dL, 1.0 | [facility] | | | | mg/dL, Negative | [facility] | | | | [facility] - | | | | | LABORATORY | + + + + + | WBC UA | 5-10 (A) | 0 - 2 /HPF | [facility] | | | | | [facility] | [facility] | [facility] - | | | | | LABORATORY | + + + + + | RBC UA | 0-2 | 0 - 2 /HPF | [facility] | | | | | [facility] | | [facility] | [facility] - | | | | | LABORATORY | + + + + + | SQUAMOUS EPITHELIAL | 15-25 (A) | 0 - 2 /LPF | [facility] | | UA | | | [facility] | [facility] - | | | | | LABORATORY | + + + + + | BACTERIA UA | Negative | Negative /HPF | [facility] | | | | | [facility] | | | | | CENTER - | | | | | LABORATORY | + + + + + | MUCUS UA | Present (A) | Negative /LPF | [facility] | | | | | [facility] | [facility] | [facility] - | | | | | LABORATORY | + + + + + | HYALINE CASTS UA | 15-25 (A) | 0 - 2 /LPF | [facility] | | | | | [facility] | | | | [facility] - | | | | | LABORATORY | + + + + + | URINE COMMENT | Urine Culture Not | | [facility] | | | Indicated | | [facility] | [facility] - | | | | | LABORATORY | + + + + + | ICTOTEST | Positive (A) | Negative | [facility] | | | | | [facility] | | | | | CENTER - | | | | | LABORATORY | + + + + + + + | Specimen | + + | Urine - Urine, Clean | | Catch | + + + + + + + | Performing | Address | City/State/Zipcode | Phone Number | | Organization | | | | + + + + + | [facility] | [address] | [place] | [phone] | | [facility] | | [address] | | | - LABORATORY | | | | + + + + + | [facility] | [address] | [place] | | | [facility] | | [address] | | | - LABORATORY | | | | + + + + + Troponin I (04/18/20181913) + + + + + | Component | Value | Ref Range | Performed At | + + + + + | Troponin I | 0.10 (H)Comment: | <0.06 ng/mL | [facility] | | | Reference | | [facility] | | | Ranges:0.00-0.06 = | [...] infarction. | | | | | [employer] | | | | | [...] + | [facility] | [address] | [place] | [phone] | | [facility] | | [address] | | | - LABORATORY | | | | + + + + + | [facility] | [address] | [place] | | | [facility] | | [address] | | | - LABORATORY | | | | + + + + + Ammonia (04/18/20181910) + +-------+ + + | Component | Value | Ref Range | Performed At | + +-------+ + + | Ammonia | 11 | 11 - 35 umol/L | [facility] | | | | | [facility] | | | | | CENTER - | | | | | LABORATORY | + +-------+ + + + + | Specimen | + + | Blood | + + + + + + + | Performing | Address | City/[facility]/Zipcode | Phone Number | | Organization | | | | + + + + + | [facility] | [address] | [place], [place] | [phone] | | [facility] | | [address] | | | - LABORATORY | | | | + + + + + | [facility] | [address] | [place], [place] | | | [facility] | | [address] | | | - LABORATORY | | | | + + + + + XR Chest AP Portable (04/18/2018 1718) + + + | Narrative | Performed At | + + + | EXAM: XR CHEST AP PORTABLE dated 04/18/2018 5:18 PM HISTORY: | [facility] | | Weakness and swelling. Comparison: None. TECHNIQUE: A single | | | portable view of the chest. FINDINGS: The lungs are | | | symmetrically aerated. No consolidation. Prominent pulmonary | | | vasculature. There are no large pleural effusions. There is no | | | pneumothorax. There is moderate to severe cardiomegaly. A single | | | ventricular lead from an implanted device on the left chest. No | | | acute osseous abnormalities. Diffuse demineralization. | | | IMPRESSION - Moderate to severe cardiomegaly and findings | | | suggesting pulmonary venous congestion. Dictated and Signed by: | | | Darwin Rendon MD Electronically signed: 04/18/2018 6:20 PM | | + + + + + | Procedure Note | + + | Zoe, Rad Results In - 04/18/2018 1823 PDT EXAM: XR CHEST AP PORTABLE dated 04/18/2018 | | 5:18 PMHISTORY: Weakness and swelling.Comparison: None.TECHNIQUE: A single portable view | | of the chest.FINDINGS:The lungs are symmetrically aerated. No consolidation. | | Prominent pulmonaryvasculature. There are no large pleural effusions. There is no | | pneumothorax. There is moderate to severe cardiomegaly. A single ventricular lead from | | animplanted device on the left chest. No acute osseous abnormalities. | | Diffusedemineralization.IMPRESSION -Moderate to severe cardiomegaly and findings | | suggesting pulmonary venouscongestion.Dictated and Signed by: Darwin Rendon MD | | Electronically signed: 04/18/2018 6:20 PM | | | |The lungs are symmetrically aerated. No consolidation. Prominent pulmonary | |vasculature. There are no large pleural effusions. There is no pneumothorax. | |There is moderate to severe cardiomegaly. A single ventricular lead from an | |implanted device on the left chest. No acute osseous abnormalities. Diffuse | |demineralization. | | | |IMPRESSION - | | | |Moderate to severe cardiomegaly and findings suggesting pulmonary venous | |congestion. | | | |Dictated and Signed by: Darwin Rendon MD | | Electronically signed: 04/18/2018 6:20 PM | + + + +---------+ + + | Performing | Address | City/State/Zipcode | Phone Number | | Organization | | | | + +---------+ + + | [facility] | | | | + +---------+ + + ECG 12 lead (04/18/2018 1713) + + + + + | Component | Value | Ref Range | Performed At | + + + + + | VENTRICULAR RATE EKG | 82 | BPM | [facility] | + + + + + | QRS DURATION | 94 | ms | [facility] | + + + + + | Q-T INTERVAL | 400 | ms | [facility] | + + + + + | Q-T INTERVAL | 467 | ms | [facility] | | (CORRECTED) | | | | + + + + + | QRS AXIS | 143 | degrees | [facility] | + + + + + | T AXIS | -165 | degrees | [facility] | + + + + + | INTERPRETATION TEXT | Atrial fibrillation with | | [facility] | | | PVC'sRight axis | | | | | deviationLow voltage | | | | | QRSAnteroseptal infarct | | | | | , age | | | | | undeterminedNonspecific | | | | | T wave | | | | | abnormalityAbnormal | | | | | ECGNo previous ECGs | | | | | availableConfirmed by | | | | | HILARIO YUNG MD ([id number]) | | | | | on 04/19/2018 6:51:13 AM | | | + + + + + + + + | Narrative | Performed At | + + + | | | + + + + +---------+ + + | Performing | Address | City/State/Zipcode | Phone Number | | Organization | | | | + +---------+ + + | [facility] | | | | + +---------+ + + Magnesium (04/18/20181647) + +-------+ + + | Component | Value | Ref Range | Performed At | + +-------+ + + | Magnesium | 1.9 | 1.8 - 2.5 mg/dL | [facility] | | | | | [facility] | [facility] - | | | | | LABORATORY | + +-------+ + + + + | Specimen | + + | Blood | + + + + + + + | Performing | Address | City/State/Zipcode | Phone Number | | Organization | | | | + + + + + | [facility] | [address] | [place] | [phone] | | [facility] | | [address] | | | - LABORATORY | | | | + + + + + | [facility] | [address] | [place], [place] | | | [facility] | | [address] | | | - LABORATORY | | | | + + + + + Extra Rodríguez Top Tube (04/18/2018 1648) + +-------+ + + | Component | Value | Ref Range | Performed At | + +-------+ + + | Extra Rodríguez Top Tube | Done | | [facility] | | | | | [facility] | | | | | [facility] [...] [address] | [place] | [phone] | | [facility] | | [address] | | | - LABORATORY | | | | + + + + + | [facility] | [address] | [place], [place] | | | [facility] | | [address] | | | - LABORATORY | | | | + + + + + Extra Blue Top Tube (04/18/20181) + +-------+ + + | Component | Value | Ref Range | Performed At | + +-------+ + + | Extra Blue Top Tube | Done | | [facility] | | | | | [facility] | | | | | CENTER - | | | | | LABORATORY | + +-------+ + + + + | Specimen | + + | Blood | + + + + + + + | Performing | Address | City/State/Zipcode | Phone Number | | Organization | | | | + + + + + | [facility] | [address] | [place] | [phone] | | [facility] | | [address] | | | - LABORATORY | | | | + + + + + | [facility] | [address] | [place], [place] | | | [facility] | | [address] | | | - LABORATORY | | | | + + + + + B Type Natriuretic Peptide (04/18/2018 1648) + + + + + | Component | Value | Ref Range | Performed At | + + + + + | BNP | 2,333 (H) | <100 pg/mL | [facility] | | | | | [facility] | | | | | CENTER [...] + | [facility] | [address] | [place] | [phone] | | [facility] | | [address] | | | - LABORATORY | | | | + + + + + | [facility] | [address] | [place] | | | [facility] | | [address] | | | - LABORATORY | | | | + + + + + Troponin I (04/18/2018 1648) + + + + + | Component | Value | Ref Range | Performed At | + + + + + | Troponin I | 0.06 (H)Comment: | <0.06 ng/mL | [facility] | | | Reference | | [facility] | | | Ranges:0.00-0.06 = | [...] infarction. | | | | | [employer] | | | | | [...] [address] | [place] | [phone] | | [facility] | | [address] | | | - LABORATORY | | | | + + + + + | [facility] | [address] | [place] | | | [facility] | | [address] | | | - LABORATORY | | | | + + + + + Comprehensive Metabolic Panel (04/18/20188) + + + + + | Component | Value | Ref Range | Performed At | + + + + + | NA | 138 | 136 - 149 mmol/L | [facility] | | | | | [facility] | | | | | CENTER - | | | | | LABORATORY | + + + + + | K | 3.1 (L) | 3.5 - 5.1 mmol/L | [facility] | | | | | [facility] | | [facility] - | | | | | LABORATORY | + + + + + | CL | 103 | 98 - 109 mmol/L | [facility] | | | | | [facility] | | | | [facility] - | | | | | LABORATORY | + + + + + | CO2 | 27 | 24 - 31 mmol/L | [facility] | | | | | [facility] | | | | | [facility] - | | | | | LABORATORY | + + + + + | ANION GAP | 8 | 3 - 16 mmol/L | [facility] | | | | | [facility] | | | | | [facility] - | | | | | LABORATORY | + + + + + | GLUCOSE | 100 | 70 - 109 mg/dL | [facility] | | | | | [facility] | | | | [facility] - | | | | | LABORATORY | + + + + + | BUN | 19 (H) | 7 - 18 mg/dL | [facility] | | | | | [facility] | | | | [facility] - | | | | | LABORATORY | + + + + + | Creatinine, | 1.44 (H) | 0.60 - 1.30 mg/dL | [facility] | | Serum/Plasma | | | [facility] | | | | [facility] - | | | | | LABORATORY | + + + + + | eGFR if not | 36 (L)Comment: | >=60 mL/min/1.73m2 | [facility] | | [place] | GLOMERULAR FILTRATION | | [facility] | | | RATE,ESTIMATED mL/min | | CENTER - | | | /1.61u1Vyuz than 60 | | LABORATORY | | [...] + + + + | CALCIUM | 8.3 | 8.3 - 10.5 mg/dL | [facility] | | | | | [facility] | | | | | CENTER - | | | | | LABORATORY | + + + + + | ALBUMIN | 2.9 (L) | 3.2 - 5.0 g/dL | [facility] | | | | | [facility] | | | | | CENTER - | | | | | LABORATORY | + + + + + | Bilirubin Total | 1.0Comment: This is an | 0.1 - 1.5 mg/dL | [facility] | | | appended report. These | | [facility] | | | results have been | | CENTER - | | | appended to a previously | | LABORATORY | | | preliminary verified | | | | | report. | | | + + + + + | Total protein | 5.3 (L) | 6.0 - 7.8 g/dL | [facility] | | | | | [facility] | | | | | [facility] - | | | | | LABORATORY | + + + + + | AST | 26Comment: This is an | 10 - 42 U/L | [facility] | | | appended report. These | | [facility] | | | results have been | | CENTER - | | | appended to a previously | | LABORATORY | | | preliminary verified | | | | | report. | | | + + + + + | ALT | 12Comment: This is an | 6 - 45 U/L | [facility] | | | appended report. These | | [facility] | | | results have been | | CENTER - | | | appended to a previously | | LABORATORY | | | preliminary verified | | | | | report. | | | + + + + + | ALK PHOS | 95Comment: This is an | 40 - 110 U/L | [facility] | | | appended report. These | | [facility] | | | results have been | | CENTER - | | | appended to a previously | | LABORATORY | | | preliminary verified | | | | | report. | | | + + + + + | GLOBULIN | 2.4 | 2.1 - 3.8 g/dL | [facility] | | | | | [facility] | | | | | CENTER - | | | | | LABORATORY | + + + + + | Albumin/Globulin | 1.2 | 0.8 - 2.0 | [facility] | | ratio | | | [facility] | | | | | CENTER - | | | | | LABORATORY | + + + + + | SAJI/CHANTAL | 13.2 | | [facility] | | | | | [facility] | | | | | CENTER [...] [address] | [place] | [phone] | | [facility] | | [address] | | | - LABORATORY | | | | + + + + + | [facility] | [address] | [place] | | | [facility] | | [address] | | | - LABORATORY | | | | + + + + + CBC with Differential (04/18/2018 1648) + + + + + | Component | Value | Ref Range | Performed At | + + + + + | WBC | 8.3 | 4.0 - 11.0 K/uL | [facility] | | | | | [facility] | | | | | CENTER - | | | | | LABORATORY | + + + + + | RBC | 5.00 | 3.70 - 5.20 M/uL | [facility] | | | | | [facility] | | | | | C[facility] - | | | | | LABORATORY | + + + + + | Hgb | 15.3 | 11.5 - 16.0 g/dL | [facility] | + + + + + | Hct | 45.8 | 34.0 - 47.0 % | [facility] | + + + + + | MCV | 91.7 | 83.0 - 101.0 fL | [facility] | [facility] | + + + + + | MCH | 30.5 | 28.0 - 35.0 pg | [facility] | [facility] | + + + + + | MCHC | 33.3 | 32.0 - 36.0 g/dL | [facility] | | [facility] | + + + + + | RDW-CV | 17.5 (H) | <15.0 % | [facility] | [facility] | | [facility] | + + + + + | Platelet Count | 165 | 140 - 440 K/uL | [facility] | [facility] | + + + + + | MPV | 9.4 | fL | [facility] | + + + + + | % Neutrophils | 80.9 | 45.0 - 82.0 % | [facility] | | [facility] | + + + + + | % Lymphocytes | 8.8 (L) | 20.0 - 45.0 % | [facility] | [facility] | + + + + + | % Monocytes | 8.2 | 4.0 - 12.0 % | [facility] | + + + + + | % Eosinophils | 1.6 | 0.0 - 5.0 % | [facility] | | [facility] | + + + + + | % Basophils | 0.5 | 0.0 - 1.0 % | [facility] | | [facility] | + + + + + | Absolute Neutrophils | 6.70 | 1.80 - 8.50 K/uL | [facility] | [facility] | + + + + + | Absolute Lymphocytes | 0.70 | 0.60 - 3.20 K/uL | [facility] | [facility] | + + + + + | Absolute Monocytes | 0.70 | 0.00 - 1.00 K/uL | [facility] | [facility] | + + + + + | Absolute Eosinophils | 0.10 | 0.00 - 0.40 K/uL | [facility] | | | [facility] | + + + + + | Absolute Basophils | 0.00 | 0.00 - 0.10 K/uL | [facility] | | | | | [facility] | | | | | [facility] - | | | | | LAB[facility]ATORY | + + + + + + + | Specimen | + + | Blood | + + + + + + + | Performing | Address | City/[place] | Phone Number | | Organization | | | | + + + + + | [facility] | [address] | TYESHA Johnson | [phone] | | [facility] | | [address] | | | - LABORATORY | | | | + + + + + | [facility] | [address] | TYESHA Johnson | | | [facility] | | [address] | | | - LABORATORY | | | | + + + + + in this encounter Visit Diagnoses + + | Diagnosis | + + | Acute hypoxemic respiratory failure (HCC) - Primary | + + | Acute on chronic congestive heart failure, unspecified heart failure type (HCC) | + + | Hypokalemia | + + | Hypopotassemia | + + | Elevated troponin | + + | Other abnormal blood chemistry | + + | Elevated brain natriuretic peptide (BNP) level | + + | Other nonspecific findings on examination of blood | + + | Hypoxemia | + + | Acute respiratory failure with hypoxia and hypercapnia (HCC) | + + | 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 | + + | Atrial fibrillation, chronic (HCC) | + + | Atrial fibrillation | + + Admitting Diagnoses + + | Diagnosis | + + | Hypoxemia | + + | Hypokalemia | + + | Hypopotassemia | + + | Elevated troponin | + + | Other abnormal blood chemistry | + + | Elevated brain natriuretic peptide (BNP) level | + + | Other nonspecific findings on examination of blood | + + | Acute respiratory failure with hypoxia and hypercapnia (HCC) | + + | Acute on chronic congestive heart failure, unspecified heart failure type (HCC) | + + Administered Medications + +--------+ +--------+------+------+ | Medication Order | MAR | Action | Dose | Rate | Site | | | Action | Date | | | | + +--------+ +--------+------+------+ | albuterol 2.5 mg/3 mL nebulizer | Given | | 2.5 mg | | | | solution 2.5 mg 2.5 mg, | | 8 12:51 | | | | | Nebulization, RT EVERY 2 HOURS | | PDT | | | | | PRN, Shortness of Breath, | | | | | | | Starting 04/21/18 at 1142, RT | | | | | | | will administer. | | | | | | + +--------+ +--------+------+------+ +---+---+ | | | +---+---+ + +-------+ +---------+---+---+ | carvedilol (COREG) tablet 12.5 | Given | 04/22/2018 | 12.5 mg | | | | mg 12.5 mg, Oral, 2 TIMES DAILY | | 8:20 | | | | | WITH BREAKFAST & DINNER, First | | PDT | | | | | dose on Mon04/18/18 at 2130 | | | | | | + +-------+ +---------+---+---+ +-------+ +---------+---+---+ | Given | 04/22/2018 | 12.5 mg | | | | | 17:24 | | | | | | PDT | | | | +-------+ +---------+---+---+ | Given | 04/23/2018 | 12.5 mg | | | | | 10:11 | | | | | | PDT | | | | +-------+ +---------+---+---+ +---+---+ | | | +---+---+ + +---------+ +--------+-------+---+ | clindamycin in dextrose | New Bag | | 600 mg | 100 | | | (CLEOCIN) IVPB 600 mg 600 mg, | | 8 14:59 | | mL/hr | | | Intravenous, Administer over 30 | | PDT | | | | | Minutes, EVERY 8 HOURS (3 times | | | | | | | per day), First dose on Sat | | | | | | | 04/21/18 at 1400, Indications: | | | | | | | aspiration? | | | | | | + +---------+ +--------+-------+---+ +---------+ +--------+-------+---+ | New Bag | | 600 mg | 100 | | | | 8 21:38 | | mL/hr | | | | PDT | | | | +---------+ +--------+-------+---+ | New Bag | 04/22/2018 | 600 mg | 100 | | | | 6:27 | | mL/hr | | | | PDT | | | | +---------+ +--------+-------+---+ +---+---+ | | | +---+---+ + +-------+ +---------+---+---+ | cyanocobalamin (VITAMIN B-12) | Given | | 500 mcg | | | | tablet 500 mcg 500 mcg, Oral, | | 8 8:48 | | | | | DAILY, First dose on [facility] 04/19/18 | | PDT | | | | | at 0900 | | | | | | + +-------+ +---------+---+---+ +-------+ +---------+---+---+ | Given | 04/22/2018 | 500 mcg | | | | | 8:21 | | | | | | PDT | | | | +-------+ +---------+---+---+ | Given | 04/23/2018 | 500 mcg | | | | | 10:01 | | | | | | PDT | | | | +-------+ +---------+---+---+ +---+---+ | | | +---+---+ + +-------+ +-------+---+---+ | donepezil (ARICEPT) tablet 10 | Given | | 10 mg | | | | mg 10 mg, Oral, NIGHTLY, First | | 8 20:11 | | | | | dose on Mon04/18/18 at 2130 | | PDT | | | | + +-------+ +-------+---+---+ +-------+ +-------+---+---+ | Given | 6/30/201 | 10 mg | | | | | 8 21:37 | | | | | | PDT | | | | +-------+ +-------+---+---+ | Given | 04/22/2018 | 10 mg | | | | | 21:32 | | | | | | PDT | | | | +-------+ +-------+---+---+ +---+---+ | | | +---+---+ + +-------+ +-------+---+---+ | furosemide (LASIX) injection 20 | Given | | 20 mg | | | | mg 20 mg, Intravenous, ONCE, | | 8 19:16 | | | | | 04/18/18 at 1855, For 1 dose | | PDT | | | | + +-------+ +-------+---+---+ +---+---+ | | | +---+---+ + +-------+ +-------+---+---+ | furosemide (LASIX) injection 20 | Given | | 20 mg | | | | mg 20 mg, Intravenous, 2 TIMES | | 8 16:52 | | | | | DAILY 0800 & 1600, First dose on | | PDT | | | | | 04/20/18 at 1600 | | | | | | + +-------+ +-------+---+---+ +-------+ +-------+---+---+ | Given | | 20 mg | | | | | 8 11:24 | | | | | | PDT | | | | +-------+ +-------+---+---+ +---+---+ | | | +---+---+ + +-------+ +-------+---+---+ | furosemide (LASIX) injection 40 | Given | | 40 mg | | | | mg 40 mg, Intravenous, 2 TIMES | | 8 17:02 | | | | | DAILY 0800 & 1600, First dose on | | PDT | | | | | Mariia 04/19/18 at 1600 | | | | | | + +-------+ +-------+---+---+ +-------+ +-------+---+---+ | Given | | 40 mg | | | | | 8 8:33 | | | | | | PDT | | | | +-------+ +-------+---+---+ +---+---+ | | | +---+---+ + +-------+ +-------+---+---+ | furosemide (LASIX) tablet 20 mg | Given | | 20 mg | | | | 20 mg, Oral, DAILY, First dose | | 8 9:19 | | | | | on [facility] 04/19/18 at 0900 | | PDT | | | | + +-------+ +-------+---+---+ +---+---+ | | | +---+---+ + +-------+ +-------+---+---+ | furosemide (LASIX) tablet 40 mg | Given | 04/22/2018 | 40 mg | | | | 40 mg, Oral, DAILY, First dose | | 8:19 | | | | | on 04/21/18 at 1200 | | PDT | | | | + +-------+ +-------+---+---+ +---+---+ | | | +---+---+ + +-------+ +--------+---+ + | heparin 5,000 units/mL | Given | 04/22/2018 | 5,000 | | Abdomen- | | injection 5,000 Units 5,000 | | 8:31 | Units | | RLQ | | Units, Subcutaneous, EVERY 12 | | PDT | | | | | HOURS (2 times per day), First | | | | | | | dose on Mon04/18/18 at 2130 | | | | | | + +-------+ +--------+---+ + +-------+ +--------+---+ + | Given | 04/22/2018 | 5,000 | | Abdomen- | | | 21:32 | Units | | RLQ | | | PDT | | | | +-------+ +--------+---+ + | Given | 04/23/2018 | 5,000 | | Abdomen- | | | 10:03 | Units | | LLQ | | | PDT | | | | +-------+ +--------+---+ + +---+---+ | | | +---+---+ + +-------+ +---------+---+---+ | ipratropium (ATROVENT) 500 | Given | 04/22/2018 | 500 mcg | | | | mcg/2.5 mL nebulizer solution 500 | | 8:45 | | | | | mcg 500 mcg, Nebulization, RT | | PDT | | | | | BID, First dose on 04/21/18 at | | | | | | | 2100, RT will administer. | | | | | | + +-------+ +---------+---+---+ +-------+ +---------+---+---+ | Given | 04/22/2018 | 500 mcg | | | | | 20:47 | | | | | | PDT | | | | +-------+ +---------+---+---+ | Given | 04/23/2018 | 500 mcg | | | | | 8:54 | | | | | | PDT | | | | +-------+ +---------+---+---+ + +---+ | | | + +---+ | ipratropium (ATROVENT) 500 | | | mcg/2.5 mL nebulizer solution 500 | | | mcg 500 mcg, Nebulization, 4 | | | TIMES DAILY WHILE AWAKE, First | | | dose on Mon04/23/18 at 1600, RT | | | will administer. | | + +---+ | | | + +---+ + +-------+ +-------+---+---+ | isosorbide dinitrate (ISORDIL) | Given | 04/22/2018 | 30 mg | | | | tablet 30 mg 30 mg, Oral, 4 | | 21:32 | | | | | TIMES DAILY, First dose on Mon | | PDT | | | | | 04/18/18 at 2130 | | | | | | + +-------+ +-------+---+---+ +-------+ +-------+---+---+ | Given | 04/23/2018 | 30 mg | | | | | 10:00 | | | | | | PDT | | | | +-------+ +-------+---+---+ | Given | 04/23/2018 | 30 mg | | | | | 13:16 | | | | | | PDT | | | | +-------+ +-------+---+---+ +---+---+ | | | +---+---+ + +-------+ +------+---+---+ | lactulose liquid 30 g 30 g, | Given | | 30 g | | | | Oral, DAILY, First dose on Mariia | | 8 8:39 | | | | | 04/19/18 at 0900 | | PDT | | | | + +-------+ +------+---+---+ +-------+ +------+---+---+ | Given | | 30 g | | | | | 8 11:15 | | | | | | PDT | | | | +-------+ +------+---+---+ | Given | 04/22/2018 | 20 g | | | | | 8:20 | | | | | | PDT | | | | +-------+ +------+---+---+ +---+---+ | | | +---+---+ + +-------+ +--------+---+---+ | lactulose liquid 30 mL 30 mL, | Given | 04/22/2018 | 30 mLs | | | | Oral, 2 TIMES DAILY, First dose | | 21:32 | | | | | on 04/22/18 at 1445 | | PDT | | | | + +-------+ +--------+---+---+ +---+---+ | | | +---+---+ + +-------+ +--------+---+---+ | levoFLOXacin (LEVAQUIN) tablet | Given | 04/22/2018 | 250 mg | | | | 250 mg 250 mg, Oral, DAILY, | | 11:07 | | | | | First dose on 04/22/18 at 1015, | | PDT | | | | | Give 2 hours before or 2 hours | | | | | | | after antacids, iron, or zinc. | | | | | | + +-------+ +--------+---+---+ +-------+ +--------+---+---+ | Given | 04/23/2018 | 250 mg | | | | | 10:00 | | | | | | PDT | | | | +-------+ +--------+---+---+ +---+---+ | | | +---+---+ + +---------+ +--------+-------+---+ | levoFLOXacin in dextrose | New Bag | | 500 mg | 100 | | | (LEVAQUIN) IVPB 500 mg 500 mg, | | 8 13:05 | | mL/hr | | | Intravenous, Administer over 60 | | PDT | | | | | Minutes, ONCE, 04/21/18 at | | | | | | | 1215, For 1 dose, Indications: | | | | | | | pna | | | | | | + +---------+ +--------+-------+---+ +---+---+ | | | +---+---+ + +-------+ +--------+---+---+ | levothyroxine (SYNTHROID) | Given | | 50 mcg | | | | tablet 50 mcg 50 mcg, Oral, | | 8 6:35 | | | | | DAILY BEFORE BREAKFAST, First | | PDT | | | | | dose on Mariia 04/19/18 at 0730, Give | | | | | | | before breakfast. | | | | | | + +-------+ +--------+---+---+ +-------+ +--------+---+---+ | Given | | 50 mcg | | | | | 8 6:54 | | | | | | PDT | | | | +-------+ +--------+---+---+ | Given | 04/22/2018 | 50 mcg | | | | | 6:30 | | | | | | PDT | | | | +-------+ +--------+---+---+ +---+---+ | | | +---+---+ + +-------+ +------+---+---+ | loperamide (IMODIUM) capsule 2 | Given | 04/23/2018 | 2 mg | | | | mg 2 mg, Oral, EVERY 3 HOURS | | 11:25 | | | | | PRN, Diarrhea, Starting Mon | | PDT | | | | | 04/23/18 at 1047 | | | | | | + +-------+ +------+---+---+ +---+---+ | | | +---+---+ + +-------+ +--------+---+---+ | losartan (COZAAR) tablet 100 mg | Given | | 100 mg | | | | 100 mg, Oral, DAILY, First dose | | 8 8:46 | | | | | on Mariia 04/19/18 at 0900 | | PDT | | | | + +-------+ +--------+---+---+ +-------+ +--------+---+---+ | Given | 04/22/2018 | 100 mg | | | | | 8:21 | | | | | | PDT | | | | +-------+ +--------+---+---+ | Given | 04/23/2018 | 100 mg | | | | | 10:00 | | | | | | PDT | | | | +-------+ +--------+---+---+ +---+---+ | | | +---+---+ + +-------+ +--------+---+---+ | magnesium oxide (MAG-OX) tablet | Given | | 400 mg | | | | 400 mg 400 mg, Oral, DAILY, | | 8 11:20 | | | | | First dose on [facility] 04/19/18 at 0900 | | PDT | | | | + +-------+ +--------+---+---+ +-------+ +--------+---+---+ | Given | 04/22/2018 | 400 mg | | | | | 8:19 | | | | | | PDT | | | | +-------+ +--------+---+---+ | Given | 04/23/2018 | 400 mg | | | | | 10:03 | | | | | | PDT | | | | +-------+ +--------+---+---+ +---+---+ | | | +---+---+ + +---------+ +-----+ +---+ | magnesium sulfate 2 g/50 mL | New Bag | | 2 g | 25 mL/hr | | | IVPB 2 g 2 g, Intravenous, | | 8 13:19 | | | | | Administer over 120 Minutes, | | PDT | | | | | ONCE, [facility] 04/19/18 at 1230, For 1 | | | | | | | dose, Maximum recommended | | | | | | | infusion rate = 1 gram/hour. | | | | | | + +---------+ +-----+ +---+ +---+---+ | | | +---+---+ + +-------+ +-------+---+---+ | mirtazapine (REMERON) tablet 15 | Given | | 15 mg | | | | mg 15 mg, Oral, NIGHTLY, First | | 8 20:12 | | | | | dose on Mon04/18/18 at 2130 | | PDT | | | | + +-------+ +-------+---+---+ +-------+ +-------+---+---+ | Given | | 15 mg | | | | | 8 21:37 | | | | | | PDT | | | | +-------+ +-------+---+---+ | Given | 04/22/2018 | 15 mg | | | | | 21:32 | | | | | | PDT | | | | +-------+ +-------+---+---+ +---+---+ | | | +---+---+ + +-------+ +--------+---+---+ | potassium chloride (K-DUR) ER | Given | | 40 mEq | | | | tablet 40 mEq 40 mEq, Oral, 2 | | 8 13:16 | | | | | TIMES DAILY, First dose on Mariia | | PDT | | | | | 04/19/18 at 1230, Tablet may be | | | | | | | cut where scored but do not | | | | | | | crush. | | | | | | + +-------+ +--------+---+---+ +-------+ +--------+---+---+ | Given | | 40 mEq | | | | | 8 21:08 | | | | | | PDT | | | | +-------+ +--------+---+---+ | Given | | 40 mEq | | | | | 8 8:51 | | | | | | PDT | | | | +-------+ +--------+---+---+ +---+---+ | | | +---+---+ + +-------+ +--------+---+---+ | potassium chloride (K-DUR) ER | Given | | 40 mEq | | | | tablet 40 mEq 40 mEq, Oral, 3 | | 8 16:53 | | | | | TIMES DAILY, First dose on Fri | | PDT | | | | | 04/20/18 at 1400, Tablet may be | | | | | | | cut where scored but do not | | | | | | | crush. | | | | | | + +-------+ +--------+---+---+ +-------+ +--------+---+---+ | Given | | 40 mEq | | | | | 8 20:11 | | | | | | PDT | | | | +-------+ +--------+---+---+ | Given | | 40 mEq | | | | | 8 11:14 | | | | | | PDT | | | | +-------+ +--------+---+---+ +---+---+ | | | +---+---+ + +-------+ +--------+---+---+ | potassium chloride (K-DUR) ER | Given | 04/22/2018 | 40 mEq | | | | tablet 40 mEq 40 mEq, Oral, 3 | | 23:09 | | | | | TIMES DAILY, First dose on Sun | | PDT | | | | | 04/22/18 at 1715, Dissolve tablets | | | | | | | in 4 oz of water, stir well and | | | | | | | administer immediately after | | | | | | | dissolved. | | | | | | + +-------+ +--------+---+---+ +-------+ +--------+---+---+ | Given | 04/23/2018 | 40 mEq | | | | | 9:59 | | | | | | PDT | | | | +-------+ +--------+---+---+ | Given | 04/23/2018 | 40 mEq | | | | | 13:10 | | | | | | PDT | | | | +-------+ +--------+---+---+ +---+---+ | | | +---+---+ + +-------+ +--------+---+---+ | potassium chloride 20 mEq/15 mL | Given | | 40 mEq | | | | liquid 40 mEq 40 mEq, Oral, 3 | | 8 21:37 | | | | | TIMES DAILY, First dose on Sat | | PDT | | | | | 04/21/18 at 1400, Give with 4 oz. | | | | | | | of water or other liquid. | | | | | | + +-------+ +--------+---+---+ +-------+ +--------+---+---+ | Given | 04/22/2018 | 40 mEq | | | | | 14:03 | | | | | | PDT | | | | +-------+ +--------+---+---+ +---+---+ | | | +---+---+ in this encounter
--- OUTSIDE RECORDS SUMMARY | ~2018-07-20 | XMS | Encounter Summary ---
Demographics + + + | Address | [address] | | | [place] [address] | + + + | Home Phone | | + + + | Preferred Language | Unknown | + + + | Marital Status | | + + + | Orthodoxy Affiliation | 1077 | + + + | Race | Unknown | + + + | Ethnic Group | Unknown | + + + Author + + + | Author | [facility] | | | and Priyankana | + + + | Organization | [facility] | | | and Priyankana | [...] [place] | | | | | [address] | | + + + + + | Karen Duarte | ECON | [address] | | | | | [place] | | | | | [address] | | + + + + + Care Team Providers + +------+ + | Care Cafeteria Helper Name | Role | Phone | + [...] + + | 07/03/ | Telephone | [facility] | Carrillo Michel, | Medication Question | | 2018 | | MEDICINE [place] | [address] | | | | | [address] | [place] | | | | | [place] | [id number] | | | | | [address] | | | | | | [phone] | | | +--------+ + + + [...]
--- OUTSIDE RECORDS SUMMARY | ~2018-07-20 | XMS | Encounter Summary ---
Demographics + + + | Address | [address] | | | [place] [address] | + + + | Home Phone | | + + + | Preferred Language | Unknown | + + + | Marital Status | | + + + | Bahai Affiliation | 1077 | + + + | Race | Unknown | + + + | Ethnic Group | Unknown | + + + Author + + + | Author | [facility] | | | and Priyankana | + + + | Organization | [facility] | | | and Priyankana [...] [place] | | | | | [address] | | + + + + + | Karen Duarte | ECON | [address] | | | | | [place], [place] | | | | | [address] | | + + + + + Care Team Providers + +------+ + | Care Yarn Polishing Machine Operator Name | Role | Phone [...] Specialty | Home Health | Diagnoses | [place], | Prov [facility] | | | Services | Services | 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 | [place] | | | Required | | cardiomyopat | [address] | [address] | | | | | hy | [address] [place] | [place] | | | | | Alzheimer's | [place] | | | | | disease of | [address] | [address] | | | | | other onset | Phone: | Phone: | | | | | with | [phone] | [phone] | | | | | behavioral | Fax: | Fax: | | | | | disturbance | [phone] | [phone] | +--------+ + + + + + Reason for Visit + + + | Reason | Comments | + + + | Home Health | | + + + Encounter Details +--------+ + + + + | Date | Type | Department | Care Team | Description | +--------+ + + + + | 05/15/ | Telephone | [facility] | Carrillo Michel, | Home Health | | 2018 | | MEDICINE [place] | [address] | | | | | [address] | [place] | | | | | [place] | [address] | | | | | [address] | | | | | | [phone] | | | +--------+ + + + [...]
--- OUTSIDE RECORDS SUMMARY | ~2018-07-20 | XMS | Encounter Summary ---
Demographics + + + | Address | [address] | | | [place] [address] | + + + | Home Phone | | + + + | Preferred Language | Unknown | + + + | Marital Status | | + + + | Hoahaoism Affiliation | 1077 | + + + | Race | Unknown | + + + | Ethnic Group | Unknown | + + + Author + + + | Author | [facility] | | | and Priyankana | + + + | Organization | [facility] | | | and [...] [place] | | | | | [address] | | + + + + + | Karen Duarte | ECON | [address] | | | | | [place] | | | | | [address] | | + + + + + Care Team Providers + +------+ + | Care Landscape Laborer Name | Role | Phone | + [...] + + | 05/17/ | Office | [facility] | Carrillo Michel, | Ischemic | | 2018 | Visit | MEDICINE [place] | [address] | cardiomyopathy | | | | [address] | [place] | (Primary Dx); Atrial | | | | [place], [place] | [address] | fibrillation, | | | | [address] | | chronic (HCC); | | | | [phone] | | Essential | | | | [...] Other (orders signed for home health- for [place]). Accompanied by . HPI She was admitted to [facility] 04/18-04/23/18 for ischemic cardiomyopathy, aspiration pneumonia , and respiratory failure. She was treated with IV diuretics, levaquin. She also worked [employer]. Stool studies were negative. She was discharged from [place] 05/13/18. She has d one very well [...]
--- OUTSIDE RECORDS SUMMARY | ~2018-07-20 | XMS | Encounter Summary ---
Demographics + + + | Address | [address] | | | [place] [address] | + + + | Home Phone [...] + | Author | [facility] | | | and Priyankana | + + + | Organization | [facility] | | | and Priyankana [...] [place] | | | | | [address] | | + + + + + | Karen Duarte | ECON | [address] | | | | | [place] | | | | | [address] | | + + + + + Care Team Providers + +------+ + | Care Sensitizer Name | Role | Phone | + [...] + + | 05/14/ | Telephone | [facility] | Darwin López MD | Results, Imaging | | 2018 | | GASTROENTEROLOGY | [address], [place] | (Esophagram shows | | | | [address] [place] | [address] [place], [place] | mild achalasia) | | | | [address] [place], [place] | [address] | | | | | [address] | | | | | | [phone] | | | +--------+ + + + [...]
--- OUTSIDE RECORDS SUMMARY | ~2018-07-20 | XMS | Encounter Summary ---
Demographics + + + | Address | [address] | | | [place] [address] | + + + | Home Phone [...] + | Author | [facility] | | | and Priyankana | + + + | Organization | [facility] | | | and Priyankana [...] [place] | | | | | [address] | | + + + + + | Karen Duarte | ECON | [address] | | | | | [place] | | | | | [address] | | + + + + + Care Team Providers + +------+ + | Care Machine Gunner Name | Role | Phone | + [...] + + | 06/28/ | Office | [facility] | Cynthia Sykes, | Essential | | 2018 | Visit | 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 Falcon leaves, garden, or do household repairs. Be [...] stopping or changing them. Date Last Reviewed: 02/17/201619995039-4138 [employer]. [address] [place] [address]. All righ ts reserved. This information is [...] has been changed since signin Order [facility] [place] escitalopram (LEXAPRO) 10 mg tablet (Taking) Take 1 tablet by mouth Daily. To help mood Number of times this order has been changed since signin Order [facility] [place] furosemide (LASIX) 20 mg tablet (Taking) Take 1 tablet by mouth Daily. Number of times this order has been changed since signin [facility] [place] isosorbide dinitrate (ISORDIL) 30 MG tablet (Taking) Take 30 mg by mouth 2 times daily. Number of times this order has been changed since signin Order [facility] [place] levothyroxine (SYNTHROID) 50 mcg tablet (Taking) Take 50 mcg by mouth every morning (befo re breakfast). losartan (COZAAR) 100 MG tablet (Taking) Take 1 tablet by mouth Daily. For high blood pre ssure Number of times this order has been changed since signin Order [facility] [place] mirtazapine (REMERON) 15 MG tablet (Taking) Take 15 mg by mouth nightly. Multiple Vitamin (MULTIVITAMIN PO) (Taking) Take 1 tablet by mouth Daily. Number of times this order has been changed since signin Order [facility] [place] pantoprazole (PROTONIX) 40 mg tablet (Taking) Take 1 tablet by mouth 2 times daily (befor e meals). 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 Social History Main Topics Smoking status: Former [...] | [facility] | | | [facility] | + + + + + | BUN | 19 (H) | 7 - 18 mg/dL | [facility] | | | | | [facility] | | | | | [facility] | | | | | [facility] | + + + + + | Creatinine, | 1.24 (H) | 0.55 - 1.02 mg/dL | [facility] | | Serum/Plasma | | | [facility] | | | | | [facility] | | | | | LAB[facility]ORY | + + + + + | eGFR if not | 42 (L)Comment: | >=60 mL/min/1.73m2 | [facility] | | [place]ESE | GLOMERULAR FILTRATION | | [facility] | | | RATE,ESTIMATED mL/min | | [facility] | | | /[id number] than 60 | | LABORATORY | | [...] + + + | [facility] | [address] | [place] | [phone] | | [facility] | | [address] | | | [facility] | | | | + + + + + in this encounter Visit Diagnoses + + | Diagnosis | + + | Essential hypertension - Primary | + + | Unspecified essential hypertension | + +"
--- OUTSIDE RECORDS SUMMARY | ~2018-07-20 | XMS | Encounter Summary ---
Demographics + + + | Address | [address] | | | [place] [address] | + + + | Home Phone | | + + + | Preferred Language | Unknown | + + + | Marital Status | | + + + | Rastafarian Affiliation | 1077 | + + + | Race | Unknown | + + + | Ethnic Group | Unknown | + + + Author + + + | Author | [facility] | | | and Priyankana | + + + | Organization | [facility] | | | and [...] [place] | | | | | [address] | | + + + + + | Karen Duarte | ECON | [address] | | | | | [place], [place] | | | | | [address] | | + + + + + Care Team Providers + +------+ + | Care Prom Burn Off Operator Name | Role | Phone | + +------+ + | Carrillo Michel MD | PCP | | + +------+ + Reason for Referral Evaluate & Treat (Routine) + + + + + + + | Status | Reason | Specialty | Diagnoses / | Referred By | Referred To | | | | | Procedures | Contact | Contact | + + + + + + + | Authorized | Specialty | Radiology | Diagnoses | Harri, | [facility] | | | Services | | Dysphagia, | Darwin Qiu MD | Radiology | | | Required | | unspecified | [address] | [address] | | | | | type | [place], [place] | [place], | | | | | | [address] [place] | [place] | | | | | | [place], [place] | [address] | | | | | | [address] | Phone: | | | | | | Phone: | [phone] | | | | | | [phone] | Fax: | | | | | | Fax: | [phone] | | | | | | [phone] | | + + + + + + + Reason for Visit + + + | Reason | Comments | + + + | Referral | GI | + + + Encounter Details +--------+ + + + + | Date | Type | Department | Care Team | Description | +--------+ + + + + | 05/04/ | Telephone | [facility] | Darwin López MD | Referral (GI) | | 2018 | | GASTROENTEROLOGY | [address], [place] | | | | | [address] [place] | [address] [place], [place] | | | | | [address] [place], [place] | [address] | | | | | [address] | | | | | | [phone] | | | +--------+ + + + [...] | | + +--------+ + + | Ambulatory referral to | Routin | Dysphagia, | 1 Occurrences | | Gastroenterology (nereyda) | e | unspecified type | starting 05/04/2018 | | | | | until 05/04/2019 | + +--------+ + + as of this encounter Results [place] Esophagram Complete (05/08/2018 [...] | Procedure Note | + + | Spencer Abraham Results In - 05/08/2018 0934 PDT [place] [...] + + | Performing | Address | City/State/[facility] | Phone Number | | Organization | | | | + +---------+ + + | [facility] | | | | + +---------+ + + in this encounter Visit Diagnoses + + | Diagnosis | + + | Dysphagia, unspecified type - Primary | + +"
--- OUTSIDE RECORDS SUMMARY | ~2018-07-20 | XMS | Clinical Summary ---
Demographics + + + | Address | [address] | | | [place] [address] | + + + | Home Phone | | + + + | Preferred Language | Unknown | + + + | Marital Status | | + + + | Jew Affiliation | 1077 | + + + | Race | Unknown | + + + | Ethnic Group | Unknown | + + + Author + + + | Author | [facility] | | | and Priyankana | + + + | Organization | [facility] | | | and Priyankana [...] [place] | | | | | [address] | | + + + + + | Karen Duarte | ECON | [address] | | | | | [place] | | | | | [address] | | + + + + + Care Team Providers + +------+ + | Care Bonding Machine Setter Name | Role | Phone | + [...] | | | | | disease of deering | | | | | | | | artery of deering | | | | | | | | heart with stable | | | | | | | | angina pectoris | | | | | | | | ([facility]), Essential | | | | | | [...] + + + | Overview: 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 | | [...] 3 Months Results Basic Metabolic Panel (06/28/2018 1150)Only the most recent of 4 results within [...] (H) | 7 - 18 mg/dL | [facility] | | | | | [facility] | | | | | [facility] | | | | | LABORATORY | + + + + + | Creatinine, | 1.24 (H) | 0.55 - 1.02 mg/dL | [facility] | | Serum/Plasma | | | [facility] | | | | | [facility]ARK | | | | | LABORATORY | + + + + + | eGFR if not | 42 (L)Comment: | >=60 mL/min/1.73m2 | [facility] | | CHILEAN | GLOMERULAR FILTRATION | | [facility] | | | RATE,ESTIMATED mL/min | | [facility]ICAL PARK | | | /1.99o1Uuml than 60 | | LABORATORY | | [...] + + + | [facility] | [address] | [place] | [phone] | | [facility] | | [address] | | | PARK LABORATORY | | [...] + | [facility] | [address] | [place], [place] | [phone] | | [facility] | | [address] | | | - LABORATORY | | | | + + + + + | [facility] | [address] | [place], [place] | | | [facility] | | [address] | | | - LABORATORY | | [...] + | [facility] | [address] | [place] | [phone] | | [facility] | | [address] | | | - LABORATORY | | | | + + + + + | [facility] | [address] | [place] | | | [facility] | | [address] | | | - LABORATORY | | [...] >=60 mL/min/1.73m2 | [facility] | | CHILEAN | | | [facility] | | [...] [facility] | | | | | [facility] | | | | | CENTER - | | | | | LABORATORY | + + + + + | BUN/CREA | 11.3 | | [facility] | | | | | [facility] | | | | | CENTER [...] [address] | [place] | [phone] | | [facility] | | [address] | | | - LABORATORY | | | | + + + + + | [facility] | [address] | [place] | | | [facility] | | [address] | | | - LABORATORY | | | | + + + + + Clostridium difficile A and B EIA (04/19/2018 1306) + + + + + | Component | Value | Ref Range | Performed At | + + + + + | Clostridium | NegativeComment: | Negative | [facility] | | Difficile GDH | Negative for toxigenic | | [facility] | | Antigen | Clostridium difficile | | CENTER - | | | | | LABORATORY | + + + + + | C. Diff Toxin A/B | Negative | Negative | [facility] | | EIA | | | [facility] | | | | | CENTER - [...] [address] | [place] | [phone] | | [facility] | | [address] | | | - LABORATORY | | | | + + + + + | [facility] | [address] | [place], [place] | | | [facility] | | [address] | | | - LABORATORY | | | | + + + + + Troponin I (04/19/2018714)Only the most recent of 2 results within the time period is inc luded. + + + + + | Component | Value | Ref Range | Performed At | + + + + + | Troponin I | 0.17 (H)Comment: | <0.06 ng/mL | [facility]. | | | Reference | | [facility] | | | Ranges:0.00-0.06 = | | [...] infarction. | | | | | [employer] | | | | | [...] + | DAVID SARAVIA | [address] | [place] | [phone] | | [facility] | | [address] | | | - LABORATORY | | | | + + + + + | [facility] | [address] | [place] | | | [facility] | | [address] | | | - LABORATORY | | | | + + + + + Magnesium (04/19/2018714) + +---------+ + + | Component | Value | Ref Range | Performed At | + +---------+ + + | Magnesium | 1.7 (L) | 1.8 - 2.5 mg/dL | [facility] | | | | | [facility] | | | | | CENTER - | | | | | LABORATORY | + +---------+ + + + + | Specimen | + + | Blood | + + + + + + + | Performing | Address | City/State/Zipcode | Phone Number | | Organization | | | | + + + + + | [facility] | [address] | [place], [place] | [phone] | | [facility] | | [address] | | | - LABORATORY | | | | + + + + + | [facility] | [address] | [place], [place] | | | [facility] | | [address] | | | - LABORATORY | | [...] | [facility] | [facility] | [id number] | Medica | | | | | [...] | | | [place] | | | [address]36 | [address] | + +--------+ +--------+ + +
--- OUTSIDE RECORDS SUMMARY | ~2018-07-20 | XMS | Encounter Summary ---
Demographics + + + | Address | [address] | | | [place] [address] | + + + | Home Phone [...] Author | [facility] | | | and Priyankana | + + + | Organization | [facility] | | [...] [place] | | | | | [address] | | + + + + + | Karen Duarte | ECON | [address] | | | | | [place] | | | | | [address] | | + + + + + Care Team Providers + +------+ + | Care Cutter Grind Tool Technician Name | Role | Phone | [...] + + | 05/18/ | Telephone | [facility] | Carrillo Michel, | Paperwork | | 2018 | | MEDICINE [place] | [address] | | | | | [address] | [place] | | | | | [place] | [address] | | | | | [address] | | | | | | [phone] | | | +--------+ + + + [...]
--- OUTSIDE RECORDS SUMMARY | ~2018-07-20 | XMS | Encounter Summary ---
Demographics + + + | Address | [address] | | | [place] [address] | + + + | Home Phone | | + + + | Preferred Language | Unknown | + + + | Marital Status | | + + + | Mandaen Affiliation | 1077 | + + + | Race | Unknown | + + + | Ethnic Group | Unknown | + + + Author + + + | Author | [facility] | | | and Priyankana | + + + | Organization | [facility] | | | and Priyankana [...] [place] | | | | | [address] | | + + + + + | Karen Duarte | ECON | [address] | | | | | [place] | | | | | [address] | | + + + + + Care Team Providers + +------+ + | Care Weighbridge Operator Name | Role | Phone | + +------+ + | Carrillo Michel MD | PCP | | + +------+ + Reason for Visit +---------+ + | Reason | Comments | +---------+ + | Results | | +---------+ + Encounter Details +--------+ + + + + | Date | Type | Department | Care Team | Description | +--------+ + + + + | 06/29/ | Telephone | [facility] | Carrillo Michel, | Results | | 2018 | | MEDICINE [place] | [address] | | | | | [address] | [place] | | | | | [place] | [address] | | | | | [address] | | | | | | [phone] | | | +--------+ + + + [...]
--- OUTSIDE RECORDS SUMMARY | ~2018-07-20 | XMS | Encounter Summary ---
Demographics + + + | Address | [address] | | | [place] [address] | + + + | Home Phone [...] + | Author | [facility] | | | and Priyankana | + + + | Organization | [facility] | | [...] [place], [place] | | | | | [address] | | + + + + + | Karen Duarte | ECON | [address] | | | | | [place], [place] | | | | | [address] | | + + + + + Care Team Providers + +------+ + | Care Senior Construction Project Manager Name | Role | Phone | + +------+ + | Carrillo Michel MD | PCP | | + +------+ + Encounter Details +--------+ + + + + | Date | Type | Department | Care Team | Description | +--------+ + + + + | 05/08/ | Hospital | [facility] | Darwin López MD | Dysphagia, | | 2018 | Encounter | MED CTR XRAY [address] | [address], [place] | unspecified type | | | | [place] | [address] [place], [place] | | | | | [place] [address] | [id number] | | | | | [phone] | | | | | | | [...]
--- OUTSIDE RECORDS SUMMARY | ~2018-07-20 | XMS | Encounter Summary ---
Demographics + + + | Address | [address] | | | [place] [address] | + + + | Home Phone | | + + + | Preferred Language | Unknown | + + + | Marital Status | | + + + | Advent Affiliation | 1077 | + + + | Race | Unknown | + + + | Ethnic Group | Unknown | + + + Author + + + | Author | [facility] | | | and Priyankana | + + + | Organization | [facility] | | | and Priyankana [...] [place] | | | | | [address] | | + + + + + | Karen Duarte | ECON | [address] | | | | | [place] | | | | | [address] | | + + + + + Care Team Providers + +------+ + | Care Spare Parts Clerk Name | Role | Phone | [...] + + | 07/03/ | Telephone | [facility] | Carrillo Michel, | Medication Question | | 2018 | | MEDICINE [place] | [address] | | | | | [address] | [place] | | | | | [place] | [address] | | | | | [address] | | | | | | [phone] | | | +--------+ + + + [...]
--- OUTSIDE RECORDS SUMMARY | ~2018-07-20 | XMS | Encounter Summary ---
Demographics + + + | Address | [address] | | [place] [address] | + + + | Home Phone | | + + + | Preferred Language | Unknown | + + + | Marital Status | | + + + | Rastafarian Affiliation | Unknown | + + + | Race | Unknown | + + + | Ethnic Group | Unknown | + + + Author + + + | Author | [facility] [employer] [facility] | + + + | Organization | [facility] [employer] [facility] | + + + | Address | Unknown | + + + | Phone | Unavailable | + + + Support + + + + + | Name | Relationship | Address | Phone | + + + + + | Mulu Dolan ECON | [address] | | | | | [place] | | | | | [address] | | + + + + + | Julia Aguilar | ECON | Unknown | | + + + + + Care Team Providers + +------+ + | Care Field Service Coordinator Name | Role | Phone | + [...] | | | | | [place] [address] | | | | | | [phone] | | | +--------+ + + + [...] | | | | | | [place] [address] | | | | | | [phone] | | | | | | | | +--------+---------+ + + + as of this encounter Visit Diagnoses Not on filein this encounter"
--- OUTSIDE RECORDS SUMMARY | ~2018-07-20 | XMS | Encounter Summary ---
Demographics + + + | Address | [address] | | | [place] [address] | + + + | Home Phone | | + + + | Preferred Language | Unknown | + + + | Marital Status | | + + + | Yarsanism Affiliation | 1077 | + + + | Race | Unknown | + + + | Ethnic Group | Unknown | + + + Author + + + | Author | [facility] | | | and Priyankana | + + + | Organization | [facility] | | | and [...] [place] | | | | | [address] | | + + + + + | Karen Duarte | ECON | [address] | | | | | [place] | | | | | [address] | | + + + + + Care Team Providers + +------+ + | Care Telephone Order Clerk Room Service Name | Role | Phone | + [...] + + | 05/22/ | Telephone | [facility] | Carrillo Michel, | Medication Prior | | 2018 | | MEDICINE [place] | [address] | Authorization | | | | [address] | [place] | (Dronabinol) | | | | [place] | [address] | | | | | [address] | | | | | | [phone] | | | +--------+ + + + [...]
--- OUTSIDE RECORDS SUMMARY | ~2018-07-20 | XMS | Encounter Summary ---
Demographics + + + | Address | [address] | | [place] [address] | + + + | Home Phone | | + + + | Preferred Language | Unknown | + + + | Marital Status | | + + + | Confucianist Affiliation | Unknown | + + + | Race | Unknown | + + + | Ethnic Group | Unknown | + + + Author + + + | Author | [facility] | + + + | Organization | [facility] | + + + | Address | Unknown | + + + | Phone | Unavailable | + + + Support + + + + + | Name | Relationship | Address | Phone | + + + + + | Mulu Dolan ECON | [address] | | | | [place] | | | | | [address] | | + + + + + | Julia Aguilar | ECON | Unknown | | + + + + + Care Team Providers + +------+ + | Care Owner Consulting Engineer Name | Role | Phone | [...] + | 05/16/ | Refill | [facility] | [place], | Medication Refill | | 2017 | | Cardiology [address] | [address] | | | | | [address] [facility] [address] | | | | | | [facility] [address] | | | | | | [place] [address] | | | | | | [phone] | | | +--------+--------+ + + + [...] | | | | | | [place] [address] | | | | | | [phone] | | | | | | | | +--------+---------+ + + + as of this encounter Visit Diagnoses Not on filein this encounter"
--- OUTSIDE RECORDS SUMMARY | ~2018-07-20 | XMS | Encounter Summary ---
Demographics + + + | Address | [address] | | [place] [address] | + + + | Home Phone | | + + + | Preferred Language | Unknown | + + + | Marital Status | | + + + | Gnosticist Affiliation | Unknown | + + + | Race | Unknown | + + + | Ethnic Group | Unknown | + + + Author + + + | Author | [facility] [facility] | + + + | Organization | [facility] | + + + | Address | Unknown | + + + | Phone | Unavailable | + + + Support + + + + + | Name | Relationship | Address | Phone | + + + + + | Mulu Dolan ECON | [address] | | | | | [place] | | | | | [address] | | + + + + + | Julia Aguilar | ECON | Unknown | | + + + + + Care Team Providers + +------+ + | Care Energy Specialist Name | Role | Phone | + +------+ + | Carrillo Michel MD | PCP | Unavailable | + +------+ + Encounter Details +--------+ + + + + | Date | Type | Department | Care Team | Description | +--------+ + + + + | 04/23/ | Telephone | [facility] | Julia Barreto | | | 2018 | | Cardiology [place] | | | | | | [address] | | | | | | [place] | | | | | | [address] | | | | | | [phone] | | | +--------+ + + + [...] [place], | | | | | | [place] [address] | | | | | | [phone] | | | | | | | | +--------+---------+ + + + as of this encounter Visit Diagnoses Not on filein this encounter"
--- OUTSIDE RECORDS SUMMARY | ~2018-07-20 | XMS | Encounter Summary ---
Demographics + + + | Address | [address] | | [place] [address] | + + + | Home Phone | | + + + | Preferred Language | Unknown | + + + | Marital Status | | + + + | Christian Affiliation | Unknown | + + + | Race | Unknown | + + + | Ethnic Group | Unknown | + + + Author + + + | Author | [facility] [employer] [facility] | + + + | Organization | [facility] | + + + | Address | Unknown | + + + | Phone | Unavailable | + + + Support + + + + + | Name | Relationship | Address | Phone | + + + + + | Mulu Dolan ECON | [address] | | | | | [place] | | | | | [address] | | + + + + + | Julia Aguilar | ECON | Unknown | | + + + + + Care Team Providers + +------+ + | Care Industrial Custodian Name | Role | Phone | + [...] | | [address] | [address] | GFR 30-59 ml/min | | | | [place] [address] | [place] [address] | (Primary Dx) | | | | [phone] | [phone] | | | | | | | [...] [place], | | | | | | [place] [address] | | | | | | [phone] | | | | | | | [...] kidney disease) stage 3, GFR 30-59 ml/min ([facility]) - Primary | + + | Chronic kidney disease, Stage III (moderate) | + +"
--- OUTSIDE RECORDS SUMMARY | ~2018-07-20 | XMS | Encounter Summary ---
Demographics + + + | Address | [address] | | | [place] [address] | + + + | Home Phone | | + + + | Preferred Language | Unknown | + + + | Marital Status | | + + + | Sikhism Affiliation | 1077 | + + + | Race | Unknown | + + + | Ethnic Group | Unknown | + + + Author + + + | Author | [facility] | | | and Priyankana | + + + | Organization | [facility] | | | and [...] [place] | | | | | [address] | | + + + + + | Karen Duarte | ECON | [address] | | | | | [place], [place] | | | | | [address] | | + + + + + Care Team Providers + +------+ + | Care Behavioral Health Care Coordinator Name | Role | Phone | [...] unspecified | [address] | [address] | | | | | type | [place], [place] | [place], | | | | | | [address] [place] | [place] | | | | | | [place], [place] | [address] | | | | | | [address] | Phone: | | | | | | Phone: | [phone] | | | | | | [phone] | Fax: | | | | | | Fax: | [phone] | | | | | | [phone] | | + + + + + + + Reason for Visit + + + | Reason | Comments | + + + | Referral | GI | + + + Encounter Details +--------+ + + + + | Date | Type | Department | Care Team | Description | +--------+ + + + + | 05/04/ | Telephone | [facility] | Darwin López MD | Referral (GI) | | 2018 | | GASTROENTEROLOGY | [address] [place], [place] | | | | | [address] [place] | [address] [place], [place] | | | | | [address] [place], [place] | [address] | | | | | [address] | | | | | | [phone] | | | +--------+ + + + [...] + + | Performing | Address | City/State[facility] | Phone Number | | Organization | | | | + +---------+ + + | [facility] | | | | + +---------+ + + in this encounter Visit Diagnoses + + | Diagnosis | + + | Dysphagia, unspecified type - Primary | + +"
--- OUTSIDE RECORDS SUMMARY | ~2018-07-20 | XMS | Encounter Summary ---
Demographics + + + | Address | [address] | | | [place] [address] | + + + | Home Phone [...] | Author | [facility] | | | and Priyankana | + + + | Organization | [facility] | | | and [...] [place] | | | | | [address] | | + + + + + | Karen Duarte | ECON | [address] | | | | | [place] | | | | | [address] | | + + + + + Care Team Providers + +------+ + | Care Refund Clerk Name | Role | Phone | [...] + + | 07/17/ | Telephone | [facility] | Carrillo Michel, | Medication | | 2018 | | MEDICINE [place] | [address] | Management | | | | [address] | [place] | (isosorbide | | | | [place] | [address] | dinitrate) | | | | [address] | | | | | | [phone] | | | +--------+ + + + [...] + + | Coronary artery disease of [place] artery of [place] heart with stable angina pectoris | | (HCC) - Primary | + + | Essential hypertension | + + | Unspecified essential hypertension | + +"
--- OUTSIDE RECORDS SUMMARY | ~2018-07-20 | XMS | Clinical Summary ---
Demographics + + + | Address | [address] | | [place] [address] | + + + | Home Phone | | + + + | Preferred Language | Unknown | + + + | Marital Status | | + + + | Anglican Affiliation | Unknown | + + + | Race | Unknown | + + + | Ethnic Group | Unknown | + + + Author + + + | Author | [facility] [email or web address] [facility] | + + + | Organization | [facility] [email or web address] [facility] | + + + | Address | Unknown | + + + | Phone | Unavailable | + + + Support + + + + + | Name | Relationship | Address | Phone | + + + + + | Laila Ellison ECON | [address] | | | | | [place] | | | | | [address] | | + + + + + | Julia Aguilar | ECON | Unknown | | + + + + + Care Team Providers + +------+ + | Care Ground Water Technician Name | Role | Phone | [...] + + | 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 | | 71yo WF, with dementia, she is here with her . Although | | she does not recall her recent hospitalization, nor her symptoms, | | he admits that she had chest discomfort, was admitted to the [facility] hospital. Cardiac enzymes were mildly abnormal, she was sent to | | [facility], there, she did have a cardiology | [...] kidney | | 2017 | | | MANUAL LATHE MACHINIST | disease) stage 3, | | | [...] [place], | | | | | | [place] [address] | | | | | | [phone] | | | | | | | [...] | Rhythm | | | | | [address] | | | | | | | [...] [place] - [place] | [place] - | [id number] | Medica | | | | | [...] | | | [place] | | | [address] | [address] | + +--------+ +--------+ + +
--- OUTSIDE RECORDS SUMMARY | ~2018-07-20 | XMS | Encounter Summary ---
Demographics + + + | Address | [address] | | | [place] [address] | + + + | Home Phone | | + + + | Preferred Language | Unknown | + + + | Marital Status | | + + + | Lutheran Affiliation | Unknown | + + + | Race | Unknown | + + + | Ethnic Group | Unknown | + + + Author + + + | Author | [facility] | + + + | Organization | [facility] | + + + | Address | Unknown | + + + | Phone | Unavailable | + + + Support + + + + + | Name | Relationship | Address | Phone | + + + + + | Mulu Dolan ECON | [address] | | | | | [place] | | | | | [address] | | + + + + + | Julia Aguilar | ECON | Unknown | | + + + + + Care Team Providers + +------+ + | Care Web Application Tester Name | Role | Phone | + +------+ + | Carrillo Michel MD | PCP | Unavailable | + +------+ + Encounter Details +--------+ + + + + | Date | Type | Department | Care Team | Description | +--------+ + + + + | 05/15/ | Telephone | [facility] | Pricilla Berumen | | | 2018 | | Cardiology [place] | | | | | | [address] | | | | | | [place] | | | | | | [address] | | | | | | [phone] | | | +--------+ + + + [...] [place], | | | | | | [place] [address] | | | | | | [phone] | | | | | | | | +--------+---------+ + + + as of this encounter Visit Diagnoses Not on filein this encounter"
--- OUTSIDE RECORDS SUMMARY | ~2018-07-20 | XMS | Encounter Summary ---
Demographics + + + | Address | [address] | | | [place] [address] | + + + | Home Phone | | + + + | Preferred Language | Unknown | + + + | Marital Status | | + + + | Nondenominational Affiliation | 1077 | + + + | Race | Unknown | + + + | Ethnic Group | Unknown | + + + Author + + + | Author | and [facility] | | | and Priyankana | + + + | Organization | and [facility] | | [...] [place] | | | | | [address] | | + + + + + | Karen Duarte | ECON | [address] | | | | | [place] | | | | | [address] | | + + + + + Care Team Providers + +------+ + | Care Director Behavioral Health Name | Role | Phone | + [...] + + | 06/18/ | Refill | [facility] | Carrillo Michel, | Medication Refill | | 2018 | | MEDICINE [place] | [address] | | | | | [address] | [place] | | | | | [place] | [address] | | | | | [address] | | | | | | [phone] | | | +--------+--------+ + + + [...]
--- OUTSIDE RECORDS SUMMARY | ~2018-07-20 | XMS | Encounter Summary ---
Demographics + + + | Address | [address] | | | [place] [address] | + + + | Home Phone | | + + + | Preferred Language | Unknown | + + + | Marital Status | | + + + | Anabaptist Affiliation | 1077 | + + + | Race | Unknown | + + + | Ethnic Group | Unknown | + + + Author + + + | Author | [facility] | | | and Priyankana | + + + | Organization | [facility] | | | and [...] [place] | | | | | [address] | | + + + + + | Karen Duarte | ECON | [address] | | | | | [place] | | | | | [address] | | + + + + + Care Team Providers + +------+ + | Care Prototype Engineer Manager Name | Role | Phone | [...] + + | 07/05/ | Telephone | [facility] | Carrillo Michel, | Appointment (med | | 2018 | | MEDICINE [place] | [address] | question) | | | | [address] | [place] | | | | | [place] | [address] | | | | | [address] | | | | | | [phone] | | | +--------+ + + + [...]
--- OUTSIDE RECORDS SUMMARY | ~2018-07-20 | XMS | Encounter Summary ---
Demographics + + + | Address | [address] | | | [place] [address] | + + + | Home Phone | | + + + | Preferred Language | Unknown | + + + | Marital Status | | + + + | Muslim Affiliation | 1077 | + + + | Race | Unknown | + + + | Ethnic Group | Unknown | + + + Author + + + | Author | [facility] | | | and Priyankana | + + + | Organization | [facility] | | | and [...] [place] | | | | | [address] | | + + + + + | Karen Duarte | ECON | [address] | | | | | [place] | | | | | [address] | | + + + + + Care Team Providers + +------+ + | Care Photographic Enlarger Operator Name | Role | Phone | [...] + + | 06/29/ | Telephone | [facility] | Carrillo Michel, | Lab Results | | 2018 | | MEDICINE [place] | [address] | | | | | [address] | [place] | | | | | [place] | [id number] | | | | | [address] | | | | | | [phone] | | | +--------+ + + + [...]
--- OUTSIDE RECORDS SUMMARY | ~2018-07-20 | XMS | Encounter Summary ---
Demographics + + + | Address | [address] | | | [place] [address] | + + + | Home Phone | | + + + | Preferred Language | Unknown | + + + | Marital Status | | + + + | Evangelical Affiliation | 1077 | + + + | Race | Unknown | + + + | Ethnic Group | Unknown | + + + Author + + + | Author | [facility] | | | and Priyankana | + + + | Organization | [facility] | | | and [...] [place] | | | | | [address] | | + + + + + | Karen Duarte | ECON | [address] | | | | | [place], [place] | | | | | [address] | | + + + + + Care Team Providers + +------+ + | Care Sample Card Maker Name | Role | Phone | + [...] Specialty | Home Health | Diagnoses | [place], | Prov Hh | | | Services | Services | 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 | [place] | | | Required | | cardiomyopat | [address] | [address] | | | | | [address] | [address] [place] | [place] | | | | | Alzheimer's | [place] | | | | | disease of | [address] | [address] | | | | | other onset | Phone: | Phone: | | | | | with | [phone] | [phone] | | | | | behavioral | Fax: | Fax: | | | | | disturbance | [phone] | [phone] | +--------+ + + + + + Reason for Visit + + + | Reason | Comments | + + + | Home Health | | + + + Encounter Details +--------+ + + + + | Date | Type | Department | Care Team | Description | +--------+ + + + + | 05/15/ | Telephone | [facility] | Carrillo Michel, | Home Health | | 2018 | | MEDICINE [place] | [address] | | | | | [address] | [place] | | | | | [place] | [address] | | | | | [address] | | | | | | [phone] | | | +--------+ + + + [...]
--- OUTSIDE RECORDS SUMMARY | ~2018-07-20 | XMS | Encounter Summary ---
Demographics + + + | Address | [address] | | | [place] [address] | + + + | Home Phone | | + + + | Preferred Language | Unknown | + + + | Marital Status | | + + + | Buddhism Affiliation | 1077 | + + + | Race | Unknown | + + + | Ethnic Group | Unknown | + + + Author + + + | Author | [facility] | | | and Priyankana | + + + | Organization | [facility] | [...] [place], [place] | | | | | [address] | | + + + + + | Karen Duarte | ECON | [address] | | | | | [place], [place] | | | | | [address] | | + + + + + Care Team Providers + +------+ + | Care Arboriculture Teacher Name | Role | Phone | + +------+ + | Carrillo Michel MD | PCP | | + +------+ + Encounter Details +--------+ + + + + | Date | Type | Department | Care Team | Description | +--------+ + + + + | 05/08/ | Hospital | [facility] | Darwin López MD | Dysphagia, | | 2018 | Encounter | MED CTR XRAY [address], [place] | unspecified type | | | | [place] | [address] [place], [place] | | | | | [place] [address] | [id number] | | | | | [phone] | | | | | | | [...]
--- OUTSIDE RECORDS SUMMARY | ~2018-07-20 | XMS | Encounter Summary ---
Demographics + + + | Address | [address] | | | [place] [address] | + + + | Home Phone | | + + + | Preferred Language | Unknown | + + + | Marital Status | | + + + | Zoroastrian Affiliation | Unknown | + + + | Race | Unknown | + + + | Ethnic Group | Unknown | + + + Author + + + | Author | [facility] | + + + | Organization | [facility] | + + + | Address | Unknown | + + + | Phone | Unavailable | + + + Support + + + + + | Name | Relationship | Address | Phone | + + + + + | Mulu Dolan ECON | [address] | | | | | [place] | | | | | [address] | | + + + + + | Julia Aguilar | ECON | Unknown | | + + + + + Care Team Providers + +------+ + | Care Beader Tender Name | Role | Phone | [...] | | [place] [address] | [address] | disease) stage 3, | | | | [address] | [address] | GFR 30-59 ml/min | | | | [place] [address] | [place] [address] | (Primary Dx) | | | | [phone] | [phone] | | | | | | | [...] [place], | | | | | | [place] [address] | | | | | | [phone] | | | | | | | [...] disease) stage 3, GFR 30-59 ml/min ([facility]) - Primary | + + | Chronic kidney disease, Stage III (moderate) | + +"
--- OUTSIDE RECORDS SUMMARY | ~2018-07-20 | XMS | Encounter Summary ---
Demographics + + + | Address | [address] | | | [place] [address] | + + + | Home Phone | | + + + | Preferred Language | Unknown | + + + | Marital Status | | + + + | Restoration Affiliation | 1077 | + + + | Race | Unknown | + + + | Ethnic Group | Unknown | + + + Author + + + | Author | [facility] | | | and Priyankana | + + + | Organization | [facility] | | | and Priyankana [...] [place] | | | | | [address] | | + + + + + | Karen Duarte | ECON | [address] | | | | | [place] | | | | | [address] | | + + + + + Care Team Providers + +------+ + | Care Page Designer Name | Role | Phone | + [...] + + | 06/28/ | Office | [facility] | Cynthia Sykes, | Essential | | 2018 | Visit | MEDICINE [place] | [facility] [address] | hypertension | | | | [address] | [place] | (Primary Dx) | | | | [place] | [address] | | | | | [address] | | | | | | [phone] | | | +--------+---------+ + + + [...] can, walk or bike instead of driving. [place] leaves, garden, or do household repairs. Be [...] stopping or changing them. Date Last Reviewed: 02/17/201619999749-6423 [employer]. [address] [place] [address]. All righ ts reserved. This information is [...] has been changed since signin Order [facility] [place] escitalopram (LEXAPRO) 10 mg tablet (Taking) Take 1 tablet by mouth Daily. To help mood Number of times this order has been changed since signin [facility] furosemide (LASIX) 20 mg tablet (Taking) Take 1 tablet by mouth Daily. Number of times this order has been changed since signin [facility] isosorbide dinitrate (ISORDIL) 30 MG tablet (Taking) Take 30 mg by mouth 2 times daily. Number of times this order has been changed since signin [facility] [place] levothyroxine (SYNTHROID) 50 mcg tablet (Taking) Take 50 mcg by mouth every morning (befo re breakfast). losartan (COZAAR) 100 MG tablet (Taking) Take 1 tablet by mouth Daily. For high blood pre ssure Number of times this order has been changed since signin Order [facility] [place] mirtazapine (REMERON) 15 MG tablet (Taking) Take 15 mg by mouth nightly. Multiple Vitamin (MULTIVITAMIN PO) (Taking) Take 1 tablet by mouth Daily. Number of times this order has been changed since signin Order [facility] pantoprazole (PROTONIX) 40 mg tablet (Taking) Take 1 tablet by mouth 2 times daily (befor e meals). 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 | | | | | [facility] | | | | | LAB[facility]ATORY | + + + + + | Creatinine, | 1.24 (H) | 0.55 - 1.02 mg/dL | [facility] | | Serum/Plasma | | | [facility] | | | | | [facility] | | | | | LABORATORY | + + + + + | eGFR if not | 42 (L)Comment: | >=60 mL/min/1.73m2 | [facility] | | SOMALI | GLOMERULAR FILTRATION | | [facility] | | | RATE,ESTIMATED mL/min | | [facility] | | | /[id number] than 60 | | LABORATORY | | [...] + + + | [facility] | [address] | [place] | [phone] | | [facility] | | [address] | | | [facility] | | | | + + + + + in this encounter Visit Diagnoses + + | Diagnosis | + + | Essential hypertension - Primary | + + | Unspecified essential hypertension | + +"
--- OUTSIDE RECORDS SUMMARY | ~2018-07-20 | XMS | Encounter Summary ---
Demographics + + + | Address | [address] | | | [place] [address] | + + + | Home Phone | | + + + | Preferred Language | Unknown | + + + | Marital Status | | + + + | Taoist Affiliation | 1077 | + + + [...] [place] | | | | | [address] | | + + + + + | Karen Duarte | ECON | [address] | | | | | [place] | | | | | [address] | | + + + + + Care Team Providers + +------+ + | Care Correctional Medicine Physician Name | Role | Phone | [...] | | | | | ([facility]) | [address] | | | | | | Procedures | Phone: | | | | | | DME: Oxygen | [phone] | | | | | | Therapy | Fax: | | | | | | | [phone] | | +--------+--------+ + + + + [...] + + | 04/18/ | Hospital | [facility] | Norbert Becker | Acute on chronic | | 2018 - | Encounter | [facility] | MD Wes [address] | congestive heart | | | | [address] [place] | [address] [place] | failure, unspecified | | 04/23/ | | [place] [address] | [place] [address] | heart failure type | | 2018 | | [phone] | Sammy Almonte | (HCC) (Primary Dx); | | | | | MD Bolivar [address] | Hypokalemia; | | | | | [address] [place] | Elevated troponin; | | | | | [place] [address] | Elevated brain | | | | | [phone] | natriuretic peptide | | | | | | (BNP) level; | | | | | Sandoval Hackett, | Hypoxemia; Acute | | | | | MD Dixie [address] | respiratory failure | | | | | [address] [place] | with hypoxia and | | | | | [place] [address] | hypercapnia (HCC); | | | | | [phone] | Acute hypoxemic | | | | [...] may be different from the o riginal. [place], [place] HOSPITALIST DISCHARGE SUMMARY Pt. Name/Age/: Laila [...] chlorthalidone 25 mg tablet Lactulose 20 GM/30ML [facility] COURSE: Please refer to the H&P [...] Contact information for after-discharge care Placement Destination [facility] . Specialty: Alf Facility Contact information: [address] [address] Condition: Patient being discharged with condition improve MOre than 30 minutes were spent on discharge and coordination of post-hospital care. Electronically signed by: Alex Huerta MD, 04/23/2018 11:41 [facility] in this encounter Medications at Time of [...] of this encounter Progress Notes Eva Kemp, SOFTWARE DEVELOPMENT PROJECT MANAGER - 04/23/2018 1501 PDTFormatting of this note [...] Name: Laila Dolan : 1945 Medical Record: [id number] Hospital Summary: Laila Dolan is a 72 y.o. female with a PMHx of ischemic CHF EF 20-25%, chronic Afib, HTN, CKD 3 with Cr 1.4, CAD, hypothyroidism, who presented with acute systolic CHF exacerbat ion after withdrawal of diuretics in setting of recent gastroenteritis at [facility] and then noted to have developed [...] Name: Laila Dolan : 1945 Medical Record: [id number] Hospital Summary: Laila Dolan is a 72 y.o. female with a PMHx of ischemic CHF EF 20-25%, chronic Afib, HTN, CKD 3 with Cr 1.4, CAD, hypothyroidism, who presented with acute systolic CHF exacerbat ion after withdrawal of diuretics in setting of recent gastroenteritis at [place]. ASSESSMENT AND PLAN 1. Ischemic cardiomyopathy with [...] Name: Laila Dolan : 1945 Medical Record: [id number] Hospital Summary: Laila Dolan is a 72 y.o. female with a PMHx of ischemic CHF EF 20-25%, chronic Afib, HTN, CKD 3 with Cr 1.4, CAD, hypothyroidism, who presented with acute systolic CHF exacerbat ion after withdrawal of diuretics in setting of recent gastroenteritis at [place]. ASSESSMENT AND PLAN 1. Ischemic cardiomyopathy with [...] Jolynn Small, ObduliaD 04/21/2018 11:46 Barron Galan, SOFTWARE DEVELOPMENT PROJECT MANAGER - 04/20/2018 1814 PDTAgain I went in to check on Laila and again her coni al cannula was not on. I asked her to but it on but she told me NO. I explained to her that she needed it on and she replied "I don't care". I informed her nurse and she said she will try to talk to her.Barron Galan, SOFTWARE DEVELOPMENT PROJECT MANAGER - 04/20/2018 1518 PDTLaila was blatantly refusing [...] Name: Laila Dolan : 1945 Medical Record: [id number] Hospital Summary: Laila Dolan is a 72 y.o. female with a PMHx of ischemic CHF EF 20-25%, chronic Afib, HTN, CKD 3 with Cr 1.4, CAD, hypothyroidism, who presented with acute systolic CHF exacerbat ion after withdrawal of diuretics in setting of recent gastroenteritis at [facility] ASSESSMENT AND PLAN 1. Ischemic cardiomyopathy with [...] Name: Laila Dolan : 1945 Medical Record: [id number] Hospital Summary: Laila Dolan is a 72 y.o. female with a PMHx of ischemic CHF EF 20-25%, chronic Afib, HTN, CKD 3 with Cr 1.4, CAD, hypothyroidism, who presented with acute systolic CHF exacerbat ion after withdrawal of diuretics in setting of recent gastroenteritis at [place]. ASSESSMENT AND PLAN 1. Ischemic cardiomyopathy with [...] to: AMS X Pharmacy list names: [facility] ([facility]) X [employer] insurance reported information X [...] Tobacco, Alcohol, and Recreational substances Best possible BUTADIENE CONVERTER HELPER medication list after pharmacy review: PT REPORTED [...] performed and electronically signed by Ernestine Evans, Clinic Md Associate 04/19/2018 10:43 Reviewed by Aspen Cummins, PharmD [...] | | | [place] | | | [id number] | | | [id number] | | | This | | | [...] | | | ent/81 | | | [id number] | | | -[id number] | | | [...] | | | St. | | | [place] | | | y H. | | [...] | | | St. | | | [place] | | | y H. | | [...] | | | St. | | | [place] | | | y H. | | [...] | | | St. | | | [place] | | | y H. | | [...] | | | St. | | | [place] | | | y | | | [...] | | | ext. | | | [phone] | | | or go | | [...] | | | n | | | [place] | | | | | | Orthop [...] [facility] | | | | | [facility] | | | | | CENTER - | | | | | LABORATORY | + + + + + | ANION GAP | 6 | 3 - 16 mmol/L | [facility] | | | | | [facility] | | | | | CENTER - | | | | | LABORATORY | + + + + + | GLUCOSE | 107 | 70 - 109 mg/dL | [facility] | | | | | [facility] | | | | | CENTER - | | | | | LABORATORY | + + + + + | BUN | 13 | 7 - 18 mg/dL | [facility]. | | | | | [facility] | | | | | CENTER - | | | | | LABORATORY | + + + + + | Creatinine, | 1.29 | 0.60 - 1.30 mg/dL | [facility]. | | Serum/Plasma | | | [facility] | | | | | CENTER - | | | | | LABORATORY | + + + + + | eGFR if not | 40 (L)Comment: | >=60 mL/min/1.73m2 | [facility] | | [place] | GLOMERULAR FILTRATION | | [facility] | | | RATE,ESTIMATED mL/min | | CENTER - | | | /1.68q8Gnev than 60 | | LABORATORY | | [...] [address] | [place] | [phone] | | [facility] | | [address] | | | - LABORATORY | | | | + + + + + | [facility] | [address] | [place] | | | [facility] | | [address] | | | - LABORATORY | | | | + + + + + Basic Metabolic Panel (04/22/20181008) + + + + + | Component | Value | Ref Range | Performed At | + + + + + | NA | 146 | 136 - 149 mmol/L | [facility] | | | | | [facility] | | | | | [...] [facility] | | | | | [facility] | | | | | CENTER - | | | | | LABORATORY | + + + + + | BUN | 13 | 7 - 18 mg/dL | [facility] | | | | | [facility] | | | | | CENTER - | | | | | LABORATORY | + + + + + | Creatinine, | 1.27 | 0.60 - 1.30 mg/dL | [facility] | | Serum/Plasma | | | [facility] | | | | | CENTER - | | | | | LABORATORY | + + + + + | eGFR if not | 41 (L)Comment: | >=60 mL/min/1.73m2 | [facility] | | [place] | GLOMERULAR FILTRATION | | [facility] | | | RATE,ESTIMATED mL/min | | CENTER - | | | /1.88c7Xjga than 60 | | LABORATORY | | [...] | 8.3 - 10.5 mg/dL | [facility]. | | | | | [facility] | | | | | CENTER - | | | | | LABORATORY | + + + + + | BUN/CREA | 10.2 | | [facility]. | | | | | [facility] | | | | | [...] [address] | [place] | [phone] | | [facility] | | [address] | | | - LABORATORY | | | | + + + + + | [facility] | [address] | [place], [place] | | | [facility] | | [address] | | | - LABORATORY | | [...] [facility] | | | | | [facility] | | | | | CENTER - | | | | | LABORATORY | + + + + + | MPV | 9.7 | fL | [facility] | | | | | [facility] | | | | | [...] ST. | [address] | [place], [place] | [phone] | | [facility] | | [address] | | | - LABORATORY | | | | + + + + + | [facility] | [address] | [place], [place] | | | [facility] | | [address] | | | - LABORATORY | | [...] ST. | | Tube | | | [facility] | | | | | [...] [address] | [place] | [phone] | | [facility] | | [address] | | | - LABORATORY | | | | + + + + + | [facility] | [address] | [place] | | | [facility] | | [address] | | | - LABORATORY | | | | + + + + + Renal Function Panel (04/21/2018 0556) + + + + + | Component | Value | Ref Range | Performed At | + + + + + | NA | 143 | 136 - 149 mmol/L | [facility] | | | | | [facility] | | | | | [...] >=60 mL/min/1.73m2 | [facility] | | [place] | | | [facility] | | [...] + | [facility] | [address] | [place], [place] | [phone] | | [facility] | | [address] | | | - LABORATORY | | | | + + + + + | [facility] | [address] | [place], [place] | | | [facility] | | [address] | | | - LABORATORY | | | | + + + + + Extra Lavender Top Tube (04/20/2018918) + +-------+ + + | Component | Value | Ref Range | Performed At | + +-------+ + + | Extra Lavender Top | Done | | [facility] | | Tube | | | [facility] | | | | | CENTER - | | | | | LABORATORY | + +-------+ + + + + | Specimen | + + | Blood | + + + + + + + | Performing | Address | City/State/Zipcode | Phone Number | | Organization | | | | + + + + + | [facility] | [address] | [place] | [phone] | | [facility] | | [address] | | | - LABORATORY | | | | + + + + + | [facility] | [address] | [place] | | | [facility] | | [address] | | | - LABORATORY | | [...] | 7 - 18 mg/dL | [facility]. | | | | | [facility] | | | | | CENTER - | | | | | LABORATORY | + + + + + | Creatinine, | 1.34 (H) | 0.60 - 1.30 mg/dL | [facility]. | | Serum/Plasma | | | [facility] | | | | | CENTER - | | | | | LABORATORY | + + + + + | eGFR if not | 39 (L)Comment: | >=60 mL/min/1.73m2 | [facility] | | [place] | GLOMERULAR FILTRATION | | [facility] | | | RATE,ESTIMATED mL/min | | CENTER - | | | /1.89l1Sqeh than 60 | | LABORATORY | | [...] + | [facility] | [address] | [place] | [phone] | | [facility] | | [address] | | | - LABORATORY | | | | + + + + + | [facility] | [address] | [place] | | | [facility] | | [address] | | | - LABORATORY | | [...] + | [facility] | [address] | [place] | [phone] | | [facility] | | [address] | | | - LABORATORY | | | | + + + + + | [facility] | [address] | [place], [place] | | | [facility] | | [address] | | | - LABORATORY | | | | + + + + + Troponin I (04/19/2018714) + + + + + | Component | Value | Ref Range | Performed At | + + + + + | Troponin I | 0.17 (H)Comment: | <0.06 ng/mL | [facility] | | | Reference | | [facility] | | | Ranges:0.00-0.06 = [...] infarction. | | | | | [employer] | | | | | [...] + + | Performing | Address | City/State/Unm Cancer Centercode | Phone Number | | Organization | | | | + + + + + | [facility] | [address] | [place], [place] | [phone] | | [facility] | | [address] | | | - LABORATORY | | | | + + + + + | [facility] | [address] | [place], [place] | | | [facility] | | [address] | | | - LABORATORY | | | | + + + + + Magnesium (04/19/2018714) + +---------+ + + | Component | Value | Ref Range | Performed At | + +---------+ + + | Magnesium | 1.7 (L) | 1.8 - 2.5 mg/dL | [facility] | | | | | [facility] | | | | | [...] [address] | [place] | [phone] | | [facility] | | [address] | | | - LABORATORY | | | | + + + + + | [facility] | [address] | [place] | | | [facility] | | [address] | | | - LABORATORY | | [...] [facility] | | | | | [facility] | | | | | CENTER [...] + | [facility] | [address] | [place] | [phone] | | [facility] | | [address] | | | - LABORATORY | | | | + + + + + | [facility] | [address] | [place], [place] | | | [facility] | | [address] | | | - LABORATORY | | [...] >=60 mL/min/1.73m2 | [facility] | | [place] | | | [facility] | | [...] + | [facility] | [address] | [place], [place] | [phone] | | [facility] | | [address] | | | - LABORATORY | | | | + + + + + | [facility] | [address] | [place], [place] | | | [facility] | | [address] | | | - LABORATORY | | [...] infarction. | | | | | [employer] | | | | | [...] + + | Performing | Address | City/[facility] | Phone Number | | Organization | | | | + + + + + | [facility] | [address] | [place], [place] | [phone] | | [facility] | | [address] | | | - LABORATORY | | | | + + + + + | [facility] | [address] | [place] | | | [facility] | | [address] | | | - LABORATORY | | | | + + + + + Urinalysis with Microscopic with Culture if Indicated (04/18/20182012) + + + + + | Component | Value | Ref Range | Performed At | + + + + + | COLOR | Odalis (A) | Light Yellow, | [facility] | | | | Yellow, Straw | [facility] | | | | | CENTER [...] + + + + + | Specific Poteet | 1.017 | 1.001 - 1.030 | [...] [facility] | | | | | [facility] | | | | | CENTER [...] [facility] | | | | | [facility] | | | | | CENTER [...] [address] | [place] | [phone] | | [facility] | | [address] | | | - LABORATORY | | | | + + + + + | [facility] | [address] | [place] | | | [facility] | | [address] | | | - LABORATORY | | | | + + + + + Troponin I (04/18/20181913) + + + + + | Component | Value | Ref Range | Performed At | + + + + + | Troponin I | 0.10 (H)Comment: | <0.06 ng/mL | [facility] | | | Reference | | [facility] | | | Ranges:0.00-0.06 = [...] infarction. | | | | | [employer] | | | | | [...] + | [facility] | [address] | [place] | [phone] | | [facility] | | [address] | | | - LABORATORY | | | | + + + + + | [facility] | [address] | [place] | | | [facility] | | [address] | | | - LABORATORY | | | | + + + + + Ammonia (04/18/20181910) + +-------+ + + | Component | Value | Ref Range | Performed At | + +-------+ + + | Ammonia | 11 | 11 - 35 umol/L | [facility] | | | | | [facility] | | | | | CENTER - | | | | | LABORATORY | + +-------+ + + + + | Specimen | + + | Blood | + + + + + + + | Performing | Address | City/[facility]/Zipcode | Phone Number | | Organization | | | | + + + + + | [facility] | [address] | [place], [place] | [phone] | | [facility] | | [address] | | | - LABORATORY | | | | + + + + + | [facility] | [address] | [place], [place] | | | [facility] | | [address] | | | - LABORATORY | | [...] | | | | HILARIO YUNG MD ([id number]) | | | | | on 04/19/2018 [...] + | [facility] | [address] | [place] | [phone] | | [facility] | | [address] | | | - LABORATORY | | | | + + + + + | [facility] | [address] | [place], [place] | | | [facility] | | [address] | | | - LABORATORY | | | | + + + + + Extra Rodríguez Top Tube (04/18/2018 1648) + +-------+ + + | Component | Value | Ref Range | Performed At | + +-------+ + + | Extra Rodríguez Top Tube | Done | | [facility] | | | | | [facility] | | | | | CENTER [...] [address] | [place] | [phone] | | [facility] | | [address] | | | - LABORATORY | | | | + + + + + | [facility] | [address] | [place], [place] | | | [facility] | | [address] | | | - LABORATORY | | | | + + + + + Extra Blue Top Tube (04/18/20186) + +-------+ + + | Component | Value | Ref Range | Performed At | + +-------+ + + | Extra Blue Top Tube | Done | | [facility] | | | | | [facility] | | | | | [...] + | [facility] | [address] | [place] | [phone] | | [facility] | | [address] | | | - LABORATORY | | | | + + + + + | [facility] | [address] | [place], [place] | | | [facility] | | [address] | | | - LABORATORY | | | | + + + + + B Type Natriuretic Peptide (04/18/2018 1648) + + + + + | Component | Value | Ref Range | Performed At | + + + + + | BNP | 2,333 (H) | <100 pg/mL | [facility] | | | | | [facility] | | | | | [...] + | [facility] | [address] | [place] | [phone] | | [facility] | | [address] | | | - LABORATORY | | | | + + + + + | [facility] | [address] | [place] | | | [facility] | | [address] | | | - LABORATORY | | | | + + + + + Troponin I (04/18/2018 1648) + + + + + | Component | Value | Ref Range | Performed At | + + + + + | Troponin I | 0.06 (H)Comment: | <0.06 ng/mL | [facility] | | | Reference | | [facility] | | | Ranges:0.00-0.06 = [...] infarction. | | | | | [employer] | | | | | [...] [address] | [place] | [phone] | | [facility] | | [address] | | | - LABORATORY | | | | + + + + + | [facility] | [address] | [place] | | | [facility] | | [address] | | | - LABORATORY | | | | + + + + + Comprehensive Metabolic Panel (04/18/20188) + + + + + | Component | Value | Ref Range | Performed At | + + + + + | NA | 138 | 136 - 149 mmol/L | [facility] | | | | | [facility] | | | | | [...] | 36 (L)Comment: | >=60 mL/min/1.73m2 | [facility] | | [place] | GLOMERULAR FILTRATION | | [facility] | | | RATE,ESTIMATED mL/min | | CENTER - | | | /1.72c8Ictq than 60 | | LABORATORY | | [...] 8.3 | 8.3 - 10.5 mg/dL | [facility] | | | | | [facility] | | | | | CENTER - | | | | | LABORATORY | + + + + + | ALBUMIN | 2.9 (L) | 3.2 - 5.0 g/dL | [facility] | | | | | [facility] | | | | | [...] | | appended report. These | | [facility] | | | results have been | | CENTER - | | | appended to a previously | | LABORATORY | | | preliminary verified | | | | | report. | | | + + + + + | GLOBULIN | 2.4 | 2.1 - 3.8 g/dL | [facility] | | | | | [facility] | | | | | CENTER - | | | | | LABORATORY | + + + + + | Albumin/Globulin | 1.2 | 0.8 - 2.0 | [facility] | | ratio | | | [facility] | | | | | CENTER - | | | | | LABORATORY | + + + + + | SAJI/CHANTAL | 13.2 | | [facility] | | | | [facility] | | | | | [...] [address] | [place] | [phone] | | [facility] | | [address] | | | - LABORATORY | | | | + + + + + | [facility] | [address] | [place] | | | [facility] | | [address] | | | - LABORATORY | | | | + + + + + CBC with Differential (04/18/2018 1648) + + + + + | Component | Value | Ref Range | Performed At | + + + + + | WBC | 8.3 | 4.0 - 11.0 K/uL | [facility] | | | | | [facility] | | | | | CENTER - | | | | | LABORATORY | + + + + + | RBC | 5.00 | 3.70 - 5.20 M/uL | [facility] | | | | | [facility] | | | | | [...] [facility] | | | | | [facility] | | | | | CENTER - | | | | | LABORATORY | + + + + + + + | Specimen | + + | Blood | + + + + + + + | Performing | Address | City/State/Unm Cancer Centercode | Phone Number | | Organization | | | | + + + + + | [facility] | [address] | [place] | [phone] | | [facility] | | [address] | | | - LABORATORY | | | | + + + + + | [facility] | [address] | [place] | | | [facility] | | [address] | | | - LABORATORY | | [...] | | | DAILY, First dose on [facility] 04/19/18 | | PDT | | [...] 9:19 | | | | | on [facility] 04/19/18 at 0900 | | PDT [...] | | | | First dose on [facility] 04/19/18 at 0900 | | PDT [...] PDT | | | | | ONCE, [facility] 04/19/18 at 1230, For 1 | [...]
--- OUTSIDE RECORDS SUMMARY | ~2018-07-20 | XMS | Encounter Summary ---
Demographics + + + | Address | [address] | | | [place] [address] | + + + | Home Phone | | + + + | Preferred Language | Unknown | + + + | Marital Status | | + + + | Rastafari Affiliation | 1077 | + + + | Race | Unknown | + + + | Ethnic Group | Unknown | + + + Author + + + | Author | [facility] | | | and Priyankana | + + + | Organization | [facility] | [...] [place] | | | | | [address] | | + + + + + | Karen Duarte | ECON | [address] | | | | | [place] | | | | | [address] | | + + + + + Care Team Providers + +------+ + | Care Floor Layer Apprentice Name | Role | Phone | + +------+ + | Crarillo Michel MD | PCP | | + +------+ + Reason for Visit +---------+ + | Reason | Comments | +---------+ + | Results | | +---------+ + Encounter Details +--------+ + + + + | Date | Type | Department | Care Team | Description | +--------+ + + + + | 06/29/ | Telephone | [facility] | Carrillo Michel, | Results | | 2018 | | [facility] | [address] | | | | | [address] | [place] | | | | | [place] | [address] | | | | | [address] | | | | | | [phone] | | | +--------+ + + + [...]
--- OUTSIDE RECORDS SUMMARY | ~2018-07-20 | XMS | Encounter Summary ---
Demographics + + + | Address | [address] | | | [place] [address] | + + + | Home Phone | | + + + | Preferred Language | Unknown | + + + | Marital Status | | + + + | Congregation Affiliation | 1077 | + + + | Race | Unknown | + + + | Ethnic Group | Unknown | + + + Author + + + | Author | [facility] | | | and Priyankana | + + + | Organization | [facility] | | [...] [place] | | | | | [address] | | + + + + + | Karen Duarte | ECON | [address] | | | | | [place], [place] | | | | | [address] | | + + + + + Care Team Providers + +------+ + | Care Community Relations Specialist Name | Role | Phone | [...] | Specialty | Gastroenterol | Diagnoses | Talent, | Maribel, | | | Services | ogy | Dysphagia, | Carrillo Omer MD | Darwin Qiu MD | | | Required | | unspecified | [address] | [address], | | | | | type | [address] [place] | [address] | | | | | | [place], [place] | [place], | | | | | | [address] | [place] [address] | | | | | | Phone: | Phone: | | | | | | [phone] | [phone] | | | | | | Fax: | Fax: | | | | | | [phone] | [phone] | + + + + + + + Reason for Visit + + + | Reason | Comments | + + + | Poor Appetite | | + + + Encounter Details +--------+ + + + + | Date | Type | Department | Care Team | Description | +--------+ + + + + | 04/27/ | Telephone | [facility] | Carrillo Mihcel, | Ana Appetite | | 2018 | | MEDICINE [place] | [address] | | | | | [address] | [place] | | | | | [place] | [address] | | | | | [address] | | | | | | [phone] | | | +--------+ + + + [...]
--- OUTSIDE RECORDS SUMMARY | ~2018-07-20 | XMS | Encounter Summary ---
Demographics + + + | Address | [address] | | | [place] [address] | + + + | Home Phone | | + + + | Preferred Language | Unknown | + + + | Marital Status | | + + + | Mormon Affiliation | Unknown | + + + | Race | Unknown | + + + | Ethnic Group | Unknown | + + + Author + + + | Author | [facility] | + + + | Organization | [facility] | + + + | Address | Unknown | + + + | Phone | Unavailable | + + + Support + + + + + | Name | Relationship | Address | Phone | + + + + + | Mulu Dolan ECON | [address] | | | | [place] | | | | | [address] | | + + + + + | Julia Aguilar | ECON | Unknown | | + + + + + Care Team Providers + +------+ + | Care Rn Rehab Name | Role | Phone | + [...] | | | | | [place] [address] | | | | | | [phone] | | | +--------+ + + + [...] | | | | | | [place] [address] | | | | | | [phone] | | | | | | | | +--------+---------+ + + + as of this encounter Visit Diagnoses Not on filein this encounter"
--- OUTSIDE RECORDS SUMMARY | ~2018-07-20 | XMS | Encounter Summary ---
Demographics + + + | Address | [address] | | | [place] [address] | + + + | Home Phone [...] | Author | [facility] | + + + | Organization | [facility] | + + + | Address | Unknown | + + + | Phone | Unavailable | + + + Support + + + + + | Name | Relationship | Address | Phone | + + + + + | Mulu Dolan ECON | [address] | | | | | [place] | | | | | [address] | | + + + + + | Julia Aguilar | ECON | Unknown | | + + + + + Care Team Providers + +------+ + | Care Setter Automatic Spinning Lathe Name | Role | Phone | + +------+ + | Carrillo Michel MD | PCP | Unavailable | + +------+ + Encounter Details +--------+ + + + + | Date | Type | Department | Care Team | Description | +--------+ + + + + | 05/15/ | Telephone | [facility] | Pricilla Berumen | | | 2018 | | Cardiology [place] | | | | | | [address] | | | | | | [place] | | | | | | [address] | | | | | | [phone] | | | +--------+ + + + [...] [place], | | | | | | [place] [address] | | | | | | [phone] | | | | | | | | +--------+---------+ + + + as of this encounter Visit Diagnoses Not on filein this encounter"
--- OUTSIDE RECORDS SUMMARY | ~2018-07-20 | XMS | Encounter Summary ---
Demographics + + + | Address | [address] | | | [place] [address] | + + + | Home Phone | | + + + | Preferred Language | Unknown | + + + | Marital Status | | + + + | Christian Affiliation | Unknown | + + + | Race | Unknown | + + + | Ethnic Group | Unknown | + + + Author + + + | Author | [facility] | + + + | Organization | [facility] | + + + | Address | Unknown | + + + | Phone | Unavailable | + + + Support + + + + + | Name | Relationship | Address | Phone | + + + + + | Mulu Dolan ECON | [address] | | | | | [place] | | | | | [address] | | + + + + + | Julia Aguilar | ECON | Unknown | | + + + + + Care Team Providers + +------+ + | Care Telemarketing Sales Representative Name | Role | Phone [...] | | | 2018 | | Cardiology [place] | | | | | | [address] | | | | | | [place] | | | | | | [address] | | | | | | [phone] | | | +--------+ + + + [...] [place], | | | | | | [place] [address] | | | | | | [phone] | | | | | | | | +--------+---------+ + + + as of this encounter Visit Diagnoses Not on filein this encounter"
[~2018-07-20 19:35] MED LIST changes: +CHOLESTYRAMINE P4 GM PO; +ISOSORBIDE DINI30 MG PO; +LACTULOSE20 GM/30 M PO; +MAGOX 400400 MG PO; +PANTOPRAZOLE SO40 MG PO; +REMERON15 MG PO
--- OUTSIDE RECORDS SUMMARY | 2018-07-20 19:40 | XMS ---
PreManage Notification: LAILA ELLISON Security Prosthetic Dentist Events No recent Security Events currently on file CRITERIA MET - Group Notification - 6 ED Visits in 6 Months CARE PROVIDERS NIK MIJARES [facility] Current PHONE: [phone] DR NIK MIJARES Primary Care Current PHONE: [phone] Ignacio Phan MD PHONE: Unknown Jimbo Montes Current Orthopedic Surgery \T\ Fracture Clinic PHONE: Unknown Stacey has no Care Guidelines for this patient. Damir VISIT COUNT (12 MO.) 1 Jarad Gray M[facility] 9 ARIAS Bowden TOTAL 10 NOTE: Visits indicate total known visits. ED/UCC VISIT TRACKING (12 MO.) 07/20/2018 19:36 [facility] [place] TYPE: Emergency COMPLAINT: - VAGINAL BLEEDING 04/18/2018 16:19 [facility] Sue GainesLoveDelfinLove Saadia Zee [place] TYPE: Emergency DIAGNOSES: - Acute respiratory failure with hypoxia - Other specified abnormal findings of blood chemistry - Hypoxemia - Abnormal levels of other serum enzymes - Acute respiratory failure with hypercapnia - Swelling - Heart failure, unspecified - Weakness - Hypokalemia 04/09/2018 18:23 ARIAS Lopez TYPE: Emergency COMPLAINT: - ABD PAIN 04/08/2018 18:51 [facility] [place] TYPE: Emergency COMPLAINT: - CHEST PAIN DIAGNOSES: - Allergy status to other drugs, medicaments and biological substances status - Presence of cardiac pacemaker - Essential (primary) hypertension - Allergy status to penicillin - Allergy status to sulfonamides status - Other transportation specialist (current) drug therapy - Chest pain, unspecified - penitentiary (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 - Alzheimer's disease, unspecified - Dementia in other diseases classified elsewhere without behavioral disturbance 03/23/2018 19:31 [facility] [place] TYPE: Emergency COMPLAINT: - RASH DIAGNOSES: - tender labor (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 - Rash and other nonspecific skin eruption - Other allergy status, other than to drugs and biological substances - Essential (primary) hypertension - Other usp (current) drug therapy - Unspecified contact dermatitis, unspecified cause - Allergy status to penicillin - Allergy status to sulfonamides status 02/22/2018 20:31 [facility] [place] TYPE: Emergency COMPLAINT: - SOB,CHEST PAIN DIAGNOSES: - Chest pain, unspecified - Allergy status to other drugs, medicaments and biological substances status - Allergy status to penicillin - Other usp (current) drug therapy - Alzheimer's disease, unspecified - Essential (primary) hypertension - Urinary tract infection, site not specified - Allergy status to sulfonamides status - Personal history of nicotine dependence - tender labor (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 11/06/2017 15:00 [facility] [place] TYPE: Emergency COMPLAINT: - HYPOXEMIA/FTT 10/14/2017 22:59 [facility] [place] TYPE: Emergency COMPLAINT: - VOMITING 09/19/2017 17:11 [facility]AS Huson HLove [place] TYPE: Emergency COMPLAINT: - CHEST TIGHTNESS DIAGNOSES: - Presence of left artificial hip joint - Acquired absence of both cervix and uterus - Allergy status to penicillin - Allergy status to sulfonamides status - Personal history of nicotine dependence - Other chest pain - tender labor (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 - Other transportation specialist (current) drug therapy - Other nonmedicinal substance allergy status - Acquired absence of other specified parts of digestive tract - Essential (primary) hypertension 09/18/2017 22:[address] [facility] [place] TYPE: Emergency COMPLAINT: - CONFUSION DIAGNOSES: - Presence of cardiac pacemaker - Alzheimer's disease, unspecified - Allergy status to penicillin - Essential (primary) hypertension - Dyspnea, unspecified - Other usp (current) drug therapy - Acquired absence of other specified parts of digestive tract - Presence of left artificial hip joint - Allergy status to sulfonamides status - tender labor (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 - Dementia in other diseases classified elsewhere without behavioral disturbance - penitentiary (current) use of anticoagulants - Personal history of nicotine dependence - Other nonmedicinal substance allergy status INPATIENT VISIT TRACKING (12 MO.) 04/18/2018 16:19 [facility] Saadia ARAMBULA TYPE: Medical Surgical DIAGNOSES: - Acute respiratory failure with hypercapnia - Chronic atrial fibrillation - Heart failure, unspecified - Hypoxemia - Other specified abnormal findings of blood chemistry - Abnormal levels of other serum enzymes - Dementia in other diseases classified elsewhere with behavioral disturbance - Other Alzheimer's disease - Acute respiratory failure with hypoxia - Hypokalemia [email or web address]
[2018-07-20] MEDS ORDERED: MARINOL2.5 MG PO (19:58)
[2018-07-20] MEDS ORDERED: LASIX20 MG PO (19:58)
== END 2018-07-20 22:40 | disposition home or self-care (01) ==
LOC: ED 19:35
PROC: 0T9B70Z Drainage of Bladder with Drainage Device, Via Natural or Artificial Opening (ICD-10-PCS; principal; 2018-07-20)
DX: K92.2 Gastrointestinal hemorrhage, unspecified (principal); I10 Essential (primary) hypertension; Z88.0 Allergy status to penicillin; Z88.8 Allergy status to other drugs, medicaments and biological substances; Z88.2 Allergy status to sulfonamides; Z79.899 Other long term (current) drug therapy
CPT/HCPCS: 51701; 76830; 76856; 80053; 81001; 85025; 85610; 85730; 99284

== ENCOUNTER 2018-07-27 13:41 | Emergency (ER) | payer MEDICARE ==
[~2018-07-27] VITALS: Ht 160 cm; Wt 50.0 kg
--- OUTSIDE RECORDS SUMMARY | ~2018-07-27 | XMS | Encounter Summary ---
Demographics + + + | Address | [address] | | | [place] [address] | + + + | Home Phone | | + + + | Preferred Language | Unknown | + + + | Marital Status | | + + + | Temple Affiliation | 1077 | + + + | Race | Unknown | + + + | Ethnic Group | Unknown | + + + Author + + + | Author | [facility] | | | and Priyankana | + + + | Organization | [facility] | | | and Priyankana | + + + | Address | Unknown | + + + | Phone | Unavailable | + + + Support + + + + + | Name | Relationship | Address | Phone | + + + + + | Braden Dolan | ECON | [address] | | | | | [place] | | | | | [address] | | + + + + + | Karen Duarte | ECON | [address] | | | | | [place] | | | | | [address] | | + + + + + Care Team Providers + +------+ + | Care Gum Rolling Machine Tender Name | Role | Phone | + +------+ + | Carrillo Michel MD | PCP | | + +------+ + Reason for Visit + + + | Reason | Comments | + + + | Lab Results | | + + + Encounter Details +--------+ + + + + | Date | Type | Department | Care Team | Description | +--------+ + + + + | 06/29/ | Telephone | [facility] | Carrillo Michel, | Lab Results | | 2018 | | MEDICINE [place] | [address] | | | | | [address] | [place] | | | | | [place] | [phone] | | | | | [address] | | | | | | [phone] | | | +--------+ + + + + Social History + + + +--------+ + | Tobacco Use | Types | Packs/Day | Years | Date | | | | | Used | | + + + +--------+ + | Former Smoker | Cigarettes | 1.5 | 20 | Quit: 10/23/1973 | + + + +--------+ + + +---+---+---+ | Smokeless Tobacco: | | | | | Never Used | | | | + +---+---+---+ + + +---------+ + | Alcohol Use | Drinks/We | oz/Week | Comments | | | ek | | | + + +---------+ + | No | | | | + + +---------+ + + + + | Sex Assigned at | Date Recorded | | | | + + + | Not on file | | + + + as of this encounter Functional Status + + + + | Functional Status | Response | Date of Assessment | + + + + | Are you deaf or do you have serious | No | 04/23/2018 | | difficulty hearing? | | | + + + + | Are you blind or do you have serious | No | 04/23/2018 | | difficulty seeing, even when wearing | | | | glasses? | | | + + + + | Do you have serious difficulty walking or | No | 04/23/2018 | | climbing stairs? (5 years old or older) | | | + + + + | Do you have difficulty dressing or bathing? | No | 04/23/2018 | | (5 years old or older) | | | + + + + | Because of a physical, mental, or emotional | Yes | 04/23/2018 | | condition, do you have difficulty doing | | | | errands alone such as visiting a doctor's | | | | office or shopping? [15 years old or | | | | older)] | | | + + + + + + + + | Cognitive Status | Response | Date of Assessment | + + + + | Because of a physical, mental, or emotional | Yes | 04/23/2018 | | condition, do you have serious difficulty | | | | concentrating, remembering, or making | | | | decisions? (5 years old or older) | | | + + + + as of this encounter Plan of Treatment Not on fileas of this encounter Visit Diagnoses Not on filein this encounter"
--- OUTSIDE RECORDS SUMMARY | ~2018-07-27 | XMS | Encounter Summary ---
Demographics + + + | Address | [address] | | | [place] [address] | + + + | Home Phone | | + + + | Preferred Language | Unknown | + + + | Marital Status | | + + + | Anabaptism Affiliation | 1077 | + + + | Race | Unknown | + + + | Ethnic Group | Unknown | + + + Author + + + | Author | [facility] | | | and Priyankana | + + + | Organization | [facility] | | | and Priyankana | [...] [place] | | | | | [address] | | + + + + + | Karen Duarte | ECON | [address] | | | | | [place] | | | | | [address] | | + + + + + Care Team Providers + +------+ + | Care Track Welder Name | Role | Phone | + [...] + + | 07/05/ | Telephone | [facility] | Carrillo Michel, | Appointment (med | | 2018 | | MEDICINE [place] | [address] | question) | | | | [address] | [place] | | | | | [place] | [address] | | | | | [address] | | | | | | [phone] | | | +--------+ + + + [...]
--- OUTSIDE RECORDS SUMMARY | ~2018-07-27 | XMS | Encounter Summary ---
Demographics + + + | Address | [address] | | | [place] [address] | + + + | Home Phone | | + + + | Preferred Language | Unknown | + + + | Marital Status | | + + + | Yarsanism Affiliation | 1077 | + + + | Race | Unknown | + + + | Ethnic Group | Unknown | + + + Author + + + | Author | [facility] | | | and Priyankana | + + + | Organization | [facility] | | | and Priyankana | + + + | Address | Unknown | + + + | Phone | Unavailable | + + + Support + + + + + | Name | Relationship | Address | Phone | + + + + + | Braden Dolan | ECON | [address] | | | | | [place], [place] | | | | | [address] | | + + + + + | Karen Duarte | ECON | [address] | | | | | [place], [place] | | | | | [address] | | + + + + + Care Team Providers + +------+ + | Care Greens Keeper Name | Role | Phone | + +------+ + | Carrillo Michel MD | PCP | | + +------+ + Encounter Details +--------+ + + + + | Date | Type | Department | Care Team | Description | +--------+ + + + + | 05/08/ | Hospital | [facility] | Darwin López MD | Dysphagia, | | 2018 | Encounter | MED CTR XRAY [address] | [address], [place] | unspecified type | | | | [place] | [address] [place], [place] | | | | | [place] [address] | [phone] | | | | | [phone] | | | | | | | Rad, [facility] | | +--------+ + + + + [...] + + + as of this encounter Medications at Time of Discharge + + +---------+---------+ + + | Medication | Sig. | Disp. | Refills | Start | End Date | | | | | | Date | | + + +---------+---------+ + + | ascorbic acid | Take 500 mg by mouth | | | | | | (VITAMIN C) 500 mg | Daily. | | | | | | tablet | | | | | | + + +---------+---------+ + + | carvedilol (COREG) | Take 1 tablet by | | | 07/25/20 | | | 12.5 mg | mouth 2 times daily | | | 17 | | | tabletIndications: | (with breakfast & | | | | | | Atrial fibrillation, | dinner). To lower | | | | | | chronic (HCC), | blood pressure and | | | | | | Chronic systolic | heart rate | | | | | | heart failure (HCC) | | | | | | + + +---------+---------+ + + | cholestyramine | Take 4 g by mouth 2 | | | | | | light (QUESTRAN) 4 g | times daily. | | | | | | packet | | | | | | + + +---------+---------+ + + | escitalopram | Take 1 tablet by | 90 | 1 | 10/12/20 | | | (LEXAPRO) 10 mg | mouth Daily. To help | tablet | | 17 | | | tabletIndications: | mood | | | | | | Depression, | | | | | | | unspecified | | | | | | | depression type | | | | | | + + +---------+---------+ + + | levothyroxine | Take 50 mcg by mouth | | | | | | (SYNTHROID) 50 mcg | every morning | | | | | | tablet | (before breakfast). | | | | | + + +---------+---------+ + + | losartan (COZAAR) | Take 1 tablet by | 90 | 1 | 10/30/19 | | | 100 MG | mouth Daily. For | tablet | | 18 | | | tabletIndications: | high blood pressure | | | | | | Essential | | | | | | | hypertension | | | | | | + + +---------+---------+ + + | mirtazapine | Take 15 mg by mouth | | | | | | (REMERON) 15 MG | nightly. | | | | | | tablet | | | | | | + + +---------+---------+ + + | Multiple Vitamin | Take 1 tablet by | | | | | | (MULTIVITAMIN PO) | mouth Daily. | | | | | + + +---------+---------+ + + | nitroglycerin | Place 0.4 mg under | | | | | | (NITROSTAT) 0.4 mg | the tongue every 5 | | | | | | SL tablet | minutes as needed | | | | | | | for Chest pain. | | | | | + + +---------+---------+ + + | cholecalciferol | Take 1,000 Units by | | | | | | (VITAMIN D-3) 1,000 | mouth Daily. | | | | 8 | | units capsule | | | | | | + + +---------+---------+ + + | cyanocobalamin | Take 500 mcg by | | | | | | (VITAMIN B-12) 500 | mouth Daily. | | | | 8 | | mcg tablet | | | | | | + + +---------+---------+ + + | donepezil | Take 10 mg by mouth | | | | | | (ARICEPT) 10 MG | nightly. | | | | 8 | | tablet | | | | | | + + +---------+---------+ + + | furosemide (LASIX) | Take 20 mg by mouth | | | | | | 20 mg tablet | Daily. | | | | 8 | + + +---------+---------+ + + | isosorbide | Take 30 mg by mouth | | | 04/09/20 | | | dinitrate (ISORDIL) | 2 times daily. | | | 18 | 8 | | 30 MG tablet | | | | | | + + +---------+---------+ + + | loperamide | Take 1 capsule by | 10 | 0 | 04/23/20 | | | (IMODIUM) 2 mg | mouth every 3 hours | capsule | | 18 | 8 | | capsule | as needed for | | | | | | | Diarrhea. | | | | | + + +---------+---------+ + + | magnesium oxide | Take 400 mg by mouth | | | | | | (MAG-OX) 400 mg | Daily. | | | | 8 | | tablet | | | | | | + + +---------+---------+ + + | pantoprazole | Take 40 mg by mouth | | | | | | (PROTONIX) 40 mg | 2 times daily | | | | 8 | | tablet | (before meals). | | | | | + + +---------+---------+ + + | potassium chloride | Take 20 mEq by mouth | | | | | | (KLOR-CON) 10 MEQ | 2 times daily. | | | | 8 | | ER tablet | | | | | | + + +---------+---------+ + + as of this encounter Plan of Treatment Not on fileas of this encounter Procedures + +--------+ + + + | Procedure Name | Priori | Date/Time | Associated Diagnosis | Comments | | | ty | | | | + +--------+ + + + | FL ESOPHAGRAM | Routin | 05/08/2018 | Dysphagia, | Results for this | | COMPLETE | e | 0914 PDT | unspecified type | procedure are in the | | | | | | results section. | + +--------+ + + + in this encounter Results FL Esophagram Complete (05/08/2018 0914) + + + | Narrative | Performed At | + + + | [place] ESOPHAGRAM COMPLETE 05/08/2018 9:11 AM HISTORY: Dysphagia. | [facility] | | COMPARISON: None. PROTOCOL: The patient was initially | | | administered effervescent crystals followed by oral barium. | | | Fluoroscopic images of the esophagus and stomach region were | | | obtained. FINDINGS: A pacemaker is present. Tertiary contractions | | | are visualized of the mid to lower esophagus likely related to | | | presbyesophagus, a normal aging condition. On the second swallow, | | | spasm is observed of the distal esophageal sphincter with mild delay | | | in transit of barium into the stomach, consistent with mild achalasia. | | | A small hiatal hernia is visualized. There is no evidence for | | | reflux. IMPRESSION - Mild achalasia. 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 Small | | | hiatal hernia. Dictated and Signed by: Jaxon Grajeda MD | | | Electronically signed: 05/08/2018 9:31 AM | | + + + + + | Procedure Note | + + | Jarad, Rad Results In - 05/08/2018 0934 PDT [place] ESOPHAGRAM COMPLETE 05/08/2018 9:11 AM | | | | HISTORY: Dysphagia. | | | | COMPARISON: None. | | | | PROTOCOL: The patient was initially administered effervescent crystals followed | | by oral barium. Fluoroscopic images of the esophagus and stomach region were | | obtained. | | | | FINDINGS: | | A pacemaker is present. Tertiary contractions are visualized of the mid to lower | | esophagus likely related to presbyesophagus, a normal aging condition. On the | | second swallow, spasm is observed of the distal esophageal sphincter with mild | | delay in transit of barium into the stomach, consistent with mild achalasia. A | | small hiatal hernia is visualized. There is no evidence for reflux. | | | | IMPRESSION - | | Mild achalasia. | | | | Tertiary contractions of mid to lower esophagus likely related to | | presbyesophagus. | | | | Small hiatal hernia. | | | | Dictated and Signed by: Jaxon Grajeda MD | | Electronically signed: 05/08/2018 9:31 AM | + + + +---------+ + + | Performing | Address | City/State/Zipcode | Phone Number | | Organization | | | | + +---------+ + + | [facility] | | | | + +---------+ + + in this encounter Visit Diagnoses + + | Diagnosis | + + | Dysphagia, unspecified type | + + Administered Medications + +--------+ +--------+------+------+ | Medication Order | MAR | Action | Dose | Rate | Site | | | Action | Date | | | | + +--------+ +--------+------+------+ | barium (E-Z-HD) 98% contrast | Given | | 75 mLs | | | | suspension 75 mL 75 mL, Oral, | | 8 9:45 | | | | | ONCE, 05/08/18 at 0945, For 1 | | PDT | | | | | dose, Nathaniel well. | | | | | | + +--------+ +--------+------+------+ +---+---+ | | | +---+---+ + +-------+ +------+---+---+ | barium (E-Z-PAQUE) 96% contrast | Given | | 25 g | | | | suspension 25 g 25 g, Oral, | | 8 9:45 | | | | | ONCE, 05/08/18 at 0945, For 1 | | PDT | | | | | dose, Nathaniel smith. | | | | | | + +-------+ +------+---+---+ +---+---+ | | | +---+---+ in this encounter"
--- OUTSIDE RECORDS SUMMARY | ~2018-07-27 | XMS | Encounter Summary ---
Demographics + + + | Address | [address] | | | [place] [address] | + + + | Home Phone | | + + + | Preferred Language | Unknown | + + + | Marital Status | | + + + | Christianity Affiliation | 1077 | + + + | Race | Unknown | + + + | Ethnic Group | Unknown | + + + Author + + + | Author | [facility] | | | and Priyankana | + + + | Organization | [facility] | | | and Priyankana [...] [place], [place] | | | | | [address] | | + + + + + | Karen Duarte | ECON | [address] | | | | | [place], [place] | | | | | [address] | | + + + + + Care Team Providers + +------+ + | Care Video Control Engineer Name | Role | Phone | + +------+ + | Carrillo Michel MD | PCP | | + +------+ + Encounter Details +--------+ + + + + | Date | Type | Department | Care Team | Description | +--------+ + + + + | 05/08/ | Hospital | [facility] | Darwin López MD | Dysphagia, | | 2018 | Encounter | MED CTR XRAY [address] | [address], [place] | unspecified type | | | | [place] | [address] [place], [place] | | | | | [place] [address] | [id number] | | | | | [phone] | | | | | | | [...]
--- OUTSIDE RECORDS SUMMARY | ~2018-07-27 | XMS | Encounter Summary ---
Demographics + + + | Address | [address] | | | [place] [address] | + + + | Home Phone | | + + + | Preferred Language | Unknown | + + + | Marital Status | | + + + | Sikh Affiliation | 1077 | + + + | Race | Unknown | + + + | Ethnic Group | Unknown | + + + Author + + + | Author | [facility] | | | and Priyankana | + + + | Organization | [facility] | | | and Priyankana [...] [place] | | | | | [address] | | + + + + + | Karen Duarte | ECON | [address] | | | | | [place] | | | | | [address] | | + + + + + Care Team Providers + +------+ + | Care Asphalt Coater Name | Role | Phone | + +------+ + | Carrillo Michel MD | PCP | | + +------+ + Reason for Visit + + + | Reason | Comments | + + + | Medication Prior | Dronabinol | | Authorization | | + + + Encounter Details +--------+ + + + + | Date | Type | Department | Care Team | Description | +--------+ + + + + | 05/22/ | Telephone | [facility] | Carrillo Michel, | Medication Prior | | 2018 | | MEDICINE [place] | [address] | Authorization | | | | [address] | [place] | (Dronabinol) | | | | [place] | [address] | | | | | [address] | | | | | | [phone] | | | +--------+ + + + [...]
--- OUTSIDE RECORDS SUMMARY | ~2018-07-27 | XMS | Encounter Summary ---
Demographics + + + | Address | [address] | | | [place] [address] | + + + | Home Phone | | + + + | Preferred Language | Unknown | + + + | Marital Status | | + + + | Christian Affiliation | 1077 | + + + | Race | Unknown | + + + | Ethnic Group | Unknown | + + + Author + + + | Author | [facility] | | | and Priyankana | + + + | Organization | [facility] | | | and Priyankana [...] [place] | | | | | [address] | | + + + + + | Karen Duarte | ECON | [address] | | | | | [place] | | | | | [address] | | + + + + + Care Team Providers + +------+ + | Care Firefighter Type One Name | Role | Phone | + +------+ + | Carrillo Michel MD | PCP | | + +------+ + Reason for Visit + + + | Reason | Comments | + + + | Paperwork | | + + + Encounter Details +--------+ + + + + | Date | Type | Department | Care Team | Description | +--------+ + + + + | 05/18/ | Telephone | [facility] | Carrillo Michel, | Paperwork | | 2018 | | MEDICINE [place] | [address] | | | | | [address] | [place] | | | | | [place] | [address] | | | | | [address] | | | | | | [phone] | | | +--------+ + + + [...]
--- OUTSIDE RECORDS SUMMARY | ~2018-07-27 | XMS | Encounter Summary ---
Demographics + + + | Address | [address] | | [place] [address] | + + + | Home Phone | | + + + | Preferred Language | Unknown | + + + | Marital Status | | + + + | Sabianism Affiliation | Unknown | + + + | Race | Unknown | + + + | Ethnic Group | Unknown | + + + Author + + + | Author | [facility] | + + + | Organization | [facility] | + + + | Address | Unknown | + + + | Phone | Unavailable | + + + Support + + + + + | Name | Relationship | Address | Phone | + + + + + | Mulu Dolan ECON | [address] | | | | | [place] | | | | | [address] | | + + + + + | Julia Aguilar | ECON | Unknown | | + + + + + Care Team Providers + +------+ + | Care Assistant To The Dean Name | Role | Phone | + +------+ + | Carrillo Michel MD | PCP | Unavailable | + +------+ + Reason for Visit +--------+ + | Reason | Comments | +--------+ + | Other | Appointment and lab reminder | +--------+ + Encounter Details +--------+ + + + + | Date | Type | Department | Care Team | Description | +--------+ + + + + | 07/05/ | Telephone | [facility] | Vibha Vergara CMA | Other (Appointment | | 2018 | | [place] [address] | | and lab reminder) | | | | [address] | | | | | | [place] [address] | | | | | | [phone] | | | +--------+ + + + [...] | | | | | | [place] [address] | | | | | | [phone] | | | | | | | | +--------+---------+ + + + as of this encounter Visit Diagnoses Not on filein this encounter"
--- OUTSIDE RECORDS SUMMARY | ~2018-07-27 | XMS | Encounter Summary ---
Demographics + + + | Address | [address] | | | [place] [address] | + + + | Home Phone | | + + + | Preferred Language | Unknown | + + + | Marital Status | | + + + | Christianity Affiliation | 1077 | + + + | Race | Unknown | + + + | Ethnic Group | Unknown | + + + Author + + + | Author | [facility] | | | and Priyankana | + + + | Organization | [facility] | | | and Priyankana [...] [place] | | | | | [address] | | + + + + + | Karen Duarte | ECON | [address] | | | | | [place], [place] | | | | | [address] | | + + + + + Care Team Providers + +------+ + | Care Meteorological Technician Name | Role | Phone | + +------+ + | Carrillo Michel MD | PCP | | + +------+ + Reason for Referral Evaluate & Treat (Routine) +--------+ + + + + + | Status | Reason | Specialty | Diagnoses / | Referred By | Referred To | | | | | Procedures | Contact | Contact | +--------+ + + + + + | Closed | Specialty | Home Health | Diagnoses | [place], | Prov Hh | | | Services | Services | 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 | [place] | | | Required | | cardiomyopat | [address] | [address] | | | | | hy | [address] [place] | [place] | | | | | Alzheimer's | [place] | | | | | disease of | [address] | [address] | | | | | other onset | Phone: | Phone: | | | | | with | [phone] | [phone] | | | | | behavioral | Fax: | Fax: | | | | | disturbance | [phone] | [phone] | +--------+ + + + + + Reason for Visit + + + | Reason | Comments | + + + | Home Health | | + + + Encounter Details +--------+ + + + + | Date | Type | Department | Care Team | Description | +--------+ + + + + | 05/15/ | Telephone | [facility] | Carrillo Michel, | Home Health | | 2018 | | MEDICINE [place] | [address] | | | | | [address] | [place] | | | | | [place] | [address] | | | | | [address] | | | | | | [phone] | | | +--------+ + + + [...] | | + +--------+ + + | Home Health, External - AMB | Routin | Ischemic | Ordered: 05/16/2018 | | Referral | e | cardiomyopathy | | | | | Alzheimer's disease | | | | | of other onset with | | | | | behavioral | | | | | disturbance | | + +--------+ + + as of this encounter Visit Diagnoses + + | Diagnosis | + + | Ischemic cardiomyopathy - Primary | + + | Other specified forms of chronic ischemic heart disease | + + | 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
--- OUTSIDE RECORDS SUMMARY | ~2018-07-27 | XMS | Clinical Summary ---
Demographics + + + | Address | [address] | | | [place] [address] | + + + | Home Phone | | + + + | Preferred Language | Unknown | + + + | Marital Status | | + + + | Jehovah'S Witness Affiliation | Unknown | + + + | Race | Unknown | + + + | Ethnic Group | Unknown | + + + Author + + + | Author | [facility] | + + + | Organization | [facility] | + + + | Address | Unknown | + + + | Phone | Unavailable | + + + Support + + + + + | Name | Relationship | Address | Phone | + + + + + | Laila [place] ECON | [address] | | | | | [place] | | | | | [address] | | + + + + + | Julia Aguilar | ECON | Unknown | | + + + + + Care Team Providers + +------+ + | Care Aix Administrator Name | Role | Phone | + [...] | 10/0 | | Activ | | (MAG-OX) 400 MG | mouth daily. | tablet | | 2/20 | | e | | tablet | | | | 17 | | | + + +--------+---------+------+------+-------+ | cyanocobalamin [...] | 120 | 11 | 03/23 | 03/23 | Activ | | dinitrate (ISORDIL) | mouth 4 (four) times | tablet | | 8/20 | 8/20 | e | | 30 MG tablet | daily. | | | 18 | 19 | | + + +--------+---------+------+------+-------+ | carvedilol (COREG) | Take 1 tablet by | 60 | 2 | 04/23 | | Activ | | 12.5 MG tablet | mouth 2 (two) times | tablet | | 5/20 | | e | | | daily for 30 days. 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 | | 71yo WF, with dementia, she is here with her . Although | | she does not recall her recent hospitalization, nor her symptoms, | | he admits that she had chest discomfort, was admitted to the [facility] hospital. Cardiac enzymes were mildly abnormal, she was sent to | | [facility], there, she did have a cardiology | [...] kidney | | 2017 | | | SCHOLASTIC APTITUDE TEST GRADER | disease) stage 3, | | | | | | GFR 30-59 ml/min | | | | | | (Primary Dx) | +--------+ + + + + | 05/16/ | Refill | | Aranza Jauregui, | Medication Refill | | 2017 | | | [place] | | +--------+ + + + + | 05/15/ | Telephone | | [place] Pricilla Liana | | | 2017 | | | [...] | | | | | | [place] [address] | | | | | | [phone] | | | | | | | [...] | Rhythm | | | | | [address] | | | | | | | [...] [place] - [place] | [place] - | [id number] | Medica | | | | | [...] | | 1945 | [phone] | [place] | | | [place] | | | [address] | [address] | + +--------+ +--------+ + +
--- OUTSIDE RECORDS SUMMARY | ~2018-07-27 | XMS | Encounter Summary ---
Demographics + + + | Address | [address] | | | [place] [address] | + + + | Home Phone | | + + + | Preferred Language | Unknown | + + + | Marital Status | | + + + | Yazidism Affiliation | 1077 | + + + | Race | Unknown | + + + | Ethnic Group | Unknown | + + + Author + + + | Author | [facility] | | | and Priyankana | + + + | Organization | [facility] | | | and [...] [place] | | | | | [address] | | + + + + + | Karen Duarte | ECON | [address] | | | | | [place] | | | | | [address] | | + + + + + Care Team Providers + +------+ + | Care Cottage Supervisor Name | Role | Phone | + [...] Description | +--------+--------+ + + + | 06/18/ | Refill | [facility] | Carrillo Michel, | Medication Refill | | 2018 | | MEDICINE [place] | [address] | | | | | [address] | [place] | | | | | [place] | [address] | | | | | [address] | | | | | | [phone] | | | +--------+--------+ + + + [...]
--- OUTSIDE RECORDS SUMMARY | ~2018-07-27 | XMS | Encounter Summary ---
Demographics + + + | Address | [address] | | | [place] [address] | + + + | Home Phone | | + + + | Preferred Language | Unknown | + + + | Marital Status | | + + + | Druze Affiliation | 1077 | + + + | Race | Unknown | + + + | Ethnic Group | Unknown | + + + Author + + + | Author | [facility] | | | and Priyankana | + + + | Organization | [facility] | | | and [...] [place] | | | | | [address] | | + + + + + | Karen Duarte | ECON | [address] | | | | | [place] | | | | | [address] | | + + + + + Care Team Providers + +------+ + | Care Kitchen Operator Name | Role | Phone | [...] + + | 05/17/ | Office | [facility] | Carrillo Michel, | Ischemic | | 2018 | Visit | MEDICINE [place] | [address] | cardiomyopathy | | | | [address] | [place] | (Primary Dx); Atrial | | | | [place], [place] | [address] | fibrillation, | | | | [address] | | chronic (HCC); | | | | [phone] | | Essential | | | | [...] Other (orders signed for home health- for [place]). Accompanied by . HPI She was admitted to [facility] 04/18-04/23/18 for ischemic cardiomyopathy, aspiration pneumonia , and respiratory failure. She was treated with IV diuretics, levaquin. She also worked [employer]. Stool studies were negative. She was discharged from [place] 05/13/18. She has d one very well [...]
--- OUTSIDE RECORDS SUMMARY | ~2018-07-27 | XMS | Encounter Summary ---
Demographics + + + | Address | [address] | | | [place] [address] | + + + | Home Phone | | + + + | Preferred Language | Unknown | + + + | Marital Status | | + + + | Methodist Affiliation | 1077 | + + + | Race | Unknown | + + + | Ethnic Group | Unknown | + + + Author + + + | Author | [facility] | | | and Priyankana | + + + | Organization | [facility] | [...] [place] | | | | | [address] | | + + + + + | Karen Duarte | ECON | [address] | | | | | [place], [place] | | | | | [address] | | + + + + + Care Team Providers + +------+ + | Care Wrap Checker Name | Role | Phone | + [...] Specialty | Home Health | Diagnoses | [place], | Prov Hh | | | Services | Services | 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 | [place] | | | Required | | cardiomyopat | [address] | [address] | | | | | hy | AVE [place] | [place] | | | | | Alzheimer's | [place] | [place] | | | | | disease of | [address] | [address] | | | | | other onset | Phone: | Phone: | | | | | with | [phone] | [phone] | | | | | behavioral | Fax: | Fax: | | | | | disturbance | [phone] | [phone] | +--------+ + + + + + Reason for Visit + + + | Reason | Comments | + + + | Home Health | | + + + Encounter Details +--------+ + + + + | Date | Type | Department | Care Team | Description | +--------+ + + + + | 05/15/ | Telephone | [facility] | Carrillo Michel, | Home Health | | 2018 | | MEDICINE [place] | [address] | | | | | [address] | [place] | | | | | [place] | [address] | | | | | [address] | | | | | | [phone] | | | +--------+ + + + [...]
--- OUTSIDE RECORDS SUMMARY | ~2018-07-27 | XMS | Clinical Summary ---
Demographics + + + | Address | [address] | | | [place] [address] | + + + | Home Phone | | + + + | Preferred Language | Unknown | + + + | Marital Status | | + + + | Restorationist Affiliation | 1077 | + + + | Race | Unknown | + + + | Ethnic Group | Unknown | + + + Author + + + | Author | [facility] | | | and Priyankana | + + + | Organization | [facility] | | | and Priyankana | + + + | Address | Unknown | + + + | Phone | Unavailable | + + + Support + + + + + | Name | Relationship | Address | Phone | + + + + + | Braden Ellison | ECON | [address] | | | | | [place] | | | | | [address] | | + + + + + | Karen Duarte | ECON | [address] | | | | | [place] | | | | | [address] | | + + + + + Care Team Providers + +------+ + | Care Aqua Ammonia Operator Name | Role | Phone | [...] | | | | | disease of jackson | | | | | | | | artery of jackson | | | | | | | | heart with stable | | | | | | | | angina pectoris | | | | | | | | ([facility]), Essential | | | | | | [...] + + + | Overview: Problem list parlor chaperone utility | + + + + + [...] artery stenosis in 1 of 2 vessels ([facility]) | 08/07/2012 | + + + + [...] kidney disease) stage 3, GFR 30-59 ml/min ([facility]) | 08/07/2012 | + + + + [...] | | 2017 | Visit | | DISTRIBUTION DESIGNER | hypertension | | | | | [...] | 04/27/ | Telephone | | Carrillo Michel, Veronica Poor Appetite | | 2017 | | | | [...] 3 Months Results Basic Metabolic Panel (06/28/2018 1158) + + + + + | Component [...] (H) | 7 - 18 mg/dL | [facility] | | | | [facility] | | | [facility] | + + + + + | Creatinine, | 1.24 (H) | 0.55 - 1.02 mg/dL | [facility] | | Serum/Plasma | | | [facility] | | | | | [facility] | + + + + + | eGFR if not | 42 (L)Comment: | >=60 mL/min/1.73m2 | [facility] | | [facility] | GLOMERULAR FILTRATION | | [facility] | | | RATE,ESTIMATED mL/min | | TERRI ANA | | | /1.25o1Dvvh than 60 | | LABORATORY | | [...] | [facility] | | | | | [facility] | [facility] | | | | | [facility] | + + + + + | BUN/CREA | 15.3 | | [facility] | | | | | [facility] | | [facility] | | | | | [facility] | + + + + + + + | Specimen | + + | Blood | + + + + + + + | Performing | Address | City/State/Zipcode | Phone Number | | Organization | | | | + + + + + | [facility] | [address] | [place] | [phone] | | [facility] | | [address] | | | [facility] | | | | + + + + + DIAGNOSTIC REPORT - EXTERNAL SCAN (05/17/2018) + + + | Narrative | Performed At | + + + | Ordered by an | | | unspecified provider. | | + + + [place] Esophagram Complete (05/08/2018 0914) + + [...] | | | + +---------+ + + from Last 3 Months Insurance + +--------+ +--------+-------+---------+ | Payer | Benefi | Subscriber | Type | Phone | Address | | | t Plan | ID | | | | | | / | | | | | | | Group | | | | | + +--------+ +--------+-------+---------+ | [employer] | MODA | [id number] | Medica | | | | | [...] | [birth year] | Home: | [address] | | | al/Fam | | 1945 | [phone] | [place] | | | [place] | | | [phone] | [phone] | + +--------+ +--------+ + +
--- OUTSIDE RECORDS SUMMARY | ~2018-07-27 | XMS | Encounter Summary ---
Demographics + + + | Address | [address] | | | [place] [address] | + + + | Home Phone | | + + + | Preferred Language | Unknown | + + + | Marital Status | | + + + | Samaritan Affiliation | 1077 | + + + | Race | Unknown | + + + | Ethnic Group | Unknown | + + + Author + + + | Author | [facility] | | | and Priyankana | + + + | Organization | [facility] | | | and [...] [place] | | | | | [address] | | + + + + + | Karen Duarte | ECON | [address] | | | | | [place] | | | | | [address] | | + + + + + Care Team Providers + +------+ + | Care Tie Tape Machine Operator Name | Role | Phone | [...] + + | 06/29/ | Telephone | [facility] | Carrillo Michel, | Lab Results | | 2018 | | MEDICINE [place] | [address] | | | | | [address] | [place] | | | | | [place] | [id number] | | | | | [address] | | | | | | [phone] | | | +--------+ + + + [...]
--- OUTSIDE RECORDS SUMMARY | ~2018-07-27 | XMS | Encounter Summary ---
Demographics + + + | Address | [address] | | [place] [address] | + + + | Home Phone | | + + + | Preferred Language | Unknown | + + + | Marital Status | | + + + | Buddhism Affiliation | Unknown | + + + | Race | Unknown | + + + | Ethnic Group | Unknown | + + + Author + + + | Author | [facility] | + + + | Organization | [facility] | + + + | Address | Unknown | + + + | Phone | Unavailable | + + + Support + + + + + | Name | Relationship | Address | Phone | + + + + + | Mulu Dolan ECON | [address] | | | | | [place] | | | | | [address] | | + + + + + | Julia Aguilar | ECON | Unknown | | + + + + + Care Team Providers + +------+ + | Care Yarn Bleaching Machine Operator Name | Role | Phone | + +------+ + | Carrillo Michel MD | PCP | Unavailable | + +------+ + Encounter Details +--------+ + + + + | Date | Type | Department | Care Team | Description | +--------+ + + + + | 05/15/ | Telephone | [facility] | Pricilla Berumen | | | 2018 | | Cardiology [place] | | | | | | [address] | | | | | | [place] | | | | | | [address] | | | | | | [phone] | | | +--------+ + + + [...] Cardiology | Cecilia Ortega, | | | 2018 | Visit | | MD Mackenzie Valentin | | | | | | Dr [address], | | | | | | [place] [address] | | | | | | [phone] | | | | | | | | +--------+---------+ + + + as of this encounter Visit Diagnoses Not on filein this encounter"
--- OUTSIDE RECORDS SUMMARY | ~2018-07-27 | XMS | Encounter Summary ---
Demographics + + + | Address | [address] | | | [place] [address] | + + + | Home Phone | | + + + | Preferred Language | Unknown | + + + | Marital Status | | + + + | Yazidism Affiliation | 1077 | + + + | Race | Unknown | + + + | Ethnic Group | Unknown | + + + Author + + + | Author | [facility] | | | and Priyankana | + + + | Organization | [facility] | | | and [...] [place] | | | | | [address] | | + + + + + | Karen Duarte | ECON | [address] | | | | | [place] | | | | | [address] | | + + + + + Care Team Providers + +------+ + | Care Turner Splitter Machine Operator Name | Role | Phone | + +------+ + | Carrillo Michel MD | PCP | | + +------+ + Reason for Visit + + + | Reason | Comments | + + + | Medication Question | | + + + Encounter Details +--------+ + + + + | Date | Type | Department | Care Team | Description | +--------+ + + + + | 07/03/ | Telephone | [facility] | Carrillo Michel, | Medication Question | | 2018 | | MEDICINE [place] | [address] | | | | | [address] | [place] | | | | | [place] | [address] | | | | | [address] | | | | | | [phone] | | | +--------+ + + + [...]
--- OUTSIDE RECORDS SUMMARY | ~2018-07-27 | XMS | Encounter Summary ---
Demographics + + + | Address | [address] | | | [place] [address] | + + + | Home Phone | | + + + | Preferred Language | Unknown | + + + | Marital Status | | + + + | Mormon Affiliation | 1077 | + + + | Race | Unknown | + + + | Ethnic Group | Unknown | + + + Author + + + | Author | [facility] | | | and Priyankana | + + + | Organization | [facility] | | | and Priyankana [...] [place] | | | | | [address] | | + + + + + | Karen Duarte | ECON | [address] | | | | | [place] | | | | | [address] | | + + + + + Care Team Providers + +------+ + | Care Sap Hana Architect Name | Role | Phone | + +------+ + | Carrillo Michel MD | PCP | | + +------+ + Reason for Visit + + + | Reason | Comments | + + + | Hypertension | | + + + Encounter Details +--------+---------+ + + + | Date | Type | Department | Care Team | Description | +--------+---------+ + + + | 06/28/ | Office | [facility] | Cynthia Sykes, | Essential | | 2018 | Visit | [facility]IC[facility] [place] | [place] [address] | hypertension | | | | [address] | [place] | (Primary Dx) | | | | [place] | [address] | | | | | [address] | | | | | | [phone] | | | +--------+---------+ + + + Social History [...] + | Blood Pressure | 148/88 | 06/28/20180 PDT | + + + + | [...] | Body Mass Index | 19.67 | 06/28/20181111 PDT | + + + + in [...] of this encounter Instructions Patient Instructions - Cynthia Sykes ARNP - 06/28/2018 1144 PDTFormatting of this note clark olmedo be different from the original. Go to the lab for blood work. Get a blood pressure check next week. Controlling High Blood Pressure Here are some things you can do to help control your blood pressure. Choose heart-healthy foods Select low-salt, low-fat foods. Limit sodium intake to 2,400 mg per day or the amount vigil ggested by your healthcare provider. Limit canned, dried, cured, packaged, and fast foods. These can contain a lot of salt. Eat 8 to 10 servings of fruits and vegetables every day. Choose lean meats, fish, or chicken. Eat whole-grain pasta, brown rice, and beans. Eat 2 to 3 servings of low-fat or fat-free dairy products. Ask your doctor about the DASH eating plan. This plan helps reduce blood pressure. When you go to a restaurant, ask that your meal be prepared with no added salt. Maintain a healthy weight Ask your healthcare provider how many calories to eat a day. Then stick to that number. Ask your healthcare provider what weight range is healthiest for you. If you are overwei ght, a weight loss of only 3% to 5% of your body weightcan help lower blood pressure. Gene clairly, a good weight loss goal is to lose 10% of your body weight in a year. Limit snacks and sweets. Get regular exercise. Get up and get active Choose activities you enjoy. Find ones you can do with friends or family. This includes bicycling, dancing, walking, and jogging. Park farther away from building entrances. Use stairs instead of the elevator. When you can, walk or bike instead of driving. [place] leaves, garden, or do household repairs. Be active at a moderate to vigorous level of physical activity for at least 40 minutes f or a minimum of 3 to 4 days a week. Manage stress Make time to relax and enjoy life. Find time to laugh. Communicate your concerns with your loved ones and your healthcare provider. Visit with family and friends, and keep up with hobbies. Limit alcohol and quit smoking Men should have no more than 2 drinks per day. Women should have no more than 1 drink per day. Talk with your healthcare provider about quitting smoking. Smoking significantly increas es your risk for heart disease and stroke. Ask your healthcare provider about community smok ing cessation programs and other options. Medicines If lifestyle changes aren t enough, your healthcare provider may prescribe high blood pre ssure medicine. Take all medicines as prescribed. If you have any questions about your medic tiago, ask your healthcare provider before stopping or changing them. Date Last Reviewed: 02/17/201619997436-5199 [employer]. [address] [place] [address]. All righ ts reserved. This information is not intended as a substitute for professional medical care. Always follow your healthcare professional's instructions. in this encounter Progress Notes Cynthia Sykes ARNP - 06/28/2018 1115 PDTFormatting of this note may be different from the original. Mulu Dolan is a 73 y.o. female and patient of Carrillo Michel MD Here with her howard d who helps provide history. Chief Complaint: Hypertension HPI She had home blood pressure check done by her insurance company 06/26 showing 152/104 and was advised to follow up with pcp. She did stop potassium after last visit as it was thought th is bay be contributing to her diarrhea. Hypertension: Control and Compliance Medication compliance: good carvedilol 12.5 mg twice daily Cozaar 100 mg, Furosemide 20 mg She does take isordil 30 mg bid rather than 4 times daily. This was recommended by her card iologist. Home Blood Pressures: 152/104 on 06/26 and other times but doesn't have readings Exercise: no BP: 148/88 BP Readings from Last 3 Encounters: 06/28/18 148/88 05/17/18 102/60 04/23/18 (!) 119/91 Pt denies: No headache, visual symptoms, neurologic problems, syncope No chest pain, palpitations, PERDOMO, orthopnea, PND, peripheral edema No side effects from any antihypertensive medications No fevers or chills. No odor to urine or dysuria/frequency/urgency. Her says her appetite is good and she continues to gain weight. They are getting along okay. When he is feeling overwhelmed, Mulu's daughter with come over to stay with her and provide him respite. Medications: Patient Reported Taking Dosage carvedilol (COREG) 12.5 mg tablet (Taking) Take 1 tablet by mouth 2 times daily (with nicole akfast & dinner). To lower blood pressure and heart rate cholestyramine light (QUESTRAN) 4 g packet (Taking) Take 4 g by mouth 2 times daily. donepezil (ARICEPT) 10 MG tablet (Taking) Take 10 mg by mouth Daily. dronabinol (MARINOL) 2.5 mg capsule (Taking) Take 1 capsule by mouth 2 times daily (befor e meals). Number of times this order has been changed since signin Order Audit Black escitalopram (LEXAPRO) 10 mg tablet (Taking) Take 1 tablet by mouth Daily. To help mood Number of times this order has been changed since signin Order Audit Black furosemide (LASIX) 20 mg tablet (Taking) Take 1 tablet by mouth Daily. Number of times this order has been changed since signin Order Audit Black isosorbide dinitrate (ISORDIL) 30 MG tablet (Taking) Take 30 mg by mouth 2 times daily. Number of times this order has been changed since signin Order Audit Black levothyroxine (SYNTHROID) 50 mcg tablet (Taking) Take 50 mcg by mouth every morning (befo re breakfast). losartan (COZAAR) 100 MG tablet (Taking) Take 1 tablet by mouth Daily. For high blood pre ssure Number of times this order has been changed since signin Order Audit Black mirtazapine (REMERON) 15 MG tablet (Taking) Take 15 mg by mouth nightly. Multiple Vitamin (MULTIVITAMIN PO) (Taking) Take 1 tablet by mouth Daily. Number of times this order has been changed since signin Order Audit Black pantoprazole (PROTONIX) 40 mg tablet (Taking) Take 1 tablet by mouth 2 times daily (befor e meals). Number of times this order has been changed since signin Order Audit Black Past Medical History She has a past medical history of Anxiety; Atrial fibrillation (HCC); Cataract; Chicken pox ; Chronic insomnia; Dementia (2006); Depression; Heart murmur; Heartburn; Hypertension; Shira les; Pacemaker; Renal artery stenosis (HCC); Snoring; and Thyroid disease. Past Surgical History She has a past surgical history that includes Appendectomy (1962); Hysterectomy (1979); MAURO NT PLACEMENT ADDITIONAL VESS (01/2013); Achilles tendon surgery (1992); Colonoscopy (03/17/20); fracture surgery; joint replacement; pacemaker placement (02/25/2017); Cholecystectomy (09/2017); and ERCP (12/09/2008). Family History: Her family history includes Cancer (age of onset: 56) in her father; Other (see comment) (a ge of onset: 80) in her mother. 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 Objective: Vitals: 06/28/18 1112 06/28/18 1140 BP: 152/90 148/88 Pulse: 64 Resp: 16 Temp: 36.4 C (97.6 F) TempSrc: Temporal SpO2: 95% Weight: 49.6 kg (109 lb 5.6 oz) Physical Exam Constitutional: She is oriented to person, place, and time. She appears well-developed and well-nourished. No distress. Pale, thin. HENT: Head: Normocephalic and atraumatic. Eyes: Conjunctivae are normal. Cardiovascular: Normal rate and regular rhythm. Pulmonary/Chest: No respiratory distress. She has no wheezes. She has no rales. Abdominal: Bowel sounds are normal. She exhibits no distension. There is no tenderness. The re is no rebound and no guarding. Musculoskeletal: She exhibits no edema. Neurological: She is alert and oriented to person, place, and time. Skin: Skin is warm and dry. Psychiatric: She has a normal mood and affect. Her behavior is normal. Nursing note and vitals reviewed. Assessment: 1. Essential hypertension Basic Metabolic Panel Plans: 1. Essential hypertension Elevated from baseline. She is not symptomatic. Advised to have bp checked next week. Mulu has a history of labile blood pressure, not changing her medication today. Reviewed warning signs and when to seek medical attention. - Basic Metabolic Panel; Future Follow-up: Overdue for follow up with pcp. Advised I will check with him and let them know when she should be seen when I call with lab results. 25 minute visit > 50% counseling regarding condition, options for treatment, and possible risks. in this encounter Plan of Treatment Not on fileas of this encounter Results Basic Metabolic Panel (06/28/2018 1158) + [...] | [facility] | | | [facility] | | | | [facility] | | | | | LABORATORY | + + + + + | BUN | 19 (H) | 7 - 18 mg/dL | [facility] | | | | | [facility] | | | | | [facility] | | | | | LABORATORY | + + + + + | Creatinine, | 1.24 (H) | 0.55 - 1.02 mg/dL | [facility] | | Serum/Plasma | | | [facility] | | | | | [facility] | | | | | LABORATORY | + + + + + | eGFR if not | 42 (L)Comment: | >=60 mL/min/1.73m2 | [facility] | | DJIBOUTIAN | GLOMERULAR FILTRATION | | [facility] | | | RATE,ESTIMATED mL/min | | [facility] | | | /1.14t2Lumi than 60 | | LABORATORY | | [...] + + + + + | [facility] | [address] | [place] | [phone] | | [facility] | | [address] | | | PARK LAB[facility] | | | | + + + + + in this encounter Visit Diagnoses + + | Diagnosis | + + | Essential hypertension - Primary | + + | Unspecified essential hypertension | + +"
--- OUTSIDE RECORDS SUMMARY | ~2018-07-27 | XMS | Encounter Summary ---
Demographics + + + | Address | [address] | | | [place] [address] | + + + | Home Phone | | + + + | Preferred Language | Unknown | + + + | Marital Status | | + + + | Confucianism Affiliation | 1077 | + + + | Race | Unknown | + + + | Ethnic Group | Unknown | + + + Author + + + | Author | [facility] | | | and Priyankana | + + + | Organization | [facility] [...] [place] | | | | | [address] | | + + + + + | Karen Duarte | ECON | [address] | | | | | [place] | | | | | [address] | | + + + + + Care Team Providers + +------+ + | Care Steward/Stewardess Railroad Dining Car Name | Role | Phone | + [...] + + | 07/17/ | Telephone | [facility] | Carrillo Michel, | Medication | | 2018 | | MEDICINE [place] | [address] | Management | | | | [address] | [place] | (isosorbide | | | | [place] | [address] | dinitrate) | | | | [address] | | | | | | [phone] | | | +--------+ + + + [...] + + | Coronary artery disease of [place] artery of [place] heart with stable angina pectoris | | (HCC) - Primary | + + | Essential hypertension | + + | Unspecified essential hypertension | + +"
--- OUTSIDE RECORDS SUMMARY | ~2018-07-27 | XMS | Encounter Summary ---
Demographics + + + | Address | [address] | | | [place] [address] | + + + | Home Phone | | + + + | Preferred Language | Unknown | + + + | Marital Status | | + + + | Scientology Affiliation | 1077 | + + + | Race | Unknown | + + + | Ethnic Group | Unknown | + + + Author + + + | Author | [facility] | | | and Priyankana | + + + | Organization | [facility] | | | and Priyankana [...] [place] | | | | | [address] | | + + + + + | Karen Duarte | ECON | [address] | | | | | [place] | | | | | [address] | | + + + + + Care Team Providers + +------+ + | Care Log Deckman Name | Role | Phone | + [...] + + | 07/17/ | Telephone | [facility] | Carrillo Michel, | Medication | | 2018 | | MEDICINE [place] | [address] | Management | | | | [address] | [place] | (isosorbide | | | | [place] | [address] | dinitrate) | | | | [address] | | | | | | [phone] | | | +--------+ + + + [...] + + | Coronary artery disease of [place] artery of [place] heart with stable angina pectoris | | (HCC) - Primary | + + | Essential hypertension | + + | Unspecified essential hypertension | + +"
--- OUTSIDE RECORDS SUMMARY | ~2018-07-27 | XMS | Encounter Summary ---
Demographics + + + | Address | [address] | | | [place] [address] | + + + | Home Phone [...] + | Author | [facility] | | | and Priyankana | + + + | Organization | [facility] | | | and [...] [place] | | | | | [address] | | + + + + + | Karen Duarte | ECON | [address] | | | | | [place] | | | | | [address] | | + + + + + Care Team Providers + +------+ + | Care Sausage Smoker Name | Role | Phone | + [...] + + | 06/18/ | Refill | [facility] | Carrillo Michel, | Medication Refill | | 2018 | | MEDICINE [place] | [address] | | | | | [address] | [place] | | | | | [place] | [address] | | | | | [address] | | | | | | [phone] | | | +--------+--------+ + + + [...]
--- OUTSIDE RECORDS SUMMARY | ~2018-07-27 | XMS | Encounter Summary ---
Demographics + + + | Address | [address] | | | [place] [address] | + + + | Home Phone | | + + + | Preferred Language | Unknown | + + + | Marital Status | | + + + | Gnosticism Affiliation | 1077 | + + + | Race | Unknown | + + + | Ethnic Group | Unknown | + + + Author + + + | Author | [facility] | | | and Priyankana | + + + | Organization | [facility] | | | and Priyankana | [...] [place] | | | | | [address] | | + + + + + | Karen Duarte | ECON | [address] | | | | | [place] | | | | | [address] | | + + + + + Care Team Providers + +------+ + | Care Webmethods Architect Name | Role | Phone | [...] + + | 05/14/ | Telephone | [facility] | Darwin López MD | Results, Imaging | | 2018 | | GASTROENTEROLOGY | [address], [place] | (Esophagram shows | | | | [address] [place] | [address] [place], [place] | mild achalasia) | | | | [address] [place], [place] | [address] | | | | | [address] | | | | | | [phone] | | | +--------+ + + + [...]
--- OUTSIDE RECORDS SUMMARY | ~2018-07-27 | XMS | Encounter Summary ---
Demographics + + + | Address | [address] | | | [place] [address] | + + + | Home Phone | | + + + | Preferred Language | Unknown | + + + | Marital Status | | + + + | Mandaeism Affiliation | 1077 | + + + | Race | Unknown | + + + | Ethnic Group | Unknown | + + + Author + + + | Author | [facility] | | | and Priyankana | + + + | Organization | [facility] | | | and Priyankana [...] [place] | | | | | [address] | | + + + + + | Karen Duarte | ECON | [address] | | | | | [place] | | | | | [address] | | + + + + + Care Team Providers + +------+ + | Care Fire Crew Worker Name | Role | Phone | [...] + + | 05/18/ | Telephone | [facility] | Carrillo Michel, | Paperwork | | 2018 | | MEDICINE [place] | [address] | | | | | [address] | [place] | | | | | [place] | [address] | | | | | [address] | | | | | | [phone] | | | +--------+ + + + [...]
--- OUTSIDE RECORDS SUMMARY | ~2018-07-27 | XMS | Encounter Summary ---
Demographics + + + | Address | [address] | | | [place] [address] | + + + | Home Phone | | + + + | Preferred Language | Unknown | + + + | Marital Status | | + + + | Quaker Affiliation | 1077 | + + + | Race | Unknown | + + + | Ethnic Group | Unknown | + + + Author + + + | Author | [facility] | | | and Priyankana | + + + | Organization | [facility] | | | and Priyankana | + + + | Address | Unknown | + + + | Phone | Unavailable | + + + Support + + + + + | Name | Relationship | Address | Phone | + + + + + | Braden Doaln | ECON | [address] | | | | | [place] | | | | | [address] | | + + + + + | Karen Duarte | ECON | [address] | | | | | [place] | | | | | [address] | | + + + + + Care Team Providers + +------+ + | Care Salesperson [employer] Glassware Name | Role | Phone | + [...] + + | 05/14/ | Telephone | [facility] | Darwin López MD | Results, Imaging | | 2018 | | GASTROENTEROLOGY | [address], [place] | (Esophagram shows | | | | [address] [place] | [address] [place], [place] | mild achalasia) | | | | [address] [place], [place] | [address] | | | | | [address] | | | | | | [phone] | | | +--------+ + + + [...]
--- OUTSIDE RECORDS SUMMARY | ~2018-07-27 | XMS | Encounter Summary ---
Demographics + + + | Address | [address] | | [place] [address] | + + + | Home Phone | | + + + | Preferred Language | Unknown | + + + | Marital Status | | + + + | Catholic Affiliation | Unknown | + + + | Race | Unknown | + + + | Ethnic Group | Unknown | + + + Author + + + | Author | [facility] | + + + | Organization | [facility] | + + + | Address | Unknown | + + + | Phone | Unavailable | + + + Support + + + + + | Name | Relationship | Address | Phone | + + + + + | Mulu Dolan ECON | [address] | | | | [place] | | | | | [address] | | + + + + + | Julia Aguilar | ECON | Unknown | | + + + + + Care Team Providers + +------+ + | Care Employment Agency Manager Name | Role | Phone | + +------+ + | Carrillo Michel MD | PCP | Unavailable | + +------+ + Encounter Details +--------+ + + + + | Date | Type | Department | Care Team | Description | +--------+ + + + + | 06/28/ | Orders Only | [facility] | Gilbert Rodriguez, | CKD (chronic kidney | | 2018 | | [place] [address] | [place] [address] | disease) stage 3, | | | | [address] | [address] | GFR 30-59 ml/min | | | | [place] [address] | [place] [address] | (Primary Dx) | | | | [phone] | [phone] | | | | | | | [...] [place], | | | | | | [place] [address] | | | | | | [phone] | | | | | | | | +--------+---------+ + + + + +--------+ + + | Name | Priori | Associated Diagnoses | Order Schedule | | | ty | | | + +--------+ + + | Renal function panel | Routin | CKD (chronic | Expected: | | | e | kidney disease) | 12/26/2018, Expires: | | | | stage 3, GFR 30-59 | 06/28/2019 | | | | ml/min | | + +--------+ + + | CBC W/Auto Diff (Reflex to | Routin | CKD (chronic | Expected: | | Manual) | e | kidney disease) | 12/26/2018, Expires: | | | | stage 3, GFR 30-59 | 06/28/2019 | | | | ml/min | | + +--------+ + + | Magnesium | Routin | CKD (chronic | Expected: | | | e | kidney disease) | 12/26/2018, Expires: | | | | stage 3, GFR 30-59 | 06/28/2019 | | | | ml/min | | + +--------+ + + | Uric acid | Routin | CKD (chronic | Expected: | | | e | kidney disease) | 12/26/2018, Expires: | | | | stage 3, GFR 30-59 | 12/26/2018 | | | | ml/min | | + +--------+ + + | Protein / creatinine ratio, urine | Routin | CKD (chronic | Expected: | | | e | kidney disease) | 12/26/2018, Expires: | | | | stage 3, GFR 30-59 | 06/28/2019 | | | | ml/min | | + +--------+ + + as of this encounter Visit Diagnoses + + | Diagnosis | + + | CKD (chronic kidney disease) stage 3, GFR 30-59 ml/min ([facility] - Primary | + + | Chronic kidney disease, Stage III (moderate) | + +"
--- OUTSIDE RECORDS SUMMARY | ~2018-07-27 | XMS | Encounter Summary ---
Demographics + + + | Address | [address] | | | [place] [address] | + + + | Home Phone | | + + + | Preferred Language | Unknown | + + + | Marital Status | | + + + | Christianity Affiliation | 1077 | + + + | Race | Unknown | + + + | Ethnic Group | Unknown | + + + Author + + + | Author | [facility] | | | and Priyankana | + + + | Organization | [facility] | | | and Priyankana | + + + | Address | Unknown | + + + | Phone | Unavailable | + + + Support + + + + + | Name | Relationship | Address | Phone | + + + + + | Braden Dolan | ECON | [address] | | | | | [place] | | | | | [address] | | + + + + + | Karen Duarte | ECON | [address] | | | | | [place], [place] | | | | | [address] | | + + + + + Care Team Providers + +------+ + | Care Book Or Script Editor Name | Role | Phone | + [...] | Specialty | Gastroenterol | Diagnoses | [place], | [place], | | | Services | ogy | Dysphagia, | Carrillo Omer MD | Darwin Qiu MD | | | Required | | unspecified | [address] | [address], | | | | | type | [address] [place] | [address] | | | | | | [place], [place] | [place], | | | | | | [address] | [place] [address] | | | | | | Phone: | Phone: | | | | | | [phone] | [phone] | | | | | | Fax: | Fax: | | | | | | [phone] | [phone] | + + + + + + + Reason for Visit + + + | Reason | Comments | + + + | Poor Appetite | | + + + Encounter Details +--------+ + + + + | Date | Type | Department | Care Team | Description | +--------+ + + + + | 04/27/ | Telephone | [facility] | Carrillo Michel, | Ana Appetite | | 2018 | | MEDICINE [place] | [address] | | | | | [address] | [place] | | | | | [place] | [address] | | | | | [address] | | | | | | [phone] | | | +--------+ + + + [...]
--- OUTSIDE RECORDS SUMMARY | ~2018-07-27 | XMS | Encounter Summary ---
Demographics + + + | Address | [address] | | | [place] [address] | + + + | Home Phone | | + + + | Preferred Language | Unknown | + + + | Marital Status | | + + + | Congregational Affiliation | 1077 | + + + | Race | Unknown | + + + | Ethnic Group | Unknown | + + + Author + + + | Author | [facility] | | | and Priyankana | + + + | Organization | [facility] | | | and Priyankana [...] [place] | | | | | [address] | | + + + + + | Karen Duarte | ECON | [address] | | | | | [place] | | | | | [address] | | + + + + + Care Team Providers + +------+ + | Care Operation Shift Supervisor Name | Role | Phone | [...] + | 06/29/ | Telephone | [facility] | Carrillo Michel, | Results | | 2018 | | MEDICINE [place] | [address] | | | | | [address] | [place] | | | | | [place] | [address] | | | | | [address] | | | | | | [phone] | | | +--------+ + + + [...]
--- OUTSIDE RECORDS SUMMARY | ~2018-07-27 | XMS | Encounter Summary ---
Demographics + + + | Address | [address] | | | [place] [address] | + + + | Home Phone | | + + + | Preferred Language | Unknown | + + + | Marital Status | | + + + | Adventist Affiliation | 1077 | + + + | Race | Unknown | + + + | Ethnic Group | Unknown | + + + Author + + + | Author | [facility] | | | and Priyankana | + + + | Organization | [facility] | | | and [...] [place] | | | | | [address] | | + + + + + | Karen Duarte | ECON | [address] | | | | | [place] | | | | | [address] | | + + + + + Care Team Providers + +------+ + | Care Cigar Bander Name | Role | Phone | + [...] + | 06/29/ | Telephone | [facility] | Carrillo Michel, | Results | | 2018 | | [place] | [address] | | | | | [address] | [place] | | | | | [place] | [address] | | | | | [address] | | | | | | [phone] | | | +--------+ + + + [...]
--- OUTSIDE RECORDS SUMMARY | ~2018-07-27 | XMS | Encounter Summary ---
Demographics + + + | Address | [address] | | | [place] [address] | + + + | Home Phone [...] | Author | [facility] | | | and Priyankana | + + + | Organization | [facility] | | | and [...] [place] | | | | | [address] | | + + + + + | Karen Duarte | ECON | [address] | | | | | [place] | | | | | [address] | | + + + + + Care Team Providers + +------+ + | Care Coroner Forensic Technician Name | Role | Phone | [...] + + | 05/17/ | Office | [facility] | Carrillo Michel, | Ischemic | | 2018 | Visit | [facility]IC[facility] [place] | [address] | cardiomyopathy | | | | [address] | [place] | (Primary Dx); Atrial | | | | [place], [place] | [address] | fibrillation, | | | | [address] | | chronic (HCC); | | | | [phone] | | Essential | | | | [...] Other (orders signed for home health- for [place]). Accompanied by . HPI She was admitted to [facility] 04/18-04/23/18 for ischemic cardiomyopathy, aspiration pneumonia , and respiratory failure. She was treated with IV diuretics, levaquin. She also worked [employer]. Stool studies were negative. She was discharged from [place] 05/13/18. She has d one very well [...]
--- OUTSIDE RECORDS SUMMARY | ~2018-07-27 | XMS | Encounter Summary ---
Demographics + + + | Address | [address] | | [place] [address] | + + + | Home Phone | | + + + | Preferred Language | Unknown | + + + | Marital Status | | + + + | Latter Day Affiliation | Unknown | + + + | Race | Unknown | + + + | Ethnic Group | Unknown | + + + Author + + + | Author | [facility] | + + + | Organization | [facility] | + + + | Address | Unknown | + + + | Phone | Unavailable | + + + Support + + + + + | Name | Relationship | Address | Phone | + + + + + | Mulu Dolan ECON | [address] | | | | | [place] | | | | | [address] | | + + + + + | Julia Aguilar | ECON | Unknown | | + + + + + Care Team Providers + +------+ + | Care Belt And Link Assembly Supervisor Name | Role | Phone | [...] + | 05/16/ | Refill | [facility] | Aranza Jauregui, | Medication Refill | | 2017 | | Cardiology [place] | RD | | | | | [address] [facility] [address] | | | | | | [facility] [address] | | | | | | [place] [address] | | | | | | [phone] | | | +--------+--------+ + + + [...] | | | | | | [place] [address] | | | | | | [phone] | | | | | | | | +--------+---------+ + + + as of this encounter Visit Diagnoses Not on filein this encounter"
--- OUTSIDE RECORDS SUMMARY | ~2018-07-27 | XMS | Clinical Summary ---
Demographics + + + | Address | [address] | | | [place] [address] | + + + | Home Phone | | + + + | Preferred Language | Unknown | + + + | Marital Status | | + + + | Moravian Affiliation | Unknown | + + + | Race | Unknown | + + + | Ethnic Group | Unknown | + + + Author + + + | Author | [email or web address] | + + + | Organization | [email or web address] | + + + | Address | Unknown | + + + | Phone | Unavailable | + + + Support + + + + + | Name | Relationship | Address | Phone | + + + + + | Laila Ellison ECON | [address] | | | | [place] | | | | | [address] | | + + + + + | Julai Aguilar | ECON | Unknown | | + + + + + Care Team Providers + +------+ + | Care Surfacer Operator Name | Role | Phone | [...] + + | 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 | | 71yo WF, with dementia, she is here with her . Although | | she does not recall her recent hospitalization, nor her symptoms, | | he admits that she had chest discomfort, was admitted to the [facility] hospital. Cardiac enzymes were mildly abnormal, she was sent to | | [facility], there, she did have a cardiology [...] kidney | | 2017 | | | CIVILIAN JAIL OFFICER | disease) stage 3, | | | [...] | | | | | | [place] [address] | | | | | | [phone] | | | | | | | [...] | Rhythm | | | | | [address] | | | | | | | [...] [place] - [place] | [place] - | [id number] | Medica | | | | | [...] | | | [place] | | | [address] | [address] | + +--------+ +--------+ + +
--- OUTSIDE RECORDS SUMMARY | ~2018-07-27 | XMS | Encounter Summary ---
Demographics + + + | Address | [address] | | | [place] [address] | + + + | Home Phone | | + + + | Preferred Language | Unknown | + + + | Marital Status | | + + + | Lutheran Affiliation | 1077 | + + + | Race | Unknown | + + + | Ethnic Group | Unknown | + + + Author + + + | Author | [facility] | | | and Priyankana | + + + | Organization | [facility] | | | and [...] [place] | | | | | [address] | | + + + + + | Karen Duarte | ECON | [address] | | | | | [place] | | | | | [address] | | + + + + + Care Team Providers + +------+ + | Care Medical Sales Consultant Name | Role | Phone | [...] + + | 07/03/ | Telephone | [facility] | Carrillo Michel, | Medication Question | | 2018 | | MEDICINE [place] | [address] | | | | | [address] | [place] | | | | | [place] | [id number] | | | | | [address] | | | | | | [phone] | | | +--------+ + + + [...]
--- OUTSIDE RECORDS SUMMARY | ~2018-07-27 | XMS | Encounter Summary ---
Demographics + + + | Address | [address] | | | [place] [address] | + + + | Home Phone | | + + + | Preferred Language | Unknown | + + + | Marital Status | | + + + | Yazidi Affiliation | Unknown | + + + | Race | Unknown | + + + | Ethnic Group | Unknown | + + + Author + + + | Author | [facility] | + + + | Organization | [facility] | + + + | Address | Unknown | + + + | Phone | Unavailable | + + + Support + + + + + | Name | Relationship | Address | Phone | + + + + + | Mulu Dolan ECON | [address] | | | | | [place] | | | | | [address] | | + + + + + | Julia Aguilar | ECON | Unknown | | + + + + + Care Team Providers + +------+ + | Care Director Clinical Information Services Name | Role | Phone | + +------+ + | Carrillo Michel MD | PCP | Unavailable | + +------+ + Encounter Details +--------+ + + + + | Date | Type | Department | Care Team | Description | +--------+ + + + + | 05/15/ | Telephone | [facility] | Pricilla Berumen | | | 2018 | | Cardiology [place] | | | | | | [address] | | | | | | [place] | | | | | | [address] | | | | | | [phone] | | | +--------+ + + + [...] [place], | | | | | | [place] [address] | | | | | | [phone] | | | | | | | | +--------+---------+ + + + as of this encounter Visit Diagnoses Not on filein this encounter"
--- OUTSIDE RECORDS SUMMARY | ~2018-07-27 | XMS | Encounter Summary ---
Demographics + + + | Address | [address] | | | [place] [address] | + + + | Home Phone | | + + + | Preferred Language | Unknown | + + + | Marital Status | | + + + | Sikhism Affiliation | 1077 | + + + | Race | Unknown | + + + | Ethnic Group | Unknown | + + + Author + + + | Author | [facility] | | | and Priyankana | + + + | Organization | [facility] | | | and Priyankana [...] [place] | | | | | [address] | | + + + + + | Karen Duarte | ECON | [address] | | | | | [place] | | | | | [address] | | + + + + + Care Team Providers + +------+ + | Care Lead Blender Name | Role | Phone | + [...] + + | 05/22/ | Telephone | [facility] | Carrillo Michel, | Medication Prior | | 2018 | | MEDICINE [place] | [address] | Authorization | | | | [address] | [place] | (Dronabinol) | | | | [place] | [address] | | | | | [address] | | | | | | [phone] | | | +--------+ + + + [...]
--- OUTSIDE RECORDS SUMMARY | ~2018-07-27 | XMS | Clinical Summary ---
Demographics + + + | Address | [address] | | | [place] [address] | + + + | Home Phone | | + + + | Preferred Language | Unknown | + + + | Marital Status | | + + + | Roman Catholic Affiliation | 1077 | + + + | Race | Unknown | + + + | Ethnic Group | Unknown | + + + Author + + + | Author | [facility] | | | and Priyankana | + + + | Organization | [facility] | | | and [...] [place] | | | | | [address] | | + + + + + | Karen Duarte | ECON | [address] | | | | | [place] | | | | | [address] | | + + + + + Care Team Providers + +------+ + | Care Design Leader Name | Role | Phone | + [...] | | | | | disease of [place] | | | | | | | | artery of [place] | | | | | | | | heart with stable | | | | | | | | angina pectoris | | | | | | | | ([facility]), Essential | | | | | | [...] + + + | Overview: Problem list educational programming director utility | + + + + + [...] artery stenosis in 1 of 2 vessels ([facility]) | 08/07/2012 | + + + [...] kidney disease) stage 3, GFR 30-59 ml/min ([facility]) | 08/07/2012 | + + + [...] | | 2017 | Visit | | MARIONETTE PERFORMER | hypertension | | | | | [...] | >=60 mL/min/1.73m2 | [facility] | | PRYDEINIG | GLOMERULAR FILTRATION | | [place] | | | RATE,ESTIMATED mL/min | | TERRI ANA | | | /[id number] than 60 | | LABORATORY | | [...] + + + | [facility] | [address] | [place] | [phone] | | [facility] | | [address] | | | [facility] | | [...] | [facility] | [facility] | [id number] | Medica | | | | | [...] | [place] | | | [address] | [address] | + +--------+ +--------+ + +
--- OUTSIDE RECORDS SUMMARY | ~2018-07-27 | XMS | Encounter Summary ---
Demographics + + + | Address | [address] | | | [place] [address] | + + + | Home Phone [...] Author | [facility] | | | and Priyankana | + + + | Organization | [facility] | | [...] [place] | | | | | [address] | | + + + + + | Karen Duarte | ECON | [address] | | | | | [place] | | | | | [address] | | + + + + + Care Team Providers + +------+ + | Care Roofing Sales Representative Name | Role | Phone | + [...] + + | 07/05/ | Telephone | [facility] | Carrillo Michel, | Appointment (med | | 2018 | | MEDICINE [place] | [address] | question) | | | | [address] | [place] | | | | | [place] | [address] | | | | | [address] | | | | | | [phone] | | | +--------+ + + + [...]
--- OUTSIDE RECORDS SUMMARY | ~2018-07-27 | XMS | Encounter Summary ---
Demographics + + + | Address | [address] | | | [place] [address] | + + + | Home Phone | | + + + | Preferred Language | Unknown | + + + | Marital Status | | + + + | Faith Affiliation | 1077 | + + + | Race | Unknown | + + + | Ethnic Group | Unknown | + + + Author + + + | Author | [facility] | | | and Priyankana | + + + | Organization | [facility] | | | and [...] [place] | | | | | [address] | | + + + + + | Karen Duarte | ECON | [address] | | | | | [place], [place] | | | | | [address] | | + + + + + Care Team Providers + +------+ + | Care Physician Credentialing Specialist Name | Role | Phone | [...] | Specialty | Gastroenterol | Diagnoses | [place], | Mar[place], | | | Services | ogy | Dysphagia, | Carrillo Omer MD | Darwin Qiu MD | | | Required | | unspecified | [address] | [address], | | | | | type | [address] [place] | [address] | | | | | | [place], [place] | [place], | | | | | | [address] | [place] [address] | | | | | | Phone: | Phone: | | | | | | [phone] | [phone] | | | | | | Fax: | Fax: | | | | | | [phone] | [phone] | + + + + + + + Reason for Visit + + + | Reason | Comments | + + + | Poor Appetite | | + + + Encounter Details +--------+ + + + + | Date | Type | Department | Care Team | Description | +--------+ + + + + | 04/27/ | Telephone | [facility] | Carrillo Michel, | Ana Appetite | | 2018 | | MEDICINE [place] | [address] | | | | | [address] | [place] | | | | | [place] | [address] | | | | | [address] | | | | | | [phone] | | | +--------+ + + + [...]
--- OUTSIDE RECORDS SUMMARY | ~2018-07-27 | XMS | Encounter Summary ---
Demographics + + + | Address | [address] | | [place] [address] | + + + | Home Phone | | + + + | Preferred Language | Unknown | + + + | Marital Status | | + + + | Amish Affiliation | Unknown | + + + | Race | Unknown | + + + | Ethnic Group | Unknown | + + + Author + + + | Author | [facility] | + + + | Organization | [facility] | + + + | Address | Unknown | + + + | Phone | Unavailable | + + + Support + + + + + | Name | Relationship | Address | Phone | + + + + + | Mulu Dolan ECON | [address] | | | | | [place] | | | | | [address] | | + + + + + | Julia Aguilar | ECON | Unknown | | + + + + + Care Team Providers + +------+ + | Care Assembling Fabricator Name | Role | Phone | + [...] ml/min | | | | [place] [address] | [place] [address] | (Primary Dx) | | | | [phone] | [phone] | | | | | | | [...] [place], | | | | | | [place] [address] | | | | | | [phone] | | | | | | | [...] kidney disease) stage 3, GFR 30-59 ml/min ([facility]) - Primary | + + | Chronic kidney disease, Stage III (moderate) | + +"
--- OUTSIDE RECORDS SUMMARY | ~2018-07-27 | XMS | Encounter Summary ---
Demographics + + + | Address | [address] | | | [place] [address] | + + + | Home Phone | | + + + | Preferred Language | Unknown | + + + | Marital Status | | + + + | Rastafari Affiliation | 1077 | + + + | Race | Unknown | + + + | Ethnic Group | Unknown | + + + Author + + + | Author | [facility] | | | and Priyankana | + + + | Organization | [facility] | | [...] [place] | | | | | [address] | | + + + + + | Karen Duarte | ECON | [address] | | | | | [place], [place] | | | | | [address] | | + + + + + Care Team Providers + +------+ + | Care Utilities Ground Worker Name | Role | Phone | [...] unspecified | [address] | [address] | | | | | type | [place], [place] | [place], | | | | | | [address] [place] | [place] | | | | | | [place], [place] | [address] | | | | | | [address] | Phone: | | | | | | Phone: | [phone] | | | | | | [phone] | Fax: | | | | | | Fax: | [phone] | | | | | | [phone] | | + + + + + + + Reason for Visit + + + | Reason | Comments | + + + | Referral | GI | + + + Encounter Details +--------+ + + + + | Date | Type | Department | Care Team | Description | +--------+ + + + + | 05/04/ | Telephone | [facility] | Darwin López MD | Referral (GI) | | 2018 | | GASTROENTEROLOGY | [address], [place] | | | | | [address] [place] | [address] [place], [place] | | | | | [address] [place], [place] | [address] | | | | | [address] | | | | | | [phone] | | | +--------+ + + + [...] + + | Performing | Address | City/State[facility] | Phone Number | | Organization | | | | + +---------+ + + | [facility] | | | | + +---------+ + + in this encounter Visit Diagnoses + + | Diagnosis | + + | Dysphagia, unspecified type - Primary | + +"
--- OUTSIDE RECORDS SUMMARY | ~2018-07-27 | XMS | Encounter Summary ---
Demographics + + + | Address | [address] | | | [place] [address] | + + + | Home Phone | | + + + | Preferred Language | Unknown | + + + | Marital Status | | + + + | Episcopal Affiliation | Unknown | + + + | Race | Unknown | + + + | Ethnic Group | Unknown | + + + Author + + + | Author | [facility] | + + + | Organization | [facility] | + + + | Address | Unknown | + + + | Phone | Unavailable | + + + Support + + + + + | Name | Relationship | Address | Phone | + + + + + | Mulu Dolan ECON | [address] | | | | | [place] | | | | | [address] | | + + + + + | Julia Aguilar | ECON | Unknown | | + + + + + Care Team Providers + +------+ + | Care Airbrush Painter Name | Role | Phone | + [...] + | 05/16/ | Refill | [facility] | Aranza Jauregui, | Medication Refill | | 2017 | | Cardiology [address]iza | [address] | | | | | [address] [facility] [address] | | | | | | [facility] [address] | | | | | | [place] [address] | | | | | | [phone] | | | +--------+--------+ + + + [...] | | | | | | [place] [address] | | | | | | [phone] | | | | | | | | +--------+---------+ + + + as of this encounter Visit Diagnoses Not on filein this encounter"
--- OUTSIDE RECORDS SUMMARY | ~2018-07-27 | XMS | Encounter Summary ---
Demographics + + + | Address | [address] | | | [place] [address] | + + + | Home Phone | | + + + | Preferred Language | Unknown | + + + | Marital Status | | + + + | Samaritan Affiliation | Unknown | + + + | Race | Unknown | + + + | Ethnic Group | Unknown | + + + Author + + + | Author | [facility] | + + + | Organization | [facility] | + + + | Address | Unknown | + + + | Phone | Unavailable | + + + Support + + + + + | Name | Relationship | Address | Phone | + + + + + | Mulu Dolan ECON | [address] | | | | [place] | | | | | [address] | | + + + + + | Julia Aguilar | ECON | Unknown | | + + + + + Care Team Providers + +------+ + | Care Toy Packer Name | Role | Phone | + [...] | | | | | [place] [address] | | | | | | [phone] | | | +--------+ + + + [...] | | | | | | [place] [address] | | | | | | [phone] | | | | | | | | +--------+---------+ + + + as of this encounter Visit Diagnoses Not on filein this encounter"
--- OUTSIDE RECORDS SUMMARY | ~2018-07-27 | XMS | Encounter Summary ---
Demographics + + + | Address | [address] | | | [place] [address] | + + + | Home Phone | | + + + | Preferred Language | Unknown | + + + | Marital Status | | + + + | Confucianism Affiliation | 1077 | + + + | Race | Unknown | + + + | Ethnic Group | Unknown | + + + Author + + + | Author | [facility] | | | and Priyankana | + + + | Organization | [facility] | | | and Priyankana [...] [place] | | | | | [address] | | + + + + + | Karen Duarte | ECON | [address] | | | | | [place], [place] | | | | | [address] | | + + + + + Care Team Providers + +------+ + | Care Granulator Operator Name | Role | Phone | [...] unspecified | [address] | [address] | | | | | type | [place], [place] | [place], | | | | | | [address] [place] | [place] | | | | | | [place], [place] | [address] | | | | | | [address] | Phone: | | | | | | Phone: | [phone] | | | | | | [phone] | Fax: | | | | | | Fax: | [phone] | | | | | | [phone] | | + + + + + + + Reason for Visit + + + | Reason | Comments | + + + | Referral | GI | + + + Encounter Details +--------+ + + + + | Date | Type | Department | Care Team | Description | +--------+ + + + + | 05/04/ | Telephone | [facility] | Darwin López MD | Referral (GI) | | 2018 | | GASTROENTEROLOGY | [address], [place] | | | | | [address] [place] | [address] [place], [place] | | | | | [address] [place], [place] | [address] | | | | | [address] | | | | | | [phone] | | | +--------+ + + + [...] + + | Performing | Address | City/State[facility] | Phone Number | | Organization | | | | + +---------+ + + | [facility] | | | | + +---------+ + + in this encounter Visit Diagnoses + + | Diagnosis | + + | Dysphagia, unspecified type - Primary | + +"
--- OUTSIDE RECORDS SUMMARY | ~2018-07-27 | XMS | Encounter Summary ---
Demographics + + + | Address | [address] | | | [place] [address] | + + + | Home Phone | | + + + | Preferred Language | Unknown | + + + | Marital Status | | + + + | Jainism Affiliation | [id number] | + + + | Race | Unknown | + + + | Ethnic Group | Unknown | + + + Author + + + | Author | [facility] | | | and Priyankana | + + + | Organization | [facility] | | | and Priyankana [...] [place] | | | | | [address] | | + + + + + | Karen Duarte | ECON | [address] | | | | | [place] | | | | | [address] | | + + + + + Care Team Providers + +------+ + | Care Stripper And Opaquer Apprentice Name | Role | Phone | [...] + + | 06/28/ | Office | [facility] | Cynthia Sykes, | Essential | | 2018 | Visit | [facility] [place] | HEATING ELEMENT REPAIRER [address] | hypertension | | | | [address] | [place] | (Primary Dx) | | | | [place] | [address] | | | | | [address] | | | | | | [phone] | | | +--------+---------+ + + + [...] can, walk or bike instead of driving. [place] leaves, garden, or do household repairs. Be [...] stopping or changing them. Date Last Reviewed: 02/17/[id number] [employer]. [address] [place] [address]. All righ ts reserved. This information is [...] has been changed since signin Order [facility] [place] escitalopram (LEXAPRO) 10 mg tablet (Taking) Take 1 tablet by mouth Daily. To help mood Number of times this order has been changed since signin [facility] [place] furosemide (LASIX) 20 mg tablet (Taking) Take 1 tablet by mouth Daily. Number of times this order has been changed since signin [facility] [place] isosorbide dinitrate (ISORDIL) 30 MG tablet (Taking) Take 30 mg by mouth 2 times daily. Number of times this order has been changed since signin [facility] [place] levothyroxine (SYNTHROID) 50 mcg tablet (Taking) Take 50 mcg by mouth every morning (befo re breakfast). losartan (COZAAR) 100 MG tablet (Taking) Take 1 tablet by mouth Daily. For high blood pre ssure Number of times this order has been changed since signin [facility] [place] mirtazapine (REMERON) 15 MG tablet (Taking) Take 15 mg by mouth nightly. Multiple Vitamin (MULTIVITAMIN PO) (Taking) Take 1 tablet by mouth Daily. Number of times this order has been changed since signin [facility] [place] pantoprazole (PROTONIX) 40 mg tablet (Taking) Take 1 tablet by mouth 2 times daily (befor e meals). 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 Social History Main Topics Smoking status: Former [...] | [facility] | | [facility] | | | | [facility] | | | | | [facility] | + + + + + | BUN | 19 (H) | 7 - 18 mg/dL | [facility] | | | | | [facility] | | | | | [facility] | | | | | LAB[facility]ATORY | + + + + + | Creatinine, | 1.24 (H) | 0.55 - 1.02 mg/dL | [facility] | | Serum/Plasma | | | [facility] | | | | | [facility] | | | | | LABORATORY | + + + + + | eGFR if not | 42 (L)Comment: | >=60 mL/min/1.73m2 | [facility] | | SAMMARINESE | GLOMERULAR FILTRATION | | [facility] | | | RATE,ESTIMATED mL/min | | [facility] | | | /1.42e9Kmdg than 60 | | LABORATORY | | [...] + + + | [facility] | [address] | [place] | [phone] | | [facility] | | [address] | | | [facility] | | | | + + + + + in this encounter Visit Diagnoses + + | Diagnosis | + + | Essential hypertension - Primary | + + | Unspecified essential hypertension | + +"
[~2018-07-27 13:41] MED LIST changes: +MARINOL2.5 MG PO
--- OUTSIDE RECORDS SUMMARY | 2018-07-27 13:46 | XMS ---
PreManage Notification: LAILA ELLISON Security Parts Salvager Events No recent Security Events currently on file CRITERIA MET - Group Notification - 6 ED Visits in 6 Months - [facility] - 2 Visits in 30 Days CARE PROVIDERS NIK MIJARES [facility] Current PHONE: [phone] DR NIK MIJARES Primary Care Current PHONE: [phone] Ignacio Phan MD PHONE: Unknown Jimbo Montes Current Orthopedic Surgery \T\ Fracture Clinic PHONE: Unknown Stacey has no Care Guidelines for this patient. Damir VISIT COUNT (12 MO.) [address] Sue Coles 10 ARIAS Bowden TOTAL 11 NOTE: Visits indicate total known visits. ED/UCC VISIT TRACKING (12 MO.) 07/27/2018 13:42 [place] TYPE: Emergency COMPLAINT: - VAGINAL BLEEDING 07/20/2018 19:36 ARIAS Lopez TYPE: Emergency COMPLAINT: - VAGINAL BLEEDING DIAGNOSES: - Other detention (current) drug therapy - Allergy status to sulfonamides status - Essential (primary) hypertension - Gastrointestinal hemorrhage, unspecified - Allergy status to penicillin - Allergy status to other drugs, medicaments and biological substances status - Abnormal uterine and vaginal bleeding, unspecified 04/18/2018 16:19 [facility] [place] TYPE: Emergency DIAGNOSES: - Acute respiratory failure [...] Allergy status to sulfonamides status - Other detention (current) drug therapy - Chest pain, unspecified - salvage determiner (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 - Alzheimer's disease, unspecified - Dementia in other diseases classified elsewhere without behavioral disturbance 03/23/2018 19:31 [place] TYPE: Emergency COMPLAINT: - RASH DIAGNOSES: - salvage determiner (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 - Rash and other nonspecific skin eruption - Other allergy status, other than to drugs and biological substances - Essential (primary) hypertension - Other detention (current) drug therapy - Unspecified contact dermatitis, unspecified cause - Allergy status to penicillin - Allergy status to sulfonamides status 02/22/2018 20:31 [facility] [place] TYPE: Emergency COMPLAINT: - SOB,CHEST PAIN DIAGNOSES: - Chest pain, unspecified - Allergy status to other drugs, medicaments and biological substances status - Allergy status to penicillin - Other detention (current) drug therapy - Alzheimer's disease, unspecified - Essential (primary) hypertension - Urinary tract infection, site not specified - Allergy status to sulfonamides status - Personal history of nicotine dependence - FPC (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 11/06/2017 15:00 [place] TYPE: Emergency COMPLAINT: - HYPOXEMIA/FTT 10/14/2017 22:59 [facility] [place] TYPE: Emergency COMPLAINT: - VOMITING 09/19/2017 17:11 [place] TYPE: Emergency COMPLAINT: - CHEST TIGHTNESS DIAGNOSES: - Presence of left artificial hip joint - Acquired absence of both cervix and uterus - Allergy status to penicillin - Allergy status to sulfonamides status - Personal history of nicotine dependence - Other chest pain - FPC (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 - Other detention (current) drug therapy - Other nonmedicinal substance allergy status - Acquired absence of other specified parts of digestive tract - Essential (primary) hypertension 09/18/2017 22:49 [facility] [place] TYPE: Emergency COMPLAINT: - CONFUSION DIAGNOSES: - Presence of cardiac pacemaker - Alzheimer's disease, unspecified - Allergy status to penicillin - Essential (primary) hypertension - Dyspnea, unspecified - Other detention (current) drug therapy - Acquired absence of other specified parts of digestive tract - Presence of left artificial hip joint - Allergy status to sulfonamides status - salvage determiner (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 - Dementia in other diseases classified elsewhere without behavioral disturbance - FPC (current) use of anticoagulants - Personal history of nicotine dependence - Other nonmedicinal substance allergy status INPATIENT VISIT TRACKING (12 MO.) [facility]18/2018 16:[facility] DIAGNOSES: - Acute respiratory failure with hypercapnia - Chronic atrial fibrillation - Heart failure, unspecified - Hypoxemia - Other specified abnormal findings of blood chemistry - Abnormal levels of other serum enzymes - Dementia in other diseases classified elsewhere with behavioral disturbance - Other Alzheimer's disease - Acute respiratory failure with hypoxia - Hypokalemia [email or web address]
[2018-07-27] MEDS ORDERED: ANUSOL-HC25 MG PR (14:53)
== END 2018-07-27 15:18 | disposition home or self-care (01) ==
LOC: ED 13:41
DX: K64.9 Unspecified hemorrhoids (principal); I10 Essential (primary) hypertension; Z88.0 Allergy status to penicillin; Z88.2 Allergy status to sulfonamides; Z88.8 Allergy status to other drugs, medicaments and biological substances; Z79.899 Other long term (current) drug therapy
CPT/HCPCS: 80048; 85025; 85610; 85730; 99284

== ENCOUNTER 2018-11-07 08:32 | Observation (INO) | payer MEDICARE ==
[~2018-11-07] VITALS: Ht 160 cm; Wt 53.1 kg
[~2018-11-07 08:32] MED LIST changes: +ANUSOL-HC25 MG PR
--- OUTSIDE RECORDS SUMMARY | 2018-11-07 08:36 | XMS ---
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 [facility]12 MO.) [facility] T[facility] 10 NOTE: Visits indicate total known visits. ED/UCC VISIT TRACKING (12 MO.) 11/07/2018 08:32 [facility] [place] TYPE: Emergency COMPLAINT: - FLU SYMPTOMS 09/28/2018 12:20 [facility] [place] TYPE: Emergency DIAGNOSES: - Poss Dehydration - Urinary tract infection, site not specified - Hypertensive heart disease with heart failure - Adult failure to thrive - Acute kidney failure, unspecified - Decreased Appetite - Unspecified diastolic (congestive) heart failure - Cor pulmonale (chronic) 08/11/2018 15:13 [facility] Lopez TYPE: Emergency COMPLAINT: - HEAD PAIN/FALL DIAGNOSES: - Allergy status to sulfonamides status - Contusion of scalp, initial encounter - Unspecified fall, initial encounter - Essential (primary) hypertension - Unspecified injury of head, initial encounter - Other mcc (current) drug therapy - Allergy status to other drugs, medicaments and biological substances status - Allergy status to penicillin - Striking against or struck by other objects, initial encounter 07/27/2018 13:42 [facility] [place] TYPE: Emergency COMPLAINT: - RECTAL BLEEDING DIAGNOSES: - Hemorrhage of anus and rectum - Essential (primary) hypertension - Allergy status to penicillin - Unspecified hemorrhoids - Allergy status to sulfonamides status - Other mcc (current) drug therapy - Allergy status to other drugs, medicaments and biological substances status - Abnormal uterine and vaginal bleeding, unspecified 07/20/2018 19:36 [facility] [place] TYPE: Emergency COMPLAINT: - VAGINAL BLEEDING DIAGNOSES: - Other terminal operations supervisor (current) drug therapy - Allergy status to sulfonamides status - Essential (primary) hypertension - Gastrointestinal hemorrhage, unspecified - Allergy status to penicillin - Allergy status to other drugs, medicaments and biological substances status - Abnormal uterine and vaginal bleeding, unspecified 04/18/2018 16:19 [facility] [place] TYPE: Emergency DIAGNOSES: - Acute [...] Allergy status to sulfonamides status - Other terminal operations supervisor (current) drug therapy - Chest pain, unspecified - [facility] (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 - Alzheimer's disease, unspecified - Dementia in other diseases classified elsewhere without behavioral disturbance 03/23/2018 19:31 [facility] [place] TYPE: Emergency COMPLAINT: - RASH DIAGNOSES: - [facility] (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 - Rash and other nonspecific skin eruption - Other allergy status, other than to drugs and biological substances - Essential (primary) hypertension - Other m[facility] (current) drug therapy - Unspecified contact dermatitis, unspecified cause - Allergy status to penicillin - Allergy status to sulfonamides status 02/22/2018 20:31 [facility] [place] TYPE: Emergency COMPLAINT: - SOB,CHEST PAIN DIAGNOSES: - Chest pain, unspecified - Allergy status to other drugs, medicaments and biological substances status - Allergy status to penicillin - Other terminal operations supervisor (current) drug therapy - Alzheimer's disease, unspecified - Essential (primary) hypertension - Urinary tract infection, site not specified - Allergy status to sulfonamides status - Personal history of nicotine dependence - [facility] (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 INPATIENT VISIT TRACKING (12 MO.) 09/28/2018 12:20 [facility] [place] TYPE: Medical Surgical DIAGNOSES: - Acute kidney failure, unspecified - Other Alzheimer's disease - Dementia in other diseases classified elsewhere with behavioral disturbance - Alzheimer's disease, unspecified - Urinary tract infection, site not specified - Dementia in other diseases classified elsewhere without behavioral disturbance - Abnormal weight loss - Adult failure to thrive - Acute cystitis without hematuria - Unspecified diastolic (congestive) heart failure - Hypertensive heart disease with heart failure - Cor pulmonale (chronic) - Pericardial effusion (noninflammatory) - Chronic kidney disease, stage 3 (moderate) - Metabolic encephalopathy - Other acute kidney failure 04/18/2018 16:19 [facility] [place] TYPE: Medical Surgical DIAGNOSES: - Acute respiratory failure with hypercapnia - Chronic atrial fibrillation - Heart failure, unspecified - Hypoxemia - Other specified abnormal findings of blood chemistry - Abnormal levels of other serum enzymes - Dementia in other diseases classified elsewhere with behavioral disturbance - Other Alzheimer's disease - Acute respiratory failure with hypoxia - Hypokalemia [id number]
--- NOTE | 2018-11-07 18:00 | NUR ---
PATIENT ADMITTED TO THE MEDICAL FLOOR TO ROOM 121, PATIENT IS CONFUSED TO EVERYTHING BUT NAME, NEURO CHECK DONE AND PATIENT BLOOD DRAWN BY RN FOR LAB. DINNER ORDERED FOR THE PATIENT AND PATIENT ASSISTED WITH MEAL.
--- NOTE | 2018-11-07 19:02 | NUR ---
SHIFT REPORT RECEIVED FROM DAYSPRFT PER FRIAS. PT RESTING IN BED, DINNER TRAY ON BEDSIDE TABLE. PT APPEARS COMFORTABLE, CONTINUOUS PULSE OX IN PLACE, PT ON 2LNC, O2 SAT AND HR WNL. CALL LIGHT IN REACH, BED ALARM ON.
--- NOTE | 2018-11-07 19:20 | NUR ---
HELPED GET PT CLEANED UP AFTER SHE SPILLED HER CHICKEN NOODLE SOUP. CHANGED GOWN AND BED CHANGE. BEDSIDE TABLE AND CALL LIGHT IN REACH. BED ALARM SET. PT NEEDS NOTHING MORE AT THIS TIME. VISITOR IN ROOM WITH PT WHEN I LEFT.
--- NOTE | 2018-11-07 21:45 | NUR ---
ASSESSMENT COMPLETE. SCHEDULED MEDICATION GIVEN (SEE EMAR). PT A/O TO SELF, DATE, AND EVENT AT THIS TIME. CPOX IN PLACE, HR AND O2 WNL, PT ON 2LNC. REDDNESS NOTED TO BUTTOCKS, BLANCHABLE. PT ENCOURAGED TO TURN, PT VERBALIZES UNDERSTANDING. PT ABLE TO SELF REPOITION IN BED. CALL LIGHT IN REACH. BED ALARM ON.
--- NOTE | 2018-11-07 22:00 | NUR ---
PT REFUSED TO GET UP TO GO TO THE BATHROOM. COULD NOT CHART OUTPUT. INFORMED RN MIGUEL AND CHARGE NURSE RO.
--- NOTE | 2018-11-07 23:05 | NUR ---
PT RESTING COMFORTABLY IN BED, PT ON 2L NC, CPOX IN PLACE AND HR AND O2 SAT WNL. NO SIGNS OF DISTRESS NOTED, CALL LIGHT IN REACH.
--- NOTE | 2018-11-07 23:30 | NUR ---
PT RESTING IN BED, RR EVEN AND UNLABORED. 2LNC IN PLACE. CALL LIGHT IN REACH. 02 SAT AND HR IN REACH.
--- NOTE | 2018-11-08 02:40 | NUR ---
PT REFUSED VITALS AND GETTING UP TO USE THE BATHROOM. WOULD NOT LET US CHECK HER ATTENDS TO SEE IF SHE WAS INCONTINENT. SLAPPING AND YELLING "GET OUT OF HERE"! SHE HAD PULLED OUT HER NASAL CANULA AND REFUSED TO LET US HELP HER PUT BACK ON. BED ALARM SET. BEDSIDE TABLE AND CALL LIGHT IN REACH.
--- NOTE | 2018-11-08 05:30 | NUR ---
ASSESSMENT COMPETE. NO NEW CONCERNS. VSS. PT IRRITATED AND INITIALLY UNWILLING TO TRY TO VOID. PT UP SBA TO BSC, 200 MLS DARK YELLOW URINE NOTED. ATTENDS WET. [facility] CARE COMPLETED, NEW ATTENDS IN PLACE. PT BACK IN BED, BED ALARM ON. CALL LIGHT IN REACH. 2LNC IN PLACE, O2 SAT AND HR WNL FROM CPOX.
--- NOTE | 2018-11-08 07:07 | NUR ---
scheduled thyroid med given.
--- NOTE | 2018-11-08 07:30 | NUR ---
PATIENT REPORT RECEIVED IN THE ROOM FROM JEANNIE ALBARADO, PATIENT REMAINS ASLEEP WITH RAILS UP AND BED ALARM ON. SHE REMAINS ON OXYGEN AT 2L PER NC. PATIENT CURRENTLY APPEARS TO BE COMFTORABLE.
--- NOTE | 2018-11-08 10:30 | NUR ---
PATIENT RESTING DENIES NEEDS, WATER FILLED UP FOR HER AT THIS TIME.
--- NOTE | 2018-11-08 11:51 | NUR ---
PT ASSISTED TO THE RESTROOM WITH SBA. PT TOLERATED WELL. NEEDED DIRECTION ON WHERE TO GO. PT WAS ABLE TO AMBULATED WITHOUT ASSISTANCE. PT HAD A BM AND URINATED 400 ML OF DARK YELLOW URINE. NEW DEPENDS GIVEN. PT ASSISTED BACK TO BED, SAT UP IN BED TO EAT LUNCH. PT IS FEEDING HERSELF. BED ALARM TURNED ON. PT PLACED BACK ON 2L VIA NC AND CONTINUOUS PULSE OX. PT'S RN UPDATED.
--- NOTE | 2018-11-08 12:13 | NUR ---
DOCTOR DALE IN THE ROOM TO VISIT WITH PATIENT AT THIS TIME, PATIENT REMAINS CONFUSED TO ALL EXCEPT NAME. BED ALARM REMAINS ON WITH RAILS UP. PATIENT IS ABLE TO FEED HERSELF TODAY WITHOUT ANY TROUBLE WITH SWALLOWING. SHE IS ON OXYGEN AT 2L PER NC STILL.
--- NOTE | 2018-11-08 15:10 | NUR ---
#22 STARTED IN THE RIGHT WRIST, IV FLUIDS STARTED AT 200MLS/HR
--- NOTE | 2018-11-08 15:50 | NUR ---
I ASKED HER IF SHE WOULD LIKE TO TAKE A BED BATH AND SHE SAID NOT UNTIL 9PM GEOFF.
--- NOTE | 2018-11-08 16:00 | NUR ---
PATIENT'S IN TO VISIT THE PATIENT AT THIS TIME
[2018-11-08] MEDS ORDERED: POTASSIUM GLUCO99 MG PO (17:17)
[2018-11-08] MEDS ORDERED: CHOLESTYRAMINE P4 GM PO (17:18)
[2018-11-08] MEDS ORDERED: ARICEPT23 MG PO (17:22)
[2018-11-08] MEDS ORDERED: PROAIR HFA8.5 GM INH (17:24)
--- NOTE | 2018-11-08 17:25 | NUR ---
MED REC COMPLETE
--- NOTE | 2018-11-08 19:20 | NUR ---
SHIFT REPORT RECEIVED FROM EPR FRIAS. PT ON 2LNC, CPOX IN PLACE. O2 SAT 96%, HR 67. PT APPEARS IN GOOD SPIRITS. BED ALARM ON, CALL LIGHT IN REACH. PT DENIES FURTHER NEEDS. PT SL AT THIS TIME.
--- NOTE | 2018-11-08 20:28 | NUR ---
PT TRIED TO GET OUT OF BED, ASSISTED HER TO GET COMFORTABLE. BED ALARM IS ON AND SHE IS CLOSE TO NURSES STATION.
--- NOTE | 2018-11-08 21:05 | NUR ---
BED ALARM RINGING, PT ATTEMPTING TO GET OUT OF BED. PT REORIENTED AND INSTRUCTED TO RETURN TO BED. PT ASSISTED WITH REPOSTIONING, IS COOPORATIVE AND IS RESTING IN BED. CPOX IN PLACE, HR AND O2 SAT WNL. BED ALARM ON, CALL LIGHT IN REACH.
--- NOTE | 2018-11-08 21:30 | NUR ---
NEW IV STARTED, PT COOPERATED WELL. SHE IS PLEASEANTLY CONFUSED AT THIS TIME AND REQUIRES FREQUENT REORIENTATION. SHE DENIES FURTHER NEEDS. BED ALARM IS ON AND CALL LIGHT IS CLOSE.
--- NOTE | 2018-11-08 22:00 | NUR ---
ASSESSMENT COMPLETE. PT ORIENTED TO SELF, DROWSY BUT FOLLOWS COMMANDS APPROPERIATELY. CPOX IN PLACE, O2 SAT AND HR WNL. PT ON 2LNC. LUNG SOUNDS CLEAR. PT DENIES NEEDS AT THIS TIME. CALL LIGHT IN REACH. BED ALARM ON.
--- NOTE | 2018-11-08 22:10 | NUR ---
BED ALARM SOUNDED, ASSITED PT TO GET BACK IN BED. ALSO TOOK VS AND ADMINISTERED EVENING MEDICATIONS. NEW PULSEOX PROBE PLACED ON FINGER. BED ALARM IS ON AND CALL LIGHT IS CLOSE.
--- NOTE | 2018-11-08 22:42 | NUR ---
PT PULLED IV OUT, GAUZE AND COBAN APPLIED, PT IS BACK IN BED. BED ALARM IS ON.
--- NOTE | 2018-11-08 22:45 | NUR ---
BED ALARM SOUNDED, PT WAS ASSISTED TO RESTROOM SBA BY MEGAN ALEXANDER. SHE IS BACK IN BED WITH ALARM ON.
--- NOTE | 2018-11-09 02:50 | NUR ---
ASSESSMENT COMPLETE. PT IRRITABLE, UNABLE TO ASSESS A/O AT THIS TIME. CPOX IN PLACE, PT REFUSES TO WEAR 2LNC. MAINTAINING O2 SAT 90-91% AT THIS TIME. WILL CONTINUE TO MONITOR. BED ALARM ON, CALL LIGHT IN REACH.
--- NOTE | 2018-11-09 02:56 | NUR ---
PT OUT OF BED W/O REQUESTING ASSISTANCE, PT ASSISTED TO BATHROOM PER PT'S REQUEST WITH 1PERSON SBA, PT UNSTEADY ON FEET, GRASPING AT WALL/RAILINGS, PT VOIDED 200 MLS CLEAR YELLOW URINE, PT BACK TO BED NOW, PT STATES "WHAT THE HELL IS GOING ON, THIS IS MY HOUSE", REORIENTATION PROVIDED, REASSURANCE PROVIDED, BED ALARM ON, PT REFUSED OXYGEN TO BE PLACED BACK ON PT, O2 SAT 92% ON RA, PER RIVERA NOTIFIED, PER RIVERA IN ROOM AT THIS TIME.
--- NOTE | 2018-11-09 06:00 | NUR ---
IN ROOM TO COMPLETE VS. VSS AND I&O'S RECORDED. IV CATHETER HANGING FROM PT. TIP INTACT. NO BLEEDING NOTED. SITE REINFORCED WITH 2X2 AND COBAN.
--- NOTE | 2018-11-09 07:00 | NUR ---
PT HAD A GODNIGHT. VSS. PT A/O TO SELF. PT REMOVED TWO IVS DURING SHIFT, PITEO AWARE, OKAY TO LEAVE IV OUT. PT HAD LOW UO, PITEO AWARE. PT ON REGULAR DIET, TOLERATING WELL, DENIED NAUSEA. PT 1PA W/ AMBULATION. BED ALARM ON.
--- NOTE | 2018-11-09 07:20 | NUR ---
DR HUNTER AWARE OF PT'S LOW UO AND REMOVAL OF IV CATHETER. OKAY LEAVE OUT IV PER DR HUNTER. NO NEW ORDERS REGARDING PT'S UO.
--- NOTE | 2018-11-09 08:05 | NUR ---
RECEIVED BEDSIDE REPORT FROM PER RIVERA. PT SLEEPING, WOKE TO VOICE TO TAKE MEDICATION. NO IV ACCESS, AWARE. ORDER IN PLACE TO LEAVE OUT. QUALIFIED FOR HOME O2. CPOX IN PLACE.
--- NOTE | 2018-11-09 10:08 | NUR ---
SPOKE WITH PATIENTS SEGUNDO BY PHONE [phone] REGARDING DISCHARGE PLAN FOR TODAY. DISCUSSED PATIENT GOING HOME WITH OXYGEN. HE REQUESTS TO SET UP WITH [facility]. 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 HE KNOWS OF NOTHING ELSE HE NEEDS AT THIS TIME. HE STATES HE HAS [employer] PHONE NUMBER. SHE WILL BE WORKING WITH HIM ON MONDAY AGAIN. HE STATES HE WILL BE HERE AROUND NOON FOR DISCHARGE. NO OTHER QUESTIONS AT THIS TIME. UPDATED STAFF AND DR HUNTER. CALLED [facility] OUT OF [facility] [phone] AND SPOKE WITH MELVINA. SHE REQUESTS PAPERWORK FAXED TO [phone].
--- NOTE | 2018-11-09 10:42 | NUR ---
OXYGEN ORDER, RT QUALIFIER AND CLINICALS FAXED TO [facility] [phone]. FAX CONFIRMATION RECEIVED 11/09/18 1035AM.
--- NOTE | 2018-11-09 12:17 | NUR ---
I ASKED HER IF SHE WOULD LIKE TO TAKE A SHOWER OR A BED BATH BEFORE GOING HOME AND SHE SAID WHAT SHE WANTED WAS TO BE LEFT ALONE. SHE ALSO DIDN'T WANT TO BRUSH HER TEETH OR WASH HER FACE. OR COMB HER HAIR.
--- NOTE | 2018-11-09 14:04 | NUR ---
[facility] ARRIVED TO DELIVER PORTABLE O2 TANK. PT'S STEPPED OUT OF THE ROOM, WAITING FOR HIM TO RETURN TO DISCHARGE.
--- NOTE | 2018-11-09 14:43 | NUR ---
PT DISCHARGE TEACHING COMPLETE, DISCUSSED HOME O2 SAFETY, MEDS, ADLS, AND FOLLOW UP. PT AND SPOUSE VERBLIZED UNDERSTANDING. [facility] ARRIVED TO PROVIDE A PORTABLE O2 TANK AND TO SET UP HOME O2. PT WHEELED OUT OF THE HOSPITAL BY NURSING WITH ALL PERSONAL BELONGINGS.
--- NOTE | 2018-11-12 11:46 | NUR ---
FAXED TO [facility] [phone] SENT:ORDER/FACE SHEET AND CLINICALS. FAX CONFIRMATION RECEIVED 11/12/18 1123AM.
== END 2018-11-09 14:40 | disposition home health service (06) ==
LOC: ED 08:32 → MS 08:33
PROVIDERS: ADMIT Student in an Organized Health Care Education/Training Program
DX: I11.0 Hypertensive heart disease with heart failure (principal); I50.22 Chronic systolic (congestive) heart failure; R09.02 Hypoxemia; K52.9 Noninfective gastroenteritis and colitis, unspecified; G30.9 Alzheimer's disease, unspecified; I48.2 Chronic atrial fibrillation; E03.9 Hypothyroidism, unspecified; K76.1 Chronic passive congestion of liver; F02.80 Dementia in other diseases classified elsewhere, unspecified severity, without behavioral disturbance, psychotic disturbance, mood disturbance, and anxiety; L53.9 Erythematous condition, unspecified; Z66 Do not resuscitate; Z79.899 Other long term (current) drug therapy; Z95.0 Presence of cardiac pacemaker; Z88.0 Allergy status to penicillin; Z88.2 Allergy status to sulfonamides; Z88.8 Allergy status to other drugs, medicaments and biological substances
CPT/HCPCS: 36415; 71046; 80048; 80053; 81001; 82140; 83735; 83880; 84484; 85025; 85610; 87088; 92610; 94761; 94762; 96361; 96374; 97116; 97162; 99285-25; G0378; J1940; J7120

== ENCOUNTER 2018-12-07 16:03 | Emergency (ER) | payer MEDICARE ==
[~2018-12-07] VITALS: Ht 160 cm; Wt 53.1 kg
[~2018-12-07 16:03] MED LIST changes: +ARICEPT23 MG PO; +POTASSIUM GLUCO99 MG PO; +PROAIR HFA8.5 GM INH
--- OUTSIDE RECORDS SUMMARY | 2018-12-07 16:06 | XMS ---
PreManage Notification: LAILA ELLISON Security Spa Associate Events No recent Security Events currently on file CRITERIA MET - Group Notification - 6 ED Visits in 6 Months - [facility] - [facility] - 2 Visits in 30 Days CARE PROVIDERS NIK MIJARES [facility] Current PHONE: [phone] DR NIK MIJARES Primary Care Current PHONE: [phone] Ignacio Phan MD PHONE: Unknown Jimbo Montes Current Orthopedic Surgery \T\ Fracture Clinic PHONE: Unknown Stacey has no Care Guidelines for this patient. Damir VISIT COUNT (12 MO.) 2 Jarad Gray [facility] 9 ARIAS Bowden TOTAL 11 NOTE: Visits indicate total known visits. ED/UCC VISIT TRACKING (12 MO.) 12/07/2018 16:03 ARIAS Nieves [place] TYPE: Emergency COMPLAINT: - FALL 11/07/2018 08:32 ARIAS Lopez TYPE: Emergency COMPLAINT: - FLU SYMPTOMS 09/28/2018 12:20 [facility] Sharyn [place] TYPE: Emergency DIAGNOSES: - Poss Dehydration - Urinary tract infection, site not specified - Hypertensive heart disease with heart failure - Adult failure to thrive - Acute kidney failure, unspecified - Decreased Appetite - Unspecified diastolic (congestive) heart failure - Cor pulmonale (chronic) 08/11/2018 15:13 ARIAS Nieves [place] TYPE: Emergency COMPLAINT: - HEAD PAIN/FALL DIAGNOSES: - Allergy status to sulfonamides status - Contusion of scalp, initial encounter - Unspecified fall, initial encounter - Essential (primary) hypertension - Unspecified injury of head, initial encounter - Other chcf (current) drug therapy - Allergy status to other drugs, medicaments and biological substances status - Allergy status to penicillin - Striking against or struck by other objects, initial encounter 07/27/2018 13:42 ARIAS Lopez TYPE: Emergency COMPLAINT: - RECTAL BLEEDING DIAGNOSES: - Hemorrhage of anus and rectum - Essential (primary) hypertension - Allergy status to penicillin - Unspecified hemorrhoids - Allergy status to sulfonamides status - Other chcf (current) drug therapy - Allergy status to other drugs, medicaments and biological substances status - Abnormal uterine and vaginal bleeding, unspecified 07/20/2018 19:36 ARIAS Lopez TYPE: Emergency COMPLAINT: - VAGINAL BLEEDING DIAGNOSES: - Other machine 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 - Allergy status to sulfonamides status - Essential (primary) hypertension - Gastrointestinal hemorrhage, unspecified - Allergy status to penicillin - Allergy status to other drugs, medicaments and biological substances status - Abnormal uterine and vaginal bleeding, unspecified [facility] DIAGNOSES: - Acute respiratory failure with hypoxia - Other specified abnormal findings of blood chemistry - Hypoxemia - Abnormal levels of other serum enzymes - Acute respiratory failure with hypercapnia - Swelling - Heart failure, unspecified - Weakness - Hypokalemia 04/09/2018 18:23 ARIAS Nieves [place] TYPE: Emergency COMPLAINT: - ABD PAIN 04/08/2018 18:51 ARIAS Nieves [place] TYPE: Emergency COMPLAINT: - CHEST PAIN DIAGNOSES: - Allergy status to other drugs, medicaments and biological substances status - Presence of cardiac pacemaker - Essential (primary) hypertension - Allergy status to penicillin - Allergy status to sulfonamides status - Other chcf (current) drug therapy - Chest pain, unspecified - CHCF (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 - Alzheimer's disease, unspecified - Dementia in other diseases classified elsewhere without behavioral disturbance 03/23/2018 19:31 ARIAS Nieves [place] TYPE: Emergency COMPLAINT: - RASH DIAGNOSES: - CHCF (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 - Rash and other nonspecific skin eruption - Other allergy status, other than to drugs and biological substances - Essential (primary) hypertension - Other chcf (current) drug therapy - Unspecified contact dermatitis, unspecified cause - Allergy status to penicillin - Allergy status to sulfonamides status 02/22/2018 20:31 ARIAS Nieves [place] TYPE: Emergency COMPLAINT: - SOB,CHEST PAIN DIAGNOSES: - Chest pain, unspecified - Allergy status to other drugs, medicaments and biological substances status - Allergy status to penicillin - Other chcf (current) drug therapy - Alzheimer's disease, unspecified - Essential (primary) hypertension - Urinary tract infection, site not specified - Allergy status to sulfonamides status - Personal history of nicotine dependence - CHCF (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 INPATIENT VISIT TRACKING (12 MO.) 11/07/2018 08:33 ARIAS Nieves [place] TYPE: Medical Surgical COMPLAINT: - HYPOXIA DIAGNOSES: - Weakness - Erythematous condition, unspecified - Hypertensive heart disease with heart failure - Do not resuscitate - Chronic atrial fibrillation - Allergy status to sulfonamides status - Other chcf (current) drug therapy - Dementia in other diseases classified elsewhere without behavioral disturbance - Alzheimer's disease, unspecified - Chronic systolic (congestive) heart failure - Chronic passive congestion of liver - Hypothyroidism, unspecified - Noninfective gastroenteritis and colitis, unspecified - Hypoxemia - Allergy status to other drugs, medicaments and biological substances status - Allergy status to penicillin - Presence of cardiac pacemaker 09/28/2018 12[facility] DIAGNOSES: - Acute [...] - Other acute kidney failure 04/18/2018 16:[facility] DIAGNOSES: - Acute respiratory failure with hypercapnia - Chronic atrial fibrillation - Heart failure, unspecified - Hypoxemia - Other specified abnormal findings of blood chemistry - Abnormal levels of other serum enzymes - Dementia in other diseases classified elsewhere with behavioral disturbance - Other Alzheimer's disease - Acute respiratory failure with hypoxia - Hypokalemia 04/10/2018 15:46 ARIAS Nieves OR TYPE: Medical Surgical COMPLAINT: - GASTROENTERITIS DIAGNOSES: - Hypothyroidism, unspecified - Allergy status to sulfonamides status - Other ascites - Acute kidney failure, unspecified - Acute gastritis without bleeding - Other chcf (current) drug therapy - green 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 marketing analyst (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 - Chronic systolic (congestive) heart failure - Presence of cardiac pacemaker - Allergy status to other drugs, medicaments and biological substances status - Dementia in other diseases classified elsewhere without behavioral disturbance - Dehydration - Allergy status to penicillin - Hepatic failure, unspecified without coma - Hypertensive heart disease with heart failure - Noninfective gastroenteritis and colitis, unspecified - Chronic passive congestion of liver - Alzheimer's disease, unspecified - Viral intestinal infection, unspecified - Cardiomyopathy, unspecified - Chronic atrial fibrillation - Hypokalemia - History of falling [email or web address]
== END 2018-12-07 19:53 | disposition left against medical advice (07) ==
LOC: ED 16:03
DX: R10.2 Pelvic and perineal pain (principal); W19.XXXA Unspecified fall, initial encounter

== ENCOUNTER 2018-12-08 12:56 | Emergency (ER) | payer MEDICARE ==
[~2018-12-08] VITALS: Ht 160 cm; Wt 53.1 kg
--- OUTSIDE RECORDS SUMMARY | 2018-12-08 12:58 | XMS ---
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 Damir VISIT COUNT (12 MO.) 2 Jarad Gray [facility] 10 ARIAS Bowden TOTAL 12 NOTE: Visits indicate total known visits. ED/UCC VISIT TRACKING (12 MO.) 12/08/2018 12:56 ARIAS Nieves [place] TYPE: Emergency COMPLAINT: - FALL 12/07/2018 16:03 ARIAS Nieves [place] TYPE: Emergency COMPLAINT: - FALL 11/07/2018 08:32 ARIAS Nieves [place] TYPE: Emergency COMPLAINT: - FLU SYMPTOMS 09/28/2018 12:20 [facility] Sue [place] TYPE: Emergency DIAGNOSES: - Poss Dehydration [...] injury of head, initial encounter - Other rat exterminator (current) drug therapy - Allergy status to [...] Allergy status to sulfonamides status - Other shelter (current) drug therapy - Allergy status to other drugs, medicaments and biological substances status - Abnormal uterine and vaginal bleeding, unspecified 07/20/2018 19:36 ARIAS Lopez TYPE: Emergency COMPLAINT: - VAGINAL BLEEDING DIAGNOSES: - Other shelter (current) drug therapy - Allergy status to sulfonamides status - Essential (primary) hypertension - Gastrointestinal hemorrhage, unspecified - Allergy status to penicillin - Allergy status to other drugs, medicaments and biological substances status - Abnormal uterine and vaginal bleeding, unspecified 04[facility]18/2018 [facility] DIAGNOSES: - Acute respiratory failure with hypoxia - Other specified abnormal findings of blood chemistry - Hypoxemia - Abnormal levels of other serum enzymes - Acute respiratory failure with hypercapnia - Swelling - Heart failure, unspecified - Weakness - Hypokalemia 04/09/2018 18:23 ARIAS Lopez TYPE: Emergency COMPLAINT: - ABD PAIN 04/08/2018 18:51 ARIAS Lopez TYPE: Emergency COMPLAINT: - CHEST PAIN DIAGNOSES: - Allergy status to other drugs, medicaments and biological substances status - Presence of cardiac pacemaker - Essential (primary) hypertension - Allergy status to penicillin - Allergy status to sulfonamides status - Other shelter (current) drug therapy - Chest pain, unspecified - long-term (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 - Alzheimer's disease, unspecified - Dementia in other diseases classified elsewhere without behavioral disturbance 03/23/2018 19:31 ARIAS Nieves [place] TYPE: Emergency COMPLAINT: - RASH DIAGNOSES: - terminologist (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 - Rash and other nonspecific skin eruption - Other allergy status, other than to drugs and biological substances - Essential (primary) hypertension - Other rat exterminator (current) drug therapy - Unspecified contact dermatitis, unspecified cause - Allergy status to penicillin - Allergy status to sulfonamides status 02/22/2018 20:31 ARIAS Nieves OR TYPE: Emergency COMPLAINT: - SOB,CHEST PAIN DIAGNOSES: - Chest pain, unspecified - Allergy status to other drugs, medicaments and biological substances status - Allergy status to penicillin - Other rat exterminator (current) drug therapy - Alzheimer's disease, unspecified - Essential (primary) hypertension - Urinary tract infection, site not specified - Allergy status to sulfonamides status - Personal history of nicotine dependence - terminologist (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 INPATIENT VISIT TRACKING (12 MO.) 11/07/2018 08:33 ARIAS Nieves OR TYPE: Medical Surgical COMPLAINT: - HYPOXIA DIAGNOSES: - Weakness - Erythematous condition, unspecified - Hypertensive heart disease with heart failure - Do not resuscitate - Chronic atrial fibrillation - Allergy status to sulfonamides status - Other rat exterminator (current) drug therapy - Dementia in other diseases classified elsewhere without behavioral disturbance - Alzheimer's disease, unspecified - Chronic systolic (congestive) heart failure - Chronic passive congestion of liver - Hypothyroidism, unspecified - Noninfective gastroenteritis and colitis, unspecified - Hypoxemia - Allergy status to other drugs, medicaments and biological substances status - Allergy status to penicillin - Presence of cardiac pacemaker 09/28/2018 12:20 [facility] Saadia [place] TYPE: Medical Surgical [...] - Other acute kidney failure 04/18/2018 16:19 [facility] Saadia [place] TYPE: Medical Surgical DIAGNOSES: - Acute respiratory failure with hypercapnia - Chronic atrial fibrillation - Heart failure, unspecified - Hypoxemia - Other specified abnormal findings of blood chemistry - Abnormal levels of other serum enzymes - Dementia in other diseases classified elsewhere with behavioral disturbance - Other Alzheimer's disease - Acute respiratory failure with hypoxia - Hypokalemia 04/10/2018 15:[address] [facility] Molina [place] TYPE: Medical Surgical COMPLAINT: - GASTROENTERITIS DIAGNOSES: - Hypothyroidism, unspecified - Allergy status to sulfonamides status - Other ascites - Acute kidney failure, unspecified - Acute gastritis without bleeding - Other rat exterminator (current) drug therapy - long-term (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 - Chronic systolic [...] fibrillation - Hypokalemia - History of falling [email or web address]
== END 2018-12-08 15:05 | disposition home or self-care (01) ==
LOC: ED 12:56
DX: S32.592A Other specified fracture of left pubis, initial encounter for closed fracture (principal); S80.01XA Contusion of right knee, initial encounter; I10 Essential (primary) hypertension; G30.9 Alzheimer's disease, unspecified; Z95.0 Presence of cardiac pacemaker; Z90.710 Acquired absence of both cervix and uterus; Z90.49 Acquired absence of other specified parts of digestive tract; Z88.0 Allergy status to penicillin; Z91.048 Other nonmedicinal substance allergy status; Z88.2 Allergy status to sulfonamides; Z79.899 Other long term (current) drug therapy; W18.30XA Fall on same level, unspecified, initial encounter
CPT/HCPCS: 72170; 73560; 99283

== ENCOUNTER 2019-02-12 17:06 | Emergency (ER) | payer MEDICARE ==
[~2019-02-12] VITALS: Ht 160 cm; Wt 53.1 kg
--- OUTSIDE RECORDS SUMMARY | ~2019-02-12 | XMS | Encounter Summary ---
Demographics + + + | Address | [address] | | | [place] [address] | + + + | Home Phone | | + + + | Preferred Language | Unknown | + + + | Marital Status | | + + + | Gnosticist Affiliation | [id number] | + + + | Race | Unknown | + + + | Ethnic Group | Unknown | + + + Author + + + | Author | [facility] | | | and [place] | + + + | Organization | [facility] | | | and [place] | + + + | Address | Unknown | + + + | Phone | Unavailable | + + + Support + + + + + | Name | Relationship | Address | Phone | + + + + + | Braden oDlan | ECON | [address] | | | | | [place] | | | | | [address] | | + + + + + | Julia Aguilar | ECON | Unknown | | + + + + + Care Team Providers + +------+ + | Care Boat Crew Deck Hand Name | Role | Phone | + +------+ + | Carrillo Michel MD | PCP | | + +------+ + Reason for Visit + + + | Reason | Comments | + + + | Appointment | cancelled egd with prop | + + + Encounter Details +--------+ + + + + | Date | Type | Department | Care Team | Description | +--------+ + + + + | 12/17/ | Telephone | [facility] | Darwin López MD | Appointment | | 2019 | | GASTROENTEROLOGY | [address], [place] | (cancelled egd with | | | | [address] [place] | [address] [place], [place] | prop) | | | | [address] [place], [place] | [address] | | | | | [address] | | | | | | [phone] | | | +--------+ + + + [...] on file | | + + + + + + + | Job Start Date | Occupation | Industry | + + + + | Not on file | Not on file | Not on file | + + + + + + + + | Travel History | Travel Start | Travel End | + + + + + + | No recent travel history available. | + + documented as of this encounter Functional Status + [...] | | | + + + + documented as of this encounter Plan of Treatment Not on filedocumented as of this encounter Visit Diagnoses Not on filedocumented in this encounter"
--- OUTSIDE RECORDS SUMMARY | ~2019-02-12 | XMS | Clinical Summary ---
Demographics + + + | Address | [address] | | | [place] [address] | + + + | Home Phone | | + + + | Preferred Language | Unknown | + + + | Marital Status | | + + + | Islam Affiliation | 1077 | + + + | Race | Unknown | + + + | Ethnic Group | Unknown | + + + Author + + + | Author | [facility] | | | and [place] | + + + | Organization | [facility] | | | and [place] | + + + | Address | Unknown | + + + | Phone | Unavailable | + + + Support + + + + + | Name | Relationship | Address | Phone | + + + + + | Braden Dolan | ECON | [address] | | | | | [place] | | | | | [address] | | + + + + + | Julia Aguilar | ECON | Unknown | | + + + + + Care Team Providers + +------+ + | [employer] Project Manager Name | Role | Phone | + +------+ + | Ruth Crisostomo MD | PP | | + +------+ + Allergies + + + + + + | Active Allergy | Reactions | Severity | Noted | Comments | | | | | Date | | + + + + + + | Codeine | Nausea And Vomiting | Low | 01/24/20 | | | | | | 13 | | + + + + + + | Iodine | | | 10/26/19 | | | | | | 13 | | + + + + + + | Penicillins | Hives | | 08/07/20 | | | | | | 12 | | + + + + + + | Sulfa Antibiotics | | | 08/07/20 | | | | | | 12 | | + + + + + + Medications + + + +---------+------+------+-------+ | Medication | Sig | Dispensed | Refills | Star | End | Statu | | | | | | t | Date | s | | | | | | Date | | | + + + +---------+------+------+-------+ | Multiple Vitamin | Take 1 tablet by | | 0 | | | Activ | | (MULTIVITAMIN PO) | mouth Daily. | | | | | e | + + + +---------+------+------+-------+ | ascorbic acid | Take 500 mg by mouth | | 0 | | | Activ | | (VITAMIN C) 500 mg | Daily. | | | | | e | | tablet | | | | | | | + + + +---------+------+------+-------+ | carvedilol (COREG) | Take 1 tablet by | | 0 | 10/0 | | Activ | | 12.5 mg | mouth 2 times daily | | | 3/20 | | e | | tabletIndications: | (with breakfast & | | | 17 | | | | Atrial fibrillation, | dinner). To lower | | | | | | | chronic (HCC), | blood pressure and | | | | | | | Chronic systolic | heart rate | | | | | | | heart failure (HCC) | | | | | | | + + + +---------+------+------+-------+ | levothyroxine | Take 50 mcg by mouth | | 0 | | | Activ | | (SYNTHROID) 50 mcg | every morning | | | | | e | | tablet | (before breakfast). | | | | | | + + + +---------+------+------+-------+ | nitroglycerin | Place 0.4 mg under | | 0 | | | Activ | | (NITROSTAT) 0.4 mg | the tongue every 5 | | | | | e | | SL tablet | minutes as needed | | | | | | | | for Chest pain. | | | | | | + + + +---------+------+------+-------+ | furosemide (LASIX) | Take 1 tablet by | 30 | 4 | 08/2 | | Activ | | 20 mg tablet | mouth Daily. | tablet | | 05/11 | | e | | | | | | 18 | | | + + + +---------+------+------+-------+ | potassium chloride | Take 2 tablets by | 120 | 4 | 05/24 | | Activ | | (KLOR-CON) 10 MEQ | mouth 2 times daily. | tablet | | 05/11 | | e | | ER tablet | | | | 18 | | | + + + +---------+------+------+-------+ | isosorbide | Take 1 tablet by | 180 | 1 | / | | Activ | | dinitrate (ISORDIL) | mouth 2 times daily. | tablet | | 20 | | e | | 30 MG | To prevent chest | | | 18 | | | | tabletIndications: | pain and to lower | | | | | | | Coronary artery | blood pressure | | | | | | | disease of [place] | | | | | | | | artery of [place] | | | | | | | | heart with stable | | | | | | | | angina pectoris | | | | | | | | ([facility]), Essential | | | | | | | | hypertension | | | | | | | + + + +---------+------+------+-------+ | escitalopram | TAKE ONE TABLET BY | 90 | 0 | 10/2 | | Activ | | (LEXAPRO) 10 mg | MOUTH EVERY DAY TO | tablet | | 4/20 | | e | | tablet | HELP MOOD | | | 18 | | | + + + +---------+------+------+-------+ | losartan (COZAAR) | TAKE ONE TABLET BY | 90 | 0 | 10/3 | | Activ | | 100 MG tablet | MOUTH EVERY DAY FOR | tablet | | 1/20 | | e | | | HIGH BLOOD PRESSURE | | | 18 | | | + + + +---------+------+------+-------+ | donepezil | Use 10 mg pills to | 30 | 2 | 11/0 | | Activ | | (ARICEPT) 23 MG | take 15 mg by mouth | tablet | | 6/20 | | e | | tabletIndications: | nightly x 1 week, | | | 18 | | | | Alzheimer's disease | then increase to 23 | | | | | | | of other onset with | mg pill once per | | | | | | | behavioral | night. To help | | | | | | | disturbance | memory | | | | | | + + + +---------+------+------+-------+ | albuterol 90 | Inhale 2 puffs into | 1 | 2 | 11/0 | | Activ | | mcg/puff | the lungs every 4 | Inhaler | | 8/20 | | e | | inhalerIndications: | hours as needed for | | | 18 | | | | Chronic obstructive | Wheezing or | | | | | | | pulmonary disease, | Shortness of Breath. | | | | | | | unspecified COPD | | | | | | | | type (HCC) | | | | | | | + + + +---------+------+------+-------+ | mirtazapine | TAKE ONE TABLET BY | 30 | 4 | 11/2 | | Activ | | (REMERON) 15 MG | MOUTH AT BEDTIME | tablet | | 0/20 | | e | | tablet | | | | 18 | | | + + + +---------+------+------+-------+ | pantoprazole | TAKE ONE TABLET BY | 60 | 3 | 12/0 | | Activ | | (PROTONIX) 40 mg | MOUTH TWICE A DAY | tablet | | 4/20 | | e | | tablet | (BEFORE MEALS) | | | 18 | | | + + + +---------+------+------+-------+ | cholecalciferol | Take 1,000 Units by | | 0 | | | Activ | | (VITAMIN D-3) 1000 | mouth Daily. | | | | | e | | units TABS | | | | | | | + + + +---------+------+------+-------+ | cyanocobalamin | Take 1,000 mcg by | | 0 | | | Activ | | (VITAMIN B-12) 1000 | mouth Daily. | | | | | e | | MCG tablet | | | | | | | + + + +---------+------+------+-------+ | dronabinol | Take 1 capsule by | 28 | 0 | 09/22 | | Activ | | (MARINOL) 2.5 mg | mouth 2 times daily | capsule | | 11/11 | | e | | capsuleIndications: | (before meals). | | | 18 | | | | Alzheimer's disease | | | | | | | | of other onset with | | | | | | | | behavioral | | | | | | | | disturbance, Weight | | | | | | | | loss | | | | | | | + + + +---------+------+------+-------+ Active Problems + + + | Problem | Noted Date | + + + | Acute metabolic encephalopathy | 10/02/2018 | + + + | Acute renal failure superimposed on stage 3 chronic kidney | 10/02/2018 | | disease | | + + + | Pericardial effusion | 10/01/2018 | + + + | Achalasia | 05/18/2018 | + + + | Chronic systolic heart failure | 07/25/2017 | + + + + + | Overview: [facility] 06/14/17: EF 20-25% | + + + + + | Non-rheumatic tricuspid valve insufficiency | 07/25/2017 | + + + + + | Overview: Echo 06/14/17: Severe TC regurge. EF 20-25% | + + + + + | CAD (coronary artery disease) | 11/18/2016 | + + + + + | Overview: Followed by Dr Lincoln Stack. 08/03/16: CHANDU, | | LVEF 35-40%. Because of dementia - treating medically. 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 High risk for | | anticoagulation due to dementia | + + + + + | Adrenal nodule | 11/27/2012 | + + + + + | Overview: 10/2012: See on CT. Consider dedicated imaging to | | further evaluate. 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 Advance LV diastolic | | dysfunction. Mild-to moderate MR and TRNM Stress Test 05/2010: | | EF 60%, no perfusion defects | + + + + + | Renal artery stenosis in 1 of 2 vessels | 08/07/2012 | + + + + + | Overview: 02/02: Right RA stented using 5 mm x 19 mm balloon | | expandable stent10/2012: High grade right (>80%). Low-moderate | | grade left.05/2010: >60% stenosis of Right Renal Artery | + + + + + | Diverticulosis | 08/07/2012 | + + + | HTN (hypertension) | 08/07/2012 | + + + + + | Overview: 07/04: | | Cr 1.27; GFR 42 | + + + + + | Health care maintenance | 08/07/2012 | + + + + + | Overview: Colon: | | - Normal colonoscopy 02/2011. Recommended repeat in 5 years | | | | Breast | | - | | | | Osteoporosis | | - DEXA ordered 08/03 | + + + + + | Hiatal hernia | 08/07/2012 | + + + + + | Overview: Type I, asymptomatic | + + + + + | Gastritis | 08/07/2012 | + + + + + | Overview: Followed by Dr Barreto. Omeprazole daily recommended | + + + + + | Hypothyroid | 08/07/2012 | + + + + + | Overview: TSH | | 09/03: 3.97 | | 07/04: 7.14 (H) | + + + + + | Hyperlipidemia | 08/07/2012 | + + + + + | Overview: 07/04: LDL 139, HDL 59, Total 212 | + + + + + | Mitral regurgitation | 08/07/2012 | + + + + + | Overview: 06/01: Mild to moderate. Followed by Dr Stack, | | cardiology | + + Resolved Problems + + + + | Problem | Noted | Resolved | | | Date | Date | + + + + | Acute cystitis without hematuria | 10/02/20 | | | | 18 | 8 | + + + + | Acute cystitis without hematuria | 09/29/20 | | | | 18 | 8 | + + + + | Acute hypoxemic respiratory failure | 04/18/20 | | | | 18 | 8 | + + + + | Renal artery stenosis | 08/07/20 | | | | 12 | 2 | + + + + | Heart palpitations | 08/07/20 | | | | 12 | 5 | + + + + Encounters +--------+ + + + + | Date | Type | Specialty | Care Team | Description | +--------+ + + + + | 02/09/ | Emergency | | Cate, | Atypical chest pain | | 2018 | | | Bolivar Mohr MD | (Primary Dx); Acute | | | | | | on chronic systolic | | | | | | congestive heart | | | | | | failure (HCC) | +--------+ + + + + | 12/17/ | Telephone | | Darwin López MD | Appointment | | 2018 | | | | (cancelled egd with | | | | | | prop) | +--------+ + + + + | 11/26/ | Episode | | Jasmin Johnson | | 2018 | Changes | | PER [facility] | | +--------+ + + + + | 11/23/ | Episode | | Jasmin Johnson | | 2018 | Changes | | PER [facility] | | +--------+ + + + + | 11/21/ | Telephone | | Darwin López MD | Dysphagia (EGD | | 2018 | | | | tentatively | | | | | | scheduled for | | | | | | December 18) | +--------+ + + + + | 11/14/ | Telephone | | Nik Michel, | Hospital Follow-up | | 2018 | | | | | +--------+ + + + + from Last 3 Months Immunizations + + + + | Name | Dates Previously Given | Next Due | + + + + | INFLUENZA 63 Y OR >, | 08/28/2018, 07/25/2017, 09/26/2016, | | | TRIVALENT HIGH-DOSE | 07/23/2014 | | + + + + | INFLUENZA PF 16 Y OR | 09/06/2012 | | | >,TRIVALENT | | | | RECOMBINANT | | | + + + + | INFLUENZA PF | 07/19/2016 | | | TRIVALENT(PED/ADOL/A | | | | DULT) PSKT | | | + + + + | INFLUENZA QUADR | 11/11/2015 | | | W/PRES | | | | (PED/ADOL/ADULT) | | | | MULTIDOSE | | | + + + + | PNEUMOCOCCAL | 05/07/2015 | | | CONJUGATE 13-VALENT | | | | (PCV13) | | | + + + + | PNEUMOCOCCAL | 12/08/2016, 10/23/2007 | | | POLYSACCHARIDE | | | | 23-VALENT (PPSV23) | | | + + + + | TDFEDERICO, (ADOL/ADULT) | 07/19/2016, 10/23/2006 | | + + + + Family History + + +------+ + | Medical History | Relation | Name | Comments | + + +------+ + | Cancer | Father | | Pancreatic | + + +------+ + | Other (see comment) | Mother | | ALS | + + +------+ + + +------+ + + | Relation | Name | Status | Comments | + +------+ + + | Brother | | Alive | | + +------+ + + | Brother | | Alive | | + +------+ + + | Daughter | | Alive | | + +------+ + + | Daughter | | Alive | | + +------+ + + | Father | | | pancreatic cancer | | | | (Age | | | | | 56) | | + +------+ + + | Mother | | | | | | | (Age | | | | | 82) | | + +------+ + + | Sister | | Alive | | + +------+ + + | Sister | | | | | | | (Age | | | | | 80's) | | + +------+ + + | Sister | | | | | | | (Age | | | | | 64) | | + +------+ + + | Son | | | | + +------+ + + Social History + + + [...] recent travel history available. | + + Last Filed Vital Signs + + + + | Vital Sign | Reading | Time Taken | + + + + | Blood Pressure | 146/91 | 02/09/2019 1528 PDT | + + + + | Pulse | 58 | 02/09/2019 1611 PDT | + + + + | Temperature | 36.7 C (98 F) | 02/09/2019 1433 PDT | + + + + | Respiratory Rate | 17 | 02/09/20191610 PDT | + + + + | Oxygen Saturation | 96% | 02/09/20191610 PDT | + + + + | Inhaled Oxygen | - | - | | Concentration | | | + + + + | Weight | 55.3 kg (122 lb) | 02/09/2019 1433 PDT | + + + + | Height | 157.5 cm (5' 2") | 09/28/20181240 PST | + + + + | Body Mass Index | 22.31 | 09/28/20181240 PST | + + + + Plan of Treatment + + + + + | Health Maintenance | Due Date | Last Done | Comments | + + + + + | Vaccine: Zoster (1 | | | | | of 2) | 3 | | | + + + + + | Statin Therapy | | | | | (optimal intensity) | 5 | | | + + + + + | Adult Annual | | 05/26/2017 | | | Wellness Visit | 8 | | | + + + + + | Colorectal Cancer | | 03/17/2011 | | | Screening | 1 | | | | (Colonoscopy) | | | | + + + + + | Vaccine: | | 07/19/2016, 10/23/2006 | | | Dtap/Tdap/Td (3 - | 6 | | | | Td) | | | | + + + + + | Vaccine: | Completed | 12/08/2016, 05/07/2015, | | | Pneumococcal 65+ | | 10/23/2007 | | | High/Highest Risk | | | | + + + + + | Vaccine: Influenza | Completed | 08/28/2018, 07/25/2017, | | | | | 09/26/2016, Additional history | | | | | exists | | + + + + + Procedures + +--------+ + + + | Procedure Name | Priori | Date/Time | Associated Diagnosis | Comments | | | ty | | | | + +--------+ + + + | XR CHEST AP PORTABLE | STAT | 02/09/2019 | | Results for this | | | | 15:26 PDT | | procedure are in the | | | | | | results section. | + +--------+ + + + | EXTRA BLUE TOP TUBE | Routin | 02/09/2019 | | Results for this | | | e | 14:54 PDT | | procedure are in the | | | | | | results section. | + +--------+ + + + | B TYPE NATRIURETIC | STAT | 02/09/2019 | | Results for this | | PEPTIDE | | 14:54 PDT | | procedure are in the | | | | | | results section. | + +--------+ + + + | BASIC METABOLIC | STAT | 02/09/2019 | | Results for this | | PANEL | | 14:54 PDT | | procedure are in the | | | | | | results section. | + +--------+ + + + | TROPONIN I | STAT | 02/09/2019 | | Results for this | | | | 14:54 PDT | | procedure are in the | | | | | | results section. | + +--------+ + + + | CBC WITH | STAT | 02/09/2019 | | Results for this | | DIFFERENTIAL | | 14:54 PDT | | procedure are in the | | | | | | results section. | + +--------+ + + + | ECG 12 LEAD | STAT | 02/09/2019 | | Results for this | | | | 14:38 PDT | | procedure are in the | | | | | | results section. | + +--------+ + + + | ED INFORMATION | Routin | 02/09/2019 | | | | EXCHANGE | e | 14:28 PDT | | | + +--------+ + + + +---+--------+ | | | | | Proced | | | ure | | | Note - | | | Zoe, | | | Lab In | | | | | | Hlseve | | | n - | | | | | | 2018 | | | 1429 | | | PDT | | | Format | | | ting | | | of | | | this | | | note | | | might | | | be | | | differ | | | ent | | | from | | | the | | | origin | | | al.COL | | | LECTIV | | | E?NOTI | | | FICATI | | | ON?/ | | | | | | 9 | | | 14:26? | | | SCOT | | | LAILA | | | | | | M?MRN: | | | | | | [id number] | | | [id number] | | | riteri | | | a Met | | | | | | PRCSec | | | urity | | | and | | | Safety | | | Date | | | Locati | | | on | | | Type | | | Specif | | | ics | | | | | | 9 4:03 | | | PM | | | [facility] | | | al | | | [facility] | | | ent | | | Other | | | | | | Detail | | | s: | | | PATIEN | | | T LWBS | | | | | | Securi | | | ty | | | Events | | | (18 | | | Mo.) | | | Count | | | El[facility] | | | ent 1 | | | Total | | | 1 ED | | | Care | | | Guidel | | | inesTh | | | ere | | | are | | | curren | | | tly no | | | ED | | | Care | | | Guidel | | | tiago | | | for | | | this | | | patien | | | t. | | | Please | | | check | | | your | | | facili | | | ty's | | | medica | | | l | | | record | | | s | | | system | | | .Presc | | | riptio | | | n Drug | | | | | | Report | | | (12 | | | Mo.)PD | | | MP | | | query | | | found | | | no | | | report | | | .E.D. | | | Visit | | | Count | | | (12 | | | mo.)Fa | | | cility | | | | | | Visits | | | Low | | | Acuity | | | | | | Provid | | | ence | | | St. | | | [facility] | | | Medica | | | l | | | Center | | | 3 0 | | | [facility] | [facility] | | | al 10 | | | 0 | | | Total | | | 13 0 | | | Note: | | | Visits | | | | | | indica | | | te | | | total | | | known | | | visits | | | . | | | Medica | | | id Low | | | | | | Acuity | | | Dx | | | are | | | the | | | number | | | of | | | primar | | | y | | | diagno | | | ses on | | | the | | | Medica | | | id's | | | Low | | | Acuity | | | dx | | | list. | | | | | | Recent | | | | | | Emerge | | | ncy | | | Depart | | | ment | | | Visit | | | Summar | | | yShowi | | | ng 10 | | | most | | | recent | | | | | | visits | | | out | | | of 13 | | | in the | | | past | | | 12 | | | months | | | Date | | | Facili | | | ty | | | City | | | State | | | Type | | | Diagno | | | ses or | | | Chief | | | | | | Compla | | | int | | | Apr | | | 20, | | | 2019 | | | Provid | | | ence | | | [facility] | | [place] | | | [place] | | | Emerge | | | ncy | | | Feb | | | 16, | | | 2019 | | | [facility] | [facility] | [place] | | | [place] | | | Emerge | | | ncy | | | | | | Allerg | | | y | | | status | | | to | | | penici | | | llin | | | | | | Other | | | long | | | term | | | (curre | | | nt) | | | drug | | | therap | | | y | | | Other | | | nonmed | | | icinal | | | | | | substa | | | nce | | | allerg | | | y | | | status | | | | | | Acquir | | | ed | | | absenc | | | e of | | | other | | | specif | | | ied | | | parts | | | of | | | digest | | | sheila | | | tract | | | | | | Fall | | | on | | | same | | | level, | | | | | | unspec | | | ified, | | | | | | initia | | | l | | | encoun | | | ter | | | | | | Alzhei | | | arnaud's | | | diseas | | | e, | | | unspec | | | ified | | | | | | Other | | | specif | | | ied | | | fractu | | | re of | | | left | | | pubis, | | | | | | initia | | | l | | | encoun | | | ter | | | for | | | closed | | | | | | fractu | | | re | | | Contus | | | ion of | | | right | | | knee, | | | | | | initia | | | l | | | encoun | | | ter | | | | | | Essent | | | ial | | | (prima | | | ry) | | | hypert | | | ension | | | | | | Allerg | | | y | | | status | | | to | | | sulfon | | | amides | | | | | | status | | | Feb | | | 15, | | | 2019 | | | [facility] [place] | | [place] | | | Emerge | | | ncy | | | | | | Pelvic | | | and | | | perine | | | al | | | pain | | | | | | Unspec | | | ified | | | fall, | | | initia | | | l | | | encoun | | | ter | | | Pierce | | | 16, | | | 2019 | | | [facility] [place] | | | [place] | | | Emerge | | | ncy | | | Chief | | | Compla | | | int: | | | FLU | | | SYMPTO | | | MS | | | Dec 7, | | | 2018 | | | Provid | | | ence | | | [facility] | [facility] | [place] | | | [place] | | | Emerge | | | ncy | | | Poss | | | Dehydr | | | ation | | | | | | Decrea | | | sed | | | Appeti | | | te | | | Adult | | | failur | | | e to | | | thrive | | | | | | Acute | | | kidney | | | | | | failur | | | e, | | | unspec | | | ified | | | | | | Urinar | | | y | | | tract | | | infect | | | ion, | | | site | | | not | | | specif | | | ied | | | | | | Hypert | | | ensive | | | heart | | | | | | diseas | | | e with | | | heart | | | | | | failur | | | e | | | Unspec | | | ified | | | diasto | | | lic | | | (conge | | | stive) | | | heart | | | | | | failur | | | e | | | Cor | | | pulmon | | | juan | | | (chron | | | ic) | | | Oct | | | 20, | | | 2018 | | | [facility] [place] | | | Emerge | | | ncy | | | | | | Allerg | | | y | | | status | | | to | | | sulfon | | | amides | | | | | | status | | | | | | Contus | | | ion of | | | | | | scalp, | | | | | | initia | | | l | | | encoun | | | ter | | | | | | Unspec | | | ified | | | fall, | | | initia | | | l | | | encoun | | | ter | | | | | | Essent | | | ial | | | (prima | | | ry) | | | hypert | | | ension | | | | | | Unspec | | | ified | | | injury | | | of | | | head, | | | initia | | | l | | | encoun | | | ter | | | Other | | | long | | | term | | | (curre | | | nt) | | | drug | | | therap | | | y | | | Allerg | | | y | | | status | | | to | | | other | | | drugs, | | | | | | medica | | | ments | | | and | | | biolog | | | ical | | | substa | | | nces | | | status | | | | | | Allerg | | | y | | | status | | | to | | | penici | | | llin | | | | | | Striki | | | ng | | | agains | | | t or | | | struck | | | by | | | other | | | object | | | s, | | | initia | | | l | | | encoun | | | ter | | | Oct 5, | | | 2018 | | | [facility] [place] | | | Emerge | | | ncy | | | | | | Essent | | | ial | | | (prima | | | ry) | | | hypert | | | ension | | | | | | Allerg | | | y | | | status | | | to | | | penici | | | llin | | | | | | Unspec | | | ified | | | hemorr | | | hoids | | | | | | Allerg | | | y | | | status | | | to | | | sulfon | | | amides | | | | | | status | | | | | | Other | | | long | | | term | | | (curre | | | nt) | | | drug | | | therap | | | y | | | Allerg | | | y | | | status | | | to | | | other | | | drugs, | | | | | | medica | | | ments | | | and | | | biolog | | | ical | | | substa | | | nces | | | status | | | | | | Abnorm | | | al | | | uterin | | | e and | | | vagina | | | l | | | bleedi | | | ng, | | | unspec | | | ified | | | | | | Hemorr | | | teo | | | of | | | anus | | | and | | | rectum | | | Sep | | | 28, | | | 2018 | | | [facility] [place] | | | Emerge | | | ncy | | | Other | | | long | | | term | | | (curre | | | nt) | | | drug | | | therap | | | y | | | Allerg | | | y | | | status | | | to | | | sulfon | | | amides | | | | | | status | | | | | | Essent | | | ial | | | (prima | | | ry) | | | hypert | | | ension | | | | | | Gastro | | | intest | | | inal | | | hemorr | | | teo, | | | unspec | | | ified | | | | | | Allerg | | | y | | | status | | | to | | | penici | | | llin | | | | | | Allerg | | | y | | | status | | | to | | | other | | | drugs, | | | | | | medica | | | ments | | | and | | | biolog | | | ical | | | substa | | | nces | | | status | | | | | | Abnorm | | | al | | | uterin | | | e and | | | vagina | | | l | | | bleedi | | | ng, | | | unspec | | | ified | | | Juan A | | | 27, | | | 2018 | | | Provid | | | ence | | | [facility] | [place] | | | [place] | | | Emerge | | | ncy | | | | | | Weakne | | | ss | | | Swelli | | | ng | | | Acute | | | respir | | | atory | | | failur | | | e with | | | | | | hypoxi | | | a | | | Other | | | specif | | | ied | | | abnorm | | | al | | | findin | | | gs of | | | blood | | | chemis | | | try | | | | | | Hypoxe | | | hermes | | | | | | Abnorm | | | al | | | levels | | | of | | | other | | | serum | | | enzyme | | | s | | | Acute | | | respir | | | atory | | | failur | | | e with | | | | | | hyperc | | | apnia | | | | | | Heart | | | failur | | | e, | | | unspec | | | ified | | | | | | [place] | | | lemia | | | Juan A | | | 18, | | | 2018 | | | [facility] | | [place] | | | [place] | | | Emerge | | | ncy | | | Chief | | | Compla | | | int: | | | ABD | | | PAIN | | | Recent | | | | | | Inpati | | | ent | | | Visit | | | [place] | | | yDate | | | Facili | | | ty | | | City | | | State | | | Type | | | Diagno | | | ses or | | | Chief | | | | | | Compla | | | int | | | [place] | | | 16, | | | 2019 | | | [facility] | | | [place] | | | [place] | | | Medica | | | l | | | Surgic | | | al | | | Chroni | | | c | | | systol | | | ic | | | (conge | | | stive) | | | heart | | | | | | failur | | | e | | | Presen | | | ce of | | | cardia | | | c | | | pacema | | | ker | | | | | | Allerg | | | y | | | status | | | to | | | penici | | | llin | | | | | | Allerg | | | y | | | status | | | to | | | other | | | drugs, | | | | | | medica | | | ments | | | and | | | biolog | | | ical | | | substa | | | nces | | | status | | | | | | Hypoxe | | | hermes | | | | | | Noninf | | | ective | | | | | | gastro | | | enteri | | | tis | | | and | | | coliti | | | s, | | | unspec | | | ified | | | | | | Hypoth | | | yroidi | | | sm, | | | unspec | | | ified | | | | | | Chroni | | | c | | | passiv | | | e | | | conges | | | tion | | | of | | | liver | | | | | | Weakne | | | ss | | | Alzhei | | | arnaud's | | | diseas | | | e, | | | unspec | | | ified | | | Dec | | | 7, | | | 2018 | | | Provid | | | ence | | | [facility] | [facility] | | [place] | | | [place] | | | Medica | | | l | | | Surgic | | | al | | | Acute | | | kidney | | | | | | failur | | | e, | | | unspec | | | ified | | | | | | Urinar | | | y | | | tract | | | infect | | | ion, | | | site | | | not | | | specif | | | ied | | | Adult | | | | | | failur | | | e to | | | thrive | | | | | | Unspec | | | ified | | | diasto | | | lic | | | (conge | | | stive) | | | heart | | | | | | failur | | | e | | | Hypert | | | ensive | | | heart | | | | | | diseas | | | e with | | | heart | | | | | | failur | | | e | | | Cor | | | pulmon | | | juan | | | (chron | | | ic) | | | Other | | | | | | Alzhei | | | arnaud's | | | diseas | | | e | | | Jagdeep | | | ia in | | | other | | | diseas | | | es | | | classi | | | fied | | | elsewh | | | ere | | | with | | | behavi | | | oral | | | distur | | | bance | | | | | | Acute | | | cystit | | | is | | | withou | | | t | | | hematu | | | kendra | | | | | | Chroni | | | c | | | kidney | | | | | | diseas | | | e, | | | stage | | | 3 | | | (moder | | | ate) | | | Juan A | | | 27, | | | 2018 | | | [facility] | | | ence | | | [facility] | | [facility] | [place] | | | [place] | | | Medica | | | l | | | Surgic | | | al | | | Acute | | | respir | | | atory | | | failur | | | e with | | | | | | hyperc | | | apnia | | | | | | Heart | | | failur | | | e, | | | unspec | | | ified | | | | | | Hypoxe | | | hermes | | | Other | | | | | | specif | | | ied | | | abnorm | | | al | | | findin | | | gs of | | | blood | | | chemis | | | try | | | | | | Abnorm | | | al | | | levels | | | of | | | other | | | serum | | | enzyme | | | s | | | Acute | | | respir | | | atory | | | failur | | | e with | | | | | | hypoxi | | | a | | | Hypoka | | | lemia | | | | | | Chroni | | | c | | | atrial | | | | | | fibril | | | lation | | | | | | Jagdeep | | | ia in | | | other | | | diseas | | | es | | | classi | | | fied | | | elsewh | | | ere | | | with | | | behavi | | | oral | | | distur | | | bance | | | | | | Other | | | Alzhei | | | arnaud's | | | diseas | | | e Juan A | | | 19, | | | 2018 | | | [facility] | [facility] | | | [facility] | | | [facility] | | | [place] | | | [place] | | | Medica | | | l | | | Surgic | | | al | | | Allerg | | | y | | | status | | | to | | | penici | | | llin | | | | | | Histor | | | y of | | | fallin | | | g | | | Hypoka | | | lemia | | | | | | Chroni | | | c | | | atrial | | | | | | fibril | | | lation | | | | | | Cardio | | | myopat | | | hy, | | | unspec | | | ified | | | | | | Viral | | | intest | | | inal | | | infect | | | ion, | | | unspec | | | ified | | | | | | Alzhei | | | arnaud's | | | diseas | | | e, | | | unspec | | | ified | | | | | | Chroni | | | c | | | passiv | | | e | | | conges | | | tion | | | of | | | liver | | | | | | Noninf | | | ective | | | | | | gastro | | | enteri | | | tis | | | and | | | coliti | | | s, | | | unspec | | | ified | | | | | | Hypert | | | ensive | | | heart | | | | | | diseas | | | e with | | | heart | | | | | | failur | | | e | | | Additi | | | onal | | | Care | | | Provid | | | ersPro | | | vider | | | PRC | | | Type | | | Phone | | | Fax | | | Servic | | | e | | | Dates | | | STODDA | | | RD, | | | NIK , | | | M.D. | | | Family | | | | | | Medici | | | ne | | | [phone] | | [phone] | | | [phone] | | | [phone] | | [phone] | | | [phone] | | | Curren | | | t | | | Phan, | | | | | | Bradle | | | y | | | Jamie | | | MD | | | Treatm | | | ent | | | Curren | | | t | | | Easter | | | n | | | [place] | | | | | | Orthop | | | edic | | | Surger | | | y and | | | Fractu | | | re | | | Clinic | | | Other | | | | | | Curren | | | t | | | Colle[facility] | | | tive | | | Portal | | | This | | | patien | | | t has | | | regist | | | ered | | | at the | | | | | | Provid | | | ence | | | [facility] | | | [facility] | | | Med[facility] | | | l | | | Center | | | | | | Emerge | | | ncy | | | Depart | | | ment | | | For | | | more | | | inform | | | ation | | | visit: | | | | | | https: | | | //secu | | | [email or web address] | | | ecarep | | | [email or web address] | | | m/[email or web address] | | | [email or web address] | | | [email or web address] | | | -[phone] | | | [email or web address] | | | [email or web address] | | | [id number] | | | [id number] | | | andnbs | | | p | | | PLEASE | | | NOTE: | | | 1. | | | Any | | | care | | | recomm | | | endati | | | ons | | | and | | | other | | | clinic | | | al | | | inform | | | ation | | | are | | | provid | | | ed as | | | guidel | | | tiago | | | or for | | | | | | histor | | | ical | | | purpos | | | es | | | only, | | | and | | | provid | | | ers | | | should | | | | | | exerci | | | se | | | their | | | own | | | clinic | | | al | | | judgme | | | nt | | | when | | | provid | | | ing | | | care. | | | 2. | | | You | | | may | | | only | | | use | | | this | | | inform | | | ation | | | for | | | purpos | | | es of | | | treatm | | | ent, | | | paymen | | | t or | | | health | | | care | | | operat | | | ions | | | activi | | | ties, | | | and | | | subjec | | | t to | | | the | | | limita | | | tions | | | of | | | applic | | | able | | | Collec | | | tive | | | Polici | | | es. | | | 3. | | | You | | | should | | | | | | consul | | | t | | | direct | | | ly | | | with | | | the | | | organi | | | zation | | | that | | | provid | | | ed a | | | care | | | guidel | | | ine or | | | other | | | | | | clinic | | | al | | | histor | | | y with | | | any | | | questi | | | ons | | | about | | | additi | | | onal | | | inform | | | ation | | | or | | | accura | | | cy or | | | comple | | | teness | | | of | | | inform | | | ation | | | provid | | | ed.? | | | 2019 | | | Collec | | | tive | | | Medica | | | l | | | Techn[employer] | | | logies | | | , Inc[employer] | | | - | | | [email or web address] | | | llecti | | | vemedi | | | [email or web address] | | | m | +---+--------+ + +---+ +---+ + | IMAGING REPORT - | | 12/08/2018 | | Results for this | | EXTERNAL SCAN | | 0:00 PST | | procedure are in the | | | | | | results section. | + +---+ +---+ + from Last 3 Months Results XR Chest AP Portable (02/09/2019 15:26 PDT) + + | Specimen | + + | | + + + + + | Narrative | Performed At | + + + | SINGLE AP CHEST 02/09/2019 3:16 PM CLINICAL HISTORY: CP | [facility] | | COMPARISON: Abdominal CT September 2018 and more remote imaging | | | FINDINGS: The single lead left subclavian pacemaker remains in similar | | | position on the frontal image provided. There is similar, marked | | | cardiomegaly and mild prominence of the central pulmonary | | | vasculature. Mild elevation/eventration of the right hemidiaphragm | | | persists. The lungs appear clear without visible pneumothorax or | | | pleural effusion. There is generalized osteopenia. No fracture | | | or other skeletal or body wall abnormality is evident. IMPRESSION | | | - 1. SIMILAR MARKED CARDIOMEGALY AND PROMINENCE OF THE CENTRAL | | | PULMONARY VASCULATURE WITHOUT RADIOGRAPHIC EVIDENCE OF NEW DISEASE | | | IN THE CHEST. Dictated and Signed by: Tr Castañeda MD | | | Electronically signed: 02/09/2019 3:40 PM | | + + + + + | Procedure Note | + + | Zoe, Rad Results In - 02/09/2019 1543 PDT SINGLE AP CHEST 02/09/2019 3:16 PM | | | | CLINICAL HISTORY: CP | | | | COMPARISON: Abdominal CT September 2018 and more remote imaging | | | | FINDINGS: The single lead left subclavian pacemaker remains in similar position | | on the frontal image provided. There is similar, marked cardiomegaly and mild | | prominence of the central pulmonary vasculature. Mild elevation/eventration of | | the right hemidiaphragm persists. The lungs appear clear without visible | | pneumothorax or pleural effusion. There is generalized osteopenia. No fracture | | or other skeletal or body wall abnormality is evident. | | | | IMPRESSION - | | | | 1. SIMILAR MARKED CARDIOMEGALY AND PROMINENCE OF THE CENTRAL PULMONARY | | VASCULATURE WITHOUT RADIOGRAPHIC EVIDENCE OF NEW DISEASE IN THE CHEST. | | | | Dictated and Signed by: Tr Castañeda MD | | Electronically signed: 02/09/2019 3:40 PM | + + + +---------+ + + | Performing | Address | City/State/Zipcode | Phone Number | | Organization | | | | + +---------+ + + | [facility] | | | | + +---------+ + + Extra Blue Top Tube (02/09/2019 14:54 PDT) + +-------+ + + + | Component | Value | Ref Range | Performed | Pathologist | | | | | At | Signature | + +-------+ + + + | Extra Blue | Done | | [facility] | | | Top Tube | | | [facility] | | | | | [facility] | | | | | | CENTER - | | | | | | LABORATORY | | + +-------+ + + + + + | Specimen | + + | Blood | + + + + + + + | Performing | Address | City/State/Zipcode | Phone Number | | Organization | | | | + + + + + | [facility] | [address] | [place] | [phone] | | [facility] | | [address] | | | - LABORATORY | | | | + + + + + Troponin I (02/09/2019 14:54 PDT) + + + + + + | Component | Value | Ref Range | Performed | Pathologist | | | | | At | Signature | + + + + + + | Troponin I | 0.03Comment: | <0.06 ng/mL | [facility] | | | | Comment:Reference | | [facility] | | | | Ranges: 0.00-0.06 = | | MEDICAL | | | | NORMAL >0.06 = | | CENTER - | | | | SUSPICIOUS FOR | | LABORATORY | | | | MYOCARDIAL DAMAGE NOTE: | | | | | | Values greater than | | | | | | 0.78 ng/mL have been | | | | | | shown to be strongly | | | | | | associated with acute | | | | | | myocardial infarction. | | | | | | The [employer] | | | | | | Cardiology (ACC) | | | | | | recommends a decision | | | | | | limit of 0.06 ng/mL for | | | | | | this assay. Results | | | | | | greater than 0.06 can | | | | | | reflect a pre-infarct | | | | | | acute coronary syndrome, | | | | | | but can also reflect | | | | | | myocardial necrosis or | | | | | | injury that is not due | | | | | | to coronary artery | | | | | | disease. Some of these | | | | | | causes are sepsis, | | | | | | hypocolemia, atrial | | | | | | fibrillation, heart | | | | | | failure, pulmonary | | | | | | embolism, myocarditis, | | | | | | myocardial contusion, | | | | | | and renal failure. The | | | | | | diagnosis of myocardial | | | | | | infarction should be | | | | | | based on a combination | | | | | | of the patient's | | | | | | clinical presentation | | | | | | and the clinical | | | | | | laboratory test results | | | | | | (especially serial | | | | | | troponin levels). | | | | + + + + + + + + | Specimen | + + | Blood | + + + + + + + | Performing | Address | City/State/Zipcode | Phone Number | | Organization | | | | + + + + + | [facility] | [address] | [place] | [phone] | | [facility] | | [address] | | | - LABORATORY | | | | + + + + + CBC with Differential (02/09/2019 14:54 PDT) + + + + + + | Component | Value | Ref Range | Performed | Pathologist | | | | | At | Signature | + + + + + + | WBC | 4.6 | 4.0 - 11.0 K/uL | [facility] | | | | | [facility] | | | | | | [facility] | | | | | | CENTER - | | | | | | LABORATORY | | + + + + + + | RBC | 3.97 | 3.70 - 5.20 | [facility] | | | | | M/uL | [facility] | | | | | | MEDICAL | | | | | | CENTER - | | | | | | LABORATORY | | + + + + + + | Hemoglobin | 11.4 (L) | 11.5 - 16.0 | [facility] | | | | | g/dL | [facility] | | | | | | MEDICAL | | | | | | CENTER - | | | | | | LABORATORY | | + + + + + + | Hematocrit | 37.9 | 34.0 - 47.0 % | [facility] | | | | | | [facility] | | | | | | [facility] | | | | | | CENTER - | | | | | | LABORATORY | | + + + + + + | MCV | 95.5 | 83.0 - 101.0 fL | [facility] | | | | | | [facility] | | | | | | [facility] | | | | | | CENTER - | | | | | | LABORATORY | | + + + + + + | MCH | 28.7 | 28.0 - 35.0 pg | [facility] | | | | | | [facility] | | | | | | [facility]ICAL | | | | | | CENTER - | | | | | | LABORATORY | | + + + + + + | MCHC | 30.1 (L) | 32.0 - 36.0 | [facility] | | | | | g/dL | [facility] | | | | | | MEDICAL | | | | | | CENTER - | | | | | | LABORATORY | | + + + + + + | RDW-CV | 18.6 (H) | <15.0 % | [facility] | | | | | [facility] | | | | | | [facility]ICAL | | | | | | CENTER - | | | | | | LABORATORY | | + + + + + + | RDW-SD | 64.6 (H) | 35.1 - 46.3 fL | [facility] | | | | | [facility] | | | | | | [facility]ICAL | | | | | | CENTER - | | | | | | LABORATORY | | + + + + + + | Platelet | 157 | 140 - 440 K/uL | [facility] | | | Count | | | [facility] | | | | | | MEDICAL | | | | | | CENTER - | | | | | | LABORATORY | | + + + + + + | MPV | 12.2 | 6.5 - 12.4 fL | [facility] | | | | | | [facility] | | | | | | [facility]ICAL | | | | | | CENTER - | | | | | | LABORATORY | | + + + + + + | % | 69.5 | 45.0 - 82.0 % | [facility] | | | Neutrophils | | | [facility] | | | | | | MEDICAL | | | | | | CENTER - | | | | | | LABORATORY | | + + + + + + | % | 19.4 (L) | 20.0 - 45.0 % | [facility] | | | Lymphocytes | | | [facility] | | | | | | MEDICAL | | | | | | CENTER - | | | | | | LABORATORY | | + + + + + + | % Monocytes | 7.8 | 4.0 - 12.0 % | [facility] | | | | | | [facility] | | | | | | [facility]ICAL | | | | | | CENTER - | | | | | | LABORATORY | | + + + + + + | % | 2.4 | 0.0 - 5.0 % | [facility] | | | Eosinophils | | | [facility] | | | | | | MEDICAL | | | | | | CENTER - | | | | | | LABORATORY | | + + + + + + | % Basophils | 0.7 | 0.0 - 1.0 % | [facility] | | | | | | [facility] | | | | | | MEDICAL | | | | | | CENTER - | | | | | | LABORATORY | | + + + + + + | % Immature | 0.2 | 0.0 - 0.4 % | [facility] | | | Granulocyte | | | [facility] | | | s | | | MEDICAL | | | | | | CENTER - | | | | | | LABORATORY | | + + + + + + | Absolute | 3.19 | 1.80 - 8.50 | [facility] | | | Neutrophils | | K/uL | [facility] | | | | | | MEDICAL | | | | | | CENTER - | | | | | | LABORATORY | | + + + + + + | Absolute | 0.89 | 0.60 - 3.20 | [facility] | | | Lymphocytes | | K/uL | [facility] | | | | | | MEDICAL | | | | | | CENTER - | | | | | | LABORATORY | | + + + + + + | Absolute | 0.36 | 0.00 - 1.00 | [facility] | | | Monocytes | | K/uL | [facility] | | | | | | MEDICAL | | | | | | CENTER - | | | | | | LABORATORY | | + + + + + + | Absolute | 0.11 | 0.00 - 0.40 | [facility] | | | Eosinophils | | K/uL | [facility] | | | | | | MEDICAL | | | | | | CENTER - | | | | | | LABORATORY | | + + + + + + | Absolute | 0.03 | 0.00 - 0.10 | [facility] | | | Basophils | | K/uL | [facility] | | | | | | MEDICAL | | | | | | CENTER - | | | | | | LABORATORY | | + + + + + + | Absolute | 0.01 | 0.00 - 0.03 | [facility] | | | Immature | | K/uL | [facility] | | | Granulocyte | | | MEDICAL | | | s | | | CENTER - | | | | | | LABORATORY | | + + + + + + | % nRBC | 0 | 0 - 2 per 100 | [facility] | | | | | WBCs | [facility] | | | | | | MEDICAL | | | | | | CENTER - | | | | | | LABORATORY | | + + + + + + | Absolute | 0.00 | 0.00 - 0.01 | [facility] | | | nRBC | | K/uL | [facility] | | | | | | MEDICAL | | | | | | CENTER - | | | | | | LABORATORY | | + + + + + + + + | Specimen | + + | Blood | + + + + + + + | Performing | Address | City/State/Zipcode | Phone Number | | Organization | | | | + + + + + | [facility] | [address] | [place] | [phone] | | [facility] | | [address] | | | - LABORATORY | | | | + + + + + B Type Natriuretic Peptide (02/09/2019 14:54 PDT) + + + + + + | Component | Value | Ref Range | Performed | Pathologist | | | | | At | Signature | + + + + + + | BNP | 4,622 (H) | <100 pg/mL | [facility] | | | | | | [facility] | | | | | | MEDICAL | | | | | | CENTER - | | | | | | LABORATORY | | + + + + + + + + | Specimen | + + | Blood | + + + + + + + | Performing | Address | City/State/Zipcode | Phone Number | | Organization | | | | + + + + + | [facility] | [address] | [place], [place] | [phone] | | [facility] | | [address] | | | - LABORATORY | | | | + + + + + Basic Metabolic Panel (02/09/2019 14:54 PDT) + + + + + + | Component | Value | Ref Range | Performed | Pathologist | | | | | At | Signature | + + + + + + | Na | 147 (H) | 136 - 145 | [facility] | | | | | mmol/L | [facility] | | | | | | MEDICAL | | | | | | CENTER - | | | | | | LABORATORY | | + + + + + + | K | 3.4 | 3.4 - 5.1 | [facility] | | | | | mmol/L | [facility] | | | | | | MEDICAL | | | | | | CENTER - | | | | | | LABORATORY | | + + + + + + | Cl | 110 (H) | 98 - 107 mmol/L | [facility] | | | | | | [facility] | | | | | | MEDICAL | | | | | | CENTER - | | | | | | LABORATORY | | + + + + + + | CO2 | 35 (H) | 20 - 31 mmol/L | [facility] | | | | | | [facility] | | | | | | MEDICAL | | | | | | CENTER - | | | | | | LABORATORY | | + + + + + + | Anion Gap | 2 (L) | 3 - 16 mmol/L | [facility] | | | | | | [facility] | | | | | | MEDICAL | | | | | | CENTER - | | | | | | LABORATORY | | + + + + + + | Glucose | 118 (H) | 60 - 106 mg/dL | [facility] | | | | | | [facility] | | | | | | MEDICAL | | | | | | CENTER - | | | | | | LABORATORY | | + + + + + + | BUN | 29 (H) | 9 - 23 mg/dL | [facility] | | | | | | [facility] | | | | | | MEDICAL | | | | | | CENTER - | | | | | | LABORATORY | | + + + + + + | Creatinine | 0.97 | 0.55 - 1.02 | [facility] | | | | | mg/dL | [facility] | | | | | | MEDICAL | | | | | | CENTER - | | | | | | LABORATORY | | + + + + + + | eGFR if not | 56 (L)Comment: | >=60 | [facility] | | | | GLOMERULAR FILTRATION | mL/min/1.73m2 | [facility] | | | FRENCH | RATE,ESTIMATED mL/min | | MEDICAL | | | | /1.93c7Aefu than 60 | | CENTER - | | | | Chronic kidney | | LABORATORY | | | | disease,if found over a | | | | | | 3-month period.Less than | | | | | | 15 Kidney | | | | | | failureFor | | | | | | Americans,multiply the | | | | | | calculated GFR by 1.21. | | | | | | | | | | + + + + + + | Ca | 7.7 (L) | 8.7 - 10.4 | [facility] | | | | | mg/dL | [facility] | | | | | | MEDICAL | | | | | | CENTER - | | | | | | LABORATORY | | + + + + + + | BUN/Creatin | 29.9 | | [facility] | | | ine Ratio | | | [facility] | | | | | | MEDICAL | | | | | | CENTER - | | | | | | LABORATORY | | + + + + + + + + | Specimen | + + | Blood | + + + + + + + | Performing | Address | City/State/Zipcode | Phone Number | | Organization | | | | + + + + + | [facility] | [address] | [place] | [phone] | | [facility] | | [address] | | | - LABORATORY | | | | + + + + + ECG 12 lead (02/09/2019 14:38 PDT) + + + + + + | Component | Value | Ref Range | Performed | Pathologist | | | | | At | Signature | + + + + + + | VENTRICULAR | 64 | BPM | [facility] | | | RATE EKG | | | | | + + + + + + | ATRIAL RATE | 326 | BPM | [facility] | | + + + + + + | QRS | 82 | ms | [facility] | | | DURATION | | | | | + + + + + + | Q-T | 426 | ms | [facility] | | | INTERVAL | | | | | + + + + + + | Q-T | 439 | ms | [facility] | | | INTERVAL | | | | | | (CORRECTED) | | | | | + + + + + + | QRS AXIS | -37 | degrees | [facility] | | + + + + + + | T AXIS | 130 | degrees | [facility] | | + + + + + + | INTERPRETAT | Atrial fibrillation with | | [facility] | | | ION TEXT | frequent | | | | | | ventricular-paced | | | | | | complexesLeft axis | | | | | | deviationLow voltage | | | | | | QRSSeptal infarct , age | | | | | | undeterminedAbnormal | | | | | | ECGWhen compared with | | | | | | ECG of 28-SEP-2018 | | | | | | 12:48,Vent. rate has | | | | | | decreased BY 2 | | | | | | BPMConfirmed by | | | | | | CRISTINA WINKLER MD | | | | | | ([id number]) on 02/12/2019 | | | | | | 10:50:56 AM | | | | + + + + + + + + | Specimen | + + | | + + + + + | Narrative | Performed At | + + + | | | + + + + +---------+ + + | Performing | Address | City/State/Zipcode | Phone Number | | Organization | | | | + +---------+ + + | [facility] | | | | + +---------+ + + IMAGING REPORT - EXTERNAL SCAN (12/08/2018 0:00 PST) + + + | Narrative | Performed At | + + + | Ordered by an | | | unspecified provider. | | + + + from Last 3 Months Insurance + +--------+ +--------+-------+---------+--------+ | Payer | Benefi | Subscriber | Effect | Phone | Address | Type | | | t Plan | ID | sheila | | | | | | / | | Dates | | | | | | Group | | | | | | + +--------+ +--------+-------+---------+--------+ | [employer] | [employer] | [id number] | 10/23/19 | | | Medica | | | HEALTH | | 12-Pre | | | re | | | MDCR | | sent | | | | + +--------+ +--------+-------+---------+--------+ + +--------+ +--------+ + + | Guarantor Name | Accoun | Relation to | Date | Phone | Billing Address | | | t Type | Patient | of | | | | | | | | | | + +--------+ +--------+ + + | Laila Dolan | Person | Self [birth year] | | | al/Fam | | 1945 | [phone] | [place] | | | [employer] | | | [address] (Home) | [address] | + +--------+ +--------+ + + Advance Directives Patient has advance care planning documents, and code status on file. For more information, please contact[facility] [address] + + + + + | Code Status | Date | Date | Comments | | | Activated | Inactivated | | + + + + + | JOVANNY (No | 09/29/2018 | 10/02/2018 | | | Code) | 7:13 | 16:01 | | + + + + + + + +---+ | RN or MD to pronounce: | RN may | | | | pronounce | | + + +---+ + + + +---+ | | | | | + + + +---+ | Full Code | 09/28/2018 | 09/29/2018 | | | by default | 19:17 | 7:13 | | | - TBD | | | | + + + +---+ + + + +---+ | | | | | + + + +---+ | DNR (No | 04/18/2018 | 04/23/2018 | | | Code) | 21:11 | 18:25 | | + + + +---+ + + +---+ | Orders discussed with: | Patient | | | | Gluing Pressman | | + + +---+ | RN or MD to pronounce: | RN may | | | | pronounce | | + + +---+
--- OUTSIDE RECORDS SUMMARY | ~2019-02-12 | XMS | Encounter Summary ---
Demographics + + + | Address | [address] | | | [place] [address] | + + + | Home Phone | | + + + | Preferred Language | Unknown | + + + | Marital Status | | + + + | Anabaptist Affiliation | 1077 | + + + | Race | Unknown | + + + | Ethnic Group | Unknown | + + + Author + + + | Author | [facility] | | | and [place] | + + + | Organization | [facility] | | | and [...] [place] | | | | | [address] | | + + + + + | Julia Aguilar | ECON | Unknown | | + + + + + Care Team Providers + +------+ + | Care Filler Block Inserter Remover Name | Role | Phone | + +------+ + | Carrillo Michel MD | PCP | | + +------+ + Encounter Details +--------+ + + + + | Date | Type | Department | Care Team | Description | +--------+ + + + + | 11/23/ | Episode | [facility] | Jasmin [place] | | | 2019 | Changes | GASTROENTEROLOGY | M RN | | | | | [address] [facility] | | | | | | [address] [place] | | | | | | [address] | | | | | | [phone] | | | +--------+ + + + [...]
--- OUTSIDE RECORDS SUMMARY | ~2019-02-12 | XMS | Encounter Summary ---
Demographics + + + | Address | [address] | | | [place] [address] | + + + | Home Phone | | + + + | Preferred Language | Unknown | + + + | Marital Status | | + + + | Sabianism Affiliation | 1077 | + + + | Race | Unknown | + + + | Ethnic Group | Unknown | + + + Author + + + | Author | [facility] | | | and [place] | + + + | Organization | [facility] | | | [...] [place] | | | | | [address] | | + + + + + | Julia Aguilar | ECON | Unknown | | + + + + + Care Team Providers + +------+ + | Care Perfumer Name | Role | Phone | + +------+ + | Carrillo Michel MD | PCP | | + +------+ + Encounter Details +--------+ + + + + | Date | Type | Department | Care Team | Description | +--------+ + + + + | 11/26/ | Episode | [facility] | Jasmin Johnson | | | 2019 | Changes | GASTROENTEROLOGY | M RN | | | | | [address] [facility] | | | | | | [address] | | | | | | [address] | | | | | | [phone] | | | +--------+ + + + [...]
--- OUTSIDE RECORDS SUMMARY | ~2019-02-12 | XMS | Encounter Summary ---
Demographics + + + | Address | [address] | | | [place] [address] | + + + | Home Phone | | + + + | Preferred Language | Unknown | + + + | Marital Status | | + + + | Temple Affiliation | 1077 | + + + | Race | Unknown | + + + | Ethnic Group | Unknown | + + + Author + + + | Author | [facility] | | | and [place] | + + + | Organization | [facility] | | [...] [place] | | | | | [address] | | + + + + + | Julia Aguilar | ECON | Unknown | | + + + + + Care Team Providers + +------+ + | Care Site Lead Name | Role | Phone | + [...] | | | | [address] [facility] | | | | | | [address] | | | | | | [address] | | | | | | [phone] | | | +--------+ + + + [...]
--- OUTSIDE RECORDS SUMMARY | ~2019-02-12 | XMS | Clinical Summary ---
Demographics + + + | Address | [address] | | | [place] [address] | + + + | Home Phone | | + + + | Preferred Language | Unknown | + + + | Marital Status | | + + + | Holiness Affiliation | Unknown | + + + | Race | Unknown | + + + | Ethnic Group | Unknown | + + + Author + + + | Author | [facility] | + + + | Organization | [facility] | + + + | Address | Unknown | + + + | Phone | Unavailable | + + + Support + + + + + | Name | Relationship | Address | Phone | + + + + + | Laila Ellison ECON | [address] | | | | | [place] | | | | | [address] | | + + + + + | Julia Aguilar | ECON | Unknown | | + + + + + Care Team Providers + +------+ + | Care Felt Strip Finisher Name | Role | Phone | + [...] + + +--------+---------+------+------+-------+ | donepezil | Take 23 mg by mouth | | | | [...] | | | + + +--------+---------+------+------+-------+ | carvedilol (COREG) | TAKE ONE TABLET BY | 60 | 2 | 11/ | | Activ | | 12.5 MG tablet | MOUTH TWICE A DAY | tablet | | 2/20 | | e | | | | | | 18 | | | + + +--------+---------+------+------+-------+ | Albuterol Sulfate | Inhale 2 puffs into | | | | | Activ | | 108 (90 Base) | the lungs every 4 | | | | | e | | MCG/ACT AEPB | (four) hours as | | | | | | | | needed. | | | | | | + + +--------+---------+------+------+-------+ | dronabinol | Take 2.5 mg by mouth | | | | | Activ | | (MARINOL) 2.5 MG | 2 (two) times daily | | | | | e | | capsule | before meals. | | | | | | + + +--------+---------+------+------+-------+ | pantoprazole | Take 40 mg by mouth | | | | | Activ | | (PROTONIX) 40 MG | 2 (two) times daily. | | | | | e | | tablet | | | | | | | + + +--------+---------+------+------+-------+ | isosorbide | Take 1 tablet by | 90 | 2 | 08/23 | 08/23 | Activ | | mononitrate (IMDUR) | mouth daily. 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 | | 71yo WF, with dementia, she is here with her . Although | | she does not recall her recent hospitalization, nor her symptoms, | | he admits that she had chest discomfort, was admitted to the [facility] hospital. Cardiac enzymes were mildly abnormal, she was sent to | | [facility], there, she did have a [...] | 7 | + + + + Family History [...] + + + | Blood Pressure | 138/78 | 09/05/2018 3:49 PM PST | + + + + | Pulse | 60 | 09/05/2018 3:49 PM PST | + + + + | Temperature | 36.6 C (97.8 F) | 01/24/2018 11:17 AM PDT | + + + + | Respiratory Rate | 16 | 03/01/2017 7:34 AM PDT | + + + + | Oxygen Saturation | 95% | 09/05/2018 3:49 PM PST | + + + + | Inhaled Oxygen | - | - | | Concentration | | | + + + + | Weight | 53.3 kg (117 lb 9.6 | 09/05/2018 3:49 PM PST | | | oz) | | + + + + | Height | 162.6 cm (5' 4") | 09/05/2018 3:49 PM PST | + + + + | Body Mass Index | 20.19 | 09/05/2018 3:49 PM PST | + + + + Plan of Treatment +--------+---------+ + + + | Date | Type | Specialty | Care Team | Description | +--------+---------+ + + + | 03/06/ | Office | | Cecilia Ortega, | | | 2018 | Visit | | MD Mackenzie Valentin | | | | | | Dr Padilla, | | | | | | [place] [address] | | | | | | [phone] | | | | | | | | +--------+---------+ + + + + + + + + | Health Maintenance | Due Date | Last Done | Comments | + + + + + | Vaccine: | | | | | Dtap/Tdap/Td (1 - | 2 | | | | Tdap) | | | | + + + [...] + + + | Vaccine: | | | | | Pneumococcal 65+ | 8 | | | | Low/Medium Risk (1 | | | | | of 2 - PCV13) | | | | + + + + + | Vaccine: Influenza | | | | | (Season Ended) | 9 | | | + + + + [...] | Rhythm | | | | | [address] | | | | | | | [...] [place] - MODA | [place] - | [id number] | Medica | | | | | [...] | [birth year] | Home: | [address] | | | al/Fam | | 1945 | [phone] [facility] [place] | | | [place] | | | [id number] | [address] | + +--------+ +--------+ + +
--- OUTSIDE RECORDS SUMMARY | ~2019-02-12 | XMS | Encounter Summary ---
Demographics + + + | Address | [address] | | | [place] [address] | + + + | Home Phone | | + + + | Preferred Language | Unknown | + + + | Marital Status | | + + + | Presybeterian Affiliation | 1077 | + + + | Race | Unknown | + + + | Ethnic Group | Unknown | + + + Author + + + | Author | [facility] | | | and [place] | + + + | Organization | [facility] | | | [...] [place] | | | | | [address] | | + + + + + | Julia Aguilar | ECON | Unknown | | + + + + + Care Team Providers + +------+ + | Care Game Warden Name | Role | Phone | + [...] + + | 12/17/ | Telephone | [facility] | Darwin López MD | Appointment | | 2019 | | GASTROENTEROLOGY | [address] [place] | (cancelled egd with | | | | [address] [place] | [address] [place], [place] | prop) | | | | [address] [place], [place] | [address] | | | | | [address] | | | | | | [phone] | | | +--------+ + + + [...]
--- OUTSIDE RECORDS SUMMARY | ~2019-02-12 | XMS | Encounter Summary ---
Demographics + + + | Address | [address] | | | [place] [address] | + + + | Home Phone | | + + + | Preferred Language | Unknown | + + + | Marital Status | | + + + | Evangelical Affiliation | 1077 | + + + | Race | Unknown | + + + | Ethnic Group | Unknown | + + + Author + + + | Author | [facility] | | | and [place] | + + + | Organization | [facility] | | | [...] [place] | | | | | [address] | | + + + + + | Julia Aguilar | ECON | Unknown | | + + + + + Care Team Providers + +------+ + | Care Religious Ritual Slaughterer Name | Role | Phone | + +------+ + | Carrillo Michel MD | PCP | | + +------+ + Reason for Visit + + + | Reason | Comments | + + + | Dysphagia | EGD tentatively scheduled for December 18 | + + + Encounter Details +--------+ + + + + | Date | Type | Department | Care Team | Description | +--------+ + + + + | 11/21/ | Telephone | [facility] | Darwin López MD | Dysphagia (EGD | | 2019 | | GASTROENTEROLOGY | [address] [place] | tentatively | | | | [address] | [address] [place] | scheduled for | | | | [address] [place] | [address] | December 18) | | | | [address] | | | | | | [phone] | | | +--------+ + + + [...] filedocumented as of this encounter Visit Diagnoses + + | Diagnosis | + + | Esophageal dysphagia - Primary Dysphagia, pharyngoesophageal phase | + + | Abnormal esophagram Nonspecific (abnormal) findings on radiological and other | | examination of gastrointestinal tract | + + | Alzheimer's type dementia with late onset with behavioral disturbance Alzheimer's | | disease | + + documented in this encounter"
--- OUTSIDE RECORDS SUMMARY | ~2019-02-12 | XMS | Encounter Summary ---
Demographics + + + | Address | [address] | | | [place] [address] | + + + | Home Phone | | + + + | Preferred Language | Unknown | + + + | Marital Status | | + + + | Restoration Affiliation | 1077 | + + + | Race | Unknown | + + + | Ethnic Group | Unknown | + + + Author + + + | Author | [facility] | | | and [place] | + + + | Organization | [facility] | | [...] [place] | | | | | [address] | | + + + + + | Julia Aguilar | ECON | Unknown | | + + + + + Care Team Providers + +------+ + | Care Staff Physician Name | Role | Phone | + [...] | | | | [address] [facility] | | | | | | [address] [place] | | | | | | [address] | | | | | | [phone] | | | +--------+ + + + [...]
--- OUTSIDE RECORDS SUMMARY | ~2019-02-12 | XMS | Encounter Summary ---
Demographics + + + | Address | [address] | | | [place] [address] | + + + | Home Phone | | + + + | Preferred Language | Unknown | + + + | Marital Status | | + + + | Alevism Affiliation | 1077 | + + + | Race | Unknown | + + + | Ethnic Group | Unknown | + + + Author + + + | Author | [facility] | | | and [place] | + + + | Organization | [facility] | | | and [place] | + + + | Address | Unknown | + + + | Phone | Unavailable | + + + Support + + + + + | Name | Relationship | Address | Phone | + + + + + | Braden Ellison | ECON | [address] | | | | | [place] | | | | | [address] | | + + + + + | Julia Aguilar | ECON | Unknown | | + + + + + Care Team Providers + +------+ + | Care Call Center Manager Name | Role | Phone | + +------+ + | Ruth Crisostomo MD | PCP | | + +------+ + Reason for Visit + + + | Reason | Comments | + + + | Chest Pain | | + + + Encounter Details +--------+ + + + + | Date | Type | Department | Care Team | Description | +--------+ + + + + | 02/09/ | Emergency | [facility] | Cate, | Atypical chest pain | | 2019 | | [facility] EM[facility] | Bolivar Mohr MD [address] | (Primary Dx); Acute | | | | CENTER [address] | [address] [place] | on chronic systolic | | | | [place] | [place] [address] | congestive heart | | | | [address] | [phone] | failure (HCC) | | | | [phone] | | | +--------+ + + + [...] + + documented as of this encounter Last Filed Vital Signs + + + + | Vital Sign | Reading | Time Taken | + + + + | Blood Pressure | 146/91 | 02/09/2019 1528 PDT | + + + + | Pulse | 58 | 02/09/20191610 PDT | + + + + | Temperature | 36.7 C (98 F) | 02/09/20191432 PDT | + + + + | [...] | Body Mass Index | 22.31 | 09/28/2018 1241 PST | + + + + documented in this encounter Functional Status + + [...] + + documented as of this encounter Discharge Instructions Instructions Bolivar Esposito MD - 02/09/2019Be sure to take your lasix regularly Follow up with Dr. Marilu Meier for any concerns documented in this encounter Medications at Time of Discharge + + + +---------+ + + | Medication | Sig | Dispensed | Refills | Start | End Date | | | | | | Date | | + + + +---------+ + + | albuterol 90 | Inhale 2 puffs into | 1 | 2 | 08/30/20 | | | mcg/puff | the lungs every 4 | Inhaler | | 18 | | | inhalerIndications: | hours as needed for | | | | | | Chronic obstructive | Wheezing or | | | | | | pulmonary disease, | Shortness of Breath. | | | | | | unspecified COPD | | | | | | | type (HCC) | | | | | | + + + +---------+ + + | ascorbic acid | Take 500 mg by mouth | | 0 | | | | (VITAMIN C) 500 mg | Daily. | | | | | | tablet | | | | | | + + + +---------+ + + | carvedilol (COREG) | Take 1 tablet by | | 0 | 07/25/20 | | | 12.5 mg [...] | | | | + + + +---------+ + + | cholecalciferol | Take 1,000 Units by | | 0 | | | | (VITAMIN D-3) 1000 | mouth Daily. | | | | | | units TABS | | | | | | + + + +---------+ + + | cyanocobalamin | Take 1,000 mcg by | | 0 | | | | (VITAMIN B-12) 1000 | mouth Daily. | | | | | | MCG tablet | | | | | | + + + +---------+ + + | donepezil | Use 10 mg pills to | 30 | 2 | 08/28/20 | | | (ARICEPT) 23 MG | take 15 mg by mouth | tablet | | 18 | | | tabletIndications: | nightly x 1 week, | | | | | | Alzheimer's disease | then increase to 23 | | | | | | of other onset with | mg pill once per | | | | | | behavioral | night. To help | | | | | | disturbance | memory | | | | | + + + +---------+ + + | dronabinol | Take 1 capsule by | 28 | 0 | 10/02/20 | | | (MARINOL) 2.5 mg | mouth 2 times daily | capsule | | 18 | | | capsuleIndications: | (before meals). | | | | | | Alzheimer's disease | | | | | | | of other onset with | | | | | | | behavioral | | | | | | | disturbance, Weight | | | | | | | loss | | | | | | + + + +---------+ + + | escitalopram | TAKE ONE TABLET BY | 90 | 0 | 08/15/20 | | | (LEXAPRO) 10 mg | MOUTH EVERY DAY TO | tablet | | 18 | | | tablet | HELP MOOD | | | | | + + + +---------+ + + | furosemide (LASIX) | Take 1 tablet by | 30 | 4 | 06/18/20 | | | 20 mg tablet | mouth Daily. | tablet | | 18 | | + + + +---------+ + + | isosorbide | Take 1 tablet by | 180 | 1 | 07/17/20 | | | dinitrate (ISORDIL) | mouth 2 times daily. | tablet | | 18 | | | 30 MG | To prevent chest | | | | | | tabletIndications: | pain and to lower | | | | | | Coronary artery | blood pressure | | | | | | disease of [place] | | | | | | | artery of [place] | | | | | | | heart with stable | | | | | | | angina pectoris | | | | | | | ([facility]), Essential | | | | | | | hypertension | | | | | | + + + +---------+ + + | levothyroxine | Take 50 mcg by mouth | | 0 | | | | (SYNTHROID) 50 mcg | every morning | | | | | | tablet | (before breakfast). | | | | | + + + +---------+ + + | losartan (COZAAR) | TAKE ONE TABLET BY | 90 | 0 | 08/22/20 | | | 100 MG tablet | MOUTH EVERY DAY FOR | tablet | | 18 | | | | HIGH BLOOD PRESSURE | | | | | + + + +---------+ + + | mirtazapine | TAKE ONE TABLET BY | 30 | 4 | 09/11/20 | | | (REMERON) 15 MG | MOUTH AT BEDTIME | tablet | | 18 | | | tablet | | | | | | + + + +---------+ + + | Multiple Vitamin | Take 1 tablet by | | 0 | | | | (MULTIVITAMIN PO) | mouth Daily. | | | | | + + + +---------+ + + | nitroglycerin | Place 0.4 mg under | | 0 | | | | (NITROSTAT) 0.4 mg | the tongue every 5 | | | | | | SL tablet | minutes as needed | | | | | | | for Chest pain. | | | | | + + + +---------+ + + | pantoprazole | TAKE ONE TABLET BY | 60 | 3 | 09/25/20 | | | (PROTONIX) 40 mg | MOUTH TWICE A DAY | tablet | | 18 | | | tablet | (BEFORE MEALS) | | | | | + + + +---------+ + + | potassium chloride | Take 2 tablets by | 120 | 4 | 06/18/20 | | | (KLOR-CON) 10 MEQ | mouth 2 times daily. | tablet | | 18 | | | ER tablet | | | | | | + + + +---------+ + + documented as of this encounter Plan of Treatment + +--------+ + + | Name | Priori | Associated Diagnoses | Date/Time | | | ty | | | + +--------+ + + | ED INFORMATION EXCHANGE | Routin | | 02/09/2019 14:28 PDT | | | e | | | + +--------+ + + documented as of this encounter Procedures + +--------+ [...] | | | ON?/ | | | 20/ | | | 9 | | | 14:26? | | | ELLISON | | | , LAILA | | | | | | M?MRN: | | | | | | [id number] | | | [id number] | | | riteri | | | a Met | | | | | | PRCSec | | | urity | | | and | | | Safety | | | Date | | | Locati | | | on | | | Type | | | Specif | | | ics | | | 2/15/1 | | | 9 4:03 | | | PM | | | [facility] | [facility] | [place] | | | y | | | [...] | | | St. | | | [place] | | | y | | | [...] | | | St. | | | [place] | | | y H. | | [...] | | | St. | | | [place] | | | y H. | | [...] | | | St. | | | [place] | | | y H. | | [...] | | | St. | | | [place] | | | y H. | | [...] | | | St. | | | [place] | | | y H. | | [...] | | | St. | | | [place] | | | y H. | | [...] | | | St. | | | [facility] | | | [facility] | | | [...] | | | St. | | | [place] | | | y H. | | [...] | | | St. | | | [place] | | | y H. | | [...] | | | St. | | | [place] | | | y H. | | [...] | | | n | | | [place] | | | | | | Orthop [...] | | | ent/81 | | | [id number] | | | -[id number]- | | | [...] [email or web address] | | | m | +---+--------+ documented in this encounter Results XR Chest AP Portable (02/09/2019 15:26 [...] | | Top Tube | | | [facility] | | [...] + | [facility] | [address] | [place] | [phone] | | [facility] | | [address] | | | - LABORATORY | | | | + + + + + B Type Natriuretic Peptide (02/09/2019 14:54 PDT) + + + + + + | Component | Value | Ref Range | Performed | Pathologist | | | | | At | Signature | + + + + + + | BNP | 4,622 (H) | <100 pg/mL | [facility] | | | | | | [facility] [address] | [place] | [phone] | | [facility] | | [address] | | | - LABORATORY | | [...] | | | | | mmol/L | SUE | | | | | | [...] (H) | 9 - 23 mg/dL | [facility] | | | | | | [facility] | | | | | | MEDICAL | | | | | | CENTER - | | | | | | LABORATORY | | + + + + + + | Creatinine | 0.97 | 0.55 - 1.02 | [facility] | | | | | mg/dL | [facility] | | | | | | MEDICAL | | | | | | CENTER - | | | | | | LABORATORY | | + + + + + + | eGFR if not | 56 (L)Comment: | >=60 | [facility] | | | | GLOMERULAR FILTRATION | mL/min/1.73m2 | [facility] | | | ANGOLAN | RATE,ESTIMATED mL/min | | MEDICAL | | | | /[id number] than 60 | | CENTER - | [...] | | | | | mg/dL | [facility] | | | | | | MEDICAL | | | | | | CENTER - | | | | | | LABORATORY | | + + + + + + | BUN/Creatin | 29.9 | | [facility] | | | ine Ratio | | | . [facility] | | | | [...] + | [facility] | [address] | [place] | [phone] | | [facility] | | [address] | | | - LABORATORY | | [...] | | | | Comment:Reference | | SUE | | | | Ranges: 0.00-0.06 [...] | | | | | | [employer] | | | | | [...] [address] | [place] | [phone] | | [facility] | | [address] | | | - LABORATORY | | [...] | | | | | M/uL | S[facility] | | | | | | MEDICAL | | | | | | CENTER - | | | | | | LABORATORY | | + + + + + + | Hemoglobin | 11.4 (L) | 11.5 - 16.0 | [facility] | | | | | g/dL | [facility] | | | | | | [...] | Lymphocytes | | K/uL | [facility] | | | | | | MEDICAL | | | | | | CENTER - | | | | | | LABORATORY | | + + + + + + | Absolute | 0.36 | 0.00 - 1.00 | [facility] | | | Monocytes | | K/uL | [facility] | | | | | | MEDICAL | | | | | | CENTER - | | | | | | LABORATORY | | + + + + + + | Absolute | 0.11 | 0.00 - 0.40 | [facility] | | | Eosinophils | | K/uL | [facility] | | | | | | MEDICAL | | | | | | CENTER - | | | | | | LABORATORY | | + + + + + + | Absolute | 0.03 | 0.00 - 0.10 | [facility] | | | Basophils | | K/uL | [facility] | | | | [...] | | | | WBCs | [facility] | | | | | | MEDICAL | | | | | | CENTER - | | | | | | LABORATORY | | + + + + + + | Absolute | 0.00 | 0.00 - 0.01 | [facility] | | | nRBC | | K/uL | [facility] | [...] + + | [facility] | [address] | [place] | [phone] | | [facility] | | [address] | | | - LABORATORY | | [...] MD | | | | | | ([id number]) on 02/12/2019 | | | | | [...] | | | + +---------+ + + documented in this encounter Visit Diagnoses + + | Diagnosis | + + | Atypical chest pain - Primary Other chest pain | + + | Acute on chronic systolic congestive heart failure (HCC) Acute on chronic systolic | | heart failure | + + documented in this encounter Administered Medications + +--------+ +-------+------+------+ | Medication Order | MAR | Action | Dose | Rate | Site | | | Action | Date | | | | + +--------+ +-------+------+------+ | furosemide (LASIX) injection 40 | Given | 02/10/20 | 40 mg | | | | mg 40 mg, Intravenous, ONCE, | | 19 15:29 | | | | | 02/09/19 at 1525, For 1 dose | | PDT | | | | + +--------+ +-------+------+------+ +---+---+ | | | +---+---+ documented in this encounter"
--- OUTSIDE RECORDS SUMMARY | ~2019-02-12 | XMS | Encounter Summary ---
Demographics + + + | Address | [address] | | | [place] [address] | + + + | Home Phone [...] | Author | [facility] | | | and [place] | + + + | Organization | [facility] | | | [...] [place] | | | | | [address] | | + + + + + | Julia Aguilar | ECON | Unknown | | + + + + + Care Team Providers + +------+ + | Care Drier Name | Role | Phone | + [...] + + | 02/09/ | Emergency | [facility] | Cate, | Atypical chest pain | | 2019 | | MED CTR EMERGENCY | Bolivar Mohr MD [address] | (Primary Dx); Acute | | | | CENTER [address] | [address] [place] | on chronic systolic | | | | [place] | [place] [address] | congestive heart | | | | [address] | [phone] | failure (HCC) | | | | [phone] | | | +--------+ + + + [...] | | | | | disease of [place] | | | | | | | artery of [place] | | | | | | | heart with stable | | | | | | | angina pectoris | | | | | | | ([facility]), Essential | | | | | | [...] M?MRN: | | | | | | [id number] | | | [id number] | | | riteri | | | [...] | | | St. | | | [place] | | | y | | | [...] | | | St. | | | [place] | | | y | | | [...] | | | St. | | | [place] | | | y H. | | [...] | | | St. | | | [place] | | | y H. | | [...] | | | St. | | | [place] | | | y H. | | [...] | | | St. | | | [place] | | | y H. | | [...] | | | St. | | | [place] | | | y H. | | [...] | | | St. | | | [place] | | | y H. | | [...] | | | St. | | | [place] | | | y H. | | [...] | | | St. | | | [place] | | | y H. | | [...] | | | St. | | | [place] | | | y H. | | [...] | | | n | | | [place] | | | | | | Orthop [...] | | | ent/81 | | | [id number] | | | -[id number]- | | | [...] + | [facility] | [address] | [place] | [phone] | | [facility] | | [address] | | | - LABORATORY | | [...] [address] | [place] | [phone] | | [facility] | | [address] | | | - LABORATORY | | [...] mL/min/1.73m2 | [facility] | | | [place] | RATE,ESTIMATED mL/min | | MEDICAL | | | | /[id number] than 60 | | CENTER - | [...] + | [facility] | [address] | [place] | [phone] | | [facility] | | [address] | | | - LABORATORY | | [...] | | | | | | [employer] | | | | | [...] [address] | [place] | [phone] | | [facility] | | [address] | | | - LABORATORY | | [...] [address] | [place] | [phone] | | [facility] | | [address] | | | - LABORATORY | | [...] MD | | | | | | ([id number]) on 02/12/2019 | | | | | [...]
--- OUTSIDE RECORDS SUMMARY | ~2019-02-12 | XMS | Clinical Summary ---
Demographics + + + | Address | [address] | | | [place] [address] | + + + | Home Phone [...] Author | [facility] | | | and [place] | + + + | Organization | [facility] | | | and [...] [place] | | | | | [address] | | + + + + + | Julia Aguilar | ECON | Unknown | | + + + + + Care Team Providers + +------+ + | Care School Speech Language Pathologist Name | Role | Phone | + [...] | | | | | disease of [place] | | | | | | | | artery of [place] | | | | | | | | heart with stable | | | | | | | | angina pectoris | | | | | | | | ([facility]), Essential | | | | | [...] + + + + | Overview: [facility] 06/14/17: EF 20-25% | + + + [...] + + + | Overview: 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 | | | [place] | | | y | | | [...] | | | St. | | | [place] | | | y | | | [...] | | | St. | | | [place] | | | y H. | | [...] | | | St. | | | [place] | | | y H. | | [...] | | | St. | | | [place] | | | y H. | | [...] | | | St. | | | [place] | | | y H. | | [...] | | | St. | | | [place] | | | y H. | | [...] | | | St. | | | [place] | | | y H. | | [...] | | | St. | | | [place] | | | y H. | | [...] | | | St. | | | [place] | | | y H. | | [...] | | | St. | | | [place] | | | y H. | | [...] | | | n | | | [place] | | | | | | Orthop [...] | | | ent/81 | | | [id number] | | | -[id number] | | | [...] | | | guidel | | | tiaog | | | or for | | [...] [address] | [place] | [phone] | | [facility] | | [address] | | | - LABORATORY | | [...] | | | | | | [employer] | | | | | [...] [address] | [place] | [phone] | | [facility] | | [address] | | | - LABORATORY | | [...] + | [facility] | [address] | [place] | [phone] | | [facility] | | [address] | | | - LABORATORY | | [...] ST. | [address] | [place], [place] | [phone] | | [facility] | | [address] | | | - LABORATORY | | [...] | 56 (L)Comment: | >=[address] | [facility] | | | | GLOMER[facility] FILTR[facility] | mL/min/1.73m2 | Love SUE | | | MACEDONIAN | RATE,ESTIMATED mL/min | | MEDICAL | | | | /1.72h4Zmcn than 60 | | CENTER - | [...] + | [facility] | [address] | [place] | [phone] | | [facility] | | [address] | | | - LABORATORY | | [...] MD | | | | | | ([id number]) on 02/12/2019 | | | | | [...] | [facility] | [facility] | [id number] | 10/23/19 | | | [employer] | [...] | | al/Fam | | 1945 | [phone] | [place] | | | [place] | | | [address] (Home) | [address] | + +--------+ +--------+ + + Advance Directives Patient has advance care planning documents, and code status on file. For more information, please contact:[facility] [address] + + + + + | Code [...] with: | Patient | | | | Pneumatic Jacketer | | + + +---+ | RN or MD to pronounce: | RN may | | | | pronounce | | + + +---+
--- OUTSIDE RECORDS SUMMARY | ~2019-02-12 | XMS | Encounter Summary ---
Demographics + + + | Address | [address] | | | [place] [address] | + + + | Home Phone [...] + | Author | [facility] | | | and [place] | + + + | Organization | [facility] | | | [...] [place] | | | | | [address] | | + + + + + | Julia Aguilar | ECON | Unknown | | + + + + + Care Team Providers + +------+ + | Care Eight Arm Operator Name | Role | Phone | + +------+ + | Carrillo Michel MD | PCP | | + +------+ + Reason for Visit + + + | Reason | Comments | + + + | Hospital Follow-up | | + + + Encounter Details +--------+ + + + + | Date | Type | Department | Care Team | Description | +--------+ + + + + | 11/14/ | Telephone | [facility] | Carrillo Michel, | Hospital Follow-up | | 2019 | | [facility] | [address] | | | | | [address] | [place] | | | | | [place] | [address] | | | | | [address] | | | | | | [phone] | | | +--------+ + + + [...]
--- OUTSIDE RECORDS SUMMARY | ~2019-02-12 | XMS | Encounter Summary ---
Demographics + + + | Address | [address] | | | [place] [address] | + + + | Home Phone | | + + + | Preferred Language | Unknown | + + + | Marital Status | | + + + | Mormon Affiliation | 1077 | + + + | Race | Unknown | + + + | Ethnic Group | Unknown | + + + Author + + + | Author | [facility] | | | and [place] | + + + | Organization | [facility] | | | and [...] [place] | | | | | [address] | | + + + + + | Julia Aguilar | ECON | Unknown | | + + + + + Care Team Providers + +------+ + | Care Senior Data Mining Analyst Name | Role | Phone | + [...] + + | 11/21/ | Telephone | [facility] | Darwin López MD | Dysphagia (EGD | | 2019 | | GASTROENTEROLOGY | [address] | tentatively | | | | [address] | [address] [place] | scheduled for | | | | [address] [place] | [address] | December 18) | | | | [address] | | | | | | [phone] | | | +--------+ + + + [...]
--- OUTSIDE RECORDS SUMMARY | ~2019-02-12 | XMS | Clinical Summary ---
Demographics + + + | Address | [address] | | | [place] [address] | + + + | Home Phone | | + + + | Preferred Language | Unknown | + + + | Marital Status | | + + + | Confucianist Affiliation | Unknown | + + + | Race | Unknown | + + + | Ethnic Group | Unknown | + + + Author + + + | Author | [facility] | + + + | Organization | 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 | | 71yo WF, with dementia, she is here with her . Although | | she does not recall her recent hospitalization, nor her symptoms, | | he admits that she had chest discomfort, was admitted to the [facility] hospital. Cardiac enzymes were mildly abnormal, she was sent to | | [facility], there, she did have a cardiology [...] | | | | | | [place] [address] | | | | | | [phone] | | | | | | | [...] | Rhythm | | | | | [address] | | | | | | | [...] [place] - [facility] | [place] - | [id number] | [employer] | | | | | [...] 05/[birth year]/ | Home: | [address] | | | al/Fam | | 1945 | [phone] [facility] [place] | | | [place] | | | [phone] | [address] | + +--------+ +--------+ + +
--- OUTSIDE RECORDS SUMMARY | ~2019-02-12 | XMS | Encounter Summary ---
Demographics + + + | Address | [address] | | | [place] [address] | + + + | Home Phone | | + + + | Preferred Language | Unknown | + + + | Marital Status | | + + + | Mormon Affiliation | 1077 | + + + | Race | Unknown | + + + | Ethnic Group | Unknown | + + + Author + + + | Author | [facility] | | | and [place] | + + + | Organization | [facility] | | | [...] [place] | | | | | [address] | | + + + + + | Julia Aguilar | ECON | Unknown | | + + + + + Care Team Providers + +------+ + | Care Narcotics Detective Name | Role | Phone | [...] + + | 11/14/ | Telephone | [facility] | Carrillo Michel, | [facility] | | 2019 | | [facility] | [address] | | | | | [address] | [place] | | | | | [place] | [address] | | | | | [address] | | | | | | [phone] | | | +--------+ + + + [...]
--- OUTSIDE RECORDS SUMMARY | 2019-02-12 17:10 | XMS ---
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 Damir VISIT COUNT (12 MO.) 3 Jarad Gray M[facility] 11 ARIAS Bowden TOTAL 14 NOTE: Visits indicate total known visits. ED/UCC VISIT TRACKING (12 MO.) 02/12/2019 17:07 ARIAS Nieves [place] TYPE: Emergency COMPLAINT: - CHEST PAIN [facility] DIAGNOSES: - Other chest pain - Chest Pain - Acute on chronic systolic (congestive) heart failure 12/08/2018 12:56 ARIAS Lopez TYPE: Emergency COMPLAINT: - FALL DIAGNOSES: - Allergy status to penicillin - Other petroleum terminal plant operator (current) drug therapy - Other nonmedicinal substance allergy status - Acquired absence of other specified parts of digestive tract - Fall on same level, unspecified, initial encounter - Alzheimer's disease, unspecified - Other specified fracture of left pubis, initial encounter for closed fracture - Contusion of right knee, initial encounter - Essential (primary) hypertension - Allergy status to sulfonamides status - Acquired absence of both cervix and uterus - Pain in left knee - Presence of cardiac pacemaker 12/07/2018 16:03 ARIAS Lopez TYPE: Emergency COMPLAINT: - FALL DIAGNOSES: - Pelvic and perineal pain - Unspecified fall, initial encounter 11/07/2018 08:32 ARIAS Lopez TYPE: Emergency COMPLAINT: - FLU SYMPTOMS 09/28/2018 12:20 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) drug therapy - Allergy status to [...] Allergy status to sulfonamides status - Other petroleum terminal plant operator (current) drug therapy - Allergy status to other drugs, medicaments and biological substances status - Abnormal uterine and vaginal bleeding, unspecified 07/20/2018 19:36 ARIAS Lopez TYPE: Emergency COMPLAINT: - VAGINAL BLEEDING DIAGNOSES: - Other intermediate (current) drug therapy - Allergy status to sulfonamides status - Essential (primary) hypertension - Gastrointestinal hemorrhage, unspecified - Allergy status to penicillin - Allergy status to other drugs, medicaments and biological substances status - Abnormal uterine and vaginal bleeding, unspecified 04/18/2018 16:19 [facility] DIAGNOSES: - Acute [...] Allergy status to sulfonamides status - Other petroleum terminal plant operator (current) drug therapy - Chest pain, unspecified - [facility] (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 - Alzheimer's disease, unspecified - Dementia in other diseases classified elsewhere without behavioral disturbance 03/23/2018 19:31 ARIAS Nieves [place] TYPE: Emergency COMPLAINT: - RASH DIAGNOSES: - adjunct faculty for medical terminology (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 - Rash and other nonspecific skin eruption - Other allergy status, other than to drugs and biological substances - Essential (primary) hypertension - Other petroleum terminal plant operator (current) drug therapy - Unspecified contact dermatitis, unspecified cause - Allergy status to penicillin - Allergy status to sulfonamides status 02/22/2018 20:31 ARIAS Nieves [place] TYPE: Emergency COMPLAINT: - SOB,CHEST PAIN DIAGNOSES: - Chest pain, unspecified - Allergy status to other drugs, medicaments and biological substances status - Allergy status to penicillin - Other petroleum terminal plant operator (current) drug therapy - Alzheimer's disease, unspecified - Essential (primary) hypertension - Urinary tract infection, site not specified - Allergy status to sulfonamides status - Personal history of nicotine dependence - adjunct faculty for medical terminology (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 INPATIENT VISIT TRACKING (12 MO.) 11/07/2018 08:33 ARIAS Nieves [place] TYPE: Medical Surgical COMPLAINT: - HYPOXIA DIAGNOSES: - Weakness - Erythematous condition, unspecified - Hypertensive heart disease with heart failure - Do not resuscitate - Chronic atrial fibrillation - Allergy status to sulfonamides status - Other intermediate (current) drug therapy - Dementia in other diseases classified elsewhere without behavioral disturbance - Alzheimer's disease, unspecified - Chronic systolic (congestive) heart failure - Chronic passive congestion of liver - Hypothyroidism, unspecified - Noninfective gastroenteritis and colitis, unspecified - Hypoxemia - Allergy status to other drugs, medicaments and biological substances status - Allergy status to penicillin - Presence of cardiac pacemaker [facility]2018 [facility] DIAGNOSES: - [...] - Other acute kidney failure 04/18/2018 16:19 [facility] DIAGNOSES: - [...] - Acute gastritis without bleeding - Other petroleum terminal plant operator (current) drug therapy - adjunct faculty for medical terminology (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 - Chronic systolic [...] fibrillation - Hypokalemia - History of falling [email or web address]
--- NOTE | 2019-02-12 21:39 | EKG ---
[facility] [address] [place] [address] Signed Atrial fibrillation Low voltage QRS Anterolateral infarct , age undetermined Abnormal ECG When compared with ECG of 12-APR-2018 10:27, Sinus rhythm is now with AV dissociation Vent. rate has increased BY 12 BPM Confirmed by NAZARIO BONILLA MD ([id number]) on 02/12/2019 9:39:06 PM Electronically Signed By: NAZARIO BONILLA MD 02/12/19 2139 PATIENT NAME: LAILA ELLISON Electrocardiogram DATE OF : 41 PHYSICIAN: NAZARIO BONILLA MD REPORT #: [id number] REPORT IS CONFIDENTIAL AND NOT TO BE RELEASED WITHOUT AUTHORIZATION
== END 2019-02-12 19:47 | disposition home or self-care (01) ==
LOC: ED 17:06
PROC: 0T9B70Z Drainage of Bladder with Drainage Device, Via Natural or Artificial Opening (ICD-10-PCS; principal; 2019-02-12)
DX: I11.0 Hypertensive heart disease with heart failure (principal); I50.9 Heart failure, unspecified; Z95.0 Presence of cardiac pacemaker; Z90.49 Acquired absence of other specified parts of digestive tract; G30.9 Alzheimer's disease, unspecified; Z90.710 Acquired absence of both cervix and uterus; Z88.0 Allergy status to penicillin; Z88.2 Allergy status to sulfonamides; Z91.048 Other nonmedicinal substance allergy status; Z79.899 Other long term (current) drug therapy
CPT/HCPCS: 51701; 70450; 71045; 80053; 81001; 83880; 84484; 85025; 93005; 93010; 99285-25

== ENCOUNTER 2019-04-08 15:50 | Emergency (ER) | payer MEDICARE, OTHER ==
[~2019-04-08] VITALS: Ht 160 cm; Wt 46.8 kg
--- OUTSIDE RECORDS SUMMARY | 2019-04-08 15:52 | XMS ---
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 Other Current Orthopedic Surgery \T\ Fracture Clinic PHONE: Unknown Stacey has no Care Guidelines for this patient. Damir VISIT COUNT (12 MO.) 3 [facility] 10 ARIAS Bowden TOTAL 13 NOTE: Visits indicate total known visits. ED/UCC VISIT TRACKING (12 MO.) 04/08/2019 15:50 ARIAS Lopez TYPE: Emergency COMPLAINT: - DIFFICULTY BREATHING 02/12/2019 17:07 ARIAS Lopez TYPE: Emergency COMPLAINT: - CHEST PAIN DIAGNOSES: - Acquired absence of both cervix and uterus - Heart failure, unspecified - Presence of cardiac pacemaker - Precordial pain - Acquired absence of other specified parts of digestive tract - Allergy status to penicillin - Hypertensive heart disease with heart failure - Other nonmedicinal substance allergy status - Alzheimer's disease, unspecified - Other senior living (current) drug therapy - Allergy status to sulfonamides status 02/09/2019 14:26 [facility] Sue ARAMBULA TYPE: Emergency DIAGNOSES: - Other chest pain - Chest Pain - Acute on chronic systolic (congestive) heart failure 12/08/2018 12:56 ARIAS Nievse [place] TYPE: Emergency COMPLAINT: - FALL DIAGNOSES: - Allergy status to penicillin - Other senior living (current) drug therapy - Other nonmedicinal substance [...] Unspecified fall, initial encounter 11/07/2018 08:32 ARIAS Nieves [place] TYPE: Emergency COMPLAINT: - FLU SYMPTOMS 09/28/2018 12:20 [facility] Sue [facility] TYPE: Emergency DIAGNOSES: - Poss [...] injury of head, initial encounter - Other long term care social worker (current) drug therapy - Allergy status to [...] Allergy status to sulfonamides status - Other senior living (current) drug therapy - Allergy status to other drugs, medicaments and biological substances status - Abnormal uterine and vaginal bleeding, unspecified 07/20/2018 19:36 ARIAS Nieves [place] TYPE: Emergency COMPLAINT: - VAGINAL BLEEDING DIAGNOSES: - Other senior living (current) drug therapy - Allergy status to sulfonamides status - Essential (primary) hypertension - Gastrointestinal hemorrhage, unspecified - Allergy status to penicillin - Allergy status to other drugs, medicaments and biological substances status - Abnormal uterine and vaginal bleeding, unspecified 04/18/2018 16:19 [facility] Sharyn ARAM[place]UL[facility] TYPE: Emergency DIAGNOSES: - Acute [...] Allergy status to sulfonamides status - Other senior living (current) drug therapy - Chest pain, unspecified - long term care social worker (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 - Alzheimer's disease, unspecified - Dementia in other diseases classified elsewhere without behavioral disturbance INPATIENT VISIT TRACKING (12 MO.) 11/07/2018 08:33 ARIAS Lopez TYPE: Observation COMPLAINT: - HYPOXIA DIAGNOSES: - Weakness - Erythematous condition, unspecified - Hypertensive heart disease with heart failure - Do not resuscitate - Chronic atrial fibrillation - Allergy status to sulfonamides status - Other senior living (current) drug therapy - Dementia in other diseases classified elsewhere without behavioral disturbance - Alzheimer's disease, unspecified - Chronic systolic (congestive) heart failure - Chronic passive congestion of liver - Hypothyroidism, unspecified - Noninfective gastroenteritis and colitis, unspecified - Hypoxemia - Allergy status to other drugs, medicaments and biological substances status - Allergy status to penicillin - Presence of cardiac pacemaker 09/28/2018 12:20 [facility] Sharyn ARAM[facility]ULA TYPE: Medical Surgical DIAGNOSES: - Acute [...] - Other acute kidney failure [facility] DIAGNOSES: - [...] - Acute gastritis without bleeding - Other senior living (current) drug therapy - penitentiary (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 - Chronic systolic [...] fibrillation - Hypokalemia - History of falling [email or web address]
--- NOTE | 2019-04-09 16:09 | EKG ---
[facility] [address] [facility] [place] [address] Signed Atrial fibrillation Right axis deviation Incomplete right bundle branch block Possible Right ventricular hypertrophy Cannot rule out Anteroseptal infarct (cited on or before 12-FEB-2019) Abnormal ECG When compared with ECG of 12-FEB-2019 17:15, Incomplete right bundle branch block is now present Confirmed by SEBASTIAN HUNTER DO ([id number]) on 04/09/2019 4:08:54 PM Electronically Signed By: SEBASTIAN HUNTER DO 04/09/19 1609 PATIENT NAME: LAILA ELLISON Electrocardiogram DATE OF : 41 PHYSICIAN: SEBASTIAN HUNTER DO REPORT #: [id number] REPORT IS CONFIDENTIAL AND NOT TO BE RELEASED WITHOUT AUTHORIZATION
--- NOTE | 2019-04-09 16:11 | EKG ---
[facility] [address] [place] [address] Signed Suspect arm lead reversal, interpretation assumes no reversal Ventricular-paced rhythm Low voltage QRS Septal infarct (cited on or before 12-FEB-2019) Lateral infarct (cited on or before 12-FEB-2019) Abnormal ECG When compared with ECG of 08-APR-2019 16:10, (Unconfirmed) Current undetermined rhythm precludes rhythm comparison, needs review Confirmed by SEBASTIAN HUNTER DO ([id number]) on 04/09/2019 4:11:12 PM Electronically Signed By: SEBASTIAN HUNTER DO 04/09/19 1611 PATIENT NAME: LAILA ELLISON Electrocardiogram DATE OF : 41 PHYSICIAN: SEBASTIAN HUNTER DO REPORT #: [id number] REPORT IS CONFIDENTIAL AND NOT TO BE RELEASED WITHOUT AUTHORIZATION
== END 2019-04-08 19:17 | disposition home or self-care (01) ==
LOC: ED 15:50
DX: I11.0 Hypertensive heart disease with heart failure (principal); I50.9 Heart failure, unspecified; R06.02 Shortness of breath; Z95.0 Presence of cardiac pacemaker; Z87.891 Personal history of nicotine dependence; Z90.49 Acquired absence of other specified parts of digestive tract; Z90.710 Acquired absence of both cervix and uterus; Z88.0 Allergy status to penicillin; Z88.2 Allergy status to sulfonamides; Z91.048 Other nonmedicinal substance allergy status; Z79.899 Other long term (current) drug therapy
CPT/HCPCS: 71045; 80053; 81001; 83735; 83880; 84484; 85025; 87077; 87088; 87186; 93005; 93010; 99285-25